=== PATIENT | male | born 1965 | race Caucasian/White ===

== ENCOUNTER 2019-09-10 11:34 | Emergency (ER) | payer SELFPAY ==
[2019-09-10] VITALS (7 sets, daily range): BP systolic 162–212; BP diastolic 88–109; PULSE 82–105; RESP 17–20; TEMP 37.1; O2SAT 94–99
--- NOTE | 2019-09-10 11:51 | ECG_ITS ---
Measurements Intervals [place] Rate: 82 P: 16 TN: 132 QRS: 17 QRSD: 94 T: 63 QT: 373 QTc: 436 SINUS RHYTHM NONSPECIFIC T-WAVE ABNORMALITY No previous ECG available for comparison Electronically Signed On 09-10-2019 18:12:06 CDT by Rachel Dong M.D. [email or web address]
[2019-09-10 12:06] LABS: Basophils % 0.4 %; Eosinophils # 0.1 10^3/uL (0.0-0.8); Hematocrit 50.2 % (42.0-52.0); Hemoglobin 17.2 g/dL (11.7-16.6); Lymphocytes # 1.9 10^3/uL (0.8-4.8); Lymphocytes % 38.8 %; Mean Corpuscular HGB Conc 34.3 g/dL (30.0-36.0); Mean Corpuscular Hemoglobin 30.4 pg (28.0-34.0); Mean Corpuscular Volume 88.8 fL (80-94); Mean Platelet Volume 8.4 fL (7.4-10.4); Monocytes # 0.3 10^3/uL (0.2-0.9); Monocytes % 5.6 %; Neutrophils # 2.6 10^3/uL (1.8-7.7); Neutrophils % 53.8 %; Nucleated Red Blood Cells % 0 %; Platelet Count 181 10^3/cmm (130-400); Red Blood Count 5.65 10^6/uL (4.1-5.3); Red Cell Distribution Width 12.9 % (12.1-15.1); White Blood Count 4.8 10^3/uL (4.0-10.0)
--- NOTE | 2019-09-10 12:15 | W.ED.CHESTPA ---
HPI - Chest Pain General: Chief Complaint: Chest Pain Stated Complaint: CHEST PAIN WITH BACK PAIN Time Seen by Provider: 09/10/19 11:51 History of Present Illness: HPI narrative: Pt states he woke up at 8am and then at 9 whil he was sitting drinking coffee he started having chest pain. Mid sternal, he states for the past several days he has had severe pain between his shoulder blades and he has been drinking about 12 pack beer daily to deal with the pain. states nothing makes it worse or better. Went to pcp and they sent him here because his bp was 200/something complaint: chest pain and chest heaviness Onset (ago): hour(s) (3) Timing of current episode: constant Prior episodes: No Onset: during rest Pain location: substernal Pain radiation: back Severity: severe Pain scale (0-10): 8 Quality: tightness, heaviness and fullness Relieving factors: nothing Exacerbating factors: nothing Associated symptoms: Reports dyspnea and nausea; Deny fever(s), syncope or vomiting Treatment prior to arrival: none Review of Systems General: Reports: 10 or more systems reviewed and unremarkable except in HPI and below Const: Denies: fever, chills or fatigue ENMT: Denies: throat pain Card: Reports: chest pain; Denies: syncope or shortness of breath on exertion Resp: Reports: shortness of breath and productive cough; Denies: wheezing GI: Reports: nausea; Denies: vomiting Musc: Denies: back pain or extremity swelling Skin/Breast: Denies: rash Neuro: Denies: headache, numbness in extremities or weakness in extremities Psych: Reports: anxiety PFSH ED PFSH: Medical History (Updated 09/10/19 @ 14:50 by Marisel Elena DO) Diabetes Social History Smoking and tobacco status: current every day smoker Physical Exam Const: COMMON NORMALS: no apparent distress and oriented x3 GENERAL APPEARANCE: cooperative; not in distress HENMT: COMMON NORMALS: normocephalic HEAD & SCALP: normal to inspection and normocephalic MOUTH: oral and palatal mucosa normal and lip normal THROAT: posterior oropharynx normal and tonsils normal Neck/C-Spine: COMMON NORMALS: full ROM, no lymphadenopathy, supple and no meningeal signs GENERAL: Yes normal visual inspection and Yes trachea midline Chest: COMMONS NORMALS: inspection of chest normal Resp: COMMON NORMALS: normal respiratory effort and clear to auscultation bilaterally EFFORT & INSPECTION: Yes able to speak in complete sentences and No respiratory distress AUSCULTATION: clear to auscultation bilaterally, no rales, no rhonchi and no wheezes Cardio: COMMON NORMALS: regular rate, regular rhythm, S1 normal heart sound, S2 normal heart sound and no murmurs RATE: regular rate RHYTHM: regular rhythm HEART SOUNDS: S1 normal and S2 normal PERIPHERAL PULSES: radial pulses present and dorsalis pedis pulses present GI: COMMON NORMALS: normal to inspection, nondistended, normoactive bowel sounds, soft to palpation and non-tender INSPECTION: Yes normal to inspection AUSCULTATION: Yes normoactive bowel sounds PALPATION: Yes soft, No tender, No guarding and No rigid RECTAL EXAM: Yes deferred : COMMON NORMALS: Yes no CVA tenderness BLADDER/KIDNEY EXAM: Yes no CVA tenderness Back/Pelvis: COMMON NORMALS: no CVA tenderness Extremity: COMMON NORMALS: normal to inspection, full ROM, normal capillary refill, no calf tenderness and no pedal edema Neuro: COMMON NORMALS: oriented x3, CN's II-XII intact bilaterally, moves all extremities and no focal motor deficits MENINGEAL SIGNS: Yes no meningeal signs Skin: COMMON NORMALS: no rashes or lesions noted GENERAL SKIN EXAM: no rashes or lesions noted Course Vital Signs: Vital signs: Vital Signs Temperature 98.7 F 09/10/19 11:37 Pulse Rate 87 09/10/19 16:05 Respiratory Rate 17 09/10/19 16:05 Blood Pressure 174/99 09/10/19 16:05 Pulse Oximetry 98 09/10/19 16:05 MDM - Chest Pain MDM Narrative: Medical decision making narrative: Pts first troponin is negative, he is a diabetic and his glucose is too high at 245. His heart score is 3, if his 2nd trop is unremarkable I will send him home to get set up with outpt stress test. He will need to monitor his sugars carefully, I will send him home to monitor his bp daily and write it down and show it to his pcp for further eval and treatment. Pt understands and will f/u I will start him on levaquin as he describes symptoms that could be consistent with bronchitis Lab Data: Attestation: I reviewed the patient's lab results. Labs: Lab Results 09/10/19 09/10/19 09/10/19 Range/Units 11:48 11:48 11:48 WBC 4.8 (4.0-10.0) 10^3/ uL RBC 5.65 H (4.1-5.3) 10^6/u L Hgb 17.2 H (11.7-16.6) g/dL Hct 50.2 (42.0-52.0) % MCV 88.8 (80-94) fL MCH 30.4 (28.0-34.0) pg MCHC 34.3 (30.0-36.0) g/dL RDW 12.9 (12.1-15.1) % Plt Count 181 (130-400) 10^3/c mm MPV 8.4 (7.4-10.4) fL Neut % (Auto) 53.8 % Lymph % (Auto) 38.8 % [place] % (Auto) 5.6 % Eos % (Auto) 1.0 % Baso % (Auto) 0.4 % Neut # (Auto) 2.6 (1.8-7.7) 10^3/u L Lymph # (Auto) 1.9 (0.8-4.8) 10^3/u L [place] # (Auto) 0.3 (0.2-0.9) 10^3/u L Eos # (Auto) 0.1 (0.0-0.8) 10^3/u L Baso # (Auto) 0.0 (0.0-0.1) 10^3/u L Nucleated RBC % (a uto) 0 % Nucleated RBCs # 0.0 /100WBC D-Dimer (0-0.59) ug/mIFE U Sodium 139 (136-145) mmol/L Potassium 3.7 (3.5-5.1) mmol/L Chloride 97 L (98-107) mmol/L Carbon Dioxide 28 (22-29) mmol/L Anion Gap 17.7 (5-19) BUN 9 (6-20) mg/dL Creatinine 0.8 (0.7-1.2) mg/dL GFR Calculation 100.4 (90-130) mL/min Glucose 245 H (65-115) mg/dL Calculated Osmolal ity 292 (285-295) mOsm/k g Calcium 9.9 (8.5-10.5) mg/dL Total Bilirubin 0.7 (0.15-1.2) mg/dL AST 20 (0-40) U/L ALT 24 (0-41) U/L Alkaline Phosphata se 99 (40-130) IU/L Troponin T Baselin e 14 (0-15) ng/mL Troponin T 120 Min [place] (0-15) ng/mL Delta Troponin T (0-10) ABS# Total Protein 8.2 (6.6-8.7) g/dL Albumin 5.1 (3.5-5.2) g/dL Globulin 3.1 (1.3-4.6) g/dL Ethyl Alcohol (0-10) mg/dL Influenza Type A A g (Negative) Influenza Type B A g (Negative) 09/10/19 09/10/19 09/10/19 Range/Units 11:48 11:48 12:35 WBC (4.0-10.0) 10^3/ uL RBC (4.1-5.3) 10^6/u L Hgb (11.7-16.6) g/dL Hct (42.0-52.0) % MCV (80-94) fL MCH (28.0-34.0) pg MCHC (30.0-36.0) g/dL RDW (12.1-15.1) % Plt Count (130-400) 10^3/c mm MPV (7.4-10.4) fL Neut % (Auto) % Lymph % (Auto) % [place] % (Auto) % Eos % (Auto) % Baso % (Auto) % Neut # (Auto) (1.8-7.7) 10^3/u L Lymph # (Auto) (0.8-4.8) 10^3/u L [place] # (Auto) (0.2-0.9) 10^3/u L Eos # (Auto) (0.0-0.8) 10^3/u L Baso # (Auto) (0.0-0.1) 10^3/u L Nucleated RBC % (a uto) % Nucleated RBCs # /100WBC D-Dimer 0.24 (0-0.59) ug/mIFE U Sodium (136-145) mmol/L Potassium (3.5-5.1) mmol/L Chloride (98-107) mmol/L Carbon Dioxide (22-29) mmol/L Anion Gap (5-19) BUN (6-20) mg/dL Creatinine (0.7-1.2) mg/dL GFR Calculation (90-130) mL/min Glucose (65-115) mg/dL Calculated Osmolal ity (285-295) mOsm/k g Calcium (8.5-10.5) mg/dL Total Bilirubin (0.15-1.2) mg/dL AST (0-40) U/L ALT (0-41) U/L Alkaline Phosphata se (40-130) IU/L Troponin T Baselin e (0-15) ng/mL Troponin T 120 Min [place] (0-15) ng/mL Delta Troponin T (0-10) ABS# Total Protein (6.6-8.7) g/dL Albumin (3.5-5.2) g/dL Globulin (1.3-4.6) g/dL Ethyl Alcohol < 10 (0-10) mg/dL Influenza Type A A g Negative (Negative) Influenza Type B A g Negative (Negative) 09/10/19 Range/Units 13:51 WBC (4.0-10.0) 10^3/ uL RBC (4.1-5.3) 10^6/u L Hgb (11.7-16.6) g/dL Hct (42.0-52.0) % MCV (80-94) fL MCH (28.0-34.0) pg MCHC (30.0-36.0) g/dL RDW (12.1-15.1) % Plt Count (130-400) 10^3/c mm MPV (7.4-10.4) fL Neut % (Auto) % Lymph % (Auto) % [place] % (Auto) % Eos % (Auto) % Baso % (Auto) % Neut # (Auto) (1.8-7.7) 10^3/u L Lymph # (Auto) (0.8-4.8) 10^3/u L [place] # (Auto) (0.2-0.9) 10^3/u L Eos # (Auto) (0.0-0.8) 10^3/u L Baso # (Auto) (0.0-0.1) 10^3/u L Nucleated RBC % (a uto) % Nucleated RBCs # /100WBC D-Dimer (0-0.59) ug/mIFE U Sodium (136-145) mmol/L Potassium (3.5-5.1) mmol/L Chloride (98-107) mmol/L Carbon Dioxide (22-29) mmol/L Anion Gap (5-19) BUN (6-20) mg/dL Creatinine (0.7-1.2) mg/dL GFR Calculation (90-130) mL/min Glucose (65-115) mg/dL Calculated Osmolal ity (285-295) mOsm/k g Calcium (8.5-10.5) mg/dL Total Bilirubin (0.15-1.2) mg/dL AST (0-40) U/L ALT (0-41) U/L Alkaline Phosphata se (40-130) IU/L Troponin T Baselin e (0-15) ng/mL Troponin T 120 Min [place] 14.89 (0-15) ng/mL Delta Troponin T 0.89 (0-10) ABS# Total Protein (6.6-8.7) g/dL Albumin (3.5-5.2) g/dL Globulin (1.3-4.6) g/dL Ethyl Alcohol (0-10) mg/dL Influenza Type A A g (Negative) Influenza Type B A g (Negative) Imaging Data^: CXR: Attestation: I personally reviewed and interpreted this imaging study as follows: My impression: nad Radiologist's impression: XRay Report Signed Patient: Roland Butts #: [id number] : 1965Acct#:[id number] Age/Sex: 54 / MADM Date: 09/10/19 Loc: ERRoom/Bed: Attending Dr: Ordering Provider/Ordering MD: Marisel Elena DO Date of Service: 09/10/19 Procedure(s): XR chest 1V portable [id number] Accession Number(s): [id number] Report Number: [id number] WS: [id number] CHEST XRAY TECHNIQUE: Portable chest. CLINICAL INFORMATION: pneumonia COMPARISON: August 17, 2011 FINDINGS: Heart: Normal cardiac silhouette. Lungs: Lungs are clear. No consolidation or pleural effusion. Bones: Normal visualized bony structures. 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 insulin use: without usp use Diabetes mellitus complication status: with hyperglycemia Qualified Code(s): E11.65 - Type 2 diabetes mellitus with hyperglycemia Chest pain Qualifiers: Chest pain type: precordial pain Qualified Code(s): R07.2 - Precordial pain Condition: Stable Prescriptions: New Levaquin 750 mg tablet 750 mg PO DAILY 7 Days Qty: 7 RF: 0 prednisone 20 mg tablet 60 mg PO DAILY 3 Days Qty: 9 RF: 0 No Action metformin 500 mg tablet 500 mg PO BID RF: 0 amlodipine 10 mg tablet 10 mg PO DAILY RF: 0 hydrochlorothiazide 25 mg tablet 25 mg PO DAILY RF: 0 rosuvastatin 20 mg tablet 20 mg PO DAILY RF: 0 Discharge Orders: Discharge Order (Routine); Ordered 09/10/19 Ordered By: Marisel Elena Referrals: Kelvin Lima MD [Primary Care Provider] - Discharge Diet: Diabetic Discharge Activity: Resume usual activity Patient Instructions: Chest Pain (ED), Acute Bronchitis (ED) Activity Restrictions/Additional Instructions: f/u with PCP in 1-2 days, return if worse, any problem, any change. Take your meds as prescribed. Drink plenty of fluids. check your sugars carefully and maintain a diabetic diet. Pt will get stress test set up as well thru case management Discharge Date/Time: 09/10/19 16:08 Coding Level of Care Code ED Idea Worker for Chg Fwd Exam Comprehensive
[2019-09-10 12:18] LABS: Troponin(5th) Baseline 14 ng/mL (0-15)
[2019-09-10 12:19] LABS: Alanine Aminotransferase 24 U/L (0-41); Albumin Level 5.1 g/dL (3.5-5.2); Alkaline Phosphatase 99 IU/L (40-130); Anion Gap 17.7 (5-19); Aspartate Amino Transferase 20 U/L (0-40); Blood Urea Nitrogen 9 mg/dL (6-20); Calcium 9.9 mg/dL (8.5-10.5); Carbon Dioxide 28 mmol/L (22-29); Chloride 97 mmol/L (98-107); Globulin 3.1 g/dL (1.3-4.6); Glomerular Filtration Rate 100.4 mL/min (90-130); Glucose 245 mg/dL (65-115); Osmolality Calculated 292 mOsm/kg (285-295); Potassium 3.7 mmol/L (3.5-5.1); Sodium 139 mmol/L (136-145); Total Bilirubin 0.7 mg/dL (0.15-1.2); Total Protein 8.2 g/dL (6.6-8.7)
--- NOTE | 2019-09-10 12:23 | XR_ITS ---
WS: [id number] CHEST XRAY TECHNIQUE: Portable chest. CLINICAL INFORMATION: pneumonia COMPARISON: August 17, 2011 FINDINGS: Heart: Normal cardiac silhouette. Lungs: Lungs are clear. No consolidation or pleural effusion. Bones: Normal visualized bony structures. XR/XR chest 1V portable [id number] IMPRESSION: Normal chest
[2019-09-10] MEDS: aspirin 325 mg Tablet PO (12:31)
[2019-09-10] MEDS: nitroglycerin 0.4 mg sublingual Tablet SUBLINGUAL (12:31)
[2019-09-10 13:05] LABS: Influenza A by IFA Negative (Negative); Influenza B by IFA Negative (Negative)
[2019-09-10 13:09] LABS: Alcohol Level < 10 mg/dL (0-10); D Dimer 0.24 ug/mIFEU (0-0.59)
--- NOTE | 2019-09-10 13:54 | PC.NURSE ---
2nd troponin drawn and taken to lab
[2019-09-10 14:35] LABS: Troponin 5 2HR 14.89 ng/mL (0-15); Troponin 5 2HR Delta 0.89 ABS# (0-10)
--- NOTE | 2019-09-10 15:21 | DCPLANNER ---
technical product manager had message to speak with patient about getting a primary care physician. Patient stated that he does not have insurance at this time, case management social worker gave patient both of the nonprofit financial controller applications for the hospital to fill out and turn in. technical product manager spoke with patient about getting established with a primary care physician. technical product manager spoke with patient about getting established with Dr. Harper that is with [facility], the nonprofit financial controller would work this physician. Patient stated that case management social worker could set patient up with Dr. Harper. technical product manager also had an order for a stress test for patient, and he stated that he would like the stress test to be ordered. technical product manager will fax order to centralized scheduling, and will have results sent to Dr. Harper. technical product manager will schedule a follow up appointment for patient with Dr. Harper for after the stress test.
[2019-09-10] MEDS: HYDROcodone-acetaminophen 7.5-325 mg Tablet 1 TAB PO (16:01)
--- NOTE | 2019-09-10 17:51 | ECG_ITS ---
Measurements Intervals [place] Rate: 101 P: 58 [place]: 132 QRS: 7 QRSD: 94 T: 75 QT: 373 QTc: [address] & T-WAVE ABNORMALITY ABNORMAL RHYTHM ECG No previous ECG available for comparison Electronically Signed On 09-10-2019 18:18:21 CDT by Rachel Dong M.D. [id number]
--- NOTE | 2019-09-12 09:35 | DCPLANNER ---
government contracts manager called centralized scheduling, a stress test is scheduled for Friday, September 20, 2019 at 8:00. government contracts manager then called the office of Dr. Harper, spoke with Bhakti, a follow up appointment is scheduled for September at 2:[address] Harper. government contracts manager called patient and informed patient of the scheduled appointments. Patient stated that he would attend the appointments.
--- NOTE | 2019-10-01 13:51 | DCPLANNER ---
Patient attended stress test scheduled for 09.20.19 and follow up appointment with Dr. Harper scheduled for 09.26.19.
== END 2019-09-10 16:08 | disposition home or self-care (01) ==
PROVIDERS: Family Medicine; Emergency Provider Emergency Medicine; Family Provider Family Medicine; PCP Family Medicine
DX: J40 Bronchitis, not specified as acute or chronic (principal); E11.65 Type 2 diabetes mellitus with hyperglycemia; Z79.84 Long term (current) use of oral hypoglycemic drugs; R07.2 Precordial pain; F17.210 Nicotine dependence, cigarettes, uncomplicated
CPT/HCPCS: 12345; 36415; 71045; 80053; 80307; 84484; 85025; 85378; 87804; 93005; 99283; 99284

== ENCOUNTER 2019-09-20 08:21 | Outpatient (CLI) | payer SELFPAY ==
[2019-09-20 08:51] VITALS: BMI 30.7
--- NOTE | 2019-09-20 08:56 | ECG_ITS ---
NAME OF STUDY: LEXISCAN SESTAMIBI STRESS TEST INDICATION: Chest Pain, NOTE: Please note that this is the electrocardiogram portion of the Lexiscan/Sestamibi stress test. The perfusion scan will be documented separately. DATA: Baseline heart rate was 88 beats per minute. Baseline blood pressure was 192/96 millimeters of mercury. Target heart rate was 165. Maximum heart rate achieved was 111. which was 67 % of the predicted target heart rate. Maximum blood pressure was 190-110 millimeters of mercury. The reason for ending the test was completion of the protocol. The patient experienced shortness of breath which was then resolved at the end of the test. ELECTROCARDIOGRAM: BASELINE: Sinus rhythm. Normal axis. Otherwise, no ST-T changes suggestive of ischemia noted. No arrhythmia noted. EXERCISE: After Lexiscan injection, no ST-T changes suggestive of ischemic noted. No arrhythmia noted. 1. EKG not suggestive of ischemia 2. Lexiscan injection unremarkable. 3. Perfusion scan will be documented separately. Electronically Signed On 09-20-2019 20:45:18 CDT by Anna Garza M.D. [id number]
--- NOTE | 2019-09-20 08:57 | NMCV_ITS ---
NM jesse perf SPECT r/s* [id number] Roland Butts Age: 54 Gender: M : 1965 Exam Date: 09/20/2019 09:05 Ordering Phys: Marisel Elena DO Technologist: DEMETRI Lewis Exam Location: [facility] Indications: CHEST PAIN WITH BACK PAIN STRESS TEST Please see separate stress test report in [facility] for full findings IMAGE PROTOCOL Rest/Stress 1 Lexiscan Day Radiopharmaceutical Dose (mCi) Administration Site Administered by Rest: Tc-99m 10.6 IV Ofelia Dimas, DEMETRI Sestamibi Stress:Tc-99m 32.9 IV Ofelia Dimas, [employer] Sestamibi Rest: 20-Sep-2019 60 Discovery 630 Stress: 20-Sep-2019 30 Discovery 630 0.4mg Lexiscan. Images obtained in supine and prone position. SPECT RESULTS Technical Quality: Excellent Raw Data Analysis: Normal Image Corrections: No attenuation or motion correction applied Summed Stress Score: 0 Summed Rest Score: 0 Summed Difference Score: 0 PERFUSION FINDINGS Medium-size area of decreased tracer uptake noted in basal to mid inferior and inferolateral wall on the rest images which improved over stress images suggestive of artifact. FUNCTIONAL RESULTS (calculated via Gated SPECT) Stress Image LV EF (%): 51 Stress EDV (mL):129 TID: 0.96 Stress ESV (mL):63 Rest Image LV EF (%): 55 FUNCTIONAL FINDINGS: There is normal left ventricular systolic function. IMPRESSIONS Myocardial perfusion imaging is normal and low probability for obstructive coronary artery disease. EKG segment will be documented separately. Anna Garza MD (Electronically Signed) Final Date: 20 Sep 2019 14:29 S
--- NOTE | 2019-09-20 09:56 | SUR.PREOP ---
Patient reports no pain or discomfort prior to the start of the procedure.
[2019-09-20] MEDS: regadenoson 0.4 Mg/5 ml Syringe IVP (09:57)
[2019-09-20 10:00] VITALS: BP 178/91; PULSE 100
== END 2019-09-20 08:22 | disposition home or self-care (01) ==
PROVIDERS: Family Provider Family Medicine; Visit Provider Emergency Medicine
DX: R07.9 Chest pain, unspecified (principal)
CPT/HCPCS: 78452; 93017; A9500; J2785

== ENCOUNTER → 2019-10-28 13:35 | Outpatient (BNVA) | payer SELFPAY | PROVIDERS: Family Provider Family Medicine; PCP Family Medicine; Visit Provider Family Medicine | DX: I10 Essential (primary) hypertension (principal); E11.9 Type 2 diabetes mellitus without complications; F17.219 Nicotine dependence, cigarettes, with unspecified nicotine-induced disorders | CPT/HCPCS: 80048 ==

== ENCOUNTER → 2019-12-30 09:34 | Outpatient (BNVA) | payer SELFPAY | PROVIDERS: Family Provider Family Medicine; PCP Family Medicine; Visit Provider Family Medicine | DX: I10 Essential (primary) hypertension (principal); E11.9 Type 2 diabetes mellitus without complications; E78.5 Hyperlipidemia, unspecified; F17.219 Nicotine dependence, cigarettes, with unspecified nicotine-induced disorders | CPT/HCPCS: 80053; 80061; 82043; 83036 ==

== ENCOUNTER → 2020-01-30 08:54 | Outpatient (BNVA) | payer SELFPAY | PROVIDERS: Family Provider Family Medicine; PCP Family Medicine; Visit Provider Family Medicine | DX: E11.9 Type 2 diabetes mellitus without complications (principal); R68.82 Decreased libido | CPT/HCPCS: 80053; 84403 ==

== ENCOUNTER → 2020-03-02 10:45 | Outpatient (BNVA) | payer SELFPAY | PROVIDERS: Family Provider Family Medicine; PCP Family Medicine; Visit Provider Family Medicine | DX: I10 Essential (primary) hypertension (principal); E11.9 Type 2 diabetes mellitus without complications; E78.2 Mixed hyperlipidemia; F17.219 Nicotine dependence, cigarettes, with unspecified nicotine-induced disorders | CPT/HCPCS: 80048 ==

== ENCOUNTER 2020-04-21 20:00 | Outpatient (CLI) | payer SELFPAY | END 2020-04-21 20:01 | disposition home or self-care (01) | LOC: SLEEP 04-22 11:17 | PROVIDERS: Family Provider Family Medicine; PCP Family Medicine; Visit Provider Internal Medicine Cardiovascular Disease | DX: G47.33 Obstructive sleep apnea (adult) (pediatric) (principal) | CPT/HCPCS: 95810 ==

== ENCOUNTER → 2020-05-05 10:03 | Outpatient (BNVA) | payer SELFPAY | PROVIDERS: PCP Family Medicine; Visit Provider Family Medicine | DX: E11.9 Type 2 diabetes mellitus without complications (principal); Z23 Encounter for immunization; K21.9 Gastro-esophageal reflux disease without esophagitis | CPT/HCPCS: 80053; 83036 ==

== ENCOUNTER 2020-05-06 20:00 | Outpatient (CLI) | payer SELFPAY | END 2020-05-06 20:01 | disposition home or self-care (01) | LOC: SLEEP 05-07 09:50 | PROVIDERS: PCP Family Medicine; Visit Provider Family Medicine | DX: G47.33 Obstructive sleep apnea (adult) (pediatric) (principal) | CPT/HCPCS: 95811 ==

== ENCOUNTER 2020-05-07 14:57 | Outpatient (CLI) | payer SELFPAY ==
--- NOTE | 2020-05-07 15:00 | USCV_ITS ---
Roland Butts Age: 55 Gender: M : 1965 Exam Date: 05/07/2020 14:54 Ordering Phys: Charlene Marie MD ([email or web address]) Technologist: Steven Whatley [place] [facility] [place] Indication: ESSENTIAL HYPERTENSION BP: 140 / 85 HR: 73 Rhythm: Sinus Technical Quality: Adequate MEASUREMENTS (Male / Female) Normal Values 2D ECHO LV Diastolic Diameter PLAX 4.3 cm 4.2 - 5.9 / 3.9 - 5.3 cm LV Systolic Diameter PLAX 3.2 cm IVS Diastolic Thickness 1.7 cm 0.6 - 1.0 / 0.6 - 0.9 cm IVS Systolic Thickness 2.1 cm LVPW Diastolic Thickness 1.2 cm 0.6 - 1.0 / 0.6 - 0.9 cm LVPW Systolic Thickness 1.9 cm LVOT Diameter 2.0 cm LV Ejection Fraction 2D Teich 43.2 % LV Ejection Fraction MOD 2C 55.2 % LV Ejection Fraction 2C AL 53.7 % LA Diameter 3.3 cm LA Width 4.0 cm LA Height 4.8 cm RA Width 3.9 cm RA Height 5.0 cm Aorta at Sinotubular Diameter 2.3 cm M-MODE LV Diastolic Diameter MM 4.5 cm 4.2 - 5.9 / 3.9 - 5.3 cm LV Systolic Diameter MM 2.8 cm LV Ejection Fraction MM Teich 69.5 % IVS Diastolic Thickness MM 1.3 cm 0.6 - 1.0 / 0.6 - 0.9 cm IVS Systolic Thickness MM 1.9 cm LVPW Diastolic Thickness MM 1.4 cm 0.6 - 1.0 / 0.6 - 0.9 cm LVPW Systolic Thickness MM 2.0 cm RV Diastolic Diameter MM 1.1 cm Aortic Annulus Diameter 3.3 cm LA Ao Ratio MM 1.1 MV E Point Septal Separation 1.0 cm DOPPLER AV Peak Velocity 144.0 cm/s LVOT Peak Velocity 107.0 cm/s AV Area Cont Eq vti 2.4 cm squared AV Area Cont Eq pk 2.4 cm squared MV Area PHT 2.8 cm squared Mitral E to A Ratio 1.0 MV E' Velocity 34.5 cm/s Mitral E to MV E' Ratio 7.2 Mitral E to LV E' Lateral Ratio 7.7 Mitral E to LV E' Septal Ratio 6.9 TR Peak Velocity 217.0 cm/s TR Peak Gradient 18.8 mmHg TV Peak E Velocity 66.0 cm/s Right Atrial Pressure 3.0 mmHg Pulmonary Artery Systolic Pressu 21.8 mmHg FINDINGS Left Ventricle Normal left ventricular size and systolic function with no regional wall motion abnormalities. Moderate concentric left ventricular hypertrophy. Left ventricular ejection fraction is estimated at 65 %. Normal diastolic function. Right Ventricle Normal right ventricular size and systolic function, RVSP 21.8 mmHg. Right Atrium Normal right atrial size. Right atrial pressure estimated at 3 mmHg. Left Atrium Normal left atrial size. Mitral Valve Mildly thickened mitral valve. No mitral valve stenosis. No significant mitral valve regurgitation. Aortic Valve Structurally normal trileaflet aortic valve. No aortic valve stenosis. No aortic valve regurgitation. Tricuspid Valve Structurally normal tricuspid valve. No tricuspid valve stenosis. Trace tricuspid valve regurgitation. Pulmonic Valve Pulmonic valve not well visualized. No pulmonary valve stenosis. Pericardium No pericardial effusion. Aorta Normal size aortic root and proximal ascending aorta. Normal- sized inferior vena cava. CONCLUSIONS 1. Normal left ventricular size and systolic function and moderately increased wall thickness, with no regional wall motion abnormalities. Moderate concentric left ventricular hypertrophy. Left ventricular ejection fraction is estimated at 65 %. Normal diastolic function. 2. Normal right ventricular size and systolic function. 3. Normal pulmonary artery pressure. 4. No significant valvular abnormality. 5. No prior similar studies to compare. Charlene Marie MD (Electronically Signed) Final Date: 09 May 2020 16:10 S
== END 2020-05-07 14:58 | disposition home or self-care (01) ==
LOC: US 14:59
PROVIDERS: PCP Family Medicine; Visit Provider Internal Medicine Cardiovascular Disease
DX: I10 Essential (primary) hypertension (principal)
CPT/HCPCS: 93306

== ENCOUNTER 2020-07-31 14:08 | Outpatient (CLI) | payer SELFPAY ==
--- NOTE | 2020-07-31 14:15 | XR_ITS ---
WS: [id number] LUMBAR SPINE: 3 VIEWS TECHNIQUE: AP, lateral and L5-S1 spot. HISTORY: chronic low back pain COMPARISON: 06/15/2015 Posterior alignment is normal. Advanced degenerative disc disease at L4-5 and L5-S1. No fractures. Mo derate facet joint arthritis at L4-5 and L5-S1. Pedicles are all identified. SI joints are symmetric bilaterally. No soft tissue abnormalities. Mild atherosclerosis in the iliac arteries. Mild ectasia and atherosclerosis aorta measuring 2.7 cm i n diameter. XR/XR lumbar spine 2-3V* [id number] IMPRESSION: 1. Advanced degenerative disc disease at L4-5 and L5-S1 with facet arthritis, minimal progression since 2015. 2. Ectatic abdominal aorta without change. 3. No fractures.
== END 2020-07-31 14:09 | disposition home or self-care (01) ==
LOC: RADWPI 14:11
PROVIDERS: PCP Family Medicine; Visit Provider Family Medicine
DX: G89.29 Other chronic pain (principal); M51.36 Other intervertebral disc degeneration, lumbar region; M51.37 Other intervertebral disc degeneration, lumbosacral region
CPT/HCPCS: 72100; 80053; 80061; 82043; 83036; 85025

== ENCOUNTER → 2020-11-13 09:13 | Outpatient (BNVA) | payer SELFPAY | PROVIDERS: PCP Family Medicine; Visit Provider Family Medicine | DX: E11.9 Type 2 diabetes mellitus without complications (principal); R35.1 Nocturia | CPT/HCPCS: 80053; 83036; 84153 ==

== ENCOUNTER 2020-11-20 08:32 | Outpatient (CLI) | payer SELFPAY ==
--- NOTE | 2020-11-20 08:38 | MR_ITS ---
WS: [id number] MRI LUMBAR SPINE NONCONTRAST HISTORY: LEFT-SIDED LOW BACK PAIN COMPARISON: None available. TECHNIQUE: Sagittal and axial multisequence imaging is submitted. Mild degenerative changes throughout the cervical and thoracic spine. No cord compression identified. Posterior lumbar alignment is normal. Advanced degenerative disc disease at L4-5 and L5-S1. No marrow edema or acute fracture. Conus terminates normally at L1-2 disc level. L1-L2: Normal. L2-L3: Mild bilateral facet joint arthritis. No stenosis. L3-L4: Mild annular disc bulging. Moderate facet and ligamentum flavum hypertrophy. Increase fluid in the facet joints with mild widening. Bilateral mild to moderate subarticular and foraminal stenosis. Slightly greater foraminal stenosis on the LEFT. L4-L5: Diffuse annular disc bulging with moderate ligamentum flavum hypertrophy and facet arthritis. There is a focal central disc protrusion with annular fissure contacting the ventral thecal sac. Mild central with [id number] subarticular recess and foraminal stenosis. L5-S1: Moderate annular disc bulging with osteophytic ridging. Moderate ligamentum flavum hypertrophy and facet arthritis. There is complete effacement of fat in the LEFT subarticular recess and foramen . Severe LEFT foraminal stenosis due to disc and possible disc protrusion and osteophytes. Mild RIGHT foraminal stenosis. MR/MR lumbar spine wo con* [id number] IMPRESSION: 1. Severe LEFT subarticular recess and foraminal stenosis at L5-S1 with contac t on the LEFT S1 and L5 nerve root. 2. Mild central with mild to moderate bilateral subarticular recess and forami nal stenosis at L4-5. 3. Bilateral mild to moderate subarticular recess and foraminal stenosis at L3 -4. Slightly greater on the LEFT. 4. Severe degenerative disc disease at L4-5 and L5-S1
== END 2020-11-20 08:33 | disposition home or self-care (01) ==
LOC: RADWPI 08:34
PROVIDERS: PCP Family Medicine; Visit Provider Family Medicine
DX: M54.42 Lumbago with sciatica, left side (principal); M48.07 Spinal stenosis, lumbosacral region; M48.061 Spinal stenosis, lumbar region without neurogenic claudication; M51.36 Other intervertebral disc degeneration, lumbar region; M51.37 Other intervertebral disc degeneration, lumbosacral region
CPT/HCPCS: 72148

== ENCOUNTER → 2021-01-28 09:24 | Outpatient (BNVA) | payer SELFPAY | PROVIDERS: PCP Family Medicine; Visit Provider Anesthesiology Pain Medicine | DX: G89.29 Other chronic pain (principal); M51.16 Intervertebral disc disorders with radiculopathy, lumbar region; M51.36 Other intervertebral disc degeneration, lumbar region; M47.816 Spondylosis without myelopathy or radiculopathy, lumbar region; M79.605 Pain in left leg; R20.0 Anesthesia of skin; F17.210 Nicotine dependence, cigarettes, uncomplicated | CPT/HCPCS: 99205 ==

== ENCOUNTER → 2021-02-08 14:25 | Outpatient (BNVA) | payer SELFPAY | PROVIDERS: PCP Family Medicine; Visit Provider Anesthesiology Pain Medicine | DX: Z01.812 Encounter for preprocedural laboratory examination (principal); E11.9 Type 2 diabetes mellitus without complications; G89.29 Other chronic pain; M47.816 Spondylosis without myelopathy or radiculopathy, lumbar region; M54.42 Lumbago with sciatica, left side; F17.210 Nicotine dependence, cigarettes, uncomplicated | CPT/HCPCS: 36416; 64493; 64494; 64495; 82962; J3490 ==

== ENCOUNTER → 2021-02-23 10:33 | Outpatient (BNVA) | payer SELFPAY | PROVIDERS: PCP Family Medicine; Visit Provider Anesthesiology Pain Medicine | DX: G89.29 Other chronic pain (principal); M51.36 Other intervertebral disc degeneration, lumbar region; M47.816 Spondylosis without myelopathy or radiculopathy, lumbar region; M51.16 Intervertebral disc disorders with radiculopathy, lumbar region; M79.605 Pain in left leg | CPT/HCPCS: 99213 ==

== ENCOUNTER → 2021-03-08 14:01 | Outpatient (BNVA) | payer SELFPAY | PROVIDERS: PCP Family Medicine; Visit Provider Anesthesiology Pain Medicine | DX: Z01.812 Encounter for preprocedural laboratory examination (principal); E11.9 Type 2 diabetes mellitus without complications; G89.29 Other chronic pain; M47.816 Spondylosis without myelopathy or radiculopathy, lumbar region; M54.42 Lumbago with sciatica, left side; F17.210 Nicotine dependence, cigarettes, uncomplicated | CPT/HCPCS: 36416; 64635; 64636; 82962 ==

== ENCOUNTER → 2021-03-16 15:32 | Outpatient (BNVA) | payer SELFPAY | PROVIDERS: PCP Family Medicine; Visit Provider Family Medicine | DX: E11.9 Type 2 diabetes mellitus without complications (principal); I10 Essential (primary) hypertension; E78.2 Mixed hyperlipidemia; G47.33 Obstructive sleep apnea (adult) (pediatric); Z68.30 Body mass index [BMI] 30.0-30.9, adult; F17.219 Nicotine dependence, cigarettes, with unspecified nicotine-induced disorders | CPT/HCPCS: 80053; 83036 ==

== ENCOUNTER → 2021-03-24 13:58 | Outpatient (BNVA) | payer SELFPAY | PROVIDERS: PCP Family Medicine; Visit Provider Anesthesiology Pain Medicine | DX: G89.29 Other chronic pain (principal); M51.16 Intervertebral disc disorders with radiculopathy, lumbar region; M51.36 Other intervertebral disc degeneration, lumbar region; M47.816 Spondylosis without myelopathy or radiculopathy, lumbar region; M79.605 Pain in left leg | CPT/HCPCS: 99214 ==

== ENCOUNTER 2022-09-17 04:16 | Inpatient (IN) | payer MEDICAID, SELFPAY ==
[2022-09-17] VITALS (21 sets, daily range): BP systolic 126–219; BP diastolic 77–139; PULSE 98–133; RESP 16–33; TEMP 36.3–36.9; O2SAT 81–98; BMI 25.0; BMI 29.7
--- NOTE | 2022-09-17 04:21 | ECG_ITS ---
[facility] Test Date: 2022-09-17 Pat Name: Roland Butts Department: Room: Gender: Male Director Retirement: : 1965 Requested By: Richard Mooney Order Number: [id number] Abdelrahman MD: Rachel Dong M.D. Measurements Intervals [place] Rate: 133 P: 57 [place]: 138 QRS: 35 QRSD: 93 T: 75 QT: 309 QTc: 460 Interpretive Statements SINUS TACHYCARDIA with occasional PVCs NONSPECIFIC ST & T-WAVE ABNORMALITY ABNORMAL RHYTHM ECG Compared to ECG 09/10/2019 14:02:46 Sinus rhythm no longer present T-wave abnormality still present Electronically Signed On 09-17-2022 16:38:27 CDT by Rachel Dong M.D. [id number]
--- NOTE | 2022-09-17 04:21 | XRR_ITS ---
PROCEDURE INFORMATION: Exam: XR Chest Exam date and time: 09/17/2022 4:26 AM Age: 57 years old Clinical indication: Shortness of breath; Patient HX: C/O SOB TECHNIQUE: Imaging protocol: Radiologic exam of the chest. Views: 1 view. COMPARISON: CR XR chest 1V portable [id number] 09/10/2019 12:26 PM FINDINGS: Lungs: Diffusely increased interstitial lung markings more prominent than comparison imaging. Negative pulmonary consolidation. Pleural spaces: Unremarkable. No pleural effusion. No pneumothorax. Heart/Mediastinum: Unremarkable. No cardiomegaly. Bones/joints: Unremarkable. XR/XR chest 1V portable [id number] IMPRESSION: Widespread interstitial edema new from comparison.
--- NOTE | 2022-09-17 04:23 | ED_ITS ---
Documented by User: Richard Mooney MD 09/17/22 04:33 HPI - SOB/Dyspnea General: Chief Complaint: Shortness of Breath/Dyspnea Stated Complaint: sob Time Seen by Provider: 09/17/22 04:18 Source: patient Mode of arrival: ambulatory Limitations: no limitations History of Present Illness: HPI Narrative: 57-year-old male states he has been having shortness of breath for the last day. He is a longtime smoker no known history of COPD or CHF states he had a cough and is feels like he cannot catch his breath he is tachycardic here and hypoxic along with hypertensive he does have a history of high blood pressure he is requiring 6 L oxygen. He denies any chest pain denies any fever. Associated symptoms: Deny abdominal pain, chest pain, fever(s), nausea or vomiting Review of Systems Const: Denies: fever(s) or chills Eyes: Denies: eye discomfort ENMT: Denies: throat pain or dental pain Card: Denies: chest pain Resp: Reports: dyspnea and non-productive cough GI: Denies: abdominal pain, nausea, vomiting or diarrhea : Denies: dysuria Musc: Denies: neck pain or back pain Skin/Breast: Denies: rash Neuro: Denies: headache(s) Psych: Denies: depression PFSH ED PFSH: Medical History (Updated 09/17/22 @ 06:15 by David Avilez DO) Essential hypertension Hyperlipidemia Type 2 diabetes mellitus, without long-term current use of insulin Surgical History History of ankle surgery History of hip surgery Family History Other CAD (coronary artery disease) Cancer Diabetes Social History Alcohol intake: current Alcohol intake frequency: 3 or more drinks per day Alcohol type: beer Desire information about alcohol rehabilitation?: No Substance/Drug Use: never Physical Exam Const: COMMON NORMALS: patient oriented x3 GENERAL APPEARANCE: ill appearing HENMT: COMMON NORMALS: normocephalic and atraumatic HEAD & SCALP: normo cephalic and atraumatic Eye: COMMON NORMALS: conjunctivae normal CONJUNCTIVA: Yes conjunctivae normal Neck/C-Spine: COMMON NORMALS: full ROM and supple Chest: COMMONS NORMALS: normal inspection of the chest and normal palpation of entire chest wall Resp: EFFORT & INSPECTION: Yes tachypneic and Yes respiratory distress AUSCULTATION: rales Cardio: COMMON NORMALS: regular rhythm and No murmurs present (Cardio) RATE: tachycardic RHYTHM: regular rhythm GI: COMMON NORMALS: Normal to inspection, nondistended, normoactive bowel sounds present, Soft to palpation, non-tender and no masses PALPATION: Yes Soft to palpation Extremity: COMMON NORMALS: normal to inspection and full ROM Neuro: COMMON NORMALS: patient oriented x3, moves all extremities and no focal motor deficits Psych: COMMON NORMALS: mental status grossly normal, Normal thought process present and cooperative THOUGHT PROCESS: Normal thought process present Skin: COMMON NORMALS: no rashes or lesions noted and no wounds GENERAL SKIN EXAM: no rashes or lesions noted Course Vital Signs: Vital signs: Vital Signs Temperature 97.5 F L 09/17/22 04:22 Pulse Rate 107 H 09/17/22 06:00 Respiratory Rate 19 H 09/17/22 06:00 Blood Pressure 155/106 09/17/22 06:00 Pulse Oximetry 96 09/17/22 06:00 Oxygen Delivery Me thod Nasal Cannula 09/17/22 06:00 Oxygen Flow Rate 6 09/17/22 04:46 MDM - SOB/Dyspnea Lab Data 09/17/22 04:38 09/17/22 04:38 Labs/Radiology: Radiology Impressions Chest X-Ray 09/17/22 04:21 IMPRESSION: Widespread interstitial edema new from comparison. Chest CTA 09/17/22 05:09 IMPRESSION: 1. Negative for pulmonary embolism. 2. Widespread interstitial edema. Small pleural effusions. Laboratory Results WBC 6.5 10^3/uL (4.0-10.0) 09/17/22 04:38 RBC 5.55 10^6/uL (4.1-5.3) H 09/17/22 04:38 Hgb 16.9 g/dL (11.7-16.6) H 09/17/22 04:38 Hct 49.0 % (42.0-52.0) 09/17/22 04:38 MCV 88.3 fl (80-94) 09/17/22 04:38 MCH 30.5 pg (28.0-34.0) 09/17/22 04:38 MCHC 34.5 g/dL (30.0-36.0) 09/17/22 04:38 RDW 12.5 % (12.1-15.1) 09/17/22 04:38 Plt Count 195 10^3/cmm (130-400) 09/17/22 04:38 MPV 8.8 fL (7.4-10.4) 09/17/22 04:38 Neut % (Auto) 62.3 % 09/17/22 04:38 Lymph % (Auto) 29.1 % 09/17/22 04:38 Briscoe % (Auto) 5.5 % 09/17/22 04:38 Eos % (Auto) 2.0 % 09/17/22 04:38 Baso % (Auto) 0.6 % 09/17/22 04:38 Neut # (Auto) 4.07 10^3/uL (1.8-7.7) 09/17/22 04:38 Lymph # (Auto) 1.9 10^3/uL (0.8-4.8) 09/17/22 04:38 [place]iscoe # (Auto) 0.4 10^3/uL (0.2-0.9) 09/17/22 04:38 Eos # (Auto) 0.1 10^3/uL (0.0-0.8) 09/17/22 04:38 Baso # (Auto) 0.0 10^3/uL (0.0-0.1) 09/17/22 04:38 Nucleated RBC % (auto) 0 % 09/17/22 04:38 Nucleated RBCs # 0.0 /100WBC 09/17/22 04:38 PT 12.90 SECONDS (12.1-14.9) 09/17/22 04:38 INR 0.95 (0.8-1.2) 09/17/22 04:38 D-Dimer 0.83 ug/mIFEU (0-0.59) H 09/17/22 04:38 Specimen Type Arterial 09/17/22 04:47 Sample Site Brachial, left 09/17/22 04:47 ABG pH 7.33 (7.35-7.45) L 09/17/22 04:47 ABG pCO2 47.2 mmHg (35-45) H 09/17/22 04:47 ABG pO2 69.2 mmHg (80.0-100.0) L 09/17/22 04:47 ABG HCO3 25.1 mmol/L (22-26) 09/17/22 04:47 ABG Base Excess -1.4 mmol/L (-2.0-2.0) 09/17/22 04:47 Rojelio Test N/a 09/17/22 04:47 Hematocrit 49.5 % (42-52) 09/17/22 04:47 Hgb O2 Saturation 88.8 % (95-100) L 09/17/22 04:47 Carboxyhemoglobin 5.2 %THgb (0.4-20.1) 09/17/22 04:47 Methemoglobin 0.5 % (0.4-1.5) 09/17/22 04:47 Total Hemoglobin 16.2 g/dL (14-18) 09/17/22 04:47 O2 Delivery Device Nc 09/17/22 04:47 O2 Liters/Min 6.0 % 09/17/22 04:47 FiO2 45.0 % 09/17/22 04:47 Certified Ophthalmic Surgical Assistant ID Alewe 09/17/22 04:47 Sodium 135 mmol/L (136-145) L 09/17/22 04:38 Potassium 4.3 mmol/L (3.5-5.1) 09/17/22 04:38 Chloride 97 mmol/L (98-107) L 09/17/22 04:38 Carbon Dioxide 27 mmol/L (22-29) 09/17/22 04:38 Anion Gap 15.3 (5-19) 09/17/22 04:38 BUN 26 mg/dL (6-20) H 09/17/22 04:38 Creatinine 0.8 mg/dL (0.7-1.2) 09/17/22 04:38 GFR Calculation 99.3 mL/min (90-130) 09/17/22 04:38 Glucose 415 mg/dL (65-115) H 09/17/22 04:38 POC Glucose 413 mg/dL (70-110) H 09/17/22 04:47 Calculated Osmolality 302 mOsm/kg (285-295) H 09/17/22 04:38 Calcium 9.0 mg/dL (8.5-10.5) 09/17/22 04:38 Total Bilirubin 0.4 mg/dL (0.15-1.2) 09/17/22 04:38 AST 20 U/L (0-40) 09/17/22 04:38 ALT 28 U/L (0-41) 09/17/22 04:38 Alkaline Phosphatase 142 U/L (40-130) H 09/17/22 04:38 Troponin T Baseline 51 ng/L (0-15) H 09/17/22 04:38 NT-Pro-B Natriuret Pep 1620 pg/mL (0-125) H 09/17/22 04:38 Total Protein 7.3 g/dL (6.6-8.7) 09/17/22 04:38 Albumin 4.1 g/dL (3.5-5.2) 09/17/22 04:38 Globulin 3.2 g/dL (1.3-4.6) 09/17/22 04:38 Influenza Type A Ag negative (Negative) 09/17/22 04:37 Influenza Type B Ag negative (Negative) 09/17/22 04:37 SARS-CoV-2 Ag (Rapid) negative (Negative) 09/17/22 04:37 EKG Data EKG 1: I personally reviewed and interpreted this EKG as follows: EKG Interpretation Date: 09/17/22 EKG interpretation time: 04:26 Interpretation: sinus tach hr [address] or t wave abnormalities qrs 93 qtc 387 Discharge Plan Discharge Patient Disposition: Admitted As Inpatient Clinical Impression: Congestive heart failure, Essential hypertension, Type 2 diabetes mellitus, without long-term current use of insulin Condition: Stable Prescriptions: No Action (DME) AUTO-TITRATING CPAP 6-10cm See Rx Instructions .Route .MEDSUPPLY Qty: 1 0RF Rx Instructions: As directed hydralazine 10 mg tablet See Rx Instructions .ROUTE .COMPLEX Qty: 30 0RF Dose Instruction: TAKE 1 TABLET BY MOUTH THREE TIMES DAILY Rx Instructions: TAKE 1 TABLET BY MOUTH THREE TIMES DAILY amlodipine 10 mg tablet 10 mg PO DAILY Qty: 45 0RF Invokana 300 mg tablet 300 mg PO DAILY Qty: 45 0RF carvedilol 25 mg tablet 25 mg PO BID Qty: 90 0RF cyclobenzaprine 10 mg tablet 10 mg PO .po q hs Qty: 45 0RF gabapentin 300 mg capsule 300 mg PO TID Qty: 135 0RF glipizide 5 mg tablet 5 mg PO BID 30 Days Qty: 90 0RF hydrochlorothiazide 50 mg tablet 50 mg PO DAILY Qty: 45 0RF lisinopril 40 mg tablet 40 mg PO BID Qty: 45 0RF metformin 1,000 mg tablet 1,000 mg PO BID Qty: 90 0RF pantoprazole 40 mg tablet,delayed release (DR/EC) 40 mg PO DAILY Qty: 45 0RF rosuvastatin 40 mg tablet 40 mg PO DAILY Qty: 45 0RF sildenafil (pulm.hypertension) 20 mg tablet 20 mg PO .COMPLEX Qty: 30 0RF Rx Instructions: 20 mg PO 1-5 tablets one hour prior to sexual intercourse - on an empty stomach; administer doses at least 4-6 hours apart Referrals: Yenny Harper DO [Physician] - Patient Instructions: Opioid Safety, Pain Management Sign Out Sign Out Data: Patient Sign Out occurred on 09/17/22 at 05:43. Patient's care was discussed, and care was transferred from to David Avilez DO. Coding Level of Care Code ED Wrapper Stemmer Operator for Chg Fwd Documented by User: David Avilez DO 09/17/22 06:15 HPI - SOB/Dyspnea General: Chief Complaint: Shortness of Breath/Dyspnea Stated Complaint: sob Time Seen by Provider: 09/17/22 04:18 PFS ED PFSH: Medical History (Updated 09/17/22 @ 06:15 by David Avilez DO) Essential hypertension Hyperlipidemia Type 2 diabetes mellitus, without long-term current use of insulin Surgical History History of ankle surgery History of hip surgery Family History Other CAD (coronary artery disease) Cancer Diabetes Social History Alcohol intake: current Alcohol intake frequency: 3 or more drinks per day Alcohol type: beer Desire information about alcohol rehabilitation?: No Substance/Drug Use: never Course Vital Signs: Vital signs: Vital Signs Temperature 97.5 F L 09/17/22 04:22 Pulse Rate 107 H 09/17/22 06:00 Respiratory Rate 19 H 09/17/22 06:00 Blood Pressure 155/106 09/17/22 06:00 Pulse Oximetry 96 09/17/22 06:00 Oxygen Delivery Me thod Nasal Cannula 09/17/22 06:00 Oxygen Flow Rate 6 09/17/22 04:46 MDM - SOB/Dyspnea Medical Decision Making Care assumed from Dr. Mooney at change of shift. Labs and imaging reviewed CTA of the chest shows pulmonary edema no PE. Admit for congestive heart failure. Patient has already been given Lasix. There is no evidence of pneumonia initial troponin slightly elevated BNP elevated serial troponins are still pending. There are no infiltrates or signs of pneumonia on the chest x-ray or CT. Medical Records I reviewed the patient's medical records. Lab Data I reviewed the patient's lab results. 09/17/22 04:38 09/17/22 04:38 Labs/Radiology: Radiology Impressions Chest X-Ray 09/17/22 04:21 IMPRESSION: Widespread interstitial edema new from comparison. Chest CTA 09/17/22 05:09 IMPRESSION: 1. Negative for pulmonary embolism. 2. Widespread interstitial edema. Small pleural effusions. Laboratory Results WBC 6.5 10^3/uL (4.0-10.0) 09/17/22 04:38 RBC 5.55 10^6/uL (4.1-5.3) H 09/17/22 04:38 Hgb 16.9 g/dL (11.7-16.6) H 09/17/22 04:38 Hct 49.0 % (42.0-52.0) 09/17/22 04:38 MCV 88.3 fl (80-94) 09/17/22 04:38 MCH 30.5 pg (28.0-34.0) 09/17/22 04:38 MCHC 34.5 g/dL (30.0-36.0) 09/17/22 04:38 RDW 12.5 % (12.1-15.1) 09/17/22 04:38 Plt Count 195 10^3/cmm (130-400) 09/17/22 04:38 MPV 8.8 fL (7.4-10.4) 09/17/22 04:38 Neut % (Auto) 62.3 % 09/17/22 04:38 Lymph % (Auto) 29.1 % 09/17/22 04:38 Briscoe % (Auto) 5.5 % 09/17/22 04:38 Eos % (Auto) 2.0 % 09/17/22 04:38 Baso % (Auto) 0.6 % 09/17/22 04:38 Neut # (Auto) 4.07 10^3/uL (1.8-7.7) 09/17/22 04:38 Lymph # (Auto) 1.9 10^3/uL (0.8-4.8) 09/17/22 04:38 Briscoe # (Auto) 0.4 10^3/uL (0.2-0.9) 09/17/22 04:38 Eos # (Auto) 0.1 10^3/uL (0.0-0.8) 09/17/22 04:38 Baso # (Auto) 0.0 10^3/uL (0.0-0.1) 09/17/22 04:38 Nucleated RBC % (auto) 0 % 09/17/22 04:38 Nucleated RBCs # 0.0 /100WBC 09/17/22 04:38 PT 12.90 SECONDS (12.1-14.9) 09/17/22 04:38 INR 0.95 (0.8-1.2) 09/17/22 04:38 D-Dimer 0.83 ug/mIFEU (0-0.59) H 09/17/22 04:38 Specimen Type Arterial 09/17/22 04:47 Sample Site Brachial, left 09/17/22 04:47 ABG pH 7.33 (7.35-7.45) L 09/17/22 04:47 ABG pCO2 47.2 mmHg (35-45) H 09/17/22 04:47 ABG pO2 69.2 mmHg (80.0-100.0) L 09/17/22 04:47 ABG HCO3 25.1 mmol/L (22-26) 09/17/22 04:47 ABG Base Excess -1.4 mmol/L (-2.0-2.0) 09/17/22 04:47 Rojelio Test N/a 09/17/22 04:47 Hematocrit 49.5 % (42-52) 09/17/22 04:47 Hgb O2 Saturation 88.8 % (95-100) L 09/17/22 04:47 Carboxyhemoglobin 5.2 %THgb (0.4-20.1) 09/17/22 04:47 Methemoglobin 0.5 % (0.4-1.5) 09/17/22 04:47 Total Hemoglobin 16.2 g/dL (14-18) 09/17/22 04:47 O2 Delivery Device Nc 09/17/22 04:47 O2 Liters/Min 6.0 % 09/17/22 04:47 FiO2 45.0 % 09/17/22 04:47 Certified Ophthalmic Surgical Assistant ID Alewe 09/17/22 04:47 Sodium 135 mmol/L (136-145) L 09/17/22 04:38 Potassium 4.3 mmol/L (3.5-5.1) 09/17/22 04:38 Chloride 97 mmol/L (98-107) L 09/17/22 04:38 Carbon Dioxide 27 mmol/L (22-29) 09/17/22 04:38 Anion Gap 15.3 (5-19) 09/17/22 04:38 BUN 26 mg/dL (6-20) H 09/17/22 04:38 Creatinine 0.8 mg/dL (0.7-1.2) 09/17/22 04:38 GFR Calculation 99.3 mL/min (90-130) 09/17/22 04:38 Glucose 415 mg/dL (65-115) H 09/17/22 04:38 POC Glucose 413 mg/dL (70-110) H 09/17/22 04:47 Calculated Osmolality 302 mOsm/kg (285-295) H 09/17/22 04:38 Calcium 9.0 mg/dL (8.5-10.5) 09/17/22 04:38 Total Bilirubin 0.4 mg/dL (0.15-1.2) 09/17/22 04:38 AST 20 U/L (0-40) 09/17/22 04:38 ALT 28 U/L (0-41) 09/17/22 04:38 Alkaline Phosphatase 142 U/L (40-130) H 09/17/22 04:38 Troponin T Baseline 51 ng/L (0-15) H 09/17/22 04:38 NT-Pro-B Natriuret Pep 1620 pg/mL (0-125) H 09/17/22 04:38 Total Protein 7.3 g/dL (6.6-8.7) 09/17/22 04:38 Albumin 4.1 g/dL (3.5-5.2) 09/17/22 04:38 Globulin 3.2 g/dL (1.3-4.6) 09/17/22 04:38 Influenza Type A Ag negative (Negative) 09/17/22 04:37 Influenza Type B Ag negative (Negative) 09/17/22 04:37 SARS-CoV-2 Ag (Rapid) negative (Negative) 09/17/22 04:37 Discharge Plan Discharge Patient Disposition: Admitted As Inpatient Clinical Impression: Congestive heart failure, Essential hypertension, Type 2 diabetes mellitus, without long-term current use of insulin Condition: Stable Prescriptions: No Action (DME) AUTO-TITRATING CPAP 6-10cm See Rx Instructions .Route .MEDSUPPLY Qty: 1 0RF Rx Instructions: As directed hydralazine 10 mg tablet See Rx Instructions .ROUTE .COMPLEX Qty: 30 0RF Dose Instruction: TAKE 1 TABLET BY MOUTH THREE TIMES DAILY Rx Instructions: TAKE 1 TABLET BY MOUTH THREE TIMES DAILY amlodipine 10 mg tablet 10 mg PO DAILY Qty: 45 0RF Invokana 300 mg tablet 300 mg PO DAILY Qty: 45 0RF carvedilol 25 mg tablet 25 mg PO BID Qty: 90 0RF cyclobenzaprine 10 mg tablet 10 mg PO .po q hs Qty: 45 0RF gabapentin 300 mg capsule 300 mg PO TID Qty: 135 0RF glipizide 5 mg tablet 5 mg PO BID 30 Days Qty: 90 0RF hydrochlorothiazide 50 mg tablet 50 mg PO DAILY Qty: 45 0RF lisinopril 40 mg tablet 40 mg PO BID Qty: 45 0RF metformin 1,000 mg tablet 1,000 mg PO BID Qty: 90 0RF pantoprazole 40 mg tablet,delayed release (DR/EC) 40 mg PO DAILY Qty: 45 0RF rosuvastatin 40 mg tablet 40 mg PO DAILY Qty: 45 0RF sildenafil (pulm.hypertension) 20 mg tablet 20 mg PO .COMPLEX Qty: 30 0RF Rx Instructions: 20 mg PO 1-5 tablets one hour prior to sexual intercourse - on an empty stomach; administer doses at least 4-6 hours apart Referrals: Yenny Harper DO [Physician] - Patient Instructions: Opioid Safety, Pain Management Sign Out Sign Out Data: Patient Sign Out occurred on 09/17/22 at 05:43. Patient's care was discussed, and care was transferred from to David Avilez DO. Coding Level of Care Code ED Wrapper Stemmer Operator for Jony Burnett
[2022-09-17] MEDS: albuterol 2.5 mg/3 mL Neb INHALATION (04:39)
[2022-09-17] MEDS: ipratropium 0.5 mg/2.5 mL Neb INHALATION (04:39)
[2022-09-17] MEDS: labetalol 5 mg/mL SDV 20mL 10 MG IVP (04:49)
[2022-09-17 04:51] LABS: Glucose Point of Care 413 mg/dL (70-110)
[2022-09-17 04:55] LABS: Basophils % 0.6 %; Eosinophils # 0.1 10^3/uL (0.0-0.8); Hemoglobin 16.9 g/dL (11.7-16.6); Lymphocytes # 1.9 10^3/uL (0.8-4.8); Lymphocytes % 29.1 %; Mean Corpuscular HGB Conc 34.5 g/dL (30.0-36.0); Mean Corpuscular Hemoglobin 30.5 pg (28.0-34.0); Mean Corpuscular Volume 88.3 fl (80-94); Mean Platelet Volume 8.8 fL (7.4-10.4); Monocytes # 0.4 10^3/uL (0.2-0.9); Monocytes % 5.5 %; Neutrophils # 4.07 10^3/uL (1.8-7.7); Neutrophils % 62.3 %; Nucleated Red Blood Cells % 0 %; Platelet Count 195 10^3/cmm (130-400); Red Blood Count 5.55 10^6/uL (4.1-5.3); Red Cell Distribution Width 12.5 % (12.1-15.1); White Blood Count 6.5 10^3/uL (4.0-10.0)
[2022-09-17 05:02] LABS: ABG PCO2 47.2 mmHg (35-45); ABG PH Result 7.33 (7.35-7.45); Arterial Blood Gas Hematocrit 49.5 % (42-52); Base Excess ABG -1.4 mmol/L (-2.0-2.0); Blood Gas Sample Site Brachial, left; Blood Gas Sample Type Arterial; Carboxyhemoglobin 5.2 %THgb (0.4-20.1); HCO3 ABG 25.1 mmol/L (22-26); HGB O2 Sat 88.8 % (95-100); Methemoglobin 0.5 % (0.4-1.5); Oxygen Device NC; PO2 ABG 69.2 mmHg (80.0-100.0); Total Hemoglobin 16.2 g/dL (14-18)
[2022-09-17 05:02] LABS: INR 0.95 (0.8-1.2)
[2022-09-17 05:05] LABS: D Dimer 0.83 ug/mIFEU (0-0.59)
[2022-09-17 05:09] LABS: Troponin(5th) Baseline 51 ng/L (0-15)
--- NOTE | 2022-09-17 05:09 | CTR_ITS ---
PROCEDURE INFORMATION: Exam: CTA Chest With Contrast Exam date and time: 09/17/2022 5:41 AM Age: 57 years old Clinical indication: Abnormal findings; Abnormal diagnostic tests; Elevated d-dimer; Shortness of breath; Patient HX: SOB with elevated d dimer TECHNIQUE: Imaging protocol: Computed tomographic angiography of the chest with contrast. 3D rendering (Not supervised by radiologist): MIP and/or 3D reconstructed images were created by the technologist. Radiation optimization: All CT scans at this facility use at least one of these dose optimization techniques: automated exposure control; mA and/or kV adjustment per patient size (includes targeted exams where dose is matched to clinical indication); or iterative reconstruction. Contrast material: OMNI 350; Contrast volume: 54 ml; Contrast route: INTRAVENOUS (IV); REPORTING DATA: Count of CT and Cardiac NM exams in prior 12 months: This patient has received 0 known CTs and 0 known cardiac nuclear medicine studies in the 12 months prior to the current study. COMPARISON: CR (CHEST, ) 09/17/2022 4:26 AM RADIATION DOSE METRICS: Total DLP (mGy-cm): 372.96 FINDINGS: Pulmonary arteries: Normal. No pulmonary emboli. Aorta: Unremarkable. No aortic aneurysm. No aortic dissection. Thyroid: Symmetric thyroid lobes. Lungs: Diffuse smooth septal thickening. Scattered ground-glass parenchymal airspace opacities and also fairly widespread ground-glass nodularity which has lower lung predominance. Diffuse peribronchial thickening. Pleural spaces: Symmetric small volume bilateral pleural effusions. Negative for pneumothorax. Heart: Unremarkable. No cardiomegaly. No pericardial effusion. Mediastinal space: Unremarkable thoracic esophagus. Lymph nodes: Unremarkable. No enlarged lymph nodes. Bones/joints: Unremarkable. No acute fracture. Soft tissues: Unremarkable. CT/CT angio chest PE protcl [id number] IMPRESSION: 1. Negative for pulmonary embolism. 2. Widespread interstitial edema. Small pleural effusions.
[2022-09-17 05:14] LABS: SARS Covid-2 Antigen negative (Negative)
[2022-09-17 05:15] LABS: Influenza A by IFA negative (Negative); Influenza B by IFA negative (Negative)
[2022-09-17 05:17] LABS: Alanine Aminotransferase 28 U/L (0-41); Albumin Level 4.1 g/dL (3.5-5.2); Alkaline Phosphatase 142 U/L (40-130); Anion Gap 15.3 (5-19); Aspartate Amino Transferase 20 U/L (0-40); Blood Urea Nitrogen 26 mg/dL (6-20); Carbon Dioxide 27 mmol/L (22-29); Chloride 97 mmol/L (98-107); Globulin 3.2 g/dL (1.3-4.6); Glomerular Filtration Rate 99.3 mL/min (90-130); Glucose 415 mg/dL (65-115); NT Pro B Type Natriuretic Pept 1620 pg/mL (0-125); Osmolality Calculated 302 mOsm/kg (285-295); Potassium 4.3 mmol/L (3.5-5.1); Sodium 135 mmol/L (136-145); Total Bilirubin 0.4 mg/dL (0.15-1.2); Total Protein 7.3 g/dL (6.6-8.7)
[2022-09-17] MEDS: insulin regular-human 100 units/1 mL 10 UNIT IVP (05:29)
[2022-09-17] MEDS: FUROsemide 10 mg/mL SDV 4mL 40 MG IVP (05:29)
[2022-09-17] MEDS: iohexol 350 mg/mL 500 mL Btl (per mL) IV (05:52)
--- NOTE | 2022-09-17 06:21 | ECG_ITS ---
[facility] Test Date: 2022-09-17 Pat Name: Roland Butts Department: Room: Gender: Male Nuclear Station Operator: : 1965 Requested By: Richard Mooney Order Number: [id number] Abdelrahman MD: Rachel Dong M.D. Measurements Intervals [place] Rate: 106 P: 48 [place]: 116 QRS: 12 QRSD: 101 T: 108 QT: 374 QTc: 498 Interpretive Statements SINUS TACHYCARDIA WITH SHORT [place] INTERVAL POSSIBLE LEFT ATRIAL ENLARGEMENT [-0.1mV P-WAVE IN V1/V2] POSSIBLE LEFT VENTRICULAR HYPERTROPHY [VOLTAGE CRITERIA PLUS LAE OR QRS WIDENING] ST DEVIATION AND MODERATE T-WAVE ABNORMALITY, CONSIDER LATERAL ISCHEMIA [-0.1+ mV T-WAVE IN I/aVL/V5/V6] Compared to ECG 09/17/2022 04:26:46 Short [place] interval now present Possible ischemia now present T-wave abnormality still present Electronically Signed On 09-17-2022 16:59:07 CDT by Rachel Dong M.D. [email or web address]
--- NOTE | 2022-09-17 06:22 | P.HP_ITS ---
Providers/Chief Complaint Admitting Physician: Jeevan Gardner Chief Complaint: sob History of Present Illness Roland Butts is a 57 year old male with a past medical history significant for hypertension, diabetes mellitus, and hyperlipidemia who presents to the emergency department complaining of shortness of breath with acute worsening in the past 3-4 days. He describes symptoms as constant, worse with exertion, and improved with rest. He also endorses associated symptoms of orthopnea and PND. He also endorses cough, described as mostly non-productive. He is an active tobacco user. In the ED, patient was found to be hypoxic requiring 6 liters of nasal canula and markedly hypertensive. Review of Systems Narrative: A complete review of systems was obtained and is negative except as stated in HPI. Medications/Allergies Home Medications Medication Instructions Recorded Confirmed Last Taken Type AUTO-TITRATING CPAP 6-10cm #1 ea 05/21/20 09/17/22 Unknown Rx hydralazine 10 mg tablet See Rx Instructions .Route 10/06/21 09/17/22 Unknown Rx .COMPLEX #30 tabs amlodipine 10 mg tablet 10 mg PO DAILY #45 tabs 10/21/21 09/17/22 Unknown Rx canagliflozin 300 mg tablet 300 mg PO DAILY #45 tabs 10/21/21 09/17/22 Unknown Rx (Invokana) carvedilol 25 mg tablet 25 mg PO BID #90 tabs 10/21/21 09/17/22 Unknown Rx glipizide 5 mg tablet 5 mg PO BID 30 days #90 tabs 10/21/21 09/17/22 Unknown Rx hydrochlorothiazide 50 mg tablet 50 mg PO DAILY #45 tabs 10/21/21 09/17/22 Unknown Rx lisinopril 40 mg tablet 40 mg PO BID #45 tabs 10/21/21 09/17/22 Unknown Rx metformin 1,000 mg tablet 1,000 mg PO BID #90 tabs 10/21/21 09/17/22 Unknown Rx pantoprazole 40 mg tablet,delayed 40 mg PO DAILY #45 tabs 10/21/21 09/17/22 Unknown Rx release sildenafil (pulm.hypertension) 20 20 mg PO .COMPLEX #30 tabs 10/21/21 09/17/22 Unknown Rx mg tablet cyclobenzaprine 10 mg tablet 10 mg PO BEDTIME 09/17/22 09/17/22 Unknown History famotidine 20 mg tablet 20 mg PO BID 09/17/22 09/17/22 Unknown History Allergies Allergy/AdvReac Type Severity Reaction Status Date / Time No Known Allergies Allergy Verified 09/17/22 04:24 PFSH Acute PFSH: Medical History (Updated 09/17/22 @ 15:33 by Jeevan Gardner MD) Decreased libido Degenerative lumbar disc Erectile dysfunction Essential hypertension Facet arthropathy, lumbar Hyperlipidemia Left-sided low back pain with left-sided sciatica Nocturia JEAN-CLAUDE (obstructive sleep apnea) Suspected sleep apnea Type 2 diabetes mellitus, without long-term current use of insulin Surgical History History of ankle surgery History of hip surgery Family History Other CAD (coronary artery disease) Cancer Diabetes Social History Alcohol intake: current Alcohol intake frequency: 3 or more drinks per day A lcohol type: beer Desire information about alcohol rehabilitation?: No Substance/Drug Use: never Vitals/I&O/Wt Last Vital Signs Temp 97.5 F L 09/17/22 04:22 Pulse 107 H 09/17/22 06:00 Resp 19 H 09/17/22 06:00 BP 155/106 09/17/22 06:00 Pulse Ox 96 09/17/22 06:00 O2 Del Method Nasal Cannula 09/17/22 06:00 O2 Flow Rate 6 09/17/22 04:46 Weight last 48 hrs Weight 68.039 kg Physical Exam Narrative: Vital signs reviewed under vitals tab. Gen: Awake and alert. Mild respiratory distress. Head: Normocephalic. Atraumatic. EOM intact. Neck: JVD difficult to assess due to body habitus. Cardiovascular: Regular rhythm. Tachycardic. No gallops. No murmurs. 2+ pitting edema to knees bilaterally. Lungs: Dependent crackles are present. Speaks in short sentences. Some use of accessory muscles when talking. No wheezing appreciated. On 6 liters. Skin: No jaundice. No rashes. Abdomen: Normal bowel sounds, abdomen soft and nontender. Genito Urinary: Genital exam not performed since complaints not related. Rectal: Rectal exam not performed since no symptoms indicated blood loss. Extremities: No cyanosis or clubbing. Musculoskeletal: 5/5 strength, normal range of motion, no swollen or erythematous joints. Neurological: Moves all 4 extremities. No myoclonus. Data 09/17/22 04:38 09/17/22 04:38 A&P Assessment and plan (1) Congestive heart failure: Associated with acute hypoxic respiratory failure Suspected new acute heart failure of unknown type COPD remains in differential although no wheezing on exam but pt did get Solumedrol prior to my eval TTE ordered Start IV Lasix Strict I&Os Daily weights (2) Hypertensive urgency: Start IV Lasix Continue Norvasc Continue Coreg Continue lisinopril at reduced home dose (home dose 40 mg BID) Continue hydralizine Hold hydrochlorothiazide (3) Type 2 diabetes mellitus, without long-term current use of insulin: Associated with hyperglycemia Hold oral medications SSI Avoid hypoglycemia (4) Hyperlipidemia: Continue statin Qualifiers: Hyperlipidemia type: mixed hyperlipidemia Qualified Code(s): E78.2 - Mixed hyperlipidemia (5) Nicotine dependence, cigarettes, with unspecified nicotine-induced disorders: Would benefit from cessation (6) Lumbar disc disease with radiculopathy: Continue home meds Plan DVT ppx: Heparin Code status: Full Code Attestations Medical Necessity Statement*: Patient presents with acute heart failure with expected hospitalization for work up, IV diuresis, echo, and supportive care to cross 2 midnights. Coding Level of Care Code Acute Code for Chg Fwd Diagnoses Congestive heart failure I50.9 Hypertensive urgency I16.0 Type 2 diabetes mellitus, without long-term current use of insulin E11.9 Hyperlipidemia E78.2 Hyperlipidemia type: mixed hyperlipidemia Nicotine dependence, cigarettes, with unspecified nicotine-induced disorders F17.219 Lumbar disc disease with radiculopathy M51.16
[2022-09-17 07:12] LABS: Troponin 5 2HR 65.17 ng/L (0-15)
[2022-09-17 07:17] LABS: Troponin 5 2HR Delta 14.17 ABS# (0-10)
[2022-09-17] MEDS: heparin 5,000 unit/mL INJ 1 mL 5000 UNIT SUBCUT ×2 (08:19→20:33)
[2022-09-17 08:29] LABS: Procalcitonin 0.04 ng/mL (0-0.5)
[2022-09-17 08:29] LABS: Glucose Point of Care 443 mg/dL (70-110)
[2022-09-17 08:29] LABS: Glucose Point of Care 541 mg/dL (70-110)
--- NOTE | 2022-09-17 08:50 | ECG_ITS ---
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 Measurements Intervals Jackson Rate: 105 P: 47 MD: 143 QRS: -3 QRSD: 102 T: 116 QT: 375 QTc: 497 Interpretive Statements SINUS TACHYCARDIA LEFT ATRIAL ENLARGEMENT [-0.15mV P-WAVE IN V1/V2] POSSIBLE LEFT VENTRICULAR HYPERTROPHY [VOLTAGE CRITERIA PLUS LAE OR QRS WIDENING] ST DEVIATION AND MODERATE T-WAVE ABNORMALITY, CONSIDER LATERAL ISCHEMIA [-0.1+ mV T-WAVE IN I/aVL/V5/V6] Compared to ECG 09/17/2022 06:17:24 Short MD interval no longer present T-wave abnormality still present Possible ischemia still present Electronically Signed On 09-17-2022 17:01:38 CDT by Rachel Dong M.D. [id number]
[2022-09-17 11:18] LABS: Troponin 5 6HR 55.61 ng/L (0-15)
[2022-09-17 11:27] LABS: Troponin 5 6HR Delta 4.61 ng/L (0-12)
--- NOTE | 2022-09-17 11:32 | PC.PHAR ---
PT LIFE PARTNER VERIFIED HOME MEDICATIONS - SHE STATES HE IS NON COMPLIANT WITH HOME MEDICATIONS AND IS OUT OF MOST OF THEM. LIFE PARTNER STATES HE NO LONGER TAKES ROSUVASTATIN.
[2022-09-17 12:34] LABS: Glucose Point of Care 439 mg/dL (70-110)
[2022-09-17] MEDS: insulin lispro 100 unit/1 mL SUBCUT ×3 (12:44→20:32)
[2022-09-17] MEDS: ipratropium-albuterol 3 mL Neb INHALATION (14:25)
[2022-09-17 16:52] LABS: Glucose Point of Care 432 mg/dL (70-110)
--- NOTE | 2022-09-17 19:01 | USCV_ITS ---
Roland Butts Age: 57 Gender: M : 1965 Exam Date: 09/17/2022 19:38 Ordering Phys: Jeevan Gardner MD Technologist: ARNIE [place] [facility] [place]: SUSPECTED CHRONIC HEART FAILURE, PULM EDEMA BP: 138 / 93 HR: 101 Rhythm: Sinus Technical Quality: Adequate MEASUREMENTS (Male / Female) Normal Values 2D ECHO LVOT Diameter 2.0 cm LV Ejection Fraction MOD 2C 27.0 % LV Ejection Fraction 2C AL 24.3 % LA Diameter 4.0 cm LA Width 3.4 cm LA Height 5.8 cm RA Width 3.7 cm RA Height 4.9 cm Aorta at Sinotubular Diameter 2.9 cm IVC Diameter 1.6 cm M-MODE Aortic Annulus Diameter 2.7 cm LA Ao Ratio MM 1.4 MV E Point Septal Separation 1.3 cm DOPPLER AV Peak Velocity 157.0 cm/s LVOT Peak Velocity 76.0 cm/s AV Area Cont Eq vti 1.6 cm squared AV Area Cont Eq pk 1.5 cm squared MV Peak Velocity 82.0 cm/s MV Area PHT 5.0 cm squared Mitral E to A Ratio 1.5 MV E' Velocity 54.0 cm/s Mitral E to MV E' Ratio 19.7 Mitral E to LV E' Lateral Ratio 14.8 Mitral E to LV E' Septal Ratio 29.6 TR Peak Velocity 177.0 cm/s TR Peak Gradient 12.5 mmHg TR Mean Velocity 125.0 cm/s TR Mean Gradient 7.3 mmHg TR Velocity Time Integral 42.7 cm TV Peak E Velocity 48.0 cm/s Right Atrial Pressure 3.0 mmHg Pulmonary Artery Systolic Pressu 15.5 mmHg PV Peak Velocity 94.0 cm/s RV Acceleration Time 0.1 s RV Ejection Time 0.3 s RV AcT/ET 0.5 FINDINGS Left Ventricle Mildly increased left ventricular cavity size. Diffuse hypokinesia Of the left ventricle with an ejection fraction of 40% (by MOD A4C) Right Ventricle Normal right ventricular size and systolic function. Right Atrium Normal right atrial size. Left Atrium Mildly increased left atrial size. Mitral Valve Thickened mitral valve. Mild mitral annular calcification. Trace mitral valve regurgitation. Aortic Valve Minimally thickened aortic valve Tricuspid Valve Trace tricuspid valve regurgitation. Pulmonic Valve No gross abnormalities noted Pericardium Normal pericardium without effusion. Aorta Normal ascending aorta dimension. IVC Normal inferior vena cava. CONCLUSIONS Mildly increased left ventricular cavity size. Diffuse hypokinesia Of the left ventricle with an ejection fraction of 40% (by MOD A4C). Mildly increased left atrial size. Trace of mitral and tricuspid valve regurgitation. There is no pericardial effusion. There are no intracardiac masses. Compared to the study from 05/07/2020, the LV ejection fraction has decreased from 65 to 40% Dr Rachel Dong MD FAC (Electronically Signed) Final Date: 17 September 2022 21:33 S
[2022-09-17 20:27] LABS: Glucose Point of Care 485 mg/dL (70-110)
[2022-09-17] MEDS: cyclobenzaprine 10 mg Tablet PO (20:33)
[2022-09-17] MEDS: hyDRALAzine 10 mg Tablet PO (20:33)
[2022-09-18] VITALS (8 sets, daily range): BP systolic 98–142; BP diastolic 60–97; PULSE 78–104; RESP 16–18; TEMP 36.4; O2SAT 92–97
[2022-09-18 05:23] LABS: Basophils % 0.2 %; Eosinophils % 0.4 %; Hematocrit 44.6 % (42.0-52.0); Hemoglobin 15.5 g/dL (11.7-16.6); Lymphocytes # 1.7 10^3/uL (0.8-4.8); Lymphocytes % 15.8 %; Mean Corpuscular HGB Conc 34.8 g/dL (30.0-36.0); Mean Corpuscular Hemoglobin 30.3 pg (28.0-34.0); Mean Corpuscular Volume 87.3 fl (80-94); Monocytes # 0.6 10^3/uL (0.2-0.9); Monocytes % 6.1 %; Neutrophils # 8.14 10^3/uL (1.8-7.7); Neutrophils % 77.2 %; Nucleated Red Blood Cells % 0 %; Platelet Count 196 10^3/cmm (130-400); Red Blood Count 5.11 10^6/uL (4.1-5.3); Red Cell Distribution Width 12.5 % (12.1-15.1); White Blood Count 10.5 10^3/uL (4.0-10.0)
[2022-09-18 05:42] LABS: Anion Gap 14.3 (5-19); Blood Urea Nitrogen 25 mg/dL (6-20); Carbon Dioxide 25 mmol/L (22-29); Chloride 100 mmol/L (98-107); Glomerular Filtration Rate 115.8 mL/min (90-130); Glucose 179 mg/dL (65-115); Magnesium 2.1 mg/dL (1.7-2.3); Osmolality Calculated 291 mOsm/kg (285-295); Phosphorus 4.2 mg/dL (2.5-4.5); Potassium 3.3 mmol/L (3.5-5.1); Sodium 136 mmol/L (136-145)
[2022-09-18 07:48] LABS: Glucose Point of Care 253 mg/dL (70-110)
[2022-09-18] MEDS: ipratropium-albuterol 3 mL Neb INHALATION (08:29)
[2022-09-18] MEDS: hyDRALAzine 10 mg Tablet PO ×2 (08:47→21:25)
[2022-09-18] MEDS: lisinopril 20 mg Tablet 40 MG PO (08:47)
[2022-09-18] MEDS: amlodipine 10 mg Tablet PO (08:47)
[2022-09-18] MEDS: carvedilol 25 mg Tablet PO (08:47)
[2022-09-18] MEDS: pantoprazole DR 40 mg Tablet PO (08:47)
[2022-09-18] MEDS: famotidine 20 mg Tablet PO ×2 (08:47→17:55)
[2022-09-18] MEDS: heparin 5,000 unit/mL INJ 1 mL 5000 UNIT SUBCUT (08:48)
[2022-09-18] MEDS: insulin lispro 100 unit/1 mL SUBCUT ×4 (08:48→21:51)
[2022-09-18] MEDS: FUROsemide 10 mg/mL SDV 4mL 40 MG IVP ×2 (08:48→17:55)
--- NOTE | 2022-09-18 11:13 | PM.PN ---
Subjective Subjective: Patient endorses continued shortness of breath but states it is much improved as compared to yesterday and days prior. He is now on room air. Denies chest pain, fevers, chills, nausea or emesis. Medications: Reviewed: Yes Vitals/I&O/Wt Last Vital Signs Temp 97.6 F 09/18/22 11:12 Pulse 78 09/18/22 11:12 Resp 16 09/18/22 11:12 BP 98/74 09/18/22 11:12 Pulse Ox 96 09/18/22 11:12 O2 Del Method Room Air 09/18/22 11:12 O2 Flow Rate 3 09/17/22 14:25 09/17/22 09/18/22 09/18/22 22:59 06:59 14:59 Intake Total 720 / 1080 240 / 240 Balance 720 / 1080 240 / 240 Weight last 48 hrs Weight 81.193 kg Weight 68.039 kg Physical Exam Narrative: Gen: Awake and alert. Pleasant. Head: Normocephalic. Atraumatic. EOM intact. Neck: JVD difficult to assess due to body habitus. Cardiovascular: Regular rhythm. No gallops. No murmurs. Trace lower extremity edema. Lungs: Very faint crackles. Much better air movement. No wheezing appreciated. On room air. Skin: No jaundice. No rashes. Abdomen: Normal bowel sounds, abdomen soft and nontender. Genito Urinary: Genital exam not performed since complaints not related. Rectal: Rectal exam not performed since no symptoms indicated blood loss. Extremities: No cyanosis or clubbing. Musculoskeletal: 5/5 strength, normal range of motion, no swollen or erythematous joints. Neurological: Moves all 4 extremities. No myoclonus. Data 09/18/22 04:46 09/18/22 04:46 A&P Assessment and plan (1) Congestive heart failure: Associated with acute hypoxic respiratory failure, now resolved Newly diagnosed acute systolic heart failure with reduced EF TTE reviewed Strict I&Os Daily weights Continue diuresis with Lasix Cardiology consulted, d/w Dr. Dong (2) Hypertensive urgency: Continue Lasix Continue Norvasc Continue Coreg Continue lisinopril at reduced home dose (home dose 40 mg BID) Continue hydralizine Hold hydrochlorothiazide while on Lasix (3) Type 2 diabetes mellitus, without long-term current use of insulin: Associated with hyperglycemia Hold oral medications SSI Avoid hypoglycemia (4) Hyperlipidemia: Continue statin Qualifiers: Hyperlipidemia type: mixed hyperlipidemia Qualified Code(s): E78.2 - Mixed hyperlipidemia (5) Nicotine dependence, cigarettes, with unspecified nicotine-induced disorders: Would benefit from cessation (6) Lumbar disc disease with radiculopathy: Continue home meds Plan DVT ppx: Heparin Code status: Full Code Attestations Medical Necessity Statement*: Patient requires ongoing hospitalization for telemetry, IV Lasix, electrolyte monitoring, and cardiology evaluation. Coding Level of Care Code Acute Code for g Fwd Diagnoses Congestive heart failure I50.9 Hypertensive urgency I16.0 Type 2 diabetes mellitus, without long-term current use of insulin E11.9 Hyperlipidemia E78.2 Hyperlipidemia type: mixed hyperlipidemia Nicotine dependence, cigarettes, with unspecified nicotine-induced disorders F17.219 Lumbar disc disease with radiculopathy M51.16
[2022-09-18 11:43] LABS: Glucose Point of Care 378 mg/dL (70-110)
--- NOTE | 2022-09-18 15:53 | PM.CONSULT ---
Providers/Reason For Consult Consulting Physician/Specialty*: LENIN Dong MD/cardiology Reason for Consult*: Patient with multiple risk factors for coronary disease, presenting with increasing shortness of breath. Echocardiogram revealing worsening of the LV systolic function. Cardiology consult is requested for further cardiac evaluation recommendations. Requesting Physician: Dr Gardner Attending Physician: Jeevan Gardner MD History of Present Illness History of Present Illness Roland Butts is a 57 year old male, is admitted to hospital through the emergency room where he presented with complaints of progressive shortness of breath. He was found to have features of congestive heart failure. He had an echocardiogram done which revealed an LV ejection fraction of 40%. Cardiology consult is requested for further cardiac evaluation and recommendations. This patient apparently has been at his baseline state of health up until 2 weeks ago when he started getting dyspnea on exertion. His dyspnea has been progressively getting worse. On the bob of the hospital admission, he went to bed with some shortness of breath. In the morning as he woke up, he was finding it difficult to take a deep breath. He did not have any chest pain or chest tightness. No palpitation, dizziness or syncopal episode. Because of worsening shortness of breath, he came to the hospital emergency room. This patient has a history of hypertension, type 2 diabetes, dyslipidemia, obstructive sleep apnea and erectile dysfunction. He had a Myocardial perfusion imaging in 2019 and was found to be unremarkable. He was complaining of upper back pain at that time. But lately he has been doing okay with no specific complaints. He has no previous history for any coronary disease, myocardial infarction or congestive heart failure. He has a heavy smoking abuse, has been smoking 2 pack a day for the last 40 years or so. Also has been drinking for the last 20 years, 10-12 beers a day. For the last couple of weeks, he was cutting back on his drinking because of shortness of breath. His father had a congestive heart failure and heart transplant. He of melanoma. This patient has not been taking his medications. He takes whenever he feels like. He also was prescribed a CPAP machine in the past but since he could not afford it, he never used it. Review of Systems Narrative: CONSTITUTIONAL: No fever or chills. EYES: No blurring of vision or other visual disturbances lately. ENT: No hoarseness of voice, auditory disturbances or sore throat. CARDIOVASCULAR: As mentioned above. RESPIRATORY: Progressive shortness of breath as mentioned above. History of COPD but never been treated. GASTROINTESTINAL: No hematemesis or melena. GENITOURINARY: No dysuria or hematuria. INTEGUMENTARY: No skin rashes or history of skin cancer. NEURO: No transient ischemic attacks or amaurosis. PSYCHIATRIC: No history of psychosis or major depression. HEMATOLOGIC: No bleeding disorders or significant anemia. ENDOCRINE: No history of polyuria or polydipsia. MUSCULOSKELETAL: No recent joint pain or swelling. ALLERGY/IMMUNOLOGY: As mentioned above. Medications/Allergies Home Medications Medication Instructions Recorded Confirmed Last Taken Type AUTO-TITRATING CPAP 6-10cm #1 ea 05/21/20 09/17/22 Unknown Rx hydralazine 10 mg tablet See Rx Instructions .Route 10/06/21 09/17/22 Unknown Rx .COMPLEX #30 tabs amlodipine 10 mg tablet 10 mg PO DAILY #45 tabs 10/21/21 09/17/22 Unknown Rx canagliflozin 300 mg tablet 300 mg PO DAILY #45 tabs 10/21/21 09/17/22 Unknown Rx (Invokana) carvedilol 25 mg tablet 25 mg PO BID #90 tabs 10/21/21 09/17/22 Unknown Rx glipizide 5 mg tablet 5 mg PO BID 30 days #90 tabs 10/21/21 09/17/22 Unknown Rx hydrochlorothiazide 50 mg tablet 50 mg PO DAILY #45 tabs 10/21/21 09/17/22 Unknown Rx lisinopril 40 mg tablet 40 mg PO BID #45 tabs 10/21/21 09/17/22 Unknown Rx metformin 1,000 mg tablet 1,000 mg PO BID #90 tabs 10/21/21 09/17/22 Unknown Rx pantoprazole 40 mg tablet,delayed 40 mg PO DAILY #45 tabs 10/21/21 09/17/22 Unknown Rx release sildenafil (pulm.hypertension) 20 20 mg PO .COMPLEX #30 tabs 10/21/21 09/17/22 Unknown Rx mg tablet cyclobenzaprine 10 mg tablet 10 mg PO BEDTIME 09/17/22 09/17/22 Unknown History famotidine 20 mg tablet 20 mg PO BID 09/17/22 09/17/22 Unknown History Allergies Allergy/AdvReac Type Severity Reaction Status Date / Time No Known Allergies Allergy Verified 09/17/22 04:24 Current Medications Generic Name Dose Route Start Last Admin Trade Name Bradq PRN Reason Stop Dose Admin Albuterol/Ipratropium 3 ml 09/17/22 08:53 09/18/22 08:29 Ipratropium-Albuterol 3 Ml Neb INHALATION 3 ml Q6H PRN Administration SHORTNESS OF BREATH Amlodipine Besylate 10 mg 09/18/22 09:00 09/18/22 08:47 Amlodipine 10 Mg Tablet PO 10 mg DAILY CHERELLE Administration Carvedilol 25 mg 09/18/22 09:00 09/18/22 08:47 Carvedilol 25 Mg Tablet PO 25 mg BID CHERELLE Administration Cyclobenzaprine HCl 10 mg 09/17/22 21:00 09/17/22 20:33 Cyclobenzaprine 10 Mg Tablet PO 10 mg BEDTIME CHERELLE Administration Famotidine 20 mg 09/18/22 09:00 09/18/22 08:47 Famotidine 20 Mg Tablet PO 20 mg BID CHERELLE Administration Furosemide 40 mg 09/18/22 09:00 09/18/22 08:48 Furosemide 10 Mg/Ml Sdv 4ml IVP 40 mg BID CHERELLE Administration Heparin Sodium (Porcine) 5,000 unit 09/17/22 08:15 09/18/22 08:48 Heparin 5,000 Unit/Ml Inj 1 Ml SUBCUT 5,000 unit Q12H CHERELLE Administration Hydralazine HCl 10 mg 09/17/22 21:00 09/18/22 15:31 Hydralazine 10 Mg Tablet PO Not Given TID [facility] Insulin Human Lispro 0 unit 09/17/22 12:00 09/18/22 11:58 Insulin Lispro 100 Unit/1 Ml SUBCUT 16 unit WM&BEDTIME CHERELLE Administration Protocol Lisinopril 40 mg 09/18/22 09:00 09/18/22 08:47 Lisinopril 20 Mg Tablet PO 40 mg DAILY CHERELLE Administration Pantoprazole Sodium 40 mg 09/18/22 09:00 09/18/22 08:[address] 40 Mg Tablet PO 40 mg DAILY CHERELLE Administration PFSH Acute PFSH: Medical History Decreased libido Degenerative lumbar disc Erectile dysfunction Essential hypertension Facet arthropathy, lumbar Hyperlipidemia Left-sided low back pain with left-sided sciatica Nocturia JEAN-CLAUDE (obstructive sleep apnea) Suspected sleep apnea Type 2 diabetes mellitus, without long-term current use of insulin Surgical History History of ankle surgery History of hip surgery Family History Other CAD (coronary artery disease) Cancer Diabetes Social History Alcohol intake: current Alcohol intake frequency: 3 or more drinks per day Alcohol type: beer Desire information about alcohol rehabilitation?: No Substance/Drug Use: never Vitals/I&O/Wt Last Vital Signs Temp 97.6 F 09/18/22 11:12 Pulse 85 09/18/22 15:28 Resp 18 09/18/22 15:28 BP 98/60 09/18/22 15:28 Pulse Ox 97 09/18/22 15:28 O2 Del Method Room Air 09/18/22 15:28 O2 Flow Rate 3 09/17/22 14:25 09/18/22 09/18/22 09/18/22 06:59 14:59 22:59 Intake Total 360 / 360 Balance 360 / 360 Weight last 48 hrs Weight 179 lb Weight 150 lb Physical Exam Narrative: GENERAL: The patient is alert and oriented times three. Not in any acute distress. HEENT: No significant pallor, icterus or lymphadenopathy.Oral cavity: There are no mucous membrane lesions. NECK: Trachea appears to be central. No masses noted. No JVD or thyromegaly appreciated. RESPIRATORY: Chest is symmetrical. No intercostals muscle retraction or any accessory muscle activation. There is no chest wall tenderness. Breath sounds are heard bilaterally. Few fine Rales and occasional expiratory wheezing. No evidence of any consolidation. BREASTS: Deferred. HEART: The heart sounds are normal. No S3 or S4. Short systolic murmur in the left sternal border. No diastolic murmurs.. No pericardial rub ABDOMEN: No vessel pulsations or distention. No tenderness. No organomegaly appreciated. Bowel sounds are normally heard. : Deferred. RECTAL: Deferred. LYMPHATIC: No lymphadenopathy noted in the neck. EXTREMITIES: No edema or cyanosis. No clubbing. MUSCULOSKELETAL: No acute joint deformities or swelling SKIN: There are no significant rashes or ecchymosis NEUROPSYCHIATRIC: The patient is alert and oriented x3. Appears to be in a good mood. No tremors or rigidity noted. Data 09/19/22 04:26 09/19/22 04:26 Other Labs: Laboratory Last Values WBC 10.5 10^3/uL (4.0-10.0) H 09/18/22 04:46 RBC 5.11 10^6/uL (4.1-5.3) 09/18/22 04:46 Hgb 15.5 g/dL (11.7-16.6) 09/18/22 04:46 Hct 44.6 % (42.0-52.0) 09/18/22 04:46 MCV 87.3 fl (80-94) 09/18/22 04:46 MCH 30.3 pg (28.0-34.0) 09/18/22 04:46 MCHC 34.8 g/dL (30.0-36.0) 09/18/22 04:46 RDW 12.5 % (12.1-15.1) 09/18/22 04:46 Plt Count 196 10^3/cmm (130-400) 09/18/22 04:46 MPV 9.0 fL (7.4-10.4) 09/18/22 04:46 Neut % (Auto) 77.2 % 09/18/22 04:46 Lymph % (Auto) 15.8 % 09/18/22 04:46 Hamlin % (Auto) 6.1 % 09/18/22 04:46 Eos % (Auto) 0.4 % 09/18/22 04:46 Baso % (Auto) 0.2 % 09/18/22 04:46 Neut # (Auto) 8.14 10^3/uL (1.8-7.7) H 09/18/22 04:46 Lymph # (Auto) 1.7 10^3/uL (0.8-4.8) 09/18/22 04:46 Hamlin # (Auto) 0.6 10^3/uL (0.2-0.9) 09/18/22 04:46 Eos # (Auto) 0.0 10^3/uL (0.0-0.8) 09/18/22 04:46 Baso # (Auto) 0.0 10^3/uL (0.0-0.1) 09/18/22 04:46 Nucleated RBC % (auto) 0 % 09/18/22 04:46 Nucleated RBCs # 0.0 /100WBC 09/18/22 04:46 PT 12.90 SECONDS (12.1-14.9) 09/17/22 04:38 INR 0.95 (0.8-1.2) 09/17/22 04:38 D-Dimer 0.83 ug/mIFEU (0-0.59) H 09/17/22 04:38 Specimen Type Arterial 09/17/22 04:47 Sample Site Brachial, left 09/17/22 04:47 ABG pH 7.33 (7.35-7.45) L 09/17/22 04:47 ABG pCO2 47.2 mmHg (35-45) H 09/17/22 04:47 ABG pO2 69.2 mmHg (80.0-100.0) L 09/17/22 04:47 ABG HCO3 25.1 mmol/L (22-26) 09/17/22 04:47 ABG Base Excess -1.4 mmol/L (-2.0-2.0) 09/17/22 04:47 Rojelio Test N/a 09/17/22 04:47 Hematocrit 49.5 % (42-52) 09/17/22 04:47 Hgb O2 Saturation 88.8 % (95-100) L 09/17/22 04:47 Carboxyhemoglobin 5.2 %THgb (0.4-20.1) 09/17/22 04:47 Methemoglobin 0.5 % (0.4-1.5) 09/17/22 04:47 Total Hemoglobin 16.2 g/dL (14-18) 09/17/22 04:47 O2 Delivery Device Nc 09/17/22 04:47 O2 Liters/Min 6.0 % 09/17/22 04:47 FiO2 45.0 % 09/17/22 04:47 Fagoting Machine Operator ID Alewe 09/17/22 04:47 Sodium 136 mmol/L (136-145) 09/18/22 04:46 Potassium 3.3 mmol/L (3.5-5.1) L 09/18/22 04:46 Chloride 100 mmol/L (98-107) 04/30/23 04:46 Carbon Dioxide 25 mmol/L (22-29) 09/18/22 04:46 Anion Gap 14.3 (5-19) 09/18/22 04:46 BUN 25 mg/dL (6-20) H 09/18/22 04:46 Creatinine 0.7 mg/dL (0.7-1.2) 09/18/22 04:46 GFR Calculation 115.8 mL/min (90-130) 09/18/22 04:46 Glucose 179 mg/dL (65-115) H 09/18/22 04:46 POC Glucose 225 mg/dL (70-110) H 09/18/22 16:34 Calculated Osmolality 291 mOsm/kg (285-295) 09/18/22 04:46 Calcium 9.0 mg/dL (8.5-10.5) 09/18/22 04:46 Phosphorus 4.2 mg/dL (2.5-4.5) 09/18/22 04:46 Magnesium 2.1 mg/dL (1.7-2.3) 09/18/22 04:46 Total Bilirubin 0.4 mg/dL (0.15-1.2) 09/17/22 04:38 AST 20 U/L (0-40) 09/17/22 04:38 ALT 28 U/L (0-41) 09/17/22 04:38 Alkaline Phosphatase 142 U/L (40-130) H 09/17/22 04:38 Troponin T Baseline 51 ng/L (0-15) H 09/17/22 04:38 Troponin T 120 Minute 65.17 ng/L (0-15) H 09/17/22 06:14 Delta Troponin T 14.17 ABS# (0-10) H* 09/17/22 06:14 Troponin T Hi Sens 6Hr 55.61 ng/L (0-15) H 09/17/22 10:38 Troponin T Hi Sens 6Hr Delta 4.61 ng/L (0-12) 09/17/22 10:38 NT-Pro-B Natriuret Pep 1620 pg/mL (0-125) H 09/17/22 04:38 Total Protein 7.3 g/dL (6.6-8.7) 09/17/22 04:38 Albumin 4.1 g/dL (3.5-5.2) 09/17/22 04:38 Globulin 3.2 g/dL (1.3-4.6) 09/17/22 04:38 Procalcitonin 0.04 ng/mL (0-0.5) 09/17/22 04:38 Influenza Type A Ag negative (Negative) 09/17/22 04:37 Influenza Type B Ag negative (Negative) 09/17/22 04:37 SARS-CoV-2 Ag (Rapid) negative (Negative) 09/17/22 04:37 Echo: My impression: The echocardiogram done on 09/17/2022 Mildly increased left ventricular cavity size.? Diffuse ?hypokinesia Of the left ventricle with an ejection fraction of ?40% (by MOD A4C). ?Mildly increased left atrial size.?Trace of mitral and tricuspid valve regurgitation.?There is no pericardial effusion. ?There are no intracardiac masses.?Compared to the study from 05/07/2020, the LV ejection fraction ?has decreased from 65 to 40% CT Chest: My impression: 1. ? Negative for pulmonary embolism. 2. ? Widespread interstitial edema. Small pleural effusions. ? CXR: Radiologist's impression: Lungs: Diffusely increased interstitial lung markings more prominent than comparison imaging. Negative pulmonary consolidation. Pleural spaces: Unremarkable. No pleural effusion. No pneumothorax. Heart/Mediastinum: Unremarkable. No cardiomegaly. Bones/joints: Unremarkable. IMPRESSION: Widespread interstitial edema new from comparison. EKG 1: My Interpretation: The EKG showed sinus tachycardia with a rate of 105 bpm. Diffuse nonspecific T wave changes. Possible left atrial enlargement. Voltage irregular for LVH. Other data: 10/10/19 Lexiscan sestamibi STRESS TEST IMPRESSIONS ?Myocardial perfusion imaging is normal and low probability for obstructive ?coronary artery disease.? EKG segment will be documented separately. DATA: Baseline heart rate was 88 beats per minute. Baseline blood pressure was 192/96 millimeters of mercury. Target heart rate was 165. Maximum heart rate achieved was 111. which was 67 % of the predicted target heart rate. Maximum blood pressure was 190-110 millimeters of mercury.? The reason for ending the test was completion of the protocol. The patient experienced shortness of breath which was then resolved at the end of the test. BASELINE: Sinus rhythm.? Normal axis. Otherwise, no ST-T changes suggestive of ischemia noted. No arrhythmia noted. EXERCISE: After Lexiscan injection, no ST-T changes suggestive of ischemic noted. No arrhythmia noted. 1. EKG not suggestive of ischemia 2. Lexiscan injection unremarkable. 3. Perfusion scan will be documented separately. A&P Assessment and plan (1) Congestive heart failure: The etiology of the heart failure is not clear at this time. The elevated troponin T may suggest a ischemic event. Hypertensive heart disease causing this also is a consideration. He has a significant drop in the LV ejection fraction from the previous study. He may be Treated with diuretics , afterload reducing agents and other symptomatic measures. Based on the clinical response, further recommendations will be made. (2) Accelerated hypertension: Currently the patient is normotensive. His blood pressure medications need to be closely monitored. (3) Type 2 diabetes mellitus, without long-term current use of insulin: Aggressive management of the blood sugar might be appropriate. (4) Hyperlipidemia: May continue on the current medications. Qualifiers: Hyperlipidemia type: mixed hyperlipidemia Qualified Code(s): E78.2 - Mixed hyperlipidemia (5) Elevated troponin: Considering the possibility of a non-ST elevation myocardial infarction, patient may be treated with subcu Lovenox, Plavix, beta-danny, aspirin, statin and other symptomatic measures. Other problems are Plan Losartan 25 mg p.o. daily. Subcu Lovenox Low-dose of beta-blockers. Plavix Based on the results of the above tests and the patient's clinical progress, further recommendations will be made. Thank you for the opportunity to evaluate this patient and make these recommendations Consult Attestations Medical Necessity Statement: Patient requires continued hospital stay for close monitoring and further management Coding Level of Care Code 50160 Diagnoses Congestive heart failure I50.9 Accelerated hypertension I10 Type 2 diabetes mellitus, without long-term current use of insulin E11.9 Hyperlipidemia E78.2 Hyperlipidemia type: mixed hyperlipidemia Elevated troponin R77.8 Time Spent (min) 65
[2022-09-18 16:48] LABS: Glucose Point of Care 225 mg/dL (70-110)
[2022-09-18] MEDS: clopidogrel 300 mg Tablet PO (19:47)
[2022-09-18] MEDS: enoxaparin 100 mg/mL Syringe 80 MG SUBCUT (19:48)
[2022-09-18 20:08] LABS: Estmated Average Glucose 266; Hemoglobin A1C 10.9 % (4.0-6.0)
[2022-09-18] MEDS: cyclobenzaprine 10 mg Tablet PO (21:25)
[2022-09-18 21:26] LABS: Glucose Point of Care 236 mg/dL (70-110)
[2022-09-18] MEDS: insulin glargine 100 units/1 mL 10 UNIT SUBCUT (22:07)
[2022-09-19] VITALS (76 sets, daily range): BP systolic 91–132; BP diastolic 54–93; PULSE 73–94; RESP 0–28; TEMP 36.4–36.9; O2SAT 88–97; BMI 29.7
[2022-09-19 04:55] LABS: Basophils % 0.6 %; Eosinophils # 0.1 10^3/uL (0.0-0.8); Eosinophils % 1.4 %; Hematocrit 47.1 % (42.0-52.0); Hemoglobin 15.8 g/dL (11.7-16.6); Lymphocytes # 2.9 10^3/uL (0.8-4.8); Lymphocytes % 40.4 %; Mean Corpuscular HGB Conc 33.5 g/dL (30.0-36.0); Mean Corpuscular Hemoglobin 29.4 pg (28.0-34.0); Mean Corpuscular Volume 87.7 fl (80-94); Mean Platelet Volume 8.9 fL (7.4-10.4); Monocytes # 0.4 10^3/uL (0.2-0.9); Neutrophils # 3.62 10^3/uL (1.8-7.7); Neutrophils % 50.9 %; Nucleated Red Blood Cells % 0 %; Platelet Count 179 10^3/cmm (130-400); Red Blood Count 5.37 10^6/uL (4.1-5.3); Red Cell Distribution Width 12.7 % (12.1-15.1); White Blood Count 7.1 10^3/uL (4.0-10.0)
[2022-09-19 06:09] LABS: Albumin Level 3.6 g/dL (3.5-5.2); Anion Gap 16.4 (5-19); Blood Urea Nitrogen 25 mg/dL (6-20); Calcium 9.2 mg/dL (8.5-10.5); Carbon Dioxide 26 mmol/L (22-29); Chloride 99 mmol/L (98-107); Glomerular Filtration Rate 99.3 mL/min (90-130); Glucose 98 mg/dL (65-115); Phosphorus 4.1 mg/dL (2.5-4.5); Potassium 3.4 mmol/L (3.5-5.1); Sodium 138 mmol/L (136-145)
[2022-09-19 06:59] LABS: Glucose Point of Care 130 mg/dL (70-110)
[2022-09-19] MEDS: hyDRALAzine 10 mg Tablet PO ×3 (08:29→22:46)
[2022-09-19] MEDS: lisinopril 20 mg Tablet 40 MG PO (08:29)
[2022-09-19] MEDS: famotidine 20 mg Tablet PO ×2 (08:29→20:23)
[2022-09-19] MEDS: carvedilol 25 mg Tablet PO ×2 (08:29→20:23)
[2022-09-19] MEDS: spironolactone 25 mg Tablet PO (08:29)
[2022-09-19] MEDS: pantoprazole DR 40 mg Tablet PO (08:29)
[2022-09-19] MEDS: FUROsemide 10 mg/mL SDV 4mL 40 MG IVP (08:29)
[2022-09-19] MEDS: amlodipine 10 mg Tablet PO (08:29)
[2022-09-19] MEDS: enoxaparin 100 mg/mL Syringe 80 MG SUBCUT (08:29)
--- NOTE | 2022-09-19 08:56 | PM.PN ---
Subjective Subjective: The patient is feeling better. No chest pain or palpitations. No dizziness or syncopal episodes. The shortness of breath is significantly improved. Medications: Medication Review Details: Current Medications Acetaminophen (Acetaminophen 325 Mg Tablet) 650 mg PO Q6H PRN PRN Reason: Mild/Mod Pain Or Temp >/= 101 Hydrocodone Bitart/Acetaminophen (Hydrocodone-Acetaminophen 5-325 Mg Tablet) 1 tab PO Q4H PRN PRN Reason: MODERATE TO SEVERE PAIN Albuterol/Ipratropium (Ipratropium-Albuterol 3 Ml Neb) 3 ml INHALATION Q6H PRN PRN Reason: SHORTNESS OF BREATH Last Admin: 09/18/22 08:29 Dose: 3 ml Amlodipine Besylate (Amlodipine 10 Mg Tablet) 10 mg PO DAILY [facility] Last Admin: 09/19/22 08:29 Dose: 10 mg Carvedilol (Carvedilol 25 Mg Tablet) 25 mg PO BID [facility] Last Admin: 09/19/22 08:29 Dose: 25 mg Clopidogrel Bisulfate (Clopidogrel 75 Mg Tablet) 75 mg PO DAILY [facility] Cyclobenzaprine HCl (Cyclobenzaprine 10 Mg Tablet) 10 mg PO BEDTIME [facility] Last Admin: 09/18/22 21:25 Dose: 10 mg Dextrose (Dextrose 50% Syringe 50 Ml) 50 ml IVP PRN PRN; Protocol PRN Reason: hypoglycemia protocol Dextrose (Dextrose 50% Syringe 50 Ml) 25 ml IVP ONCE PRN; Protocol PRN Reason: hypoglycemia protocol Enoxaparin Sodium (Enoxaparin 100 Mg/Ml Syringe) 80 mg 1 mg/kg (80 mg) SUBCUT Q12H [facility] Last Admin: 09/19/22 08:29 Dose: 80 mg Famotidine (Famotidine 20 Mg Tablet) 20 mg PO BID [facility] Last Admin: 09/19/22 08:29 Dose: 20 mg Furosemide (Furosemide 10 Mg/Ml Sdv 4ml) 40 mg IVP BID [facility] Last Admin: 09/19/22 08:29 Dose: 40 mg Glucagon (Glucagon 1 Mg/Ml Inj 1 Ml) 1 mg IM ONCE PRN; Protocol PRN Reason: Adult Acute Hypoglycemia Prot. Hydralazine HCl (Hydralazine 10 Mg Tablet) 10 mg PO TID [facility] Last Admin: 09/19/22 08:29 Dose: 10 mg Dextrose (D5w) 500 mls @ 100 mls/hr IV ONCE PRN; Protocol PRN Reason: Adult Acute Hypoglycemia Prot Insulin Glargine (Insulin Glargine 100 Units/1 Ml) 10 unit SUBCUT BEDTIME [facility] Last Admin: 09/18/22 22:07 Dose: 10 unit Insulin Human Lispro (Insulin Lispro 100 Unit/1 Ml) 0 unit SUBCUT WM&BEDTIME [facility]; Protocol Last Admin: 09/19/22 08:30 Dose: Not Given Lisinopril (Lisinopril 20 Mg Tablet) 40 mg PO DAILY [facility] Last Admin: 09/19/22 08:29 Dose: 40 mg Ondansetron HCl (Ondansetron 4 Mg Tablet) 4 mg PO Q8H PRN PRN Reason: NAUSEA Pantoprazole Sodium (Pantoprazole Dr 40 Mg Tablet) 40 mg PO DAILY [facility] Last Admin: 09/19/22 08:29 Dose: 40 mg Spironolactone (Spironolactone 25 Mg Tablet) 25 mg PO DAILY [facility] Last Admin: 09/19/22 08:29 Dose: 25 mg Vitals/I&O/Wt Last Vital Signs Temp 97.6 F 09/19/22 07:40 Pulse 85 09/19/22 07:40 Resp 16 09/19/22 07:40 BP 132/82 09/19/22 07:40 Pulse Ox 96 09/19/22 07:40 O2 Del Method Room Air 09/19/22 07:40 O2 Flow Rate 3 09/17/22 14:25 09/18/22 09/19/22 09/19/22 22:59 06:59 14:59 Intake Total 1720 / 2080 Balance 1720 / 2080 Weight last 48 hrs Weight 179 lb Physical Exam Narrative: GENERAL: The patient is alert and oriented times three. Not in any acute distress. HEENT: No significant pallor, icterus or lymphadenopathy.Oral cavity: There are no mucous membrane lesions. NECK: Trachea appears to be central. No masses noted. No JVD or thyromegaly appreciated. RESPIRATORY: Chest is symmetrical. No intercostals muscle retraction or any accessory muscle activation. There is no chest wall tenderness. Breath sounds are heard bilaterally. Few coarse crackles and occasional expiratory wheezing. No evidence of any consolidation. BREASTS: Deferred. HEART: The heart sounds are normal. No S3 or S4. Short systolic murmur in the left sternal border. No diastolic murmurs.. No pericardial rub ABDOMEN: No vessel pulsations or distention. No tenderness. No organomegaly appreciated. Bowel sounds are normally heard. : Deferred. RECTAL: Deferred. LYMPHATIC: No lymphadenopathy noted in the neck. EXTREMITIES: No edema or cyanosis. No clubbing. MUSCULOSKELETAL: No acute joint deformities or swelling SKIN: There are no significant rashes or ecchymosis NEUROPSYCHIATRIC: The patient is alert and oriented x3. Appears to be in a good mood. No tremors or rigidity noted. Data 09/19/22 04:26 09/19/22 04:26 Other Labs: Laboratory Last Values WBC 7.1 10^3/uL (4.0-10.0) 09/19/22 04:26 RBC 5.37 10^6/uL (4.1-5.3) H 09/19/22 04:26 Hgb 15.8 g/dL (11.7-16.6) 09/19/22 04:26 Hct 47.1 % (42.0-52.0) 09/19/22 04:26 MCV 87.7 fl (80-94) 09/19/22 04:26 MCH 29.4 pg (28.0-34.0) 09/19/22 04:26 MCHC 33.5 g/dL (30.0-36.0) 09/19/22 04:26 RDW 12.7 % (12.1-15.1) 09/19/22 04:26 Plt Count 179 10^3/cmm (130-400) 09/19/22 04:26 MPV 8.9 fL (7.4-10.4) 09/19/22 04:26 Neut % (Auto) 50.9 % 09/19/22 04:26 Lymph % (Auto) 40.4 % 09/19/22 04:26 [place] % (Auto) 6.0 % 09/19/22 04:26 Eos % (Auto) 1.4 % 09/19/22 04:26 Baso % (Auto) 0.6 % 09/19/22 04:26 Neut # (Auto) 3.62 10^3/uL (1.8-7.7) 09/19/22 04:26 Lymph # (Auto) 2.9 10^3/uL (0.8-4.8) 09/19/22 04:26 [place] # (Auto) 0.4 10^3/uL (0.2-0.9) 09/19/22 04: Eos # (Auto) 0.1 10^3/uL (0.0-0.8) 09/19/22 04:26 Baso # (Auto) 0.0 10^3/uL (0.0-0.1) 09/19/22 04:26 Nucleated RBC % (auto) 0 % 09/19/22 04:26 Nucleated RBCs # 0.0 /100WBC 09/19/22 04:26 PT 12.90 SECONDS (12.1-14.9) 09/17/22 04:38 INR 0.95 (0.8-1.2) 09/17/22 04:38 D-Dimer 0.83 ug/mIFEU (0-0.59) H 09/17/22 04:38 Specimen Type Arterial 09/17/22 04:47 Sample Site Brachial, left 09/17/22 04:47 ABG pH 7.33 (7.35-7.45) L 09/17/22 04:47 ABG pCO2 47.2 mmHg (35-45) H 09/17/22 04:47 ABG pO2 69.2 mmHg (80.0-100.0) L 09/17/22 04:47 ABG HCO3 25.1 mmol/L (22-26) 09/17/22 04:47 ABG Base Excess -1.4 mmol/L (-2.0-2.0) 09/17/22 04:47 [place] Test N/a 09/17/22 04:47 Hematocrit 49.5 % (42-52) 09/17/22 04:47 Hgb O2 Saturation 88.8 % (95-100) L 09/17/22 04:47 Carboxyhemoglobin 5.2 %THgb (0.4-20.1) 09/17/22 04:47 Methemoglobin 0.5 % (0.4-1.5) 09/17/22 04:47 Total Hemoglobin 16.2 g/dL (14-18) 09/17/22 04:47 O2 Delivery Device Nc 09/17/22 04:47 O2 Liters/Min 6.0 % 09/17/22 04:47 FiO2 45.0 % 09/17/22 04:47 Labor Relations Representative ID Robert 09/17/22 04:47 Sodium 138 mmol/L (136-145) 09/19/22 04:26 Potassium 3.4 mmol/L (3.5-5.1) L 09/19/22 04:26 Chloride 99 mmol/L (98-107) 09/19/22 04:26 Carbon Dioxide 26 mmol/L (22-29) 09/19/22 04:26 Anion Gap 16.4 (5-19) 09/19/22 04:26 BUN 25 mg/dL (6-20) H 09/19/22 04:26 Creatinine 0.8 mg/dL (0.7-1.2) 09/19/22 04:26 GFR Calculation 99.3 mL/min (90-130) 09/19/22 04:26 Glucose 98 mg/dL (65-115) 09/19/22 04:26 POC Glucose 130 mg/dL (70-110) H 09/19/22 06:53 Estimat Average Glucose 266 09/18/22 04:46 Hemoglobin A1c 10.9 % (4.0-6.0) H 09/18/22 04:46 Calculated Osmolality 291 mOsm/kg (285-295) 09/18/22 04:46 Calcium 9.2 mg/dL (8.5-10.5) 09/19/22 04:26 Phosphorus 4.1 mg/dL (2.5-4.5) 09/19/22 04:26 Magnesium 2.0 mg/dL (1.7-2.3) 09/19/22 04:26 Total Bilirubin 0.4 mg/dL (0.15-1.2) 09/17/22 04:38 AST 20 U/L (0-40) 09/17/22 04:38 ALT 28 U/L (0-41) 09/17/22 04:38 Alkaline Phosphatase 142 U/L (40-130) H 09/17/22 04:38 Troponin T Baseline 51 ng/L (0-15) H 09/17/22 04:38 Troponin T 120 Minute 65.17 ng/L (0-15) H 09/17/22 06:14 Delta Troponin T 14.17 ABS# (0-10) H* 09/17/22 06:14 Troponin T Hi Sens 6Hr 55.61 ng/L (0-15) H 09/17/22 10:38 Troponin T Hi Sens 6Hr Delta 4.61 ng/L (0-12) 09/17/22 10:38 NT-Pro-B Natriuret Pep 1620 pg/mL (0-125) H 09/17/22 04:38 Total Protein 7.3 g/dL (6.6-8.7) 09/17/22 04:38 Albumin 3.6 g/dL (3.5-5.2) 09/19/22 04:26 Globulin 3.2 g/dL (1.3-4.6) 09/17/22 04:38 Procalcitonin 0.04 ng/mL (0-0.5) 09/17/22 04:38 Influenza Type A Ag negative (Negative) 09/17/22 04:37 Influenza Type B Ag negative (Negative) 09/17/22 04:37 SARS-CoV-2 Ag (Rapid) negative (Negative) 09/17/22 04:37 A&P Assessment and plan (1) Congestive heart failure: The etiology of the heart failure is not clear at this time. The elevated troponin T may suggest a ischemic event. Hypertensive heart disease causing this also is a consideration. He has a significant drop in the LV ejection fraction from the previous study. For further evaluation of the patient is a cardiac status, a cardiac catheterization would be appropriate. Risk and benefits were discussed with the patient. The risk of bleeding, hematoma, vascular injury, myocardial infarction, myocardial perforation, malignant cardiac arrhythmias ,CVA, renal failure and other concomitant complications were explained in detail. Patient understood this well and consented to proceed. We may go ahead and do scheduled for the procedure this afternoon. (2) Accelerated hypertension: Currently the patient is normotensive. May continue on the current medications. (3) Type 2 diabetes mellitus, without long-term current use of insulin: Aggressive management of the blood sugar might be appropriate. (4) Hyperlipidemia: May continue on the current medications. Qualifiers: Hyperlipidemia type: mixed hyperlipidemia Qualified Code(s): E78.2 - Mixed hyperlipidemia (5) Elevated troponin: Considering the possibility of a non-ST elevation myocardial infarction, patient may be treated with subcu Lovenox, Plavix, beta-danny, aspirin, statin and other symptomatic measures. Plan May continue on the current medication for the time being. Based on the angiogram findings, further recommendations will be made. Attestations Medical Necessity Statement*: Patient requires continued hospital stay for close monitoring and further management Coding Level of Care Code 69474 Diagnoses Congestive heart failure I50.9 Accelerated hypertension I10 Type 2 diabetes mellitus, without long-term current use of insulin E11.9 Hyperlipidemia E78.2 Hyperlipidemia type: mixed hyperlipidemia Elevated troponin R77.8
--- NOTE | 2022-09-19 09:02 | W.PM.OPSUD ---
Surgery/Procedure H&P Update DATE OF PROCEDURE: September 19, 2022 DATE H&P PERFORMED: 09/18/22 H&P UPDATE INFORMATION: I have reviewed H&P completed within last 30 days, I have examined patient prior to procedure and No changes to prior documentation CHANGES TO PREVIOUS DOCUMENTATION: The checks examination reveals occasional coarse crackles and expiratory wheezing PREOP DIAGNOSIS: Cardiomyopathy and congestive heart failure/NSTEMI/POSS ASHD PRIMARY INDICATION FOR PROCEDURE: Non-ST elevation myocardial infarction complicated with congestive heart failure PLANNED PROCEDURE: Left heart catheterization with a left and right coronary angiogram and possible PCI PATIENT REASSESSED PRIOR TO SEDATION, WITH NO CHANGE NOTED: Yes PHYSICAL EXAM: alert, oriented x 3, clear to auscultation bilaterally (Scattered coarse crackles and expiratory wheezing) and regular rate & rhythm AIRWAY EVAL/ANESTHESIA PLAN: normal airway, see other exam findings, ASA III, Monitored Anesthesia, Local Anesthesia, Risks, benefits & alternatives of sedation and/or procedure discussed and Patient agrees to continue as planned Related Problem List Diagnoses (1) Congestive heart failure:
[2022-09-19] MEDS: aspirin 325 mg Tablet PO (09:43)
[2022-09-19] MEDS: sodium chloride 0.9% 1,000 ML 50 ML IV (09:43)
[2022-09-19 11:40] LABS: Glucose Point of Care 295 mg/dL (70-110)
[2022-09-19] MEDS: diphenhydrAMINE 50 mg Capsule PO (15:35)
[2022-09-19 16:49] LABS: Glucose Point of Care 250 mg/dL (70-110)
--- NOTE | 2022-09-19 17:30 | XACV_ITS ---
Exam Room: [facility] Ht: 165 cm Wt: 81 kg BSA: 1.95 m2 Gender: Male : 1965 Exam Priority: Routine Procedure(s): Procedure Description: Diagnostic procedure Procedure Description: Left Heart Catheterization Procedure Description: Left ventriculography Procedure Description: Coronary Angiography Iker LARA; Diagnostic Cath Status: Elective Diagnostic Findings * The left main is a medium caliber with no significant stenotic lesions. * The left circumflex artery is a medium caliber vessel which gives off 3 obtuse marginal branches. All these arteries were found to have mild diffuse disease. No significant high-grade lesions. * The left anterior descending artery is a medium caliber vessel which appears to wrap around the LV apex. The artery was found to have 20 to 30% diffuse irregular narrowing in the proximal ,mid and distal segments. It gives off multiple small diagonal branches which also were found to have diffuse irregular narrowing. * The right coronary artery is a medium caliber dominant vessel which was found to have 20 to 30% tubular irregular narrowing in the proximal and the distal segments. The PDA branch of the artery was found to have around 50% diffuse stenosis proximally. No other significant stenotic lesions were noted. PCI Status: Elective Conclusions 1. 57-year-old white male with multiple risk factors for coronary disease, presenting with progressive shortness of breath and atypical chest pain. Was found to have features of congestive heart failure and elevated troponin T. The LV ejection fraction was around 40% by echocardiogram( visual). In view of his risk factors and the presenting symptoms, in order to further evaluate his coronary status, a cardiac catheterization was recommended. Patient underwent left heart catheterization with left and right coronary angiogram and LV angiogram today. The findings are as follows.. 2. 1. Mild diffuse coronary artery disease. 2 Dilated left ventricle with an ejection fraction around 30%. 3. LVEDP of 30 mmHg. Diagnostic RX Recommendation: medical therapy and/or counseling LV EDP: 30 mmHg Ventriculography Ejection Fraction: 30.0 % Left Ventriculography Findings: * The LV gram was performed the operation. The LV cavity was found to be mildly dilated. There was diffuse hypokinesia of the left tunical LV ejection fraction around 30%. No significant mitral valve prolapse noted. Mild mitral regurgitation was noted. No filling defects were noted in the ventricle. The LVEDP was 30 mmHg.. Pressures Phase:Rest AO : 94 / 78 ( 87 ) @ 1:57:33 PM 99 / 82 ( 92 ) @ 1:57:33 PM 119 / 82 ( 98 ) @ 1:57:33 PM 121 / 83 ( 100 ) @ 1:57:33 PM LV : 113 / 6 / 22 @ 1:57:33 PM 122 / 14 / 30 @ 1:57:33 PM 123 / 15 / 40 @ 1:57:33 PM Valves Phase:DefaultPhase AV : 3.0 @ 6:57:33 PM 3.0 @ 6:57:33 PM AV Mean Gradient: 14.0 @ 6:57:33 PM Clinical Evaluation EBL: 5mL-10mL Procedural Details Procedure Consent Obtained. Admit Source: In Patient. Pre-Procedure Time Out. Identified patient by full name and date of as verbalized by the patient/guarantor. Does the consent match the physician's order: Yes. Accurate & Complete Informed Consent: Yes. Inpatient/Outpatient History & Physical on Chart: Yes. If H&P is completed, is and addenduem needed: No; If yes, is the addendum complete: N/A. Visualize and Verify Site with Patient/Guarantor: N/A. Relevant Radiology Images available: N/A. The risks, benefits, and alternatives of sedation and/or procedure were discussed by physician. The patient agrees to continue. Procedure started. [facility] Clinical Fraility Score: 3: Managing Well. 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 Chest Pain Symptom Assessment: Typical Angina Symptoms. Cardiovascular Instability: N/A. Correct patient, site and procedure confirmed by cath team. Current diagnosis: NSTEMI. PERRLA. Strong, equal hand stretch box tender bilaterally. Lungs clear x 5 lobes. IV Site on Arrival: 20 gauge in the right anticubital. IV Fluids: 0.9% NaCl at KVO. 400 mL infused prior to produce laborer. Pre Procedural Pulses: bilateral radial was 3+. Pre Procedural Pulses: bilateral posterior tibial was 1+. Pre Procedural Pulses: bilateral dorsalis pedis was 1+. Oxygen started at 2liters/min via nasal canula. right groin was prepped with chloroprep then draped in the usual sterile fashion. right radial was prepped with chloroprep then draped in the usual sterile fashion. Physician notified. Baseline sample Acquired. HR: 86 BPM. Physician arrived. Physician scrubbed in. Immediate Pre-Procedure Time Out. Correct Patient: Yes; Correct Procedure: Yes; Correct Site: Yes; Correct Patient Position: Yes; Correct Supplies: Yes; Dried Flammable Prep: Yes; Blood Products Available: N/A;. Lidocaine 1% infiltrated to the right radial. Arterial access obtained. A 5 uzbek Tomas catheter in over wire. Multiple views taken of left coronary artery. Catheter redirected to the RCA. Catheter out. A 5 uzbek JR4 catheter in over wire. Multiple views taken of right coronary artery. Catheter out. A 5 uzbek Angled Pig catheter in over wire. LV gram performed in GOMEZ @ 10 mL/second for a total of 30 mL. EDP Sample taken: LV 113/6,22; HR: 86 BPM; SpO2: 95%. LV EDP: 30. EDP Sample taken: LV 122/14,30; HR: 85 BPM; SpO2: 92%. Pullback taken: LV 123/15,40; AO 119/82(98); Mean: 14mmHg, Peak to Peak: 3mmHg, SEP: 9sec/min; HR: 85 BPM; SpO2: 95%. PERRLA. Strong, equal hand stretch box tender bilaterally. No VTE prophylaxis required. Medication's Wasted: Lidocaine 1% = 2 mL. Medication's Wasted: Nitro = 49.8 mg. Medication's Wasted: Heparin = 1000 units. Medication's Wasted: Other = versed 1 mg. Medication's Wasted: Other = fentanyl 25 mcg. Total IV fluids: 49 mL. A TR Band was successful obtaining hemostatsis at the Right Radial artery insertion site. Post-op diagnosis: mild to moderate CAD, Cardiomyopathy. Complications: none. Estimated blood loss: 5mL-10mL. Responsiveness - Normal response to verbal stimuli; alert and oriented, PERRLA. Airway - Unaffected, no intervention required; spontaneous ventilation. Circulation: W/N/L, pulses unchanged. Nausea/Vomiting: No. Procedure completed. Patient transferred by wheelchair to ICU. Vital chart was stopped. Access Site Site: Right Radial artery Sheath Size: 6 Fr Hemostasis Method: TR Band Hemostasis Success: Successful Procedure Medications Start: 6:27 PM Stop: 6:27 PM Medication: Versed Amount: 1 mg Route: I.V. Start: 6:27 PM Stop: 6:27 PM Medication: Fentanyl Amount: 50 mcg Route: I.V. Start: 6:29 PM Stop: 6:29 PM Medication: Versed Amount: 1 mg Route: I.V. Start: 6:31 PM Stop: 6:31 PM Medication: Fentanyl Amount: 25 mcg Route: I.V. Start: 6:34 PM Stop: 6:34 PM Medication: Verapamil Amount: 5 mg Route: I.A. Start: 6:34 PM Stop: 6:34 PM Medication: Nitrogylcerin Amount: 200 mcg Route: I.A. Start: 6:35 PM Stop: 6:35 PM Medication: Versed Amount: 1 mg Route: I.V. Start: 6:38 PM Stop: 6:38 PM Medication: Heparin Amount: 5000 units Route: I.V. I, the attending physician, have reviewed and verified all procedure medications. Yes, all medications given per verbal order History/Risk Factors Hypertension: Yes Dyslipidemia: Yes Peripheral Arterial Disease (PAD): No Myocardial Infarction (OK): No Obesity: No Renal Disease: No Tobacco Use: Current/Recent(w/in 1 year) Prior Interventions PCI: No CABG: No Valve Surgery: No Report Signatures Finalized by Dr Rachel Dong MD [facility] on 09/20/2022 02:03 PM
--- NOTE | 2022-09-19 18:01 | PM.PN ---
Subjective Subjective: no new complaints today, awaiting cardiac cath this evening Medications: Reviewed: Yes Medication Review Details: Current Medications Acetaminophen (Acetaminophen 325 Mg Tablet) 650 mg PO Q6H PRN PRN Reason: Mild/Mod Pain Or Temp >/= 101 Hydrocodone Bitart/Acetaminophen (Hydrocodone-Acetaminophen 5-325 Mg Tablet) 1 tab PO Q4H PRN PRN Reason: MODERATE TO SEVERE PAIN Albuterol/Ipratropium (Ipratropium-Albuterol 3 Ml Neb) 3 ml INHALATION Q6H PRN PRN Reason: SHORTNESS OF BREATH Last Admin: 09/18/22 08:29 Dose: 3 ml Amlodipine Besylate (Amlodipine 10 Mg Tablet) 10 mg PO DAILY [facility] Last Admin: 09/19/22 08:29 Dose: 10 mg Carvedilol (Carvedilol 25 Mg Tablet) 25 mg PO BID [facility] Last Admin: 09/19/22 08:29 Dose: 25 mg Clopidogrel Bisulfate (Clopidogrel 75 Mg Tablet) 75 mg PO DAILY [facility] Cyclobenzaprine HCl (Cyclobenzaprine 10 Mg Tablet) 10 mg PO BEDTIME [facility] Last Admin: 09/18/22 21:25 Dose: 10 mg Dextrose (Dextrose 50% Syringe 50 Ml) 50 ml IVP PRN PRN; Protocol PRN Reason: hypoglycemia protocol Dextrose (Dextrose 50% Syringe 50 Ml) 25 ml IVP ONCE PRN; Protocol PRN Reason: hypoglycemia protocol Enoxaparin Sodium (Enoxaparin 100 Mg/Ml Syringe) 80 mg 1 mg/kg (80 mg) SUBCUT Q12H [facility] Last Admin: 09/19/22 08:29 Dose: 80 mg Famotidine (Famotidine 20 Mg Tablet) 20 mg PO BID [facility] Last Admin: 09/19/22 08:29 Dose: 20 mg Furosemide (Furosemide 10 Mg/Ml Sdv 4ml) 40 mg IVP BID [facility] Last Admin: 09/19/22 08:29 Dose: 40 mg Glucagon (Glucagon 1 Mg/Ml Inj 1 Ml) 1 mg IM ONCE PRN; Protocol PRN Reason: Adult Acute Hypoglycemia Prot. Hydralazine HCl (Hydralazine 10 Mg Tablet) 10 mg PO TID [facility] Last Admin: 09/19/22 08:29 Dose: 10 mg Dextrose (D5w) 500 mls @ 100 mls/hr IV ONCE PRN; Protocol PRN Reason: Adult Acute Hypoglycemia Prot Insulin Glargine (Insulin Glargine 100 Units/1 Ml) 10 unit SUBCUT BEDTIME [facility] Last Admin: 09/18/22 22:07 Dose: 10 unit Insulin Human Lispro (Insulin Lispro 100 Unit/1 Ml) 0 unit SUBCUT WM&BEDTIME [facility]; Protocol Last Admin: 09/19/22 08:30 Dose: Not Given Lisinopril (Lisinopril 20 Mg Tablet) 40 mg PO DAILY [facility] Last Admin: 09/19/22 08:29 Dose: 40 mg Ondansetron HCl (Ondansetron 4 Mg Tablet) 4 mg PO Q8H PRN PRN Reason: NAUSEA Pantoprazole Sodium (Pantoprazole Dr 40 Mg Tablet) 40 mg PO DAILY [facility] Last Admin: 09/19/22 08:29 Dose: 40 mg Spironolactone (Spironolactone 25 Mg Tablet) 25 mg PO DAILY [facility] Last Admin: 09/19/22 08:29 Dose: 25 mg Vitals/I&O/Wt Last Vital Signs Temp 98.4 F 09/19/22 15:25 Pulse 88 09/19/22 15:25 Resp 18 09/19/22 15:25 BP 115/81 09/19/22 15:25 Pulse Ox 97 09/19/22 15:25 O2 Del Method Room Air 09/19/22 15:25 O2 Flow Rate 3 09/17/22 14:25 09/19/22 09/19/22 09/19/22 06:59 14:59 22:59 Intake Total 360 / 360 Balance 360 / 360 Weight last 48 hrs Weight 81.193 kg Physical Exam Narrative: General: No acute distress, AO x3 HEENT: PERRLA, pupils bilaterally equal and reactive, pallors not present Chest: Normal vesicular breath sounds, no added sounds, equal good air entry bilaterally CVS: S1-S2 regular, no murmurs, no tachycardia, no gallops, no rubs Abdomen: Soft, nontender, no organomegaly, bowel sounds present Neuro: No focal deficits, no facial deformity, AO x3, power 5/5 in all limbs Data 09/19/22 04:26 09/19/22 04:26 A&P Assessment and plan (1) Congestive heart failure: Associated with acute hypoxic respiratory failure, now resolved Newly diagnosed acute systolic heart failure with reduced EF TTE reviewed Strict I&Os Daily weights Continue diuresis with Lasix plan for cardiac cath today, will follow up with pending study (2) Hypertensive urgency: Continue Lasix Continue Norvasc Continue Coreg Continue lisinopril at reduced home dose (home dose 40 mg BID) Continue hydralizine Hold hydrochlorothiazide while on Lasix (3) Type 2 diabetes mellitus, without long-term current use of insulin: Associated with hyperglycemia Hold oral medications SSI Avoid hypoglycemia (4) Hyperlipidemia: Continue statin Qualifiers: Hyperlipidemia type: mixed hyperlipidemia Qualified Code(s): E78.2 - Mixed hyperlipidemia (5) Nicotine dependence, cigarettes, with unspecified nicotine-induced disorders: Would benefit from cessation (6) Lumbar disc disease with radiculopathy: Continue home meds Plan DVT ppx: Heparin Code status: Full Code Attestations Medical Necessity Statement*: pending cardiac cath today Coding Level of Care Code Acute Code for Chg Fwd Diagnoses Congestive heart failure I50.9 Hypertensive urgency I16.0 Type 2 diabetes mellitus, without long-term current use of insulin E11.9 Hyperlipidemia E78.2 Hyperlipidemia type: mixed hyperlipidemia Nicotine dependence, cigarettes, with unspecified nicotine-induced disorders F17.219 Lumbar disc disease with radiculopathy M51.16
[2022-09-19] MEDS: cyclobenzaprine 10 mg Tablet PO (20:23)
[2022-09-19 20:28] LABS: Glucose Point of Care 202 mg/dL (70-110)
[2022-09-19] MEDS: insulin lispro 100 unit/1 mL SUBCUT (20:33)
[2022-09-19] MEDS: FUROsemide 40 mg Tablet PO (20:34)
[2022-09-19] MEDS: insulin glargine 100 units/1 mL 10 UNIT SUBCUT (20:38)
--- NOTE | 2022-09-19 23:56 | PC.NURSE ---
Patient arrived on unit via wheelchair from lab analyst. received in report from lab analyst that patient had already received heparin. Lovenox injection due at this time also. Dr. Dong notified with new orders received to not admin this dose and to start Lovenox 40 mg , to give furosemide 40 mg PO, and to receive a cardiac diet.
[2022-09-20] VITALS (88 sets, daily range): BP systolic 88–128; BP diastolic 60–92; PULSE 69–94; RESP 7–27; TEMP 36.9–37; O2SAT 90–97
[2022-09-20 07:41] LABS: Glucose Point of Care 132 mg/dL (70-110)
[2022-09-20] MEDS: pantoprazole DR 40 mg Tablet PO (08:12)
[2022-09-20] MEDS: FUROsemide 40 mg Tablet PO (08:12)
[2022-09-20] MEDS: spironolactone 25 mg Tablet PO (08:12)
[2022-09-20] MEDS: famotidine 20 mg Tablet PO (08:13)
[2022-09-20] MEDS: carvedilol 25 mg Tablet PO (08:13)
[2022-09-20] MEDS: amlodipine 10 mg Tablet PO (08:13)
[2022-09-20] MEDS: hyDRALAzine 10 mg Tablet PO (08:13)
[2022-09-20] MEDS: lisinopril 20 mg Tablet 40 MG PO (08:13)
[2022-09-20 09:02] LABS: Basophils % 0.6 %; Eosinophils # 0.1 10^3/uL (0.0-0.8); Eosinophils % 1.9 %; Hematocrit 49.8 % (42.0-52.0); Hemoglobin 16.9 g/dL (11.7-16.6); Lymphocytes # 1.8 10^3/uL (0.8-4.8); Lymphocytes % 37.9 %; Mean Corpuscular HGB Conc 33.9 g/dL (30.0-36.0); Mean Corpuscular Hemoglobin 30.3 pg (28.0-34.0); Mean Corpuscular Volume 89.4 fl (80-94); Mean Platelet Volume 8.5 fL (7.4-10.4); Monocytes # 0.3 10^3/uL (0.2-0.9); Monocytes % 6.7 %; Neutrophils % 52.5 %; Nucleated Red Blood Cells % 0 %; Platelet Count 181 10^3/cmm (130-400); Red Blood Count 5.57 10^6/uL (4.1-5.3); Red Cell Distribution Width 12.9 % (12.1-15.1); White Blood Count 4.8 10^3/uL (4.0-10.0)
[2022-09-20 09:23] LABS: Alanine Aminotransferase 31 U/L (0-41); Alkaline Phosphatase 76 U/L (40-130); Anion Gap 11.6 (5-19); Aspartate Amino Transferase 27 U/L (0-40); Blood Urea Nitrogen 20 mg/dL (6-20); Calcium 9.4 mg/dL (8.5-10.5); Carbon Dioxide 32 mmol/L (22-29); Chloride 100 mmol/L (98-107); Glomerular Filtration Rate 86.7 mL/min (90-130); Glucose 178 mg/dL (65-115); Osmolality Calculated 297 mOsm/kg (285-295); Potassium 3.6 mmol/L (3.5-5.1); Sodium 140 mmol/L (136-145); Total Bilirubin 0.7 mg/dL (0.15-1.2)
--- NOTE | 2022-09-20 09:55 | PM.DCS ---
Discharge Providers Date of Admission: 09/17/22 06:11 Date of Discharge: September 20, 2022 Attending Provider at Admission: Jeevan Gardner MD Attending Provider at Discharge: Christie Carnes MD Diagnoses at Discharge Discharge Diagnosis (1) Congestive heart failure: Status: Acute (2) Hypertensive urgency: Status: Acute (3) Type 2 diabetes mellitus, without long-term current use of insulin: Status: Chronic (4) Hyperlipidemia: Status: Chronic Qualifiers: Hyperlipidemia type: mixed hyperlipidemia Qualified Code(s): E78.2 - Mixed hyperlipidemia (5) Nicotine dependence, cigarettes, with unspecified nicotine-induced disorders: Status: Acute (6) Lumbar disc disease with radiculopathy: Status: Acute Reason for Visit Reason for Visit: sob Hospital Course Hospital Course 57-year-old male with a past medical history of hypertension, diabetes mellitus, presented to the hospital on September 17, 2022 with chief complaints of progressive shortness of breath over the past 2 weeks. He was found to have features of congestive heart failure. Echocardiogram was performed which revealed an LVEF of 40%. He had elevated troponins, together with a drop in his ejection fraction overall there was concern for underlying ischemia. Patient underwent left heart cath on September 19, 2022 which revealed nonobstructive CAD. He was treated in the hospital with IV diuretics, he improved significantly. He has no dyspnea at the time of discharge today. Overall, cause of his nonischemic cardiomyopathy remains unclear at this time. His medications have been optimized to include lisinopril, Aldactone, Coreg and Lasix. He is being discharged today in improved state with recommendations to follow-up with cardiology with nurse practitioner in [address] Marie in 1 month. Physical Exam Narrative: General: No acute distress, AO x3 HEENT: PERRLA, pupils bilaterally equal and reactive, pallors not present Chest: Normal vesicular breath sounds, no added sounds, equal good air entry bilaterally CVS: S1-S2 regular, no murmurs, no tachycardia, no gallops, no rubs Abdomen: Soft, nontender, no organomegaly, bowel sounds present Neuro: No focal deficits, no facial deformity, AO x3, power 5/5 in all limbs Discharge Data Studies Completed and Pending Completed Studies During Hospitalization Category Date Time Status CTA chest [CT angio chest PE protcl [id number]] Stat Cat Scan 09/17/22 05:09 Completed XR chest 1V portable [id number] Stat Exams 09/17/22 04:21 Completed CV. echo complete* [id number] Routine Ultrasound 09/17/22 19:01 Completed Pending at discharge Category Date Time Status PERIODICALS LIBRARY ASSISTANT request for service Routine Exams 09/19/22 17:30 Taken Radiology Impressions Chest X-Ray 09/17/22 04:21 IMPRESSION: Widespread interstitial edema new from comparison. Chest CTA 09/17/22 05:09 IMPRESSION: 1. Negative for pulmonary embolism. 2. Widespread interstitial edema. Small pleural effusions. Laboratory Results WBC 4.8 10^3/uL (4.0-10.0) 09/20/22 08:50 RBC 5.57 10^6/uL (4.1-5.3) H 09/20/22 08:50 Hgb 16.9 g/dL (11.7-16.6) H 09/20/22 08:50 Hct 49.8 % (42.0-52.0) 09/20/22 08:50 MCV 89.4 fl (80-94) 09/20/22 08:50 MCH 30.3 pg (28.0-34.0) 09/20/22 08:50 MCHC 33.9 g/dL (30.0-36.0) 09/20/22 08:50 RDW 12.9 % (12.1-15.1) 09/20/22 08:50 Plt Count 181 10^3/cmm (130-400) 09/20/22 08:50 MPV 8.5 fL (7.4-10.4) 09/20/22 08:50 Neut % (Auto) 52.5 % 09/20/22 08:50 Lymph % (Auto) 37.9 % 09/20/22 08:50 [place] % (Auto) 6.7 % 09/20/22 08:50 Eos % (Auto) 1.9 % 09/20/22 08:50 Baso % (Auto) 0.6 % 09/20/22 08:50 Neut # (Auto) 2.50 10^3/uL (1.8-7.7) 09/20/22 08:50 Lymph # (Auto) 1.8 10^3/uL (0.8-4.8) 09/20/22 08:50 [place] # (Auto) 0.3 10^3/uL (0.2-0.9) 09/20/22 08:50 Eos # (Auto) 0.1 10^3/uL (0.0-0.8) 09/20/22 08:50 Baso # (Auto) 0.0 10^3/uL (0.0-0.1) 09/20/22 08:50 Nucleated RBC % (auto) 0 % 09/20/22 08:50 Nucleated RBCs # 0.0 /100WBC 09/20/22 08:50 PT 12.90 SECONDS (12.1-14.9) 09/17/22 04:38 INR 0.95 (0.8-1.2) 09/17/22 04:38 D-Dimer 0.83 ug/mIFEU (0-0.59) H 09/17/22 04:38 Specimen Type Arterial 09/17/22 04:47 Sample Site Brachial, left 09/17/22 04:47 ABG pH 7.33 (7.35-7.45) L 09/17/22 04:47 ABG pCO2 47.2 mmHg (35-45) H 09/17/22 04:47 ABG pO2 69.2 mmHg (80.0-100.0) L 09/17/22 04:47 ABG HCO3 25.1 mmol/L (22-26) 09/17/22 04:47 ABG Base Excess -1.4 mmol/L (-2.0-2.0) 09/17/22 04:47 Rojelio Test N/a 09/17/22 04:47 Hematocrit 49.5 % (42-52) 09/17/22 04:47 Hgb O2 Saturation 88.8 % (95-100) L 09/17/22 04:47 Carboxyhemoglobin 5.2 %THgb (0.4-20.1) 09/17/22 04:47 Methemoglobin 0.5 % (0.4-1.5) 09/17/22 04:47 Total Hemoglobin 16.2 g/dL (14-18) 09/17/22 04:47 O2 Delivery Device Nc 09/17/22 04:47 O2 Liters/Min 6.0 % 09/17/22 04:47 FiO2 45.0 % 09/17/22 04:47 Recording Studio Set Up Worker ID [place] 09/17/22 04:47 Sodium 140 mmol/L (136-145) 09/20/22 08:50 Potassium 3.6 mmol/L (3.5-5.1) 09/20/22 08:50 Chloride 100 mmol/L (98-107) 09/20/22 08:50 Carbon Dioxide 32 mmol/L (22-29) H 09/20/22 08:50 Anion Gap 11.6 (5-19) 09/20/22 08:50 BUN 20 mg/dL (6-20) 09/20/22 08:50 Creatinine 0.9 mg/dL (0.7-1.2) 09/20/22 08:50 GFR Calculation 86.7 mL/min (90-130) L 09/20/22 08:50 Glucose 178 mg/dL (65-115) H 09/20/22 08:50 POC Glucose 132 mg/dL (70-110) H 09/20/22 07:28 Estimat Average Glucose 266 09/18/22 04:46 Hemoglobin A1c 10.9 % (4.0-6.0) H 09/18/22 04:46 Calculated Osmolality 297 mOsm/kg (285-295) H 09/20/22 08:50 Calcium 9.4 mg/dL (8.5-10.5) 09/20/22 08:50 Phosphorus 4.1 mg/dL (2.5-4.5) 09/19/22 04:26 Magnesium 2.0 mg/dL (1.7-2.3) 09/19/22 04:26 Total Bilirubin 0.7 mg/dL (0.15-1.2) 09/20/22 08:50 AST 27 U/L (0-40) 09/20/22 08:50 ALT 31 U/L (0-41) 09/20/22 08:50 Alkaline Phosphatase 76 U/L (40-130) 09/20/22 08:50 Troponin T Baseline 51 ng/L (0-15) H 09/17/22 04:38 Troponin T 120 Minute 65.17 ng/L (0-15) H 09/17/22 06:14 Delta Troponin T 14.17 ABS# (0-10) H* 09/17/22 06:14 Troponin T Hi Sens 6Hr 55.61 ng/L (0-15) H 09/17/22 10:38 Troponin T Hi Sens 6Hr Delta 4.61 ng/L (0-12) 09/17/22 10:38 NT-Pro-B Natriuret Pep 1620 pg/mL (0-125) H 09/17/22 04:38 Total Protein 7.0 g/dL (6.6-8.7) 09/20/22 08:50 Albumin 4.0 g/dL (3.5-5.2) 09/20/22 08:50 Globulin 3.0 g/dL (1.3-4.6) 09/20/22 08:50 Procalcitonin 0.04 ng/mL (0-0.5) 09/17/22 04:38 Influenza Type A Ag negative (Negative) 09/17/22 04:37 Influenza Type B Ag negative (Negative) 09/17/22 04:37 SARS-CoV-2 Ag (Rapid) negative (Negative) 09/17/22 04:37 Vitals Last Vital Signs Temp 98.4 F 09/20/22 02:10 Pulse 88 09/20/22 09:17 Resp 16 09/20/22 09:17 BP 115/77 09/20/22 06:35 Pulse Ox 96 09/20/22 09:17 O2 Del Method Room Air 09/20/22 09:17 O2 Flow Rate 3 09/17/22 14:25 Discharge Plan Discharge Patient Disposition: Home Condition: Stable Prescriptions: New spironolactone 25 mg Tablet 25 mg PO DAILY 30 Days Qty: 30 0RF furosemide 40 mg Tablet 40 mg PO BID@08,16 30 Days Qty: 60 0RF Continued (DME) AUTO-TITRATING CPAP 6-10cm See Rx Instructions .Route .MEDSUPPLY Qty: 1 0RF Rx Instructions: As directed amlodipine 10 mg tablet 10 mg PO DAILY Qty: 45 0RF Invokana 300 mg tablet 300 mg PO DAILY Qty: 45 0RF carvedilol 25 mg tablet 25 mg PO BID Qty: 90 0RF glipizide 5 mg tablet 5 mg PO BID 30 Days Qty: 90 0RF metformin 1,000 mg tablet 1,000 mg PO BID Qty: 90 0RF pantoprazole 40 mg tablet,delayed release (DR/EC) 40 mg PO DAILY Qty: 45 0RF sildenafil (pulm.hypertension) 20 mg tablet 20 mg PO .COMPLEX Qty: 30 0RF Rx Instructions: 20 mg PO 1-5 tablets one hour prior to sexual intercourse - on an empty stomach; administer doses at least 4-6 hours apart cyclobenzaprine 10 mg tablet 10 mg PO BEDTIME famotidine 20 mg Tablet 20 mg PO BID Changed hydralazine 10 mg tablet 10 mg PO TID 30 Days Qty: 90 0RF Dose Instruction: TAKE 1 TABLET BY MOUTH THREE TIMES DAILY Rx Instructions: TAKE 1 TABLET BY MOUTH THREE TIMES DAILY lisinopril 40 mg tablet 40 mg PO DAILY Qty: 45 0RF Discontinued hydrochlorothiazide 50 mg tablet 50 mg PO DAILY Qty: 45 0RF Discharge Orders: Discharge Order (Routine); Ordered 09/20/22 Ordered By: Christie Carnes Referrals: Omkar Dela Cruz MD [Referring] - 09/28/22 1:00 pm (This is a new patient appointment to [facility] primary care and hospital follow up.) Danna Tavarez FNP [Nurse Practitioner] - 09/27/22 10:15 am Discharge Diet: Usual diet Discharge Activity: Resume usual activity Patient Instructions: Heart Failure (DC), Low-Sodium Diet (DC), Hypertensive Crisis (DC), Opioid Safety, Post Angiogram Home Care Instructions, Pain Management Discharge Attestations Time Spent in Discharge Care*: greater than 30 min Quality Metrics Clinical Quality Measures [ No reported AMI, CVA or VTE this stay] Coding Level of Care Code Acute Code for [facility] Fwd Diagnoses Congestive heart failure I50.9 Hypertensive urgency I16.0 Type 2 diabetes mellitus, without long-term current use of insulin E11.9 Hyperlipidemia E78.2 Hyperlipidemia type: mixed hyperlipidemia Nicotine dependence, cigarettes, with unspecified nicotine-induced disorders F17.219 Lumbar disc disease with radiculopathy M51.16
[2022-09-20 11:19] LABS: Glucose Point of Care 289 mg/dL (70-110)
[2022-09-20] MEDS: insulin lispro 100 unit/1 mL SUBCUT (11:44)
--- NOTE | 2022-09-20 12:44 | P.PN_ITS ---
Subjective Subjective: The patient is feeling okay. No chest pain or shortness of breath. No hematoma bleeding at the arterial puncture site. Vital signs are remaining stable. The cardiac catheterization last evening. He was found to have mild diffuse coronary artery disease. LV ejection fraction was around 30%. Diffuse hypokinesia left-ventricule with mildly dilated LV cavity. The LVEDP was 30 mmHg. Based on the angiogram findings, it was decided to treat her medically. Medications: Medication Review Details: Current Medications Acetaminophen (Acetaminophen 325 Mg Tablet) 650 mg PO Q6H PRN PRN Reason: Mild/Mod Pain Or Temp >/= 101 Hydrocodone Bitart/Acetaminophen (Hydrocodone-Acetaminophen 5-325 Mg Tablet) 1 tab PO Q4H PRN PRN Reason: MODERATE TO SEVERE PAIN Al Hydrox/Mg Hydrox/Simethicone (Shfp-Kev-Iclvacpae-Diaz 30 Ml Udc) 30 ml PO Q15M PRN PRN Reason: INDIGESTION Albuterol/Ipratropium (Ipratropium-Albuterol 3 Ml Neb) 3 ml INHALATION Q6H PRN PRN Reason: SHORTNESS OF BREATH Last Admin: 09/18/22 08:29 Dose: 3 ml Amlodipine Besylate (Amlodipine 10 Mg Tablet) 10 mg PO DAILY [facility] Last Admin: 09/20/22 08:13 Dose: 10 mg Atropine Sulfate (Atropine 1 Mg/Ml Sdv 1 Ml) 0.5 mg IVP PRN PRN PRN Reason: Symptomatic bradycardia Carvedilol (Carvedilol 25 Mg Tablet) 25 mg PO BID [facility] Last Admin: 09/20/22 08:13 Dose: 25 mg Clopidogrel Bisulfate (Clopidogrel 75 Mg Tablet) 75 mg PO DAILY [facility] Cyclobenzaprine HCl (Cyclobenzaprine 10 Mg Tablet) 10 mg PO BEDTIME [facility] Last Admin: 09/19/22 20:23 Dose: 10 mg Dextrose (Dextrose 50% Syringe 50 Ml) 50 ml IVP PRN PRN; Protocol PRN Reason: hypoglycemia protocol Dextrose (Dextrose 50% Syringe 50 Ml) 25 ml IVP ONCE PRN; Protocol PRN Reason: hypoglycemia protocol Enoxaparin Sodium (Enoxaparin 40 Mg/0.4 Ml Syringe) 40 mg SUBCUT Q24H [facility] Last Admin: 09/19/22 20:26 Dose: Not Given Famotidine (Famotidine 20 Mg Tablet) 20 mg PO BID [facility] Last Admin: 09/20/22 08:13 Dose: 20 mg Fentanyl (Fentanyl 50 Mcg/Ml Inj 2ml) 50 mcg IVP PRN PRN PRN Reason: Prior to sheath removal Furosemide (Furosemide 40 Mg Tablet) 40 mg PO BID@08,16 [facility] Last Admin: 09/20/22 08:12 Dose: 40 mg Glucagon (Glucagon 1 Mg/Ml Inj 1 Ml) 1 mg IM ONCE PRN; Protocol PRN Reason: Adult Acute Hypoglycemia Prot. Hydralazine HCl (Hydralazine 10 Mg Tablet) 10 mg PO TID [facility] Last Admin: 09/20/22 08:13 Dose: 10 mg Dextrose (D5w) 500 mls @ 100 mls/hr IV ONCE PRN; Protocol PRN Reason: Adult Acute Hypoglycemia Prot Insulin Glargine (Insulin Glargine 100 Units/1 Ml) 10 unit SUBCUT BEDTIME [facility] Last Admin: 09/19/22 20:38 Dose: 10 unit Insulin Human Lispro (Insulin Lispro 100 Unit/1 Ml) 0 unit SUBCUT WM&BEDTIME [facility]; Protocol Last Admin: 09/20/22 11:44 Dose: 12 unit Lisinopril (Lisinopril 20 Mg Tablet) 40 mg PO DAILY [facility] Last Admin: 09/20/22 08:13 Dose: 40 mg Magnesium Hydroxide (Magnesium Hydroxide 30 Ml Udc) 30 ml PO DAILY PRN PRN Reason: CONSTIPATION Naloxone HCl (Naloxone 0.4 Mg/Ml Sdv) 0.1 mg IVP Q2M PRN PRN Reason: RESPIRATORY RATE < 8/MIN Nitroglycerin (Nitroglycerin 0.4 Mg Sublingual Tablet) 0.4 mg SUBLINGUAL Q5M PRN PRN Reason: CHEST PAIN Ondansetron HCl (Ondansetron 4 Mg Tablet) 4 mg PO Q8H PRN PRN Reason: NAUSEA Pantoprazole Sodium (Pantoprazole Dr 40 Mg Tablet) 40 mg PO DAILY [facility] Last Admin: 09/20/22 08:12 Dose: 40 mg Spironolactone (Spironolactone 25 Mg Tablet) 25 mg PO DAILY [facility] Last Admin: 09/20/22 08:12 Dose: 25 mg Temazepam (Temazepam 15 Mg Capsule) 15 mg PO BEDTIME PRN PRN Reason: INSOMNIA Vitals/I&O/Wt Last Vital Signs Temp 98.6 F 09/20/22 08:00 Pulse 79 09/20/22 12:00 Resp 16 09/20/22 12:00 BP 90/73 09/20/22 12:00 Pulse Ox 92 09/20/22 11:00 O2 Del Method Room Air 09/20/22 12:00 O2 Flow Rate 3 09/17/22 14:25 09/19/22 09/20/22 09/20/22 22:59 06:59 14:59 Intake Total 660 / 1020 550 / 550 Balance 660 / 1020 550 / 550 Weight last 48 hrs Weight 176 lb 4.8 oz Weight 179 lb Physical Exam Narrative: GENERAL: The patient is alert and oriented times three. Not in any acute distress. HEENT: No significant pallor, icterus or lymphadenopathy.Oral cavity: There are no mucous membrane lesions. NECK: Trachea appears to be central. No masses noted. No JVD or thyromegaly appreciated. RESPIRATORY: Chest is symmetrical. No intercostals muscle retraction or any accessory muscle activation. There is no chest wall tenderness. Breath sounds are heard bilaterally. Few coarse crackles and occasional expiratory wheezing. No evidence of any consolidation. BREASTS: Deferred. HEART: The heart sounds are normal. No S3 or S4. Short systolic murmur in the left sternal border. No diastolic murmurs.. No pericardial rub ABDOMEN: No vessel pulsations or distention. No tenderness. No organomegaly appreciated. Bowel sounds are normally heard. : Deferred. RECTAL: Deferred. LYMPHATIC: No lymphadenopathy noted in the neck. EXTREMITIES: No hematoma bleeding at the radial arterial puncture site. MUSCULOSKELETAL: No acute joint deformities or swelling SKIN: There are no significant rashes or ecchymosis NEUROPSYCHIATRIC: The patient is alert and oriented x3. Appears to be in a good mood. No tremors or rigidity noted. Data 09/20/22 08:50 09/20/22 08:50 Other Labs: Laboratory Last Values WBC 4.8 10^3/uL (4.0-10.0) 09/20/22 08:50 RBC 5.57 10^6/uL (4.1-5.3) H 09/20/22 08:50 Hgb 16.9 g/dL (11.7-16.6) H 09/20/22 08:50 Hct 49.8 % (42.0-52.0) 09/20/22 08:50 MCV 89.4 fl (80-94) 09/20/22 08:50 MCH 30.3 pg (28.0-34.0) 09/20/22 08:50 MCHC 33.9 g/dL (30.0-36.0) 09/20/22 08:50 RDW 12.9 % (12.1-15.1) 09/20/22 08:50 Plt Count 181 10^3/cmm (130-400) 09/20/22 08:50 MPV 8.5 fL (7.4-10.4) 09/20/22 08:50 Neut % (Auto) 52.5 % 09/20/22 08:50 Lymph % (Auto) 37.9 % 09/20/22 08:50 [place] % (Auto) 6.7 % 09/20/22 08:50 Eos % (Auto) 1.9 % 09/20/22 08:50 Baso % (Auto) 0.6 % 09/20/22 08:50 Neut # (Auto) 2.50 10^3/uL (1.8-7.7) 09/20/22 08:50 Lymph # (Auto) 1.8 10^3/uL (0.8-4.8) 09/20/22 08:50 [place] # (Auto) 0.3 10^3/uL (0.2-0.9) 09/20/22 08:50 Eos # (Auto) 0.1 10^3/uL (0.0-0.8) 09/20/22 08:50 Baso # (Auto) 0.0 10^3/uL (0.0-0.1) 09/20/22 08:50 Nucleated RBC % (auto) 0 % 09/20/22 08:50 Nucleated RBCs # 0.0 /100WBC 09/20/22 08:50 PT 12.90 SECONDS (12.1-14.9) 09/17/22 04:38 INR 0.95 (0.8-1.2) 09/17/22 04:38 D-Dimer 0.83 ug/mIFEU (0-0.59) H 09/17/22 04:38 Specimen Type Arterial 09/17/22 04:47 Sample Site Brachial, left 09/17/22 04:47 ABG pH 7.33 (7.35-7.45) L 09/17/22 04:47 ABG pCO2 47.2 mmHg (35-45) H 09/17/22 04:47 ABG pO2 69.2 mmHg (80.0-100.0) L 09/17/22 04:47 ABG HCO3 25.1 mmol/L (22-26) 09/17/22 04:47 ABG Base Excess -1.4 mmol/L (-2.0-2.0) 09/17/22 04:47 Rojelio Test N/a 09/17/22 04:47 Hematocrit 49.5 % (42-52) 09/17/22 04:47 Hgb O2 Saturation 88.8 % (95-100) L 09/17/22 04:47 Carboxyhemoglobin 5.2 %THgb (0.4-20.1) 09/17/22 04:47 Methemoglobin 0.5 % (0.4-1.5) 09/17/22 04:47 Total Hemoglobin 16.2 g/dL (14-18) 09/17/22 04:47 O2 Delivery Device Nc 09/17/22 04:47 O2 Liters/Min 6.0 % 09/17/22 04:47 FiO2 45.0 % 09/17/22 04:47 Truck Spotter ID [place] 09/17/22 04:47 Sodium 140 mmol/L (136-145) 09/20/22 08:50 Potassium 3.6 mmol/L (3.5-5.1) 09/20/22 08:50 Chloride 100 mmol/L (98-107) 09/20/22 08:50 Carbon Dioxide 32 mmol/L (22-29) H 09/20/22 08:50 Anion Gap 11.6 (5-19) 09/20/22 08:50 BUN 20 mg/dL (6-20) 09/20/22 08:50 Creatinine 0.9 mg/dL (0.7-1.2) 09/20/22 08:50 GFR Calculation 86.7 mL/min (90-130) L 09/20/22 08:50 Glucose 178 mg/dL (65-115) H 09/20/22 08:50 POC Glucose 289 mg/dL (70-110) H 09/20/22 11:17 Estimat Average Glucose 266 09/18/22 04:46 Hemoglobin A1c 10.9 % (4.0-6.0) H 09/18/22 04:46 Calculated Osmolality 297 mOsm/kg (285-295) H 09/20/22 08:50 Calcium 9.4 mg/dL (8.5-10.5) 09/20/22 08:50 Phosphorus 4.1 mg/dL (2.5-4.5) 09/19/22 04:26 Magnesium 2.0 mg/dL (1.7-2.3) 09/19/22 04:26 Total Bilirubin 0.7 mg/dL (0.15-1.2) 09/20/22 08:50 AST 27 U/L (0-40) 09/20/22 08:50 ALT 31 U/L (0-41) 09/20/22 08:50 Alkaline Phosphatase 76 U/L (40-130) 09/20/22 08:50 Troponin T Baseline 51 ng/L (0-15) H 09/17/22 04:38 Troponin T 120 Minute 65.17 ng/L (0-15) H 09/17/22 06:14 Delta Troponin T 14.17 ABS# (0-10) H* 09/17/22 06:14 Troponin T Hi Sens 6Hr 55.61 ng/L (0-15) H 09/17/22 10:38 Troponin T Hi Sens 6Hr Delta 4.61 ng/L (0-12) 09/17/22 10:38 NT-Pro-B Natriuret Pep 1620 pg/mL (0-125) H 09/17/22 04:38 Total Protein 7.0 g/dL (6.6-8.7) 09/20/22 08:50 Albumin 4.0 g/dL (3.5-5.2) 09/20/22 08:50 Globulin 3.0 g/dL (1.3-4.6) 09/20/22 08:50 Procalcitonin 0.04 ng/mL (0-0.5) 09/17/22 04:38 Influenza Type A Ag negative (Negative) 09/17/22 04:37 Influenza Type B Ag negative (Negative) 09/17/22 04:37 SARS-CoV-2 Ag (Rapid) negative (Negative) 09/17/22 04:37 A&P Assessment and plan (1) Nonischemic congestive cardiomyopathy: View of the patient is severely dysfunction, he may benefit from a LifeVest. This was discussed with patient detail which is understood well. I will go ahead and order for this. (2) Congestive heart failure: Patient has nonischemic cardiomyopathy. He may be kept on the current medications. He was started on spironolactone. Kept on the Lasix 40 mg p.o. daily. Also may start him on Entresto as an outpatient. (3) Accelerated hypertension: Currently the patient is normotensive. May continue on the current medications. (4) Type 2 diabetes mellitus, without long-term current use of insulin: Aggressive management of the blood sugar might be appropriate. (5) Hyperlipidemia: May continue on the current medications. Qualifiers: Hyperlipidemia type: mixed hyperlipidemia Qualified Code(s): E78.2 - Mixed hyperlipidemia (6) Elevated troponin: Most likely from the demand ischemia. Plan I will go ahead and order the LifeVest. May start him on Entresto as an outpatient Continue the lisinopril and spironolactone We will see him in the clinic in a week or 2 by the nurse practitioner. I will see him in the office in 1 month. Attestations Medical Necessity Statement*: Possible discharge home today Coding Level of Care Code 65581 Diagnoses Nonischemic congestive cardiomyopathy I42.0 Congestive heart failure I50.9 Accelerated hypertension I10 Type 2 diabetes mellitus, without long-term current use of insulin E11.9 Hyperlipidemia E78.2 Hyperlipidemia type: mixed hyperlipidemia Elevated troponin R77.8
--- NOTE | 2022-09-20 14:00 | PC.NURSE ---
PT's ride has finally arrived with clothes. Discharge instructions provided. Medications, follow-up appointments and CHF stoplight reviewed and discussed with pt. Pt verbalized understanding of reviewed information. Pt declined to review carenotes on new medications or CHF at this time. Pt was provided with financial assistance forms for Life vest, prior to discharge, he stated he did not know all that information and watned to fill them out at home. Dr Carnes notified of his life vest decision via secure messaging. Dr Philip notified via telephone. Jackie life vest reps also notified.
== END 2022-09-20 14:00 | disposition home or self-care (01) | DRG 286 ==
LOC: ER 06:15 → MEDSURG 12:18 → ICU 09-19 20:13
PROVIDERS: Emergency Medicine; Internal Medicine Cardiovascular Disease; Admitting Provider Internal Medicine; Emergency Provider Family Medicine; Visit Provider Student in an Organized Health Care Education/Training Program
PROC: 4A023N7 Measurement of Cardiac Sampling and Pressure, Left Heart, Percutaneous Approach (ICD-10-PCS; principal; 2022-09-19 18:00)
DX: I11.0 Hypertensive heart disease with heart failure (principal); I50.21 Acute systolic (congestive) heart failure; J96.01 Acute respiratory failure with hypoxia; I24.8 Other forms of acute ischemic heart disease; I16.0 Hypertensive urgency; E11.65 Type 2 diabetes mellitus with hyperglycemia; E78.2 Mixed hyperlipidemia; F17.210 Nicotine dependence, cigarettes, uncomplicated; M54.16 Radiculopathy, lumbar region; I25.10 Atherosclerotic heart disease of native coronary artery without angina pectoris; I42.8 Other cardiomyopathies; Z79.84 Long term (current) use of oral hypoglycemic drugs; G47.33 Obstructive sleep apnea (adult) (pediatric); M54.42 Lumbago with sciatica, left side; Z91.148 Patient's other noncompliance with medication regimen for other reason; F10.20 Alcohol dependence, uncomplicated; J44.9 Chronic obstructive pulmonary disease, unspecified
CPT/HCPCS: 36415; 36416; 36600; 71045; 71275; 80048; 80053; 80069; 82805; 82962; 83036; 83735; 83880; 84100; 84145; 84484; 85025; 85378; 85610; 87426; 87804; 93005; 93306; 93458; 94640; 94664; 96372; 96374; 96375; 96376; 99152; 99153; 99285; C1769; C1887; C1894; J1644; J1650; J1815; J1940; J2250; J2930; J3010; J3490; J7030; J7613; J7644; Q0163; Q9967

== ENCOUNTER → 2022-09-27 11:21 | Outpatient (BNVA) | payer MEDICAID, SELFPAY | PROVIDERS: Visit Provider Nurse Practitioner Family | DX: I42.0 Dilated cardiomyopathy (principal) | CPT/HCPCS: 80048; 83880 ==

== ENCOUNTER 2023-09-05 23:49 | Inpatient (IN) | payer MEDICAID, SELFPAY ==
[2023-09-05 23:52] VITALS: BP 217/132; PULSE 105; RESP 18; TEMP 36.4; O2SAT 93; BMI 29.9
--- NOTE | 2023-09-05 23:55 | XRR_ITS ---
PROCEDURE INFORMATION: Exam: XR Chest Exam date and time: 09/06/2023 12:13 AM Age: 58 years old Clinical indication: Shortness of breath; Additional info: Weakness TECHNIQUE: Imaging protocol: Radiologic exam of the chest. Views: 1 view. COMPARISON: CT angio chest PE prot [id number] 09/17/2022 5:41 AM FINDINGS: Lungs: No significant or acute findings. No consolidation. Pleural spaces: No significant costophrenic angle blunting. No pneumothorax. Heart/Mediastinum: Heart size is normal. Bones/joints: No acute osseous abnormality. XR/XR chest 1V portable [id number] IMPRESSION: No acute abnormality demonstrated.
--- NOTE | 2023-09-05 23:58 | ECG_ITS ---
[facility] Test Date: 2023-09-05 Pat Name: Roland Butts Department: Room: Gender: Male Director Educational Radio: : 1965 Requested By: Jose Starks Order Number: [id number] Abdelrahman MD: Ez Chapa M.D. Measurements Intervals [place] Rate: 98 P: 51 WV: 151 QRS: 4 QRSD: 105 T: 110 QT: 383 QTc: 491 Interpretive Statements SINUS RHYTHM LEFT VENTRICULAR HYPERTROPHY AND ST-T CHANGE [VOLTAGE CRITERIA PLUS ST/T ABNORMALITY] Compared to ECG 09/17/2022 08:50:46 ST (T wave) deviation now present Sinus tachycardia no longer present Atrial abnormality no longer present T-wave abnormality no longer present Possible ischemia no longer present Electronically Signed On 09-06-2023 15:26:09 CDT by Ez Chapa M.D. [id number]
[2023-09-06] VITALS (88 sets, daily range): BP systolic 126–221; BP diastolic 70–144; PULSE 79–139; RESP 10–31; TEMP 35.9–36.9; O2SAT 85–98; BMI 28.7
[2023-09-06 00:13] LABS: Basophils # 0.1 10^3/uL (0.0-0.1); Basophils % 0.6 %; Eosinophils # 0.1 10^3/uL (0.0-0.8); Eosinophils % 1.2 %; Hematocrit 48.5 % (37-53); Lymphocytes # 2.8 10^3/uL (0.8-4.8); Mean Corpuscular HGB Conc 35.7 g/dL (30-55); Mean Corpuscular Hemoglobin 29.5 pg (27-33); Mean Corpuscular Volume 82.8 fl (82-101); Mean Platelet Volume 8.5 fL (7.4-10.4); Monocytes # 0.4 10^3/uL (0.2-0.9); Monocytes % 3.7 %; Neutrophils # 6.16 10^3/uL (1.8-7.7); Neutrophils % 64.6 %; Nucleated Red Blood Cells % 0 %; Platelet Count 199 10^3/cmm (157-399); Red Blood Count 5.86 10^6/uL (3.85-5.65); Red Cell Distribution Width 12.6 % (12.1-15.1); White Blood Count 9.53 10^3/uL (3.29-11.43)
[2023-09-06 00:21] LABS: Glucose Point of Care 275 mg/dL (70-110)
[2023-09-06 00:23] LABS: Ketone (Acetest) Serum Negative (Negative)
[2023-09-06 00:25] LABS: INR 0.91 (0.8-1.2)
[2023-09-06 00:31] LABS: Lactic Sepsis W/Reflex 1.6 mmol/L (0.5-2.2)
[2023-09-06 00:34] LABS: Troponin(5th) Baseline 17 ng/L (0-15)
[2023-09-06 00:37] LABS: SARS Covid-2 Antigen negative (Negative)
[2023-09-06 00:41] LABS: NT Pro B Type Natriuretic Pept 637 pg/mL (0-125); Procalcitonin 0.06 ng/mL (0-0.5)
[2023-09-06 00:52] LABS: Alanine Aminotransferase 15 U/L (0-41); Albumin Level 4.5 g/dL (3.5-5.2); Alkaline Phosphatase 122 U/L (40-130); Aspartate Amino Transferase 13 U/L (0-40); Blood Urea Nitrogen 12 mg/dL (6-20); Calcium 9.7 mg/dL (8.5-10.5); Carbon Dioxide 25 mmol/L (22-29); Chloride 97 mmol/L (98-107); Creatinine Clr Calc Pharmacy 97.8171; Globulin 3.4 g/dL (1.3-4.6); Glomerular Filtration Rate 98.9 mL/min (90-130); Glucose 266 mg/dL (65-115); Osmolality Calculated 295 mOsm/kg (285-295); Sodium 138 mmol/L (136-145); Total Bilirubin 0.6 mg/dL (0.15-1.2); Total Protein 7.9 g/dL (6.6-8.7)
[2023-09-06 00:55] LABS: Anion Gap 18.8 (5-19)
[2023-09-06 00:56] LABS: Potassium 2.8 mmol/L (3.5-5.1)
[2023-09-06] MEDS: potassium chloride ER 20 mEq Tablet 40 MEQ PO (01:15)
[2023-09-06 01:17] LABS: Add Urine Microscopic? YES; Bilirubin Urine Neg (Negative); Blood Urine 2+ (Negative); Glucose Urine UA 4+ (Normal); Ketones Urine Negative (Negative); Leukocyte Esterase Urine Negative (Negative); Nitrate Urine Negative (Negative); Protein Urine 1+ (Negative); Urine Appearance Clear (CLEAR); Urine Color Yellow (Yellow); Urobilinogen Urine Neg (Negative); pH Urine 5 (5-7)
[2023-09-06 01:18] LABS: Add Urine Culture? No; Amorphous Sediment Urine 1+ /hpf; Bacteria Urine 1+ /hpf; Mucus Urine 2+ /hpf; RBC Urine 0-4 /hpf (0-2)
[2023-09-06 01:30] LABS: Amphetamines Screen Urine Negative (Negative); Barbiturates Screen Urine Negative (Negative); Benzodiazepines Screen Urine Negative (Negative); Cocaine Screen Urine Negative (Negative); Opiate Screen Urine Negative (Negative); PCP Screen Urine Negative (Negative); THC Screen Urine Negative (Negative)
--- NOTE | 2023-09-06 02:07 | ECG_ITS ---
[facility] Test Date: 2023-09-06 Pat Name: Roland Butts Department: Room: Gender: Male Bottom Polisher: : 1965 Requested By: Jose Starks Order Number: [id number] Abdelrahman MD: Ez Chapa M.D. Measurements Intervals [place] Rate: 87 P: 54 [place]: 146 QRS: -7 QRSD: 106 T: 82 QT: 392 QTc: 472 Interpretive Statements SINUS RHYTHM POSSIBLE LEFT ATRIAL ENLARGEMENT [-0.1mV P-WAVE IN V1/V2] POSSIBLE LEFT VENTRICULAR HYPERTROPHY [VOLTAGE CRITERIA PLUS LAE OR QRS WIDENING] NONSPECIFIC T-WAVE ABNORMALITY Compared to ECG 09/17/2022 08:50:46 Sinus tachycardia no longer present Possible ischemia no longer present T-wave abnormality still present Electronically Signed On 09-06-2023 15:29:56 CDT by Ez Chapa M.D. [id number]
[2023-09-06] MEDS: hyDRALAzine 20 mg/mL INJ 1 mL IVP ×2 (02:14→02:58)
--- NOTE | 2023-09-06 02:24 | CTR_ITS ---
PROCEDURE INFORMATION: Exam: CT Head Without Contrast Exam date and time: 09/06/2023 2:44 AM Age: 58 years old Clinical indication: Pain; Headache TECHNIQUE: Imaging protocol: Computed tomography of the head without contrast. Radiation optimization: All CT scans at this facility use at least one of these dose optimization techniques: automated exposure control; mA and/or kV adjustment per patient size (includes targeted exams where dose is matched to clinical indication); or iterative reconstruction. COMPARISON: No relevant prior studies available. RADIATION DOSE METRICS: Total DLP (mGy-cm): 1193.1 FINDINGS: Brain: No acute intracranial hemorrhage or mass effect. There is decreased attenuation in the periventricular white matter, likely from microvascular disease. There are multiple small old lacunar infarcts in the basal ganglia regions and thalami bilaterally. Additional small old infarct in the left cerebellum. No definite acute infarct by CT. MRI would be more sensitive/specific for detection, as clinically directed. Cerebral ventricles: Ventricle size is normal for age. Paranasal sinuses: Included paranasal sinuses are essentially clear. Mastoid air cells: No significant acute finding. Bones/joints: No definite acute skull fracture. Soft tissues: No significant acute finding. Vasculature: Vascular calcifications in the internal carotid and vertebral basilar systems. CT/CT head wo con* [id number] IMPRESSION: 1. No acute intracranial hemorrhage or mass effect. 2. Changes of microvascular disease, and small lacunar infarcts, details above. 3. No definite acute infarct by CT, see above. 4. Other findings discussed above.
[2023-09-06 02:41] LABS: Troponin 5 2HR 15.81 ng/L (0-15)
[2023-09-06 02:51] LABS: Troponin 5 2HR Delta -1.19 ABS# (0-10)
[2023-09-06] MEDS: labetalol 5 mg/mL SDV 20mL 10 MG IVP (03:30)
--- NOTE | 2023-09-06 03:36 | W.ED.NAVMDI ---
HPI - Nausea/Vomiting/Diarrhea General: Chief complaint: Nausea/Vomiting/Diarrhea Stated complaint: weakness Time Seen by Provider: 09/05/23 23:54 History of Present Illness: 58-year-old male presents to the emergency department via EMS personnel for complaints of recurrent nausea and vomiting for the previous 3 days. He denies associated pain. He is denies abdominal pain. He is extremely diaphoretic and states he is a diabetic but does not check his blood glucose levels regularly. He states he also stopped drinking many years ago. He denies recent falls or chest pain or shortness of breath. He denies neck pain, he denies fevers chills or night sweats. He denies cough. He states that for the previous 3 days he has had intermittent episodes of nausea and vomiting. On arrival the patient's blood pressure is significantly elevated he states he does have high blood pressure but states that it is not normally been that high. The patient has recently accompanied a family member here in the emergency department and fortunately I did take care of the family member and was able to have a conversation with the patient approximately 1 week ago and he did not appear to have slowed cognition or delayed mentation. Associated nausea: Yes Associated symtoms: Reports nausea; Denies chest pain, dizziness, headache(s), palpitations or syncope Review of Systems General: Reports: 10 or more systems reviewed and unremarkable except in HPI and below Eyes: Denies: blurry vision Card: Denies: chest pain, palpitations, edema, lightheadedness, syncope or pre-syncope Resp: Denies: dyspnea or non-productive cough GI: Reports: nausea and vomiting; Denies: abdominal pain Neuro: Denies: headache(s), numbness in extremities, weakness in extremities, frequent falls, dizziness, vertigo or Slurred speech present [facility] ED PFSH: Medical History Decreased libido Degenerative lumbar disc Erectile dysfunction Essential hypertension Facet arthropathy, lumbar Hyperlipidemia Left-sided low back pain with left-sided sciatica Nocturia JEAN-CLAUDE (obstructive sleep apnea) Suspected sleep apnea Type 2 diabetes mellitus, without long-term current use of insulin Surgical History History of ankle surgery History of hip surgery Family History Other CAD (coronary artery disease) Cancer Diabetes Social History Smoking and tobacco/nicotine status: current every day tobacco/nicotine user cigarettes Packs smoked per day: 2 Years cigarettes smoked: 40 Alcohol intake: current Alcohol intake frequency: 3 or more drinks per day Alcohol type: beer Substance/Drug Use: never Physical Exam Narrative: EXAM NARRATIVE: Constitutional: the patient appears well nourished and with normal development. Vital signs reviewed as documented. GCS 15, alert and oriented x 4, diaphoretic, he does not appear to be in acute distress but his blood pressure is significantly elevated above a systolic of 200 and he does appear to have slowed mentation. HENMT: Normocephalic, atraumatic. External ears normal appearance without drainage. Nose without drainage, normal appearance. Mucus membranes moist. Neck is supple, No jugular venous distension, trachea is midline, no appreciable carotid bruits. No lymphadenopathy. No meningeal signs. Flexion, extension and lateral rotation is without pain. Eyes: Pupils are equal, round, reactive to light and accommodation. No scleral icterus. Extra-ocular movement are intact. Thorax is symmetrical and with equal rise and fall with respirations. Resp: Lungs are clear to auscultation. No wheezes, rales, crackles or ronchi at present. Cardio: Regular rate and rhythm. Positive S1, S2. No appreciable murmurs, rubs or gallops. GI: Abdominal exam reveals normal bowel sounds to all quadrants. No organomegaly. No obvious palpable masses noted. No hepatomegally appreciated. Soft, non-tender to palpation. Extremity: Extremities are non-edematous and both femoral and pedal pulses are 2+ and equal bilaterally. Moves all extremities well, sensation in all extremities. Neuro: Alert and oriented x4, person, place, time and situation. Cranial nerves II through XII are grossly intact, there is no focal neurological deficits that I can appreciate at present. Sensation intact to all extremities. 2-point discrimination intact. Light touch intact to all extremities. Motor strength in the upper and lower extremities are equal and bilateral 5/5. Psych: Cooperative, calm, normal thought process, appropriate judgment. Skin: No lesions, rashes. No gross abnormalities noted. Back: Symmetrical, no obvious deformity, No CVA tenderness Course Reevaluation(s): Reevaluation #1: The patient's significant other arrived at the emergency department at 0310 and states that he has been having intermittent problems with his balance for the previous 3 days. She states that he is intermittently went from a seated position and when walking has had several intermittent episodes of feeling off balance. The patient now states he does have a throbbing 5 out of 10 headache. Time: 03:39 Vital Signs: Vital signs: Vital Signs Temperature 97.6 F 09/05/23 23:52 Pulse Rate 93 09/06/23 04:37 Respiratory Rate 18 09/06/23 04:37 Blood Pressure 200/111 09/06/23 04:37 Pulse Oximetry 94 09/06/23 04:37 Oxygen Delivery Me thod Nasal Cannula 09/05/23 23:52 Oxygen Flow Rate 3 09/05/23 23:52 MDM - Nausea/Vomiting/Diarrhea Medical Decision Making Physical exam completed and documented I will obtain serial cardiac enzymes and twelve-lead EKGs as well as a CBC and CMP serum ketones and [id number] glucose. I will obtain a urinalysis and urine drug screen which appear to be negative. Patient's potassium level was significantly low and he has been provided p.o. potassium replacement. Patient's blood glucose level was elevated at 275 although his serum ketones are negative. His first cardiac enzyme was negative and his repeat cardiac enzyme had an acceptable delta change. The patient was provided hydralazine for his blood pressure and also labetalol. A CT scan of the head was obtained and although the radiographic interpretation was no acute findings I am concerned for vasogenic edema consistent with posterior reversible encephalopathic syndrome. The patient has been started on a Cardene drip and I have contacted the hospitalist to admit the patient to the intensive care unit for additional evaluation treatment and care. NIH Stroke Scale/Score (NIHSS) on 09/05/2023 RESULT SUMMARY: 0 points NIH Stroke Scale INPUTS: 1A: Level of consciousness ?> 0 = Alert; keenly responsive 1B: Ask month and age ?> 0 = Both questions right 1C: 'Blink eyes' & 'squeeze hands' ?> 0 = Performs both tasks 2: Horizontal extraocular movements ?> 0 = Normal 3: Visual hanna ?> 0 = No visual loss 4: Facial palsy ?> 0 = Normal symmetry 5A: Left arm motor drift ?> 0 = No drift for 10 seconds 5B: Right arm motor drift ?> 0 = No drift for 10 seconds 6A: Left leg motor drift ?> 0 = No drift for 5 seconds 6B: Right leg motor drift ?> 0 = No drift for 5 seconds 7: Limb Ataxia ?> 0 = No ataxia 8: Sensation ?> 0 = Normal; no sensory loss 9: Language/aphasia ?> 0 = Normal; no aphasia 10: Dysarthria ?> 0 = Normal 11: Extinction/inattention ?> 0 = No abnormality Medical Records I reviewed the patient's medical records. Lab Data I reviewed the patient's lab results. 09/06/23 00:05 09/06/23 00:05 Radiology Impressions Chest X-Ray 09/05/23 23:55 IMPRESSION: No acute abnormality demonstrated. Head CT 09/06/23 02:24 IMPRESSION: 1. No acute intracranial hemorrhage or mass effect. 2. Changes of microvascular disease, and small lacunar infarcts, details above. 3. No definite acute infarct by CT, see above. 4. Other findings discussed above. Laboratory Results WBC 9.53 10^3/uL (3.29-11.43) 09/06/23 00:05 RBC 5.86 10^6/uL (3.85-5.65) H 09/06/23 00:05 Hgb 17.30 g/dL (11.27-16.99) H 09/06/23 00:05 Hct 48.5 % (37-53) 09/06/23 00:05 MCV 82.8 fl (82-101) 09/06/23 00:05 MCH 29.5 pg (27-33) 09/06/23 00:05 MCHC 35.7 g/dL (30-55) 09/06/23 00:05 RDW 12.6 % (12.1-15.1) 09/06/23 00:05 Plt Count 199 10^3/cmm (157-399) 09/06/23 00:05 MPV 8.5 fL (7.4-10.4) 09/06/23 00:05 Neut % (Auto) 64.6 % 09/06/23 00:05 Lymph % (Auto) 29.0 % 09/06/23 00:05 [place] % (Auto) 3.7 % 09/06/23 00:05 Eos % (Auto) 1.2 % 09/06/23 00:05 Baso % (Auto) 0.6 % 09/06/23 00:05 Neut # (Auto) 6.16 10^3/uL (1.8-7.7) 09/06/23 00:05 Lymph # (Auto) 2.8 10^3/uL (0.8-4.8) 09/06/23 00:05 [place] # (Auto) 0.4 10^3/uL (0.2-0.9) 09/06/23 00:05 Eos # (Auto) 0.1 10^3/uL (0.0-0.8) 09/06/23 00:05 Baso # (Auto) 0.1 10^3/uL (0.0-0.1) 09/06/23 00:05 Nucleated RBC % (auto) 0 % 09/06/23 00:05 Nucleated RBCs # 0.0 /100WBC 09/06/23 00:05 PT 12.50 SECONDS (12.1-14.9) 09/06/23 00:05 INR 0.91 (0.8-1.2) 09/06/23 00:05 Sodium 138 mmol/L (136-145) 09/06/23 00:05 Potassium 2.8 mmol/L (3.5-5.1) L* 09/06/23 00:05 Chloride 97 mmol/L (98-107) L 09/06/23 00:05 Carbon Dioxide 25 mmol/L (22-29) 09/06/23 00:05 Anion Gap 18.8 (5-19) 09/06/23 00:05 BUN 12 mg/dL (6-20) 09/06/23 00:05 Creatinine 0.8 mg/dL (0.7-1.2) 09/06/23 00:05 GFR Calculation 98.9 mL/min (90-130) 09/06/23 00:05 Glucose 266 mg/dL (65-115) H 09/06/23 00:05 POC Glucose 275 mg/dL (70-110) H 09/06/23 00:17 Calculated Osmolality 295 mOsm/kg (285-295) 09/06/23 00:05 Lactic Acid 1.6 mmol/L (0.5-2.2) 09/06/23 00:05 Calcium 9.7 mg/dL (8.5-10.5) 09/06/23 00:05 Total Bilirubin 0.6 mg/dL (0.15-1.2) 09/06/23 00:05 AST 13 U/L (0-40) 09/06/23 00:05 ALT 15 U/L (0-41) 09/06/23 00:05 Alkaline Phosphatase 122 U/L (40-130) 09/06/23 00:05 Troponin T Baseline 17 ng/L (0-15) H 09/06/23 00:05 Troponin T 120 Minute 15.81 ng/L (0-15) H 09/06/23 02:05 Delta Troponin T -1.19 ABS# (0-10) L 09/06/23 02:05 NT-Pro-B Natriuret Pep 637 pg/mL (0-125) H 09/06/23 00:05 Total Protein 7.9 g/dL (6.6-8.7) 09/06/23 00:05 Albumin 4.5 g/dL (3.5-5.2) 09/06/23 00:05 Globulin 3.4 g/dL (1.3-4.6) 09/06/23 00:05 Procalcitonin 0.06 ng/mL (0-0.5) 09/06/23 00:05 Urine Color Yellow (Yellow) 09/06/23 01:10 Urine Appearance Clear (CLEAR) 09/06/23 01:10 Urine pH 5 (5-7) 09/06/23 01:10 Ur Specific [place] 1.010 (1.005-1.030) 09/06/23 01:10 Urine Protein 1+ (Negative) H 09/06/23 01:10 Urine Glucose (UA) 4+ (Normal) H 09/06/23 01:10 Urine Ketones Negative (Negative) 09/06/23 01:10 Urine Blood 2+ (Negative) H 09/06/23 01:10 Urine Nitrate Negative (Negative) 09/06/23 01:10 Urine Bilirubin Neg (Negative) 09/06/23 01:10 Urine Urobilinogen Neg mg/dL (Negative) 09/06/23 01:10 Ur Leukocyte Esterase Negative (Negative) 09/06/23 01:10 Urine RBC 0-4 /hpf (0-2) H 09/06/23 01:10 Urine WBC None /hpf (0-5) 09/06/23 01:10 Ur Squamous Epith Cells None /hpf (0-5) 09/06/23 01:10 Amorphous Sediment 1+ /hpf 09/06/23 01:10 Urine Bacteria 1+ /hpf (NONE) H 09/06/23 01:10 Urine Mucus 2+ /hpf 09/06/23 01:10 Urine Opiates Screen Negative ng/mL (Negative) 09/06/23 01:10 Ur Barbiturates Screen Negative ng/mL (Negative) 09/06/23 01:10 Ur Phencyclidine Scrn Negative ng/mL (Negative) 09/06/23 01:10 Ur Amphetamines Screen Negative ng/mL (Negative) 09/06/23 01:10 U Benzodiazepines Scrn Negative ng/mL (Negative) 09/06/23 01:10 Urine Cocaine Screen Negative ng/mL (Negative) 09/06/23 01:10 U Marijuana (THC) Screen Negative ng/mL (Negative) 09/06/23 01:10 Serum Ketones Negative (Negative) 09/06/23 00:05 SARS-CoV-2 Ag (Rapid) negative (Negative) 09/06/23 00:18 All radiology interpretation(s) finalized by discharge EKG Data EKG 1: Interpretation: Twelve-lead EKG obtained at 2358 and reviewed at 2359 demonstrates sinus rhythm with a ventricular rate of 98 bpm, AL interval 151, QRS duration 105, QT 383, QTc [address] elevation or depression to demonstrate acute ischemia or infarction at present. EKG 2: Interpretation: Twelve-lead EKG obtained at 0207 and reviewed at 0 210 demonstrates sinus rhythm, ventricular rate 87, AL interval 146, QRS duration 106, QT 392, QTc [address] elevation or depression at present to demonstrate acute ischemia or infarction. Discharge Plan Discharge Patient Disposition: Admitted As Inpatient Clinical Impression: Posterior reversible encephalopathy syndrome, Hypertension, uncontrolled, Acute hypokalemia, Hypertensive emergency Condition: Stable Discharge Diet: Diabetic and Low Salt Discharge Activity: Resume usual activity Coding Level of Care Code ED Manager Media Relations for Jony Burnett
[2023-09-06] MEDS: nicardipine 20 MG/200 ML PREMIX 50 MG IV ×2 (05:04→08:45)
[2023-09-06 05:36] LABS: Estmated Average Glucose 226; Hemoglobin A1C 9.5 % (4.0-6.0)
--- NOTE | 2023-09-06 05:55 | ECG_ITS ---
[facility] Test Date: 2023-09-06 Pat Name: Roland Butts Department: Room: ICU02 Gender: Male Photo Stylist: : 1965 Requested By: Jose Starks Order Number: [id number] Abdelrahman MD: Ez Chapa M.D. Measurements Intervals [place] Rate: 114 P: 53 [place]: 128 QRS: 19 QRSD: 93 T: 55 QT: 369 QTc: 509 Interpretive Statements SINUS TACHYCARDIA WITH OCCASIONAL VENTRICULAR PREMATURE COMPLEXES LEFT VENTRICULAR HYPERTROPHY AND ST-T CHANGE [VOLTAGE CRITERIA PLUS ST/T ABNORMALITY] Compared to ECG 09/06/2023 02:07:35 Ventricular premature complex(es) now present ST (T wave) deviation now present Sinus rhythm no longer present T-wave abnormality no longer present Electronically Signed On 09-06-2023 15:30:36 CDT by Ez Chapa M.D. [id number]
[2023-09-06 06:23] LABS: Troponin 5 6HR 17.12 ng/L (0-15); Troponin 5 6HR Delta 0.12 ng/L (0-12)
--- NOTE | 2023-09-06 06:47 | MR_ITS ---
WS: [id number] MRI BRAIN WITH AND WITHOUT CONTRAST HISTORY: malignant HTN ? PRES COMPARISON: Noncontrast CT head 09/06/2023 TECHNIQUE: Multiplanar imaging performed through the brain with MultiHance 16 ml's IV. Numerous diffusion abnormalities are noted throughout the brain and the cerebellum. These are tiny sm all lacunar type acute infarcts involving multiple vascular territories. One of the small lacunar inf arcts involving the RIGHT external capsule and franco radiata does enhance and this may be subacute. There is additional chronic small vessel ischemic type disease throughout the white matter. Confluen t white matter disease with numerous bilateral basal ganglier chronic infarcts. Prior ischemic diseas e in the inez. Prior lacunar infarct in the LEFT middle cerebellar peduncle. Moderate cerebral and ce rebellar atrophy. Ventricles and extra-axial spaces are normal. Clivus and pituitary gland are normal. Focal area of enhancement involving the posterior limb of the RIGHT external capsule. This was also p ositive on the diffusion imaging. Suspect this is a subacute infarct now with enhancement. The remain ing diffusion abnormalities do not enhance. There are no additional masses. Dural venous sinuses are normal. Paranasal sinuses: Well aerated with no significant disease. Mastoid air cells: Normal. Calvarium and scalp: Normal. IMPRESSION: 1. Numerous small lacunar type acute infarcts involving multiple vascular distributions in the poste rior posterior and anterior circulation. Recommend echocardiography. Suspect embolic source. 2. There is marked cerebral atrophy and cerebellar atrophy with severe chronic small vessel ischemic disease and multiple chronic lacunar infarcts. Disease is much more advanced than expected for a pat ient of this age.
--- NOTE | 2023-09-06 06:52 | PM.HP ---
Providers/Chief Complaint Admitting Physician: Carlos Mary DO Chief Complaint: weakness History of Present Illness Roland Butts is a 58 year old male with history of hypertension and diabetes presents with nausea and vomiting over the past 3 days. In the emergency room he was extremely diaphoretic. The patient's blood pressure was significantly elevated. The emergency room physician actually recalled this patient from a week ago when he was taking care of the patient's . Says that there was no slurred cognition or delayed mentation. This is in lemus contrast to the presentation today. The patient did not respond to hydralazine x 2 and Lopressor. He was placed on a Cardene drip. On my exam patient is lethargic will shake his head yes or no to answers but does not verbalize. He confirmed that he does not drink but he does still smoke. He knotted to 1 pack/day. Review of Systems General: Reports: ROS unobtainable due to medical condition Medications/Allergies Home Medications Medication Instructions Recorded Confirmed Last Taken Type amlodipine 10 mg tablet 10 mg PO DAILY #45 tabs 10/21/21 12/20/22 Unknown Rx carvedilol 25 mg tablet 25 mg PO BID #90 tabs 10/21/21 12/20/22 Unknown Rx glipizide 5 mg tablet 5 mg PO BID 30 days #90 tabs 10/21/21 12/20/22 Unknown Rx sildenafil (pulm.hypertension) 20 20 mg PO .COMPLEX #30 tabs 10/21/21 12/20/22 Unknown Rx mg tablet cyclobenzaprine 10 mg tablet 10 mg PO BEDTIME 09/17/22 12/20/22 Unknown History famotidine 20 mg tablet 20 mg PO BID 09/17/22 12/20/22 Unknown History lisinopril 40 mg tablet 40 mg PO DAILY #90 tabs 09/27/22 12/20/22 Unknown Rx spironolactone 25 mg tablet 25 mg PO DAILY #90 tabs 09/27/22 12/20/22 Unknown Rx pantoprazole 40 mg tablet,delayed 40 mg PO DAILY #45 tabs 11/18/22 12/20/22 Unknown Rx release furosemide 40 mg tablet 40 mg PO DAILY #90 tabs 12/20/22 12/20/22 Unknown Rx canagliflozin 300 mg tablet See Rx Instructions .Route 12/26/22 Unknown Rx (Invokana) .COMPLEX #45 tabs metformin 1,000 mg tablet See Rx Instructions .Route 12/26/22 Unknown Rx .COMPLEX #30 tabs aspirin 81 mg capsule 81 mg PO DAILY #180 caps 03/28/23 Unknown Rx Allergies Allergy/AdvReac Type Severity Reaction Status Date / Time No Known Allergies Allergy Verified 09/17/22 04:24 PFSH Acute PFSH: Medical History JEAN-CLAUDE (obstructive sleep apnea) Facet arthropathy, lumbar Degenerative lumbar disc Nocturia Left-sided low back pain with left-sided sciatica Suspected sleep apnea Erectile dysfunction Decreased libido Type 2 diabetes mellitus, without long-term current use of insulin Essential hypertension Hyperlipidemia Surgical History History of hip surgery History of ankle surgery Family History Other CAD (coronary artery disease) Cancer Diabetes Social History (Updated 09/06/23 @ 06:55 by Carlos Mary DO) Smoking and tobacco/nicotine status: current every day tobacco/nicotine user cigarettes Packs smoked per day: 2 Years cigarettes smoked: 40 Alcohol intake: former Substance/Drug Use: never Household members: spouse Vitals/I&O/Wt Last Vital Signs Temp 97.6 F 09/06/23 05:33 Pulse 108 H 09/06/23 06:15 Resp 21 H 09/06/23 06:15 BP 139/85 09/06/23 06:15 Pulse Ox 92 09/06/23 06:15 O2 Del Method Room Air 09/06/23 06:00 O2 Flow Rate 3 09/05/23 23:52 Weight last 48 hrs Weight 73.573 kg Weight 73.573 kg Weight 81.647 kg Physical Exam Narrative: Patient seen laying in bed in the ICU. He appears to appears older than his stated age of 58. Neurologic: Patient is alert he has minimal verbal, no aphasia. He appears to have slow cognition. Moving all extremities appropriately and equally sensations intact HEENT head is normocephalic atraumatic pupils equal round and reactive to light and accommodation extraocular muscles are intact nasal and pharyngeal mucosa moist and pink without lesions or exudate neck is supple no JVD carotid bruits or lymphadenopath chest rises symmetrically with inspiration no pain to palpation Heart regular normal S1-S2 without loud murmur click gallop or rub lungs diminished throughout with expiratory rhonchi in the upper lung hanna poor expiratory phase Abdomen soft nontender nondistended positive bowel sounds no hepatosplenomegaly Extremities no clubbing cyanosis or edema Skin no rashes or lesions,toenails with fungus Psych patient is calm and shows focus with eye contact Data 09/06/23 00:05 09/06/23 00:05 CT Head: My impression: Cerebral atrophy specifically in the cerebellum. Old lacunar infarcts in basal ganglia and thalamic region bilaterally as well as in the left cerebellum I believe the abnormality seen in the cerebellum may have been suspicious for PRES Radiologist's impression: FINDINGS: Brain: No acute intracranial hemorrhage or mass effect. There is decreased attenuation in the periventricular white matter, likely from microvascular disease. There are multiple small old lacunar infarcts in the basal ganglia regions and thalami bilaterally. Additional small old infarct in the left cerebellum. No definite acute infarct by CT. MRI would be more sensitive/specific for detection, as clinically directed. Cerebral ventricles: Ventricle size is normal for age. Paranasal sinuses: Included paranasal sinuses are essentially clear. Mastoid air cells: No significant acute finding. Bones/joints: No definite acute skull fracture. Soft tissues: No significant acute finding. Vasculature: Vascular calcifications in the internal carotid and vertebral basilar systems. CXR: My impression: No cardio pulmonary acute findings Radiologist's impression: No acute findings EKG 1: My Interpretation: Normal sinus rhythm rate of 87 ME interval 0.14 QRS interval 0.10 Voltage criteria for LVH Otherwise normal EKG computer-generated impression: SINUS RHYTHM POSSIBLE LEFT ATRIAL ENLARGEMENT [-0.1mV P-WAVE IN V1/V2] POSSIBLE LEFT VENTRICULAR HYPERTROPHY [VOLTAGE CRITERIA PLUS LAE OR QRS WIDENING] NONSPECIFIC T-WAVE ABNORMALITY A&P Assessment and plan (1) Hypertensive emergency: (2) Posterior reversible encephalopathy syndrome: (3) Acute hypokalemia: (4) Old lacunar stroke without late effect: (5) 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 Will schedule MRI brain for further evaluation. I am unable to reconcile his home medications Placed on corrective insulin sliding scale for now DVT prophylaxis ordered PUD prophylaxis not indicated Attestations Medical Necessity Statement*: Patient require 2 midnight stay for the severity of hypertensive emergency and altered mental status. Coding Level of Care Code Acute Code for [facility] Diagnoses Hypertensive emergency I16.1 Posterior reversible encephalopathy syndrome I67.83 Acute hypokalemia E87.6 Old lacunar stroke without late effect Z86.73 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 Z86.73 Cerebrovascular disease I67.9
[2023-09-06 07:50] LABS: Glucose Point of Care 287 mg/dL (70-110)
[2023-09-06] MEDS: insulin lispro 100 unit/1 mL SUBCUT ×4 (08:12→20:30)
[2023-09-06] MEDS: enoxaparin 40 mg/0.4 mL Syringe SUBCUT (08:12)
--- NOTE | 2023-09-06 08:25 | PC.PHAR ---
Addendum entered by Radha Abdul 09/06/23 10:50: pts girlfriend larry came back to icu-states she didnt bring his medications or a list in but states she knows his medications-states the pt takes the medications entered-larry states the pt hasnt taken trulicity in 4 to 5 months [facility] last filled 05/02/23 28d/s-larry states the pt takes amlodipine 10mg daily last filled 11/18/21 30d/s,aspirin 81mg daily last filled 03/02/23 30d/s,carvedilol 25mg bid [facility] not filled rx written 10/21/21 larry states pt has been out for 2 weeks,flexeril 10mg hs filled 09/21/22 15d/s,invokana 300mg daily filled 03/03/23 15d/s,lipitor 40mg daily filled 03/02/23 30d/s,hydralazine 10mg tid filled 03/02/23 30d/s,lisinopril 40mg daily filled 03/02/23 30d/s,metformin 1000mg bid filled 01/02/23 15d/s,protonix 40mg daily filled 03/02/23 15d/s-larry states the pt is not taking fenofibrate 145mg daily last filled 03/02/23 30d/s,spironolactone 25mg daily filled 03/02/23 30d/s,glipizide 5mg bid written 10/21/21 or lasix 40mg bid filled 03/02/23 30d/s-notes are made in the pharmacy comments Original Note: pt states his girlfriend larry helps him with his medications-called larry [phone] went to [facility]
[2023-09-06] MEDS: amlodipine 10 mg Tablet PO (09:49)
[2023-09-06] MEDS: carvedilol 12.5 mg Tablet PO (09:49)
[2023-09-06] MEDS: ondansetron 2 mg/ML SDV 2 mL 4 MG IVP (09:57)
[2023-09-06 10:43] LABS: Iron 68 ug/dL (59-158); Percent Saturation 23.3 % (20-50); Total Iron Binding Capacity 291 mcg/dl; Unsaturated Iron Binding 223 ug/dL (112-347); Vitamin B12 577 pg/mL (232-1245)
[2023-09-06] MEDS: gadobenate dimeglumine 20 mL vial IV (11:11)
[2023-09-06 11:25] LABS: D Dimer 0.75 ug/mLFEU (0-0.59)
[2023-09-06 12:01] LABS: Glucose Point of Care 254 mg/dL (70-110)
[2023-09-06] MEDS: losartan 50 mg Tablet 100 MG PO (12:48)
[2023-09-06] MEDS: potassium chloride ER 20 mEq Tablet 80 MEQ PO (12:49)
[2023-09-06] MEDS: aspirin 81 mg EC Tablet PO (12:50)
--- NOTE | 2023-09-06 16:04 | P.PN_ITS ---
Subjective 2 Subjective: Admitted earlier today morning. Seen with family at bedside. Patient is late operatively in bed, wakes up and mumbles his name on asking. Otherwise laying comfortably in bed. Continues to remain on nicardipine drip. Blood pressure is better. Vitals/I&O/Wt Last Vital Signs Temp 97.3 F L 09/06/23 14:45 Pulse 103 H 09/06/23 15:51 Resp 19 H 09/06/23 15:30 BP 147/91 09/06/23 15:30 Pulse Ox 93 09/06/23 15:30 O2 Del Method Nasal Cannula 09/06/23 15:30 O2 Flow Rate 2 09/06/23 15:00 09/06/23 09/06/23 09/06/23 06:59 14:59 22:59 Intake Total 361.250 / 361.250 Output Total 575 / 575 700 / 1275 Balance -213.750 / -213.750 -700 / -913.750 Weight last 48 hrs Weight 73.573 kg Weight 73.573 kg Weight 81.647 kg Physical Exam 2 Narrative: No acute distress Neurologic: Patient is alert he has minimal verbal, no aphasia. He appears to have slow cognition. Moving all extremities appropriately HEENT head is normocephalic atraumatic pupils equal round and reactive to light and accommodation extraocular muscles are intact nasal and pharyngeal mucosa moist and pink without lesions or exudate neck is supple no JVD carotid bruits or lymphadenopath chest rises symmetrically with inspiration no pain to palpation Heart regular normal S1-S2 without loud murmur click gallop or rub lungs diminished throughout with expiratory rhonchi in the upper lung hanna poor expiratory phase Abdomen soft nontender nondistended positive bowel sounds no hepatosplenomegaly Extremities no clubbing cyanosis or edema Skin no rashes or lesions,toenails with fungus Psych patient is calm and shows focus with eye contact Data 09/06/23 00:05 09/06/23 00:05 A&P Assessment and plan (1) Metabolic encephalopathy: Most likely in setting of old stroke and new multiple small lacunar type acute infarcts involving multiple vascular distributions including posterior anterior circulation seen on the MRI today. High suspicion of embolic source. Patient in normal sinus rhythm though. Cannot rule out in setting of hypertensive encephalopathy. (2) Cerebrovascular disease: Seen on MRI today. History of old stroke as well. Currently in normal sinus rhythm. CVA: Appreciated neurology recommendations. Aspirin 325 mg stat followed by 81 mg daily, Plavix 75 mg daily, statin [address] head, and MRI head results. Check CTA head and neck, echocardiogram bubble study. Telemetry monitoring to rule out arrhythmia/A. fib. PT/OT/speech evaluation. Diet as per swallow evaluation. Every 4 neurochecks. Permissible hypertension. Goal blood pressure less than 180/100 mmHg. (3) Hypertensive emergency: Supposed to be on multiple antihypertensives at home. Noncompliant for now as could not afford medication. Currently would need permissible hypertension though blood pressures going more than target blood pressures. Currently on nicardipine drip. Will wean as per goal blood pressure. Start on amlodipine 10 mg oral daily, will switch from Coreg to metoprolol succinate given tachycardia. Start on losartan 100 mg daily. Hydralazine 10 mg IV every 4 hours as needed as per target blood pressures. Goal blood pressure after 24 hours will be 140/90 mmHg. (4) Acute hypokalemia: Replace with 80 mg of oral. Repleted 40 mg in the ER. Monitor daily. (5) Type 2 diabetes mellitus, without long-term current use of insulin: Check A1c. Sliding scale AC and at bedtime. (6) Non-compliance: In setting of financial coverage. Will consult case management. Discussed about 340 be with the family. (7) 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: (8) Old lacunar stroke without late effect: Plan CODE STATUS: Full code. Patient's daughter will be DPOA. Diet to be advance as per speech therapy. Protonix for PUD prophylaxis Lovenox for DVT prophylaxis. Attestations 2 Medical Necessity Statement*: Requested hospitalization for management of hypertensive urgency leading to encephalopathy along with multiple lacunar infarcts Critical Care Time: The high probability of a clinically significant, sudden or life threatening deterioration of the patient's [] system(s) required my full and direct attention, intervention and personal management. The critical care time is as shown. This time is in addition to time spent performing any reported procedures but includes the following: [x] Data and vital sign review and interpretation [x] Patient assessment, examination and intervention [x] Documentation [x] Medication orders and management Cardiac, neurological Coding Level of Care Code Critical Care >/= 30 minutes Critical care time (in minutes): 60 The high probability of a clinically significant, sudden or life threatening deterioration, as referenced in this documentation, required my full and direct attention, intervention and personal management. The critical care time shown is in addition to time spent performing any reported separately billable procedures and includes the following: [x] Data and vital sign review and interpretation [x ] Patient assessment, examination and intervention [x] Medication orders and management [x] Patient/Family updates as able [x] Care Coordination and Documentation. Other Coding Information Prolonged care (total time indicated above or notated here) New diagnosis of stroke, hypertensive urgency, changing of blood pressure goal due to hypertensive urgency and new stroke, managing Cardene drip. Diagnoses Metabolic encephalopathy G93.41 Cerebrovascular disease I67.9 Hypertensive emergency I16.1 Acute hypokalemia E87.6 Type 2 diabetes mellitus without complication, without long-term current use of insulin E11.9 Non-compliance Z91.199 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
[2023-09-06 17:27] LABS: Glucose Point of Care 283 mg/dL (70-110)
[2023-09-06 20:20] LABS: Glucose Point of Care 386 mg/dL (70-110)
[2023-09-06] MEDS: tamsulosin 0.4 mg Capsule 0.400000000000000022 MG PO (20:29)
[2023-09-06] MEDS: hyDRALAzine 10 mg Tablet PO (20:29)
[2023-09-06] MEDS: hyDRALAzine 20 mg/mL INJ 1 mL 10 MG IVP (22:11)
[2023-09-07] VITALS (60 sets, daily range): BP systolic 123–209; BP diastolic 74–139; PULSE 74–121; RESP 3–27; TEMP 36.2–36.7; O2SAT 75–99
[2023-09-07 05:29] LABS: Basophils % 0.2 %; Eosinophils % 0.2 %; Hematocrit 49.9 % (37-53); Lymphocytes # 1.7 10^3/uL (0.8-4.8); Lymphocytes % 13.4 %; Mean Corpuscular HGB Conc 34.3 g/dL (30-55); Mean Corpuscular Hemoglobin 29.4 pg (27-33); Mean Corpuscular Volume 85.9 fl (82-101); Mean Platelet Volume 8.7 fL (7.4-10.4); Monocytes # 0.7 10^3/uL (0.2-0.9); Monocytes % 5.6 %; Neutrophils # 10.42 10^3/uL (1.8-7.7); Neutrophils % 80.3 %; Nucleated Red Blood Cells % 0 %; Platelet Count 231 10^3/cmm (157-399); Red Blood Count 5.81 10^6/uL (3.85-5.65); Red Cell Distribution Width 13.5 % (12.1-15.1); White Blood Count 12.98 10^3/uL (3.29-11.43)
[2023-09-07 05:49] LABS: Cholesterol 280 mg/dL (0-200); HDL Cholesterol 56 mg/dL (60-100); LDL Cholesterol Calculated 195 mg/dL (50-129); Triglycerides 144 mg/dL (0-150); VLDL Cholestrol Calculation 29 mg/dL (0-30)
[2023-09-07 05:54] LABS: Alanine Aminotransferase 12 U/L (0-41); Albumin Level 4.4 g/dL (3.5-5.2); Alkaline Phosphatase 101 U/L (40-130); Anion Gap 15.6 (5-19); Aspartate Amino Transferase 13 U/L (0-40); Blood Urea Nitrogen 22 mg/dL (6-20); Calcium 9.8 mg/dL (8.5-10.5); Carbon Dioxide 28 mmol/L (22-29); Chloride 103 mmol/L (98-107); Creatinine Clr Calc Pharmacy 89.3942; Globulin 3.3 g/dL (1.3-4.6); Glomerular Filtration Rate 98.9 mL/min (90-130); Glucose 128 mg/dL (65-115); Magnesium 2.4 mg/dL (1.7-2.3); Osmolality Calculated 301 mOsm/kg (285-295); Potassium 3.6 mmol/L (3.5-5.1); Sodium 143 mmol/L (136-145); Total Bilirubin 0.6 mg/dL (0.15-1.2); Total Protein 7.7 g/dL (6.6-8.7)
[2023-09-07] MEDS: hyDRALAzine 20 mg/mL INJ 1 mL 10 MG IVP (06:10)
[2023-09-07 06:11] LABS: Folate Level 9.3 ng/mL (4.5-32.2)
[2023-09-07] MEDS: enoxaparin 40 mg/0.4 mL Syringe SUBCUT (06:56)
[2023-09-07 06:59] LABS: Glucose Point of Care 149 mg/dL (70-110)
[2023-09-07] MEDS: insulin lispro 100 unit/1 mL SUBCUT ×4 (08:47→21:10)
[2023-09-07] MEDS: hyDRALAzine 10 mg Tablet PO ×3 (08:48→21:10)
[2023-09-07] MEDS: pantoprazole DR 40 mg Tablet PO (08:48)
[2023-09-07] MEDS: aspirin 81 mg EC Tablet PO (08:48)
[2023-09-07] MEDS: metoprolol succinate ER (24 HR) 50 mg Tablet PO ×2 (08:48→11:27)
[2023-09-07] MEDS: atorvastatin 40 mg Tablet PO (08:48)
[2023-09-07] MEDS: amlodipine 10 mg Tablet PO (08:48)
[2023-09-07] MEDS: losartan 50 mg Tablet 100 MG PO (08:48)
[2023-09-07 11:25] LABS: Glucose Point of Care 270 mg/dL (70-110)
--- NOTE | 2023-09-07 12:06 | USCV_ITS ---
Roland Butts Age: 58 Gender: M : 1965 Exam Date: 09/07/2023 02:41 Ordering Phys: Robert Munguia MD Technologist: SRINIVASAN Exam Location: [facility] [place] Indication: concern for embolic stroke a bubble study is ordereed. patient is unresponsive in ICU-2. BP: 166 / 101 HR: 96 Rhythm: Sinus Technical Quality: Adequate MEASUREMENTS (Male / Female) Normal Values 2D ECHO LV Diastolic Diameter PLAX 4.4 cm 4.2 - 5.9 / 3.9 - 5.3 cm LV Systolic Diameter PLAX 3.2 cm IVS Diastolic Thickness 1.7 cm 0.6 - 1.0 / 0.6 - 0.9 cm IVS Systolic Thickness 1.9 cm LVPW Diastolic Thickness 1.9 cm 0.6 - 1.0 / 0.6 - 0.9 cm LVPW Systolic Thickness 2.2 cm LVOT Diameter 1.6 cm LV Ejection Fraction 2D Teich 55.4 % LV Ejection Fraction MOD 2C 51.4 % LV Ejection Fraction 2C AL 54.8 % LA Diameter 3.8 cm LA Sys Volume AL 43.5 cm cubed LA Sys Volume Index AL 23.8 cm cubed/m squared Aorta at Sinotubular Diameter 2.9 cm IVC Diameter 1.3 cm M-MODE LA Ao Ratio MM 1.2 AV Cusp Separation MM 2.1 cm DOPPLER AV Peak Velocity 124.0 cm/s LVOT Peak Velocity 71.0 cm/s AV Area Cont Eq vti 1.1 cm squared AV Area Cont Eq pk 1.2 cm squared MV Peak Velocity 85.0 cm/s MV Area PHT 2.7 cm squared Mitral E to A Ratio 0.7 TV Peak E Velocity 50.0 cm/s PV Peak Velocity 111.0 cm/s FINDINGS Left Ventricle Normal LV size ejection fraction 55%. Moderate left-ventricular hypertrophy. Relative hypokinesia of the septum was noted. Right Ventricle The right ventricle is normal in size and function. Right Atrium The right atrium is normal in size. Left Atrium The left atrium is normal in size. Mitral Valve Thickened mitral valve. Mild mitral annular calcification. Aortic Valve Thickened aortic valve. Trace aortic valve regurgitation. Tricuspid Valve No gross abnormalities noted Pulmonic Valve No gross abnormalities noted Pericardium Normal pericardium without effusion. Aorta Normal ascending aorta dimension. IVC The inferior vena cava appears normal. CONCLUSIONS Normal LV size ejection fraction 55%. Moderate left-ventricular hypertrophy. Relative hypokinesia of the septum was noted. Thickened mitral valve. Mild mitral annular calcification. Thickened aortic valve. Trace aortic valve regurgitation. There is no pericardial effusion. There are no intracardiac masses. There is saline contrast injection did not reveal any evidence of right to left shunt No similar previous studies are available for comparison The updated report of the study done on 09/07/2023 Dr Rachel Dong MD [facility] (Electronically Signed) Final Date: 08 September 2023 16:17 Amended: 11 September 2023 13:47 C
--- NOTE | 2023-09-07 15:13 | P.PN_ITS ---
Subjective 2 Subjective: No acute events overnight. Patient has remained hemodynamically stable and afebrile. Today morning examination patient is little more awake than yesterday, able to have slight conversation and follow directions but continues to mumble his words. Blood pressures at goal but elevated, tachycardic. Has remained afebrile on room air. Vitals/I&O/Wt Last Vital Signs Temp 97.2 F L 09/07/23 03:20 Pulse 103 H 09/07/23 10:00 Resp 17 09/07/23 10:00 BP 162/97 09/07/23 10:00 Pulse Ox 98 09/07/23 10:00 O2 Del Method Room Air 09/07/23 10:00 O2 Flow Rate 2 09/07/23 04:00 09/07/23 09/07/23 09/07/23 06:59 14:59 22:59 Output Total 275 / 2050 Balance -275 / -1688.750 Weight last 48 hrs Weight 72.802 kg Weight 73.573 kg Weight 73.573 kg Weight 81.647 kg Physical Exam 2 Narrative: No acute distress Neurologic: Patient is alert he has minimal verbal, no aphasia. He appears to have slow cognition. Moving all extremities appropriately HEENT head is normocephalic atraumatic pupils equal round and reactive to light and accommodation extraocular muscles are intact nasal and pharyngeal mucosa moist and pink without lesions or exudate neck is supple no JVD carotid bruits or lymphadenopathy chest rises symmetrically with inspiration no pain to palpation Heart regular normal S1-S2 without loud murmur click gallop or rub lungs diminished throughout with expiratory rhonchi in the upper lung hanna poor expiratory phase Abdomen soft nontender nondistended positive bowel sounds no hepatosplenomegaly Extremities no clubbing cyanosis or edema Skin no rashes or lesions,toenails with fungus Psych patient is calm and shows focus with eye contact Urinary Catheter Management: Carcamo: Cath Placed During This Visit: yes Reason for Continuing Indwelling Catheter: Accurate Measurement of Urinary Output in Critically Ill Patients Urinary Catheter Date of Insertion: 09/06/23 Urinary Catheter Time of Insertion: 16:41 Data 09/07/23 04:40 09/07/23 04:40 A&P Assessment and plan (1) Metabolic encephalopathy: Most likely in setting of old stroke and new multiple small lacunar type acute infarcts involving multiple vascular distributions including posterior anterior circulation seen on the MRI today. High suspicion of embolic source. Patient in normal sinus rhythm though. Cannot rule out in setting of hypertensive encephalopathy. Urine drug screen on admission negative. (2) Cerebrovascular disease: Seen on MRI. History of old stroke as well. Currently in normal sinus rhythm. CVA: Appreciated neurology recommendations. Continue with aspirin 81 mg daily, Plavix 75 mg daily, statin [address] head, and MRI head results. Results CTA head and neck, echocardiogram bubble study awaited. Telemetry monitoring to rule out arrhythmia/A. fib. PT/OT/speech evaluation. Diet as per swallow evaluation. Every 4 neurochecks. Goal blood pressure today 140/90 mmHg. (3) Hypertensive emergency: Supposed to be on multiple antihypertensives at home. Noncompliant for now as could not afford medication. Currently would need permissible hypertension though blood pressures going more than target blood pressures. Nicardipine drip weaned off yesterday. Continue with amlodipine 10 mg oral daily, increase metoprolol succinate to 100 mg oral daily, hydralazine 10 mg 3 times daily along with losartan 100 mg daily. Will uptitrate as for goal blood pressures. Continue with IV hydralazine 10 mg every 4 hours as needed for systolic blood pressure more than 160 mmHg. If needed can uptitrate hydralazine or add clonidine. Will try to avoid clonidine as it can also cause tachycardia. (4) Acute hypokalemia: Stable today. Repeated yesterday. (5) Type 2 diabetes mellitus, without long-term current use of insulin: A1c 9.4. Sliding scale AC and at bedtime. 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 Patient's daughter will be DPOA. Diet to be advance as per speech therapy. Protonix for PUD prophylaxis Lovenox for DVT prophylaxis. Transfer to [facility]. Attestations 2 Medical Necessity Statement*: Requires further hospitalization for management of encephalopathy in setting of acute multiple lacunar strokes mild embolic etiology is ruled out, hypertensive urgency with concerns for hypertensive encephalopathy Diagnoses Metabolic encephalopathy G93.41 Cerebrovascular disease I67.9 Hypertensive emergency I16.1 Acute hypokalemia E87.6 Type 2 diabetes mellitus without complication, without long-term current use of insulin E11.9 Non-compliance Z91.199 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
[2023-09-07 17:21] LABS: Glucose Point of Care 188 mg/dL (70-110)
[2023-09-07 21:00] LABS: Glucose Point of Care 261 mg/dL (70-110)
[2023-09-07] MEDS: tamsulosin 0.4 mg Capsule 0.400000000000000022 MG PO (21:10)
--- NOTE | 2023-09-07 23:04 | PC.NURSE ---
Patient up to ambulate to bathroom using walker and full contact assist. Patient wobbly but tolerated well with assistance.
[2023-09-07] MEDS: morphine 4 mg/mL SDV 1 mL 1 MG IVP (23:24)
[2023-09-08] VITALS (19 sets, daily range): BP systolic 121–173; BP diastolic 69–100; PULSE 75–102; RESP 10–17; TEMP 36.6–37; O2SAT 87–99
[2023-09-08] MEDS: hyDRALAzine 20 mg/mL INJ 1 mL 10 MG IVP (02:13)
--- NOTE | 2023-09-08 02:20 | PC.NURSE ---
Patient sitting up on edge of bed. Patient favors his right side and appears unbalanced.
[2023-09-08 03:36] LABS: Basophils % 0.3 %; Eosinophils # 0.1 10^3/uL (0.0-0.8); Eosinophils % 0.8 %; Hematocrit 47.3 % (37-53); Lymphocytes # 2.2 10^3/uL (0.8-4.8); Lymphocytes % 21.1 %; Mean Corpuscular Hemoglobin 29.2 pg (27-33); Mean Corpuscular Volume 85.7 fl (82-101); Mean Platelet Volume 8.5 fL (7.4-10.4); Monocytes # 0.7 10^3/uL (0.2-0.9); Monocytes % 6.2 %; Neutrophils # 7.44 10^3/uL (1.8-7.7); Neutrophils % 71.2 %; Nucleated Red Blood Cells % 0 %; Platelet Count 198 10^3/cmm (157-399); Red Blood Count 5.52 10^6/uL (3.85-5.65); White Blood Count 10.44 10^3/uL (3.29-11.43)
[2023-09-08 03:55] LABS: Magnesium 2.2 mg/dL (1.7-2.3)
[2023-09-08 03:56] LABS: Alanine Aminotransferase 11 U/L (0-41); Alkaline Phosphatase 95 U/L (40-130); Anion Gap 14.6 (5-19); Aspartate Amino Transferase 13 U/L (0-40); Blood Urea Nitrogen 21 mg/dL (6-20); Calcium 9.5 mg/dL (8.5-10.5); Carbon Dioxide 28 mmol/L (22-29); Chloride 101 mmol/L (98-107); Creatinine Clr Calc Pharmacy 101.6691; Glomerular Filtration Rate 115.4 mL/min (90-130); Glucose 133 mg/dL (65-115); Osmolality Calculated 295 mOsm/kg (285-295); Potassium 3.6 mmol/L (3.5-5.1); Sodium 140 mmol/L (136-145)
[2023-09-08] MEDS: enoxaparin 40 mg/0.4 mL Syringe SUBCUT (05:37)
[2023-09-08 06:21] LABS: Glucose Point of Care 135 mg/dL (70-110)
[2023-09-08] MEDS: pantoprazole DR 40 mg Tablet PO (08:15)
[2023-09-08] MEDS: losartan 50 mg Tablet 100 MG PO (08:15)
[2023-09-08] MEDS: aspirin 81 mg EC Tablet PO (08:16)
[2023-09-08] MEDS: atorvastatin 40 mg Tablet 80 MG PO (08:16)
[2023-09-08] MEDS: hyDRALAzine 10 mg Tablet PO ×3 (08:16→21:06)
[2023-09-08] MEDS: amlodipine 10 mg Tablet PO (08:16)
[2023-09-08] MEDS: metoprolol succinate ER (24 HR) 100 mg Tablet PO (08:16)
[2023-09-08 11:01] LABS: Glucose Point of Care 203 mg/dL (70-110)
[2023-09-08] MEDS: insulin lispro 100 unit/1 mL SUBCUT ×3 (12:27→21:06)
--- NOTE | 2023-09-08 12:43 | PC.NURSE ---
transfer report to med surg called report to m/s Kae. informed dgtr Pasquale and SO Jenna to update them about the plans today and the transfer to med surg room 267.
--- NOTE | 2023-09-08 12:59 | PC.NURSE ---
all belongings sent with pt.
--- NOTE | 2023-09-08 13:47 | PM.PN ---
Subjective Subjective: Today morning examination patient is a lot more awake and alert and able to have complete conversation. Denies any nausea, ting, headache. No acute events overnight. Vitals/I&O/Wt Last Vital Signs Temp 97.8 F 09/08/23 12:00 Pulse 84 09/08/23 12:00 Resp 17 09/08/23 07:59 BP 123/69 09/08/23 12:00 Pulse Ox 94 09/08/23 10:00 O2 Del Method Room Air 09/08/23 10:00 O2 Flow Rate 1 09/07/23 15:30 09/07/23 09/08/23 09/08/23 22:59 06:59 14:59 Output Total 1100 / 1100 700 / 1800 Balance -1100 / -1100 -700 / -1800 Weight last 48 hrs Weight 76.022 kg Weight 72.802 kg Physical Exam Narrative: No acute distress Neurologic: Patient is alert he has minimal verbal, no aphasia. He appears to have slow cognition. Moving all extremities appropriately HEENT head is normocephalic atraumatic pupils equal round and reactive to light and accommodation extraocular muscles are intact nasal and pharyngeal mucosa moist and pink without lesions or exudate neck is supple no JVD carotid bruits or lymphadenopathy chest rises symmetrically with inspiration no pain to palpation Heart regular normal S1-S2 without loud murmur click gallop or rub lungs diminished throughout with expiratory rhonchi in the upper lung hanna poor expiratory phase Abdomen soft nontender nondistended positive bowel sounds no hepatosplenomegaly Extremities no clubbing cyanosis or edema Skin no rashes or lesions,toenails with fungus Psych patient is calm and shows focus with eye contact Urinary Catheter Management: Carcamo: Cath Placed During This Visit: yes Reason for Continuing Indwelling Catheter: Accurate Measurement of Urinary Output in Critically Ill Patients Urinary Catheter Date of Insertion: 09/06/23 Urinary Catheter Time of Insertion: 16:41 Data 09/08/23 03:07 09/08/23 03:07 A&P Assessment and plan (1) Metabolic encephalopathy: Most likely in setting of old stroke and new multiple small lacunar type acute infarcts involving multiple vascular distributions including posterior anterior circulation seen on the MRI today. High suspicion of embolic source. Patient in normal sinus rhythm though. Cannot rule out in setting of hypertensive encephalopathy. Urine drug screen on admission negative. (2) Cerebrovascular disease: Seen on MRI. History of old stroke as well. Currently in normal sinus rhythm. CVA: Appreciated neurology recommendations. Continue with aspirin 81 mg daily, Plavix 75 mg daily, statin [address] head, and MRI head results. Results CTA head and neck, echocardiogram bubble study awaited. Telemetry monitoring to rule out arrhythmia/A. fib. PT/OT/speech evaluation. Diet as per swallow evaluation. Every 4 neurochecks. Goal blood pressure today 140/90 mmHg. (3) Hypertensive emergency: Supposed to be on multiple antihypertensives at home. Noncompliant for now as could not afford medication. Currently would need permissible hypertension though blood pressures going more than target blood pressures. Continue with amlodipine 10 mg oral daily, increase metoprolol succinate to 100 mg oral daily, hydralazine 10 mg 3 times daily along with losartan 100 mg daily. Will uptitrate as for goal blood pressures. Continue with IV hydralazine 10 mg every 4 hours as needed for systolic blood pressure more than 160 mmHg. If needed can uptitrate hydralazine or add clonidine. Will try to avoid clonidine as it can also cause tachycardia. (4) Acute hypokalemia: Stable today. Repeated yesterday. (5) Type 2 diabetes mellitus, without long-term current use of insulin: A1c 9.4. Sliding scale AC and at bedtime. 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 Patient's daughter will be DPOA. Diet to be advance as per speech therapy. Protonix for PUD prophylaxis Lovenox for DVT prophylaxis. Plan for the day: Blood pressure is a lot better controlled. Continue with current antihypertensive including amlodipine and losartan, hydralazine and metoprolol. Monitor blood pressures. Blood sugars better controlled. Continue with sliding scale. Add Lantus 15 units every morning. Patient has been requiring up to 30 units of insulin daily. Advance diet as per speech therapy. Currently on dysphagia level 7. Continue with aspirin, statin. JERMAINE Carcamo. Transfer to [facility] floor. Continue milliner helper. Patient would need event monitor on discharge to rule out A-fib given involvement of multiple vascular territories for stroke. He has not shown any A-fib on telemonitoring hospitalization. He does have a history of being noncompliant with his medication including antiplatelet and statins. High concerns of stroke due to hypertensive emergency. Discharge planning: Appreciate PT evaluation. As per PT he would benefit from acute rehab. Patient has been accepted at [facility] rehab. Discussed again in detail with the patient. He is still hesitant about discharge to rehab. He wants to think further before agreeing. We did discuss that patient does require further rehab for faster recovery and more stable and organized recovery given his history of labile blood pressure and multiple strokes. Patient verbalized understanding and will let us know. Plan continues to be acute rehab versus home with home health if possible. Attestations Medical Necessity Statement*: Requires further hospitalization for management of significant multiple lacunar strokes given history of hypertensive emergency due to noncompliance once safe discharge planning is sought. Diagnoses Metabolic encephalopathy G93.41 Cerebrovascular disease I67.9 Hypertensive emergency I16.1 Acute hypokalemia E87.6 Type 2 diabetes mellitus without complication, without long-term current use of insulin E11.9 Non-compliance Z91.199 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
[2023-09-08 17:00] LABS: Glucose Point of Care 374 mg/dL (70-110)
[2023-09-08 20:52] LABS: Glucose Point of Care 315 mg/dL (70-110)
[2023-09-08] MEDS: tamsulosin 0.4 mg Capsule 0.400000000000000022 MG PO (21:06)
[2023-09-09] VITALS (8 sets, daily range): BP systolic 126–200; BP diastolic 76–94; PULSE 87–110; RESP 14–18; TEMP 36.5–36.8; O2SAT 93–94
[2023-09-09] MEDS: oxyCODONE-APAP 5-325 mg Tablet 1 TAB PO (03:03)
[2023-09-09 03:09] LABS: Basophils % 0.5 %; Eosinophils # 0.1 10^3/uL (0.0-0.8); Eosinophils % 1.6 %; Lymphocytes # 2.9 10^3/uL (0.8-4.8); Lymphocytes % 36.1 %; Mean Corpuscular HGB Conc 33.7 g/dL (30-55); Mean Corpuscular Hemoglobin 28.8 pg (27-33); Mean Corpuscular Volume 85.5 fl (82-101); Mean Platelet Volume 8.7 fL (7.4-10.4); Monocytes # 0.6 10^3/uL (0.2-0.9); Monocytes % 7.3 %; Neutrophils # 4.37 10^3/uL (1.8-7.7); Neutrophils % 54.4 %; Nucleated Red Blood Cells % 0 %; Platelet Count 205 10^3/cmm (157-399); Red Blood Count 5.38 10^6/uL (3.85-5.65); Red Cell Distribution Width 12.8 % (12.1-15.1); White Blood Count 8.05 10^3/uL (3.29-11.43)
[2023-09-09 03:26] LABS: Magnesium 2.3 mg/dL (1.7-2.3)
[2023-09-09 03:31] LABS: Alanine Aminotransferase 11 U/L (0-41); Albumin Level 4.3 g/dL (3.5-5.2); Alkaline Phosphatase 119 U/L (40-130); Anion Gap 13.6 (5-19); Aspartate Amino Transferase 14 U/L (0-40); Blood Urea Nitrogen 21 mg/dL (6-20); Calcium 9.7 mg/dL (8.5-10.5); Carbon Dioxide 29 mmol/L (22-29); Chloride 101 mmol/L (98-107); Creatinine Clr Calc Pharmacy 103.7391; Globulin 2.7 g/dL (1.3-4.6); Glomerular Filtration Rate 115.4 mL/min (90-130); Glucose 139 mg/dL (65-115); Osmolality Calculated 295 mOsm/kg (285-295); Potassium 3.6 mmol/L (3.5-5.1); Sodium 140 mmol/L (136-145); Total Bilirubin 0.9 mg/dL (0.15-1.2)
[2023-09-09] MEDS: hyDRALAzine 20 mg/mL INJ 1 mL 10 MG IVP (04:20)
[2023-09-09] MEDS: enoxaparin 40 mg/0.4 mL Syringe SUBCUT (06:19)
[2023-09-09] MEDS: insulin glargine 100 units/1 mL 15 UNIT SUBCUT (06:20)
[2023-09-09 06:26] LABS: Glucose Point of Care 220 mg/dL (70-110)
[2023-09-09] MEDS: insulin lispro 100 unit/1 mL SUBCUT ×3 (09:30→21:36)
[2023-09-09] MEDS: atorvastatin 40 mg Tablet 80 MG PO (09:31)
[2023-09-09] MEDS: pantoprazole DR 40 mg Tablet PO (09:31)
[2023-09-09] MEDS: amlodipine 10 mg Tablet PO (09:31)
[2023-09-09] MEDS: losartan 50 mg Tablet 100 MG PO (09:31)
[2023-09-09] MEDS: hyDRALAzine 10 mg Tablet 25 MG PO ×2 (09:31→16:01)
[2023-09-09] MEDS: metoprolol succinate ER (24 HR) 100 mg Tablet PO (09:32)
[2023-09-09] MEDS: aspirin 81 mg EC Tablet PO (09:32)
[2023-09-09 11:30] LABS: Glucose Point of Care 146 mg/dL (70-110)
--- NOTE | 2023-09-09 13:31 | PM.PN ---
Subjective Subjective: No acute vents overnight. Patient has remained hemodynamically stable and afebrile. Seen with multiple for members at bedside. Patient is awake and alert and able to have conversation with episodes of expressive aphasia on and off. Denies any nausea vomiting, headache. Blood pressure is better controlled. Vitals/I&O/Wt Last Vital Signs Temp 97.8 F 09/09/23 11:39 Pulse 104 H 09/09/23 11:39 Resp 14 09/09/23 11:39 BP 126/81 09/09/23 11:39 Pulse Ox 93 09/09/23 11:39 O2 Del Method Room Air 09/09/23 11:39 O2 Flow Rate 1 09/07/23 15:30 09/08/23 09/09/23 09/09/23 22:59 06:59 14:59 Output Total 425 / 1025 Balance -425 / -785 Weight last 48 hrs Weight 74.253 kg Weight 76.022 kg Physical Exam Narrative: No acute distress Neurologic: Patient is alert he has minimal verbal, no aphasia. He appears to have slow cognition. Moving all extremities appropriately HEENT head is normocephalic atraumatic pupils equal round and reactive to light and accommodation extraocular muscles are intact nasal and pharyngeal mucosa moist and pink without lesions or exudate neck is supple no JVD carotid bruits or lymphadenopathy chest rises symmetrically with inspiration no pain to palpation Heart regular normal S1-S2 without loud murmur click gallop or rub lungs diminished throughout with expiratory rhonchi in the upper lung hanna poor expiratory phase Abdomen soft nontender nondistended positive bowel sounds no hepatosplenomegaly Extremities no clubbing cyanosis or edema Skin no rashes or lesions,toenails with fungus Psych patient is calm and shows focus with eye contact Urinary Catheter Management: Carcamo: Cath Placed During This Visit: yes, but has since been removed by the nurse Reason for Continuing Indwelling Catheter: Acute Urinary Retention or Obstruction Urinary Catheter Date of Insertion: 09/06/23 Urinary Catheter Time of Insertion: 16:41 Date Urinary Catheter Removed: 09/08/23 Time Urinary Catheter Discontinued: 14:04 Data 09/09/23 02:05 09/09/23 02:05 A&P Assessment and plan (1) Metabolic encephalopathy: Most likely in setting of old stroke and new multiple small lacunar type acute infarcts involving multiple vascular distributions including posterior anterior circulation seen on the MRI today. High suspicion of embolic source. Patient in normal sinus rhythm though. Cannot rule out in setting of hypertensive encephalopathy. Urine drug screen on admission negative. (2) Cerebrovascular disease: Seen on MRI. History of old stroke as well. Currently in normal sinus rhythm. CVA: Appreciated neurology recommendations. Continue with aspirin 81 mg daily, Plavix 75 mg daily, statin [address] head, and MRI head results. Results CTA head and neck, echocardiogram bubble study awaited. Telemetry monitoring to rule out arrhythmia/A. fib. PT/OT/speech evaluation. Diet as per swallow evaluation. Every 4 neurochecks. Goal blood pressure today 140/90 mmHg. (3) Hypertensive emergency: Supposed to be on multiple antihypertensives at home. Noncompliant for now as could not afford medication. Currently would need permissible hypertension though blood pressures going more than target blood pressures. Continue with amlodipine 10 mg oral daily, increase metoprolol succinate to 100 mg oral daily, hydralazine 10 mg 3 times daily along with losartan 100 mg daily. Will uptitrate as for goal blood pressures. Continue with IV hydralazine 10 mg every 4 hours as needed for systolic blood pressure more than 160 mmHg. If needed can uptitrate hydralazine or add clonidine. Will try to avoid clonidine as it can also cause tachycardia. (4) Acute hypokalemia: Stable today. Repeated yesterday. (5) Type 2 diabetes mellitus, without long-term current use of insulin: A1c 9.4. Sliding scale AC and at bedtime. 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 Patient's daughter will be DPOA. Diet to be advance as per speech therapy. Protonix for PUD prophylaxis Lovenox for DVT prophylaxis. Plan for the day: Blood pressure is better controlled. Continue with current regimen. Goal blood pressure less than 140/90 mmHg. Blood sugars better controlled today. Continue with Lantus 15 units every morning. No episodes of hypoglycemia. Will uptitrate Lantus depending on blood sugar and insulin requirements. Advance diet as per speech therapy. Continue with physical therapy. 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 Patient would need event monitor on discharge to rule out A-fib given involvement of multiple vascular territories for stroke. He has not shown any A-fib on telemonitoring hospitalization. He does have a history of being noncompliant with his medication including antiplatelet and statins. High concerns of stroke due to hypertensive emergency. Check EKG. Discharge planning: Again discussed in detail with the patient about discharge planning with son at bedside. Patient now is agreeable for SNF placement for a short while for further rehab. Plan to discharge to SNF for further rehab Attestations Medical Necessity Statement*: Requires further hospitalization for management of multiple liken of stroke in setting of hypertensive urgency while safe discharge planning is sought Diagnoses Metabolic encephalopathy G93.41 Cerebrovascular disease I67.9 Hypertensive emergency I16.1 Acute hypokalemia E87.6 Type 2 diabetes mellitus without complication, without long-term current use of insulin E11.9 Non-compliance Z91.199 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
[2023-09-09 16:43] LABS: Glucose Point of Care 404 mg/dL (70-110)
[2023-09-09] MEDS: insulin lispro 100 unit/1 mL 12 UNIT SUBCUT (17:45)
--- NOTE | 2023-09-09 18:01 | PC.NURSE ---
Spoke to regarding patient urinating in the floor. Patient's significant other called and stated that the Hydrazine we are giving him is causing him to urinate so much. Dr. Montes states that the medication is needed to help with his blood pressure and we increased Flomax to BID.
[2023-09-09 18:58] LABS: Glucose Point of Care 203 mg/dL (70-110)
[2023-09-09 20:15] LABS: Glucose Point of Care 273 mg/dL (70-110)
--- NOTE | 2023-09-09 21:57 | PC.NURSE ---
Patient refused all evening medications, was able to administer insulin.
[2023-09-10] VITALS (10 sets, daily range): BP systolic 110–183; BP diastolic 67–96; PULSE 73–98; RESP 16–19; TEMP 36.4–37; O2SAT 95–96
[2023-09-10 04:54] LABS: Alanine Aminotransferase 13 U/L (0-41); Albumin Level 3.8 g/dL (3.5-5.2); Alkaline Phosphatase 85 U/L (40-130); Blood Urea Nitrogen 9 mg/dL (6-20); Carbon Dioxide 22 mmol/L (22-29); Chloride 96 mmol/L (98-107); Creatinine Clr Calc Pharmacy 179.5534; Glomerular Filtration Rate 220.2 mL/min (90-130); Glucose 78 mg/dL (65-115); Osmolality Calculated 268 mOsm/kg (285-295); Sodium 130 mmol/L (136-145); Total Bilirubin 0.9 mg/dL (0.15-1.2); Total Protein 6.8 g/dL (6.6-8.7)
[2023-09-10 05:04] LABS: Anion Gap 15.2 (5-19); Aspartate Amino Transferase 20 U/L (0-40); Potassium 3.2 mmol/L (3.5-5.1)
[2023-09-10 06:19] LABS: Glucose Point of Care 110 mg/dL (70-110)
[2023-09-10] MEDS: enoxaparin 40 mg/0.4 mL Syringe SUBCUT (06:54)
[2023-09-10] MEDS: insulin glargine 100 units/1 mL 15 UNIT SUBCUT (06:54)
[2023-09-10 07:32] LABS: Basophils % 0.3 %; Eosinophils # 0.1 10^3/uL (0.0-0.8); Eosinophils % 1.1 %; Hematocrit 42.5 % (37-53); Lymphocytes # 2.8 10^3/uL (0.8-4.8); Lymphocytes % 37.7 %; Mean Corpuscular HGB Conc 34.8 g/dL (30-55); Mean Corpuscular Hemoglobin 29.2 pg (27-33); Mean Platelet Volume 8.5 fL (7.4-10.4); Monocytes # 0.6 10^3/uL (0.2-0.9); Monocytes % 7.9 %; Neutrophils # 3.89 10^3/uL (1.8-7.7); Neutrophils % 52.9 %; Nucleated Red Blood Cells % 0 %; Platelet Count 207 10^3/cmm (157-399); Red Blood Count 5.06 10^6/uL (3.85-5.65); Red Cell Distribution Width 12.5 % (12.1-15.1); White Blood Count 7.35 10^3/uL (3.29-11.43)
[2023-09-10] MEDS: tamsulosin 0.4 mg Capsule 0.400000000000000022 MG PO ×2 (11:11→17:48)
[2023-09-10] MEDS: pantoprazole DR 40 mg Tablet PO (11:11)
[2023-09-10] MEDS: amlodipine 10 mg Tablet PO (11:11)
[2023-09-10] MEDS: chlorthalidone 25 mg Tablet PO (11:12)
--- NOTE | 2023-09-10 11:23 | PC.NURSE ---
Patient literally spit Aspirin, Atorvastatin, metoprolol at me than them them on the bed the third time. Totally refuses to take losartan. notified Dr. Munguia
--- NOTE | 2023-09-10 11:26 | PC.NURSE ---
Patient swung at this nurse when trying to picking machine operator medications from bed after third time trying to get patient to take them. Patient is very noncompliant and will not listen to any of the staff on the floor.
--- NOTE | 2023-09-10 11:39 | CTR_ITS ---
PROCEDURE INFORMATION: Exam: CT Head Without Contrast Exam date and time: 09/10/2023 12:22 PM Age: 58 years old Clinical indication: Injury or trauma; Fall; Blunt trauma (contusions or hematomas); Without loss of consciousness TECHNIQUE: Imaging protocol: Computed tomography of the head without contrast. Radiation optimization: All CT scans at this facility use at least one of these dose optimization techniques: automated exposure control; mA and/or kV adjustment per patient size (includes targeted exams where dose is matched to clinical indication); or iterative reconstruction. COMPARISON: MR head wo/w con [id number] 09/06/2023 10:52 AM RADIATION DOSE METRICS: Total DLP (mGy-cm): 1081.98 FINDINGS: Brain: Moderate nonspecific white matter low attenuation which may be related to microvascular ischemic changes. Redemonstration of bilateral basal ganglia lacunar infarcts versus prominent perivascular spaces. Old lacunar infarct involving the left brachium pontis. No acute confluent lobar ischemic infarct. No acute intracranial hemorrhage. Cerebral ventricles: The ventricles and sulci are normal in size and shape for the patient's stated age. Paranasal sinuses: Visualized sinuses are unremarkable. No fluid levels. Mastoid air cells: Visualized mastoid air cells are well aerated. Bones/joints: No acute calvarial fracture. Soft tissues: Visualized soft tissues are unremarkable. CT/CT head wo con* [id number] IMPRESSION: No acute intracranial abnormality. If symptoms persist, consider further evaluation with MRI, if MRI is clinically safe to obtain.
--- NOTE | 2023-09-10 11:45 | XRR_ITS ---
PROCEDURE INFORMATION: Exam: XR Left Humerus Exam date and time: 09/10/2023 12:22 PM Age: 58 years old Clinical indication: Injury or trauma; Fall; Blunt trauma (contusions or hematomas); Arm, upper; Left; Additional info: Fall, portable TECHNIQUE: Imaging protocol: Radiologic exam of the left humerus. Views: 2 or more views. COMPARISON: CR (UP EXM, ) 09/10/2023 12:22 PM FINDINGS: Bones/joints: No acute fracture or dislocation. No suspicious lytic or blastic osseous lesions. Soft tissues: Unremarkable. XR/[place] [id number] IMPRESSION: No acute findings. If symptoms persist, consider repeat plain films in 7-10 days.
--- NOTE | 2023-09-10 11:45 | XRR_ITS ---
PROCEDURE INFORMATION: Exam: XR Left Elbow Exam date and time: 09/10/2023 12:22 PM Age: 58 years old Clinical indication: Injury or trauma; Fall; Blunt trauma (contusions or hematomas); Elbow; Left; Additional info: Fall, portable TECHNIQUE: Imaging protocol: Radiologic exam of the left elbow. Views: 1 or 2 views. COMPARISON: CR (UP EXM, ) 09/10/2023 12:22 PM FINDINGS: Bones/joints: No acute bony abnormality. No suspcious lytic or blastic osseous lesions. Soft tissues: No displacement of the anterior or posterior fat pads. XR/XR elbow LT 2V [id number] IMPRESSION: No acute bony abnormality. If symptoms persist, consider repeat plain films in 7-10 days.
--- NOTE | 2023-09-10 12:02 | PC.NURSE ---
Dr. Munguia came up to see patient and patient took all medications such as losartan, lipitor, aspirin, and metoprolol.
--- NOTE | 2023-09-10 12:12 | PC.NURSE ---
This nurse ran to patients room due to bed alarm going off. Patient was already standing up. Patient stated he needed to urinate. This nurse gave patient the urinal and explained the call light once again. Patient is very non compliant. Patient does not want to push call light.
[2023-09-10 12:15] LABS: Glucose Point of Care 195 mg/dL (70-110)
[2023-09-10] MEDS: insulin lispro 100 unit/1 mL SUBCUT ×2 (12:39→17:48)
--- NOTE | 2023-09-10 12:54 | P.PN_ITS ---
Subjective 2 Subjective: No acute events overnight. Patient did have episode of slight confusion today morning. Patient as per the nurses has been urinating on the floor. As per him that shorty was done for a long long time. We did discuss in detail that he should be using the urinal which will be provided to him. He is agreeable. Patient did have episode of slipping in his urine earlier in the day today and falling. On examination right now he denies any new complaints. Did refuse some of his medications early in the morning today but is agreeable to take them now. He is apologetic to the nurses. Vitals/I&O/Wt Last Vital Signs Temp 98.6 F 09/10/23 11:09 Pulse 73 09/10/23 11:09 Resp 19 H 09/10/23 11:09 BP 178/73 09/10/23 11:22 Pulse Ox 96 09/10/23 11:09 O2 Del Method Room Air 09/10/23 11:09 O2 Flow Rate 1 09/07/23 15:30 Weight last 48 hrs Weight 73.624 kg Weight 74.253 kg Physical Exam 2 Narrative: No acute distress Neurologic: Patient is alert he has minimal verbal, no aphasia. He appears to have slow cognition. Moving all extremities appropriately HEENT head is normocephalic atraumatic pupils equal round and reactive to light and accommodation extraocular muscles are intact nasal and pharyngeal mucosa moist and pink without lesions or exudate neck is supple no JVD carotid bruits or lymphadenopathy chest rises symmetrically with inspiration no pain to palpation Heart regular normal S1-S2 without loud murmur click gallop or rub lungs diminished throughout with expiratory rhonchi in the upper lung hanna poor expiratory phase Abdomen soft nontender nondistended positive bowel sounds no hepatosplenomegaly Extremities no clubbing cyanosis or edema Skin no rashes or lesions,toenails with fungus Psych patient is calm and shows focus with eye contact Urinary Catheter Management: Carcamo: Cath Placed During This Visit: yes, but has since been removed by the nurse Reason for Continuing Indwelling Catheter: Acute Urinary Retention or Obstruction Urinary Catheter Date of Insertion: 09/06/23 Urinary Catheter Time of Insertion: 16:41 Date Urinary Catheter Removed: 09/08/23 Time Urinary Catheter Discontinued: 14:04 Data 09/10/23 06:55 09/10/23 Unknown A&P Assessment and plan (1) Metabolic encephalopathy: Most likely in setting of old stroke and new multiple small lacunar type acute infarcts involving multiple vascular distributions including posterior anterior circulation seen on the MRI today. High suspicion of embolic source. Patient in normal sinus rhythm though. Cannot rule out in setting of hypertensive encephalopathy. Urine drug screen on admission negative. (2) Cerebrovascular disease: Seen on MRI. History of old stroke as well. Currently in normal sinus rhythm. CVA: Appreciated neurology recommendations. Continue with aspirin 81 mg daily, Plavix 75 mg daily, statin [address] head, and MRI head results. Results CTA head and neck, echocardiogram bubble study awaited. Telemetry monitoring to rule out arrhythmia/A. fib. PT/OT/speech evaluation. Diet as per swallow evaluation. Every 4 neurochecks. Goal blood pressure today 140/90 mmHg. (3) Hypertensive emergency: Supposed to be on multiple antihypertensives at home. Noncompliant for now as could not afford medication. Currently would need permissible hypertension though blood pressures going more than target blood pressures. Continue with amlodipine 10 mg oral daily, increase metoprolol succinate to 100 mg oral daily, hydralazine 10 mg 3 times daily along with losartan 100 mg daily. Will uptitrate as for goal blood pressures. Continue with IV hydralazine 10 mg every 4 hours as needed for systolic blood pressure more than 160 mmHg. If needed can uptitrate hydralazine or add clonidine. Will try to avoid clonidine as it can also cause tachycardia. (4) Cognitive decline: (5) Acute hypokalemia: Stable today. Repeated yesterday. (6) Type 2 diabetes mellitus, without long-term current use of insulin: A1c 9.4. Sliding scale AC and at bedtime. 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 Patient's daughter will be DPOA. Diet to be advance as per speech therapy. Protonix for PUD prophylaxis Lovenox for DVT prophylaxis. Plan for the day: Blood pressure is better controlled. Goal blood pressure less than 140/90 mmHg. Blood pressures more elevated since yesterday evening as patient did not receive his dose of hydralazine. Family believes patient episode of urination on the floor is secondary to hydralazine. Did discuss with them they detail that hydralazine is not associated with the behavior but for now we will switch over to chlorthalidone 25 mg oral daily. Hold off any further hydralazine. Continue with amlodipine 10 mg oral daily, losartan 100 mg oral daily, metoprolol succinate 100 mg oral daily. Cannot switch to Coreg as patient tends to have tachycardia once of metoprolol. If needed will add clonidine. IV hydralazine 10 mg every 4 hours as needed for systolic blood pressure of more than [address] head, x-ray of the shoulder and the elbow post fall. Continue with PT/OT. Advance diet as per speech therapy. Discharge planning: Again discussed in detail with the patient about discharge planning with son at bedside. Patient now is agreeable for SNF placement for a short while for further rehab. Plan to discharge to SNF for further rehab Attestations 2 Medical Necessity Statement*: Requires further hospitalization for safe discharge planning in a patient who was admitted for acute stroke most likely in setting of hypertensive emergency, cognitive decline while antihypertensives were adjusted Diagnoses Metabolic encephalopathy G93.41 Cerebrovascular disease I67.9 Hypertensive emergency I16.1 Cognitive decline R41.89 Acute hypokalemia E87.6 Type 2 diabetes mellitus without complication, without long-term current use of insulin E11.9 Non-compliance Z91.199 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
[2023-09-10 16:51] LABS: Glucose Point of Care 370 mg/dL (70-110)
[2023-09-10 20:40] LABS: Glucose Point of Care 132 mg/dL (70-110)
[2023-09-11] VITALS (9 sets, daily range): BP systolic 121–144; BP diastolic 67–82; PULSE 69–77; RESP 17–18; TEMP 36.3–36.8; O2SAT 94–96
[2023-09-11] MEDS: insulin glargine 100 units/1 mL 15 UNIT SUBCUT (06:04)
[2023-09-11] MEDS: enoxaparin 40 mg/0.4 mL Syringe SUBCUT (06:04)
[2023-09-11 06:15] LABS: Glucose Point of Care 160 mg/dL (70-110)
[2023-09-11] MEDS: tamsulosin 0.4 mg Capsule 0.400000000000000022 MG PO (08:00)
[2023-09-11] MEDS: amlodipine 10 mg Tablet PO (08:00)
[2023-09-11] MEDS: pantoprazole DR 40 mg Tablet PO (08:00)
[2023-09-11] MEDS: losartan 50 mg Tablet 100 MG PO (08:01)
[2023-09-11] MEDS: atorvastatin 40 mg Tablet 80 MG PO (08:01)
[2023-09-11] MEDS: metoprolol succinate ER (24 HR) 100 mg Tablet PO (08:02)
[2023-09-11] MEDS: aspirin 81 mg EC Tablet PO (08:04)
[2023-09-11] MEDS: insulin lispro 100 unit/1 mL SUBCUT ×2 (08:04→12:41)
[2023-09-11] MEDS: chlorthalidone 25 mg Tablet PO (08:04)
[2023-09-11 11:32] LABS: Glucose Point of Care 277 mg/dL (70-110)
[2023-09-11] MEDS: potassium chloride ER 20 mEq Tablet 40 MEQ PO (12:45)
--- NOTE | 2023-09-11 13:42 | PM.DCS ---
Discharge Providers Date of Admission: 09/06/23 05:00 Date of Discharge: September 11, 2023 Attending Provider at Admission: Carlos Mary DO Attending Provider at Discharge: Nikunj Gomez Diagnoses at Discharge Discharge Diagnosis (1) Metabolic encephalopathy: Status: Acute (2) Cerebrovascular disease: Status: Acute (3) Hypertensive emergency: Status: Acute (4) Cognitive decline: Status: Acute Permanent problem details: Most likely in setting of multiple strokes (5) Acute hypokalemia: Status: Acute (6) Type 2 diabetes mellitus, without long-term current use of insulin: Status: Chronic (7) Non-compliance: Status: Acute (8) 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 Continue with management for hypertension, possible underlying cause of his multiple lacunar strokes, antihypertensives adjusted. Continued on monitoring in the hospital, without atrial fibrillation. Mentation gradually improved. Noted some possibly degree of cognitive decline perhaps due to multiple strokes. Some behavioral difficulty with urination on the floor, however, on counseling agreeable to use urology. Denies any difficulty with urination, urgency, pain, or other urinary symptoms. Family seems to associated symptoms with hydralazine which was discontinued, he was started on chlorthalidone instead. Continues on carvedilol, morphine, lisinopril, tamsulosin. Some mild hypokalemia replaced in the hospital. Continue lisinopril. Potassium rich foods. Please recheck potassium. He was assessed by physical therapy and he is requiring a walker, and with unsteady gait at risk of falls. Recommendation for rehabilitation discussed with him to monitor, he had considered this option and declined yesterday and declines again today. He is able to tell me the concerns regarding unsteady gait, risk of falls and injury. Still declines to attempt arrangements for rehabilitation. States that he lives with his significant other. Discussed concerns with case management for appropriate reporting. He is instructed to continue to monitor blood pressures 3 times daily and write down values to continue to optimize blood pressure control. He is instructed to continue carbohydrate controlled diet as well as metformin Invokana for diabetes. Follow-up with primary provider, neurology regarding multiple strokes. He has discussed with him also arranging cardiac monitoring to assess for any arrhythmia. Reviewed echocardiogram was without signs of shunting on bubble study as per discussion with cardiology. Physical Exam Const: COMMON NORMALS: patient oriented x3 and alert GENERAL APPEARANCE: cooperative ORIENTATION/CONSCIOUSNESS: Yes awake HENMT: COMMON NORMALS: oropharynx normal Neck/C-Spine: COMMON NORMALS: no JVD Resp: COMMON NORMALS: normal respiratory effort and clear to auscultation bilaterally AUSCULTATION: clear to auscultation bilaterally Cardio: COMMON NORMALS: no JVD, regular rhythm, S1 normal heart sound present, S2 normal heart sound present and No murmurs present (Cardio) RHYTHM: regular rhythm HEART SOUNDS: S1 normal heart sound present and S2 normal heart sound present GI: COMMON NORMALS: Normal to inspection, nondistended, normoactive bowel sounds present, Soft to palpation and non-tender PALPATION: Yes Soft to palpation Extremity: COMMON NORMALS: no joint enlargement and no pedal edema Neuro: COMMON NORMALS: patient oriented x3 and moves all extremities SENSORIUM/ORIENTATION: Yes alert OTHER: He is awake and alert, oriented, interacting and following directions without problems although minimally slowed responses. No aphasia, no facial droop. No difficulty with tracking. Visual hanna full to confrontation. No visual extinction. No difficulties with FNF. Sensation symmetrical without signs of sensory extinction. No drift. Skin: COMMON NORMALS: no rashes or lesions noted GENERAL SKIN EXAM: no rashes or lesions noted Urinary Catheter Management: Carcamo: Cath Placed During This Visit: yes, but has since been removed by the nurse Reason for Continuing Indwelling Catheter: Acute Urinary Retention or Obstruction Urinary Catheter Date of Insertion: 09/06/23 Urinary Catheter Time of Insertion: 16:41 Date Urinary Catheter Removed: 09/08/23 Time Urinary Catheter Discontinued: 14:04 Discharge Data Studies Completed and Pending Completed Studies During Hospitalization Category Date Time Status CT head wo con* [id number] Stat Cat Scan 09/06/23 02:[address] head wo con* [id number] Urgent Cat Scan 09/10/23 11:39 Completed XR chest 1V portable [id number] Stat Exams 09/05/23 23:55 Completed XR elbow LT 2V [id number] Routine Exams 09/10/23 11:45 [place] [id number] Routine Exams 09/10/23 11:45 Completed MR head wo/w con [id number] Routine MRI 09/06/23 06:47 Completed CV. echo w/w bubble cont [id number] Routine Ultrasound 09/07/23 12:06 Completed Radiology Impressions Chest X-Ray 09/05/23 23:55 IMPRESSION: No acute abnormality demonstrated. Head CT 09/10/23 11:39 IMPRESSION: No acute intracranial abnormality. If symptoms persist, consider further evaluation with MRI, if MRI is clinically safe to obtain. Elbow X-Ray 09/10/23 11:45 IMPRESSION: No acute bony abnormality. If symptoms persist, consider repeat plain films in 7-10 days. Humerus X-Ray 09/10/23 11:45 IMPRESSION: No acute findings. If symptoms persist, consider repeat plain films in 7-10 days. Laboratory Results WBC 7.35 10^3/uL (3.29-11.43) 09/10/23 06:55 RBC 5.06 10^6/uL (3.85-5.65) 09/10/23 06:55 Hgb 14.80 g/dL (11.27-16.99) 09/10/23 06:55 Hct 42.5 % (37-53) 09/10/23 06:55 MCV 84.0 fl (82-101) 09/10/23 06:55 MCH 29.2 pg (27-33) 09/10/23 06:55 MCHC 34.8 g/dL (30-55) 09/10/23 06:55 RDW 12.5 % (12.1-15.1) 09/10/23 06:55 Plt Count 207 10^3/cmm (157-399) 09/10/23 06:55 MPV 8.5 fL (7.4-10.4) 09/10/23 06:55 Neut % (Auto) 52.9 % 09/10/23 06:55 Lymph % (Auto) 37.7 % 09/10/23 06:55 [place] % (Auto) 7.9 % 09/10/23 06:55 Eos % (Auto) 1.1 % 09/10/23 06:55 Baso % (Auto) 0.3 % 09/10/23 06:55 Neut # (Auto) 3.89 10^3/uL (1.8-7.7) 09/10/23 06:55 Lymph # (Auto) 2.8 10^3/uL (0.8-4.8) 09/10/23 06:55 [place] # (Auto) 0.6 10^3/uL (0.2-0.9) 09/10/23 06:55 Eos # (Auto) 0.1 10^3/uL (0.0-0.8) 09/10/23 06:55 Baso # (Auto) 0.0 10^3/uL (0.0-0.1) 09/10/23 06:55 Nucleated RBC % (auto) 0 % 09/10/23 06:55 Nucleated RBCs # 0.0 /100WBC 09/10/23 06:55 PT 12.50 SECONDS (12.1-14.9) 09/06/23 00:05 INR 0.91 (0.8-1.2) 09/06/23 00:05 D-Dimer 0.75 ug/mLFEU (0-0.59) H 09/06/23 10:29 Sodium 130 mmol/L (136-145) L 09/10/23 Unknown Potassium 3.2 mmol/L (3.5-5.1) L 09/10/23 Unknown Chloride 96 mmol/L (98-107) L 09/10/23 Unknown Carbon Dioxide 22 mmol/L (22-29) 09/10/23 Unknown Anion Gap 15.2 (5-19) 09/10/23 Unknown BUN 9 mg/dL (6-20) 09/10/23 Unknown Creatinine 0.4 mg/dL (0.7-1.2) L 09/10/23 Unknown GFR Calculation 220.2 mL/min (90-130) H 09/10/23 Unknown Glucose 78 mg/dL (65-115) 09/10/23 Unknown POC Glucose 277 mg/dL (70-110) H 09/11/23 11:28 Estimat Average Glucose 226 09/06/23 00:05 Hemoglobin A1c 9.5 % (4.0-6.0) H 09/06/23 00:05 Calculated Osmolality 268 mOsm/kg (285-295) L 09/10/23 Unknown Lactic Acid 1.6 mmol/L (0.5-2.2) 09/06/23 00:05 Calcium 9.0 mg/dL (8.5-10.5) 09/10/23 Unknown Magnesium 2.3 mg/dL (1.7-2.3) 09/09/23 02:05 Iron 68 ug/dL (59-158) 09/06/23 00:05 TIBC 291 mcg/dl 09/06/23 00:05 % Saturation 23.3 % (20-50) 09/06/23 00:05 Unsat Iron Binding 223 ug/dL (112-347) 09/06/23 00:05 Total Bilirubin 0.9 mg/dL (0.15-1.2) 09/10/23 Unknown AST 20 U/L (0-40) 09/10/23 Unknown ALT 13 U/L (0-41) 09/10/23 Unknown Alkaline Phosphatase 85 U/L (40-130) 09/10/23 Unknown Troponin T Baseline 17 ng/L (0-15) H 09/06/23 00:05 Troponin T 120 Minute 15.81 ng/L (0-15) H 09/06/23 02:05 Delta Troponin T -1.19 ABS# (0-10) L 09/06/23 02:05 Troponin T Hi Sens 6Hr 17.12 ng/L (0-15) H 09/06/23 05:57 Troponin T Hi Sens 6Hr Delta 0.12 ng/L (0-12) 09/06/23 05:57 NT-Pro-B Natriuret Pep 637 pg/mL (0-125) H 09/06/23 00:05 Total Protein 6.8 g/dL (6.6-8.7) 09/10/23 Unknown Albumin 3.8 g/dL (3.5-5.2) 09/10/23 Unknown Globulin 3.0 g/dL (1.3-4.6) 09/10/23 Unknown Triglycerides 144 mg/dL (0-150) 09/07/23 04:40 Cholesterol 280 mg/dL (0-200) H 09/07/23 04:40 LDL Cholesterol, Calc 195 mg/dL (50-129) H 09/07/23 04:40 Total VLDL Cholesterol 29 mg/dL (0-30) 09/07/23 04:40 HDL Cholesterol 56 mg/dL (60-100) L 09/07/23 04:40 Cholesterol/HDL Ratio 5.00 mg/dL (1.0-5.00) 09/07/23 04:40 Vitamin B12 577 pg/mL (232-1245) 09/06/23 00:05 Folate 9.3 ng/mL (4.5-32.2) 09/07/23 04:40 Procalcitonin 0.06 ng/mL (0-0.5) 09/06/23 00:05 TSH 2.20 uIU/mL (0.27-4.20) 09/06/23 00:05 Urine Color Yellow (Yellow) 09/06/23 01:10 Urine Appearance Clear (CLEAR) 09/06/23 01:10 Urine pH 5 (5-7) 09/06/23 01:10 Ur Specific [place] 1.010 (1.005-1.030) 09/06/23 01:10 Urine Protein 1+ (Negative) H 09/06/23 01:10 Urine Glucose (UA) 4+ (Normal) H 09/06/23 01:10 Urine Ketones Negative (Negative) 09/06/23 01:10 Urine Blood 2+ (Negative) H 09/06/23 01:10 Urine Nitrate Negative (Negative) 09/06/23 01:10 Urine Bilirubin Neg (Negative) 09/06/23 01:10 Urine Urobilinogen Neg mg/dL (Negative) 09/06/23 01:10 Ur Leukocyte Esterase Negative (Negative) 09/06/23 01:10 Urine RBC 0-4 /hpf (0-2) H 09/06/23 01:10 Urine WBC None /hpf (0-5) 09/06/23 01:10 Ur Squamous Epith Cells None /hpf (0-5) 09/06/23 01:10 Amorphous Sediment 1+ /hpf 09/06/23 01:10 Urine Bacteria 1+ /hpf (NONE) H 09/06/23 01:10 Urine Mucus 2+ /hpf 09/06/23 01:10 Urine Opiates Screen Negative ng/mL (Negative) 09/06/23 01:10 Ur Barbiturates Screen Negative ng/mL (Negative) 09/06/23 01:10 Ur Phencyclidine Scrn Negative ng/mL (Negative) 09/06/23 01:10 Ur Amphetamines Screen Negative ng/mL (Negative) 09/06/23 01:10 U Benzodiazepines Scrn Negative ng/mL (Negative) 09/06/23 01:10 Urine Cocaine Screen Negative ng/mL (Negative) 09/06/23 01:10 U Marijuana (THC) Screen Negative ng/mL (Negative) 09/06/23 01:10 Serum Ketones Negative (Negative) 09/06/23 00:05 SARS-CoV-2 Ag (Rapid) negative (Negative) 09/06/23 00:18 Vitals Last Vital Signs Temp 97.7 F 09/11/23 12:17 Pulse 69 09/11/23 12:17 Resp 17 09/11/23 12:17 BP 121/79 09/11/23 12:17 Pulse Ox 95 09/11/23 12:17 O2 Del Method Room Air 09/11/23 12:17 O2 Flow Rate 1 09/07/23 15:30 Discharge Plan Discharge Patient Disposition: Home Condition: Fair Prescriptions: New chlorthalidone 25 mg Tablet 25 mg PO DAILY Qty: 90 0RF Continued amlodipine 10 mg tablet 10 mg PO DAILY Qty: 45 0RF carvedilol 25 mg tablet 25 mg PO BID Qty: 90 0RF sildenafil (pulm.hypertension) 20 mg tablet 20 mg PO .COMPLEX Qty: 30 0RF Rx Instructions: 1-5 tablets one hour prior to sexual intercourse - on an empty stomach; administer doses at least 4-6 hours apart lisinopril 40 mg tablet 40 mg PO DAILY Qty: 90 1RF pantoprazole 40 mg tablet,delayed release (DR/EC) 40 mg PO DAILY Qty: 45 0RF aspirin 81 mg capsule 81 mg PO DAILY Qty: 180 3RF acetaminophen 500 mg Tablet 1,000 mg PO Q6H PRN (Reason: Pain) tamsulosin 0.4 mg capsule 0.4 mg PO BEDTIME metformin 1,000 mg tablet 1,000 mg PO BID Invokana 300 mg tablet 300 mg PO DAILY famotidine 20 mg Tablet 20 mg PO BID Changed atorvastatin 40 mg tablet 80 mg PO DAILY Qty: 90 0RF Discontinued hydralazine 10 mg tablet 10 mg PO TID cyclobenzaprine 10 mg tablet 10 mg PO BEDTIME Discharge Orders: Discharge Order (Routine); Ordered 09/11/23 Ordered By: Nikunj Gomez Other Ambulatory Orders: DME: Walker (Order) Location: None Selected Ordered By: Nikunj Gomez CV carotid duplex BI* [id number] (Routine) Timeframe: 2 Days Facility: [facility] - Location: Radiology Lui VALDEZ Ordered By: Nikunj Gomez MCT/Event Monitor 21 Days (Routine) Timeframe: 1 Day Facility: [facility] - Location: Radiology Ordered By: Nikunj Gomez Referrals: [facility] [Other] (Call this number to get [facility] Home Services setup. They will ask you questions & based off your answers, you are given points. You have to have a certain number of points to qualify. ) [facility] [Provider Group] - 1 week (We have notified your physician's clinic of the need for a follow-up appointment to be scheduled. If you have not heard from them within the next 2 business days, please call them directly. ) Vernon Yeboah MD [Physician] - 09/14/23 11:15 am Discharge Diet: Diabetic and Low Salt Discharge Activity: Resume usual activity Patient Instructions: Diabetes and Diet, Chlorthalidone (By mouth), Potassium Content of Foods List (GEN), Ischemic Stroke (GEN), Hypertension (GEN) Activity Restrictions/Additional Instructions: As discussed due to risk of falls rehabilitation was recommended for you. Keep to strict fall precautions, use your walker at all times. Follow-up with your primary provider for reassessment, case you change your mind regarding going to rehabilitation discussed with them. Follow-up regarding treatment of elevated blood pressure, as discussed monitor blood pressures 3 times daily, write down values to bring to appointment. Continue blood pressure medications as per instructions. Continue cholesterol medication. Maintain cardiac diet. Follow-up with your primary provider also for continued management and optimization of control of diabetes. Maintain strict consistent carbohydrate diet. Complete lunchroom monitor. Follow-up with primary provider for reassessment. Follow-up with neurology for assessment of multiple prior small strokes. Add potassium rich foods to his diet. His potassium was mildly low during hospitalization. Have your primary provider recheck your potassium level. Seek medical attention in case of any worsening or new concerning symptoms. Discharge Attestations Time Spent in Discharge Care*: greater than 30 min Quality Metrics Clinical Quality Measures [ Cerebrovascular Accident { Contraindication to Antithrombotic: None; antithrombotic prescribed; Contraindication to Anticoagulation: Overlap treatment not indicated; Contraindication to Statin: None; Statin prescribed;}] Coding Level of Care Code 71238 Total time (in minutes) for Discharge: 55 Diagnoses Metabolic encephalopathy G93.41 Cerebrovascular disease I67.9 Hypertensive emergency I16.1 Cognitive decline R41.89 Acute hypokalemia E87.6 Type 2 diabetes mellitus without complication, without long-term current use of insulin E11.9 Non-compliance Z91.199 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
[2023-09-11 16:42] LABS: Glucose Point of Care 218 mg/dL (70-110)
--- NOTE | 2023-09-11 17:26 | PC.NURSE ---
Discharged discussed with patient. New medications, changed medications and discontinued medications. Told patient of follow up appointments. Patient verbalized understanding. Daughter Rina was also notified as patient was leaving to state all paperwork with discharge instructions, follow up appointments and detailed list of medications in bag along with medications which were delivered to patients room with a walker as well. All went with patient.
== END 2023-09-11 17:17 | disposition home or self-care (01) | DRG 70 ==
LOC: ER 09-06 04:38 → ICU 09-06 05:00 → CSU 09-07 12:35 → MEDSURG 09-08 13:39
PROVIDERS: Student in an Organized Health Care Education/Training Program; Admitting Provider Internal Medicine; Emergency Provider Internal Medicine; Visit Provider Internal Medicine
DX: G93.40 Encephalopathy, unspecified (principal); I63.81 Other cerebral infarction due to occlusion or stenosis of small artery; R47.01 Aphasia; I16.1 Hypertensive emergency; Z86.73 Personal history of transient ischemic attack (TIA), and cerebral infarction without residual deficits; R41.89 Other symptoms and signs involving cognitive functions and awareness; I67.9 Cerebrovascular disease, unspecified; E87.6 Hypokalemia; E11.9 Type 2 diabetes mellitus without complications; Z79.84 Long term (current) use of oral hypoglycemic drugs; Z91.141 Patient's other noncompliance with medication regimen due to financial hardship; F17.210 Nicotine dependence, cigarettes, uncomplicated; Z79.82 Long term (current) use of aspirin; E78.5 Hyperlipidemia, unspecified
CPT/HCPCS: 36415; 36416; 51701; 51702; 70450; 70553; 71045; 73060; 73070; 80053; 80061; 80306; 81001; 82009; 82607; 82746; 82962; 83036; 83540; 83550; 83605; 83735; 83880; 84145; 84443; 84484; 85025; 85378; 85610; 87426; 92507; 92523; 92526; 92610; 93005; 96365; 96372; 96375; 96376; 97116; 97161; 97165; 97530; 97535; 99285; A9577; C8929; J0360; J1650; J1815; J2270; J2405; J3490

== ENCOUNTER 2023-09-27 23:14 | Inpatient (IN) | payer MEDICAID, SELFPAY ==
[2023-09-27 23:16] VITALS: BP 88/54; PULSE 90; RESP 15; TEMP 36.6; O2SAT 90; BMI 33.6
[2023-09-27 23:25] LABS: Glucose Point of Care 361 mg/dL (70-110)
[2023-09-27 23:35] VITALS: BP 88/58
--- NOTE | 2023-09-27 23:35 | ECG_ITS ---
[facility] Test Date: 2023-09-28 Pat Name: Roland Butts Department: Room: Gender: Male Block [employer]ader: : 1965 Requested By: Kelly Espitia Order Number: [id number] Quick MD: Marco Antonio Oviedo M.D. Measurements Intervals [place]yer Rate: 96 P: 50 NE: 132 QRS: 14 QRSD: 118 T: 240 QT: 379 QTc: 480 Interpretive Statements SINUS RHYTHM WITH FREQUENT SUPRAVENTRICULAR PREMATURE COMPLEXES MODERATE INTRAVENTRICULAR CONDUCTION DELAY [110+ ms QRS DURATION] ST DEVIATION AND MODERATE T-WAVE ABNORMALITY, CONSIDER LATERAL ISCHEMIA [-0.1+ mV T-WAVE IN I/aVL/V5/V6] ST DEVIATION AND MODERATE T-WAVE ABNORMALITY, CONSIDER INFERIOR ISCHEMIA [-0.1+ mV T-WAVE IN II/aVF]Compared to ECG 09/06/2023 09:30:46 Compared to ECG 09/06/2023 09:30:46 Intraventricular conduction delay now present Possible ischemia now present Possible ischemia now present T-wave abnormality now present ST (T wave) deviation no longer present Electronically Signed On 09-28-2023 17:23:23 CDT by Marco Antonio Oviedo M.D. [id number]
--- NOTE | 2023-09-27 23:36 | XRR_ITS ---
PROCEDURE INFORMATION: Exam: XR Chest Exam date and time: 09/27/2023 11:48 PM Age: 58 years old Clinical indication: Other: AMS TECHNIQUE: Imaging protocol: Radiologic exam of the chest. Views: 1 view. COMPARISON: CR (CHEST, ) 09/06/2023 12:13 AM FINDINGS: Lungs: Unremarkable. No consolidation. Pleural spaces: Unremarkable. No pleural effusion. No pneumothorax. Heart/Mediastinum: Unremarkable. No cardiomegaly. Bones/joints: Unremarkable. XR/XR chest 1V portable [id number] IMPRESSION: No acute findings.
--- NOTE | 2023-09-27 23:36 | CTR_ITS ---
PROCEDURE INFORMATION: Exam: CT Head Without Contrast Exam date and time: 09/27/2023 11:59 PM Age: 58 years old Clinical indication: Altered mental status/memory loss; Additional info: AMS TECHNIQUE: Imaging protocol: Computed tomography of the head without contrast. Radiation optimization: All CT scans at this facility use at least one of these dose optimization techniques: automated exposure control; mA and/or kV adjustment per patient size (includes targeted exams where dose is matched to clinical indication); or iterative reconstruction. COMPARISON: CT head wo con* [id number] 09/10/2023 12:22 PM RADIATION DOSE METRICS: Total DLP (mGy-cm): 749 FINDINGS: Brain: There is moderate cerebral atrophy. There is moderate diffuse heterogeneity of the white matter attenuation, consistent with chronic white matter ischemic changes. Negative for intracranial hemorrhage. Negative for intracranial mass. Negative for midline shift of brain. Salazar matter and white matter interfaces are unremarkable. Multifocal small areas of gliosis in the bilateral basal ganglia. Cerebral ventricles: No ventriculomegaly. Paranasal sinuses: Visualized sinuses are unremarkable. No fluid levels. Mastoid air cells: Visualized mastoid air cells are well aerated. Bones: Unremarkable. No acute fracture. Soft tissues: Unremarkable. CT/CT head wo con* [id number] IMPRESSION: Negative for acute intracranial pathology.
--- NOTE | 2023-09-27 23:40 | ED_ITS ---
Documented by User: BRITTA Fletcher 09/29/23 17:09 HPI - Altered Mental Status 2 General: Chief Complaint: Weakness Stated Complaint: Hyperglycemia Time Seen by Provider: 09/27/23 23:22 Source: patient and EMS Mode of arrival: EMS Limitations: no limitations and altered mental status History of Present Illness: Patient is a 58-year-old male presents to ED today via EMS for initial complaint of hyperglycemia. Patient himself is not able to provide much history. EMS states they got a call from patient's significant other stating he had a blood glucose of over 300. EMS states they had blood sugars in the 340s in route. Upon arrival patient displaying some cognitive slowing. He is able to tell me his name and date of . He is not sure why his significant other called an ambulance. He states he does not know where he is at and does not know the current date. Nursing staff tells me during their initial triage assessment he did know the answers to these questions. He does follow the vast majority of my commands appropriately. He has no obvious gross neurologic deficits. He states he is not hurting anywhere. Later during his stay, his sister and niece arrive and feel like his mental status is at his baseline. They confirm his cognitive slowing has pretty much been his new baseline since his last hospitalization and previous stroke. Patient states he has no physical complaints. He arrives hypotensive with blood pressures 80s/50s and satting 90% on RA. Patient has a bag of medications with him including multiple hypertensive medications, Metformin, a statin, and a PPI. MD complaint: altered mental status Timing confirmed by: family member Context: history of similar presentation and diabetes Associated symptoms: Reports no associated symptoms Review of Systems 2 Const: Denies: fever(s) or chills Eyes: Denies: change in vision or blurry vision Card: Denies: chest pain, palpitations, irregular heart rhythm, lightheadedness, syncope or dyspnea on exertion Resp: Denies: dyspnea, productive cough or pain on inspiration GI: Denies: abdominal pain, nausea, vomiting, heartburn or diarrhea : Denies: difficulty urinating or dysuria Musc: Denies: neck pain, back pain, extremity pain, extremity swelling or joint pain Skin/Breast: Denies: rash Neuro: Denies: headache(s), numbness in extremities, weakness in extremities, sensory changes or dizziness [facility] ED 2 PFS: Medical History BPH w urinary obs/LUTS Unsteady gait Hypokalemia JEAN-CLAUDE (obstructive sleep apnea) Metabolic encephalopathy Facet arthropathy, lumbar Degenerative lumbar disc Nocturia Left-sided low back pain with left-sided sciatica Erectile dysfunction Decreased libido Type 2 diabetes mellitus, without long-term current use of insulin Essential hypertension Hyperlipidemia Surgical History History of hip surgery History of ankle surgery Family History Other CAD (coronary artery disease) Cancer Diabetes Social History Smoking and tobacco/nicotine status: current every day tobacco/nicotine user cigarettes Packs smoked per day: 2 Years cigarettes smoked: 40 Alcohol intake: former Substance/Drug Use: never Household members: spouse Physical Exam 2 Const: COMMON NORMALS: no acute distress, average body habitus, healthy appearing, alert and well nourished EXAM LIMITATIONS: altered mental status GENERAL APPEARANCE: cooperative ORIENTATION/CONSCIOUSNESS: Yes awake and Yes oriented to person OTHER: patient can tell me his full name and ; he is not sure where he is or why his girlfriend called an ambulance; he tells me the year is 2003; he does not know month or president; he does follow all my commands well nursing staff states when he first arrived via EMS that he answered these orientation questions appropriately HENMT: COMMON NORMALS: normocephalic and atraumatic HEAD & SCALP: normal to inspection, normocephalic and atraumatic FACE & SINUS: normal facial exam and face symmetric Eye: GENERAL EYE: appearance normal, both eyes and all related structures and normal light reflex DIRECT OPHTHALMOSCOPY: Yes normal light reflex Neck/C-Spine: COMMON NORMALS: full ROM, no lymphadenopathy, supple, no meningeal signs and no JVD Chest: COMMONS NORMALS: normal inspection of the chest Resp: COMMON NORMALS: normal respiratory effort AUSCULTATION: diminished lung sounds Cardio: COMMON NORMALS: no JVD, regular rate and regular rhythm RATE: r egular rate RHYTHM: regular rhythm GI: COMMON NORMALS: Normal to inspection, nondistended, normoactive bowel sounds present, Soft to palpation, non-tender, No hepatosplenomegaly present and no masses PALPATION: Yes Soft to palpation and Yes No hepatosplenomegaly present : COMMON NORMALS: Yes no CVA tenderness BLADDER/KIDNEY EXAM: Yes no CVA tenderness Back/Pelvis: COMMON NORMALS: no CVA tenderness and thoracic and lumbar spine normal to inspection Extremity: COMMON NORMALS: normal to inspection GENERAL: Yes normal exam except as noted Neuro: BARBARA COMA SCALE: document GCS findings [place] coma scale eye opening: Spontaneous [place] coma scale verbal response: Confused Barbara coma scale motor response: Obey commands [place] coma scale total score: 14 COMMON NORMALS: CN's II-XII intact bilaterally, moves all extremities, no focal motor deficits and no sensory deficits noted SENSORIUM/ORIENTATION: Yes alert and Yes oriented to person MENINGEAL SIGNS: Yes no meningeal signs SPEECH: s peech normal and Other neuro speech findings (slow to answer but appropriate) GAIT: Yes Unable to assess gait Skin: COMMON NORMALS: no rashes or lesions noted GENERAL SKIN EXAM: no rashes or lesions noted Course 2 Vital Signs: Vital signs: Vital Signs Temperature 97.4 F L 09/29/23 16:00 Pulse Rate 67 09/29/23 16:00 Respiratory Rate 16 09/29/23 16:00 Blood Pressure 115/70 09/29/23 16:00 Pulse Oximetry 97 09/29/23 16:00 Oxygen Delivery Me thod Room Air 09/29/23 16:00 MDM - Altered Mental Status Medical Decision Making Patient here for complaints of hyperglycemia and questionable altered mental status although family later arrives and tells me that his mental status is pretty much at his baseline. He arrives hypotensive. Labs showing hypokalemia 2.8. He is in acute renal failure with a creatinine of 2.7 and a BUN of 88. His lactic is 4.2. He is hyperglycemic. UA and CXR not showing any evidence of infection. I do not have any infectious source at this time however do to labs/vitals I did go ahead and start him on a septic bolus, obtain blood cultures, and start him on empiric antibiotics. His blood pressures currently are responding well to fluids. I have spoken to Dr. Alfaro who will assume care of this patient and admit to hospitalist for further management. Lab Data 09/29/23 05:48 09/29/23 05:48 Radiology Impressions Chest X-Ray 09/27/23 23:36 IMPRESSION: No acute findings. Head CT 09/27/23 23:36 IMPRESSION: Negative for acute intracranial pathology. Chest/Abdomen/Pelvis CT 09/28/23 02:53 IMPRESSION: Negative CT chest. No acute pathology identified. IMPRESSION: Negative for acute abdominopelvic pathology. Laboratory Results WBC 9.89 10^3/uL (3.29-11.43) 09/27/23 23:23 RBC 6.33 10^6/uL (3.85-5.65) H 09/27/23 23:23 Hgb 18.30 g/dL (11.27-16.99) H 09/27/23 23:23 Hct 50.4 % (37-53) 09/27/23 23:23 MCV 79.6 fl (82-101) L 09/27/23 23:23 MCH 28.9 pg (27-33) 09/27/23 23:23 MCHC 36.3 g/dL (30-55) 09/27/23 23:23 RDW 11.8 % (12.1-15.1) L 09/27/23 23:23 Plt Count 234 10^3/cmm (157-399) 09/27/23 23:23 MPV 9.6 fL (7.4-10.4) 09/27/23 23:23 Neut % (Auto) 75.9 % 09/27/23 23:23 Lymph % (Auto) 17.5 % 09/27/23 23:23 [place] % (Auto) 5.8 % 09/27/23 23:23 Eos % (Auto) 0.1 % 09/27/23 23:23 Baso % (Auto) 0.1 % 09/27/23 23:23 Neut # (Auto) 7.51 10^3/uL (1.8-7.7) 09/27/23 23:23 Lymph # (Auto) 1.7 10^3/uL (0.8-4.8) 09/27/23 23:23 [place] # (Auto) 0.6 10^3/uL (0.2-0.9) 09/27/23 23:23 Eos # (Auto) 0.0 10^3/uL (0.0-0.8) 09/27/23 23:23 Baso # (Auto) 0.0 10^3/uL (0.0-0.1) 09/27/23 23:23 Nucleated RBC % (auto) 0 % 09/27/23 23:23 Nucleated RBCs # 0.0 /100WBC 09/27/23 23:23 Specimen Type Arterial 09/28/23 00:22 Sample Site Radial, left 09/28/23 00:22 ABG pH 7.46 (7.35-7.45) H 09/28/23 00:22 ABG pCO2 45.5 mmHg (35-45) H 09/28/23 00:22 ABG pO2 77.1 mmHg (80.0-100.0) L 09/28/23 00:22 ABG PO2/FiO2 Ratio 0 09/28/23 00:22 ABG HCO3 32.5 mmol/L (22-26) H 09/28/23 00:22 ABG O2 Saturation 96.4 09/28/23 00:22 ABG Base Excess 7.6 mmol/L (-2.0-2.0) H 09/28/23 00:22 Rojelio Test Pos 09/28/23 00:22 A-a O2 Gradient 1.9 mmHg (5-10) L 09/28/23 00:22 Hematocrit 46.1 % (42-52) 09/28/23 00:22 Hgb O2 Saturation 93.3 % (95-100) L 09/28/23 00:22 Carboxyhemoglobin 3.1 %THgb (0.4-20.1) 09/28/23 00:22 Methemoglobin 0.1 % (0.4-1.5) L 09/28/23 00:22 Total Hemoglobin 15.0 g/dL (14-18) 09/28/23 00:22 Sodium 130.0 mmol/L (131-143) L 09/28/23 00:22 Potassium 2.6 mmol/L (3.5-5.0) L 09/28/23 00:22 Glucose 288.0 mg/dL (70-115) H 09/28/23 00:22 Ionized Calcium 1.1 mmol/L (1.1-1.4) 09/28/23 00:22 O2 Delivery Device None 09/28/23 00:22 FiO2 21.0 % 09/28/23 00:22 Purchasing Assistant ID Robert 09/28/23 00:22 Sodium 127 mmol/L (136-145) L 09/27/23 23:23 Potassium 2.8 mmol/L (3.5-5.1) L* 09/27/23 23:23 Chloride 72 mmol/L (98-107) L 09/27/23 23:23 Carbon Dioxide 36 mmol/L (22-29) H 09/27/23 23:23 Anion Gap 21.8 (5-19) H 09/27/23 23:23 BUN 88 mg/dL (6-20) H* D 09/27/23 23:23 Creatinine 2.7 mg/dL (0.7-1.2) H 09/27/23 23:23 GFR Calculation 24.3 mL/min (90-130) L 09/27/23 23:23 Glucose 388 mg/dL (65-115) H 09/27/23 23:23 POC Glucose 337 mg/dL (70-110) H 09/28/23 01:00 Calculated Osmolality 307 mOsm/kg (285-295) H 09/27/23 23:23 Lactic Acid 4.2 mmol/L (0.5-2.2) H* 09/27/23 23:23 Lactic Acid (Sepsis) 5.5 mmol/L (0.5-2.2) H* 09/28/23 02:29 Calcium 10.0 mg/dL (8.5-10.5) 09/27/23 23:23 Magnesium 3.1 mg/dL (1.7-2.3) H 09/27/23 23:23 Total Bilirubin 1.3 mg/dL (0.15-1.2) H 09/27/23 23:23 AST 25 U/L (0-40) 09/27/23 23:23 ALT 31 U/L (0-41) 09/27/23 23:23 Alkaline Phosphatase 110 U/L (40-130) 09/27/23 23:23 Creatine Kinase 52 U/L (39-308) 09/28/23 02:29 Troponin T Baseline 43 ng/L (0-15) H 09/28/23 02:29 C-Reactive Protein 3.0 mg/L (0.0-4.9) 09/28/23 02:29 Total Protein 8.2 g/dL (6.6-8.7) 09/27/23 23:23 Albumin 4.6 g/dL (3.5-5.2) 09/27/23 23: Globulin 3.6 g/dL (1.3-4.6) 09/27/23 23:23 Lipase 133 U/L (13-60) H 09/28/23 02:29 Procalcitonin 0.33 ng/mL (0-0.5) 09/27/23 23:23 Urine Color Yellow (Yellow) 09/27/23 23: Urine Appearance Clear (CLEAR) 09/27/23 23: Urine pH 5 (5-7) 09/27/23 23:31 Ur Specific [place] 1.010 (1.005-1.030) 09/27/23 23:31 Urine Protein Trace (Negative) 09/27/23 23:31 Urine Glucose (UA) 4+ (Normal) H 09/27/23 23:31 Urine Ketones Negative (Negative) 09/27/23 23: Urine Blood Neg (Negative) 09/27/23 23: Urine Nitrate Negative (Negative) 09/27/23 23: Urine Bilirubin Neg (Negative) 09/27/23 23:31 Urine Urobilinogen Neg mg/dL (Negative) 09/27/23 23:31 Ur Leukocyte Esterase Negative (Negative) 09/27/23 23:31 Urine RBC None /hpf (0-2) 09/27/23 23:31 Urine WBC None /hpf (0-5) 09/27/23 23:31 Ur Squamous Epith Cells 0-4 /hpf (0-5) H 09/27/23 23:31 Ur Transition Epith Cell 0-4 /hpf 09/27/23 23:31 Amorphous Sediment Not Reportable 09/27/23 23:31 Urine Bacteria Trace /hpf (NONE) 09/27/23 23:31 Hyaline Casts 0-4 /lpf H 09/27/23 23:31 Urine Mucus 2+ /hpf 09/27/23 23:31 Salicylates < 0.3 mg/dL (3-10) L 09/27/23 23:23 Urine Opiates Screen Negative ng/mL (Negative) 09/27/23 23:31 Acetaminophen < 5.0 ug/mL (10-30) L 09/27/23 23:23 Ur Barbiturates Screen Negative ng/mL (Negative) 09/27/23 23:31 Ur Phencyclidine Scrn Negative ng/mL (Negative) 09/27/23 23:31 Ur Amphetamines Screen Negative ng/mL (Negative) 09/27/23 23:31 U Benzodiazepines Scrn Negative ng/mL (Negative) 09/27/23 23:31 Urine Cocaine Screen Negative ng/mL (Negative) 09/27/23 23:31 U Marijuana (THC) Screen Negative ng/mL (Negative) 09/27/23 23:31 Ethyl Alcohol Cancelled 09/28/23 02:29 Serum Ketones Negative (Negative) 09/27/23 23:23 All radiology interpretation(s) finalized by discharge Discharge Plan Discharge Patient Disposition: Admitted As Inpatient Admit Provider: Wai Pan Clinical Impression: Hypokalemia, Hyponatremia, Hyperglycemia due to diabetes mellitus, Acute renal failure, Elevated lactic acid level Condition: Stable Coding Level of Care Code ED Adjunct Teacher for Chg Fwd Sepsis Event Note ED Sepsis Screening 2 Sepsis Screen No Definite Risk 09/28/23 04:02 If qSOFA score 2 or greater, continue SOFA Score: 2 ABG PO2/FiO2 Ratio 0 09/28/23 00:22 [place] Coma Scale Score 14 09/29/23 07:57 Blood Pressure Mean 85 mmHg 09/29/23 16:00 Total Bilirubin 1.0 mg/dL (0.15-1.2) 09/29/23 05:48 Platelet Count 155 10^3/cmm (157-399) L 09/29/23 05:48 Creatinine 1.1 mg/dL (0.7-1.2) 09/29/23 05:48 SOFA Score 6 09/28/23 18:36 PaO2/FiO2 Ratio (mmHg): 0 [place] coma scale: 14 Blood Pressure Mean: 85 Bilirubin (mg/dl): 1.0 Platelets (x10?/ml): 155 Creatinine (mg/dl): 1.1 SOFA Score: 5 Evaluation Current stage of sepsis: severe sepsis Sepsis stage criteria used: CMS Sep-1 and Sepsis-3 Crystalloid fluids: 30 mL/kg crystalloid fluids ordered and initiated within 3 hours Blood cultures ordered: Yes Possible source: unknown Focused Exam Vital signs: Temp Pulse Resp BP Pulse Ox O2 Del Method 09/28/23 02:27 91 18 103/64 99 09/28/23 01:41 95 16 100/53 93 09/28/23 00:53 106 H 16 115/70 94 09/27/23 23:35 88/58 09/27/23 23:16 97.8 F 90 15 88/54 90 Room Air Respiratory exam: Yes diminished lung sounds Cardiovascular Exam: Yes regular rate and Yes regular rhythm Capillary refill: < 3 Seconds Peripheral pulse strength: 3+ Normal Peripheral pulse location: Posterior Tibial Skin exam: Yes no rashes or lesions noted Date exam was performed: 09/29/23 Time exam was performed: 17:06 Documented by User: Nikos Alfaro DO 09/28/23 18:36 HPI - Altered Mental Status 2 General: Chief Complaint: Weakness Stated Complaint: Hyperglycemia Time Seen by Provider: 09/27/23 23:22 PFSH ED 2 PFSH: Medical History BPH w urinary obs/LUTS Unsteady gait Hypokalemia JEAN-CLAUDE (obstructive sleep apnea) Metabolic encephalopathy Facet arthropathy, lumbar Degenerative lumbar disc Nocturia Left-sided low back pain with left-sided sciatica Erectile dysfunction Decreased libido Type 2 diabetes mellitus, without long-term current use of insulin Essential hypertension Hyperlipidemia Surgical History History of hip surgery History of ankle surgery Family History Other CAD (coronary artery disease) Cancer Diabetes Social History Smoking and tobacco/nicotine status: current every day tobacco/nicotine user cigarettes Packs smoked per day: 2 Years cigarettes smoked: 40 Alcohol intake: former Substance/Drug Use: never Household members: spouse Physical Exam 2 Neuro: BARBARA COMA SCALE: document GCS findings [place] coma scale total score: 14 Course 2 Vital Signs: Vital signs: Vital Signs Temperature 97.4 F L 09/29/23 16:00 Pulse Rate 67 09/29/23 16:00 Respiratory Rate 16 09/29/23 16:00 Blood Pressure 115/70 09/29/23 16:00 Pulse Oximetry 97 09/29/23 16:00 Oxygen Delivery Me thod Room Air 09/29/23 16:00 MDM - Altered Mental Status Medical Decision Making Patient here for complaints of hyperglycemia and questionable altered mental status although family later arrives and tells me that his mental status is pretty much at his baseline. He arrives hypotensive. Labs showing hypokalemia 2.8. He is in acute renal failure with a creatinine of 2.7 and a BUN of 88. His lactic is 4.2. He is hyperglycemic. UA and CXR not showing any evidence of infection. I do not have any infectious source at this time however do to labs/vitals I did go ahead and start him on a septic bolus, obtain blood cultures, and start him on empiric antibiotics. His blood pressures currently are responding well to fluids. I have spoken to Dr. Alfaro who will assume care of this patient and admit to hospitalist for further management. When the head CT and chest x-ray results were obtained I reviewed the labs with Dr. Yeh who agreed to come down take a look patient and place him in the hospital for further evaluation and treatment. Lab Data 09/29/23 05:48 09/29/23 05:48 Radiology Impressions Chest X-Ray 09/27/23 23:36 IMPRESSION: No acute findings. Head CT 09/27/23 23:36 IMPRESSION: Negative for acute intracranial pathology. Chest/Abdomen/Pelvis CT 09/28/23 02:53 IMPRESSION: Negative CT chest. No acute pathology identified. IMPRESSION: Negative for acute abdominopelvic pathology. Laboratory Results WBC 9.89 10^3/uL (3.29-11.43) 09/27/23 23:23 RBC 6.33 10^6/uL (3.85-5.65) H 09/27/23 23:23 Hgb 18.30 g/dL (11.27-16.99) H 09/27/23 23:23 Hct 50.4 % (37-53) 09/27/23 23:23 MCV 79.6 fl (82-101) L 09/27/23 23:23 MCH 28.9 pg (27-33) 09/27/23 23:23 MCHC 36.3 g/dL (30-55) 09/27/23 23:23 RDW 11.8 % (12.1-15.1) L 09/27/23 23:23 Plt Count 234 10^3/cmm (157-399) 09/27/23 23:23 MPV 9.6 fL (7.4-10.4) 09/27/23 23:23 Neut % (Auto) 75.9 % 09/27/23 23:23 Lymph % (Auto) 17.5 % 09/27/23 23:23 [place] % (Auto) 5.8 % 09/27/23 23:23 Eos % (Auto) 0.1 % 09/27/23 23:23 Baso % (Auto) 0.1 % 09/27/23 23:23 Neut # (Auto) 7.51 10^3/uL (1.8-7.7) 09/27/23 23:23 Lymph # (Auto) 1.7 10^3/uL (0.8-4.8) 09/27/23 23:23 [place] # (Auto) 0.6 10^3/uL (0.2-0.9) 09/27/23 23:23 Eos # (Auto) 0.0 10^3/uL (0.0-0.8) 09/27/23 23:23 Baso # (Auto) 0.0 10^3/uL (0.0-0.1) 09/27/23 23:23 Nucleated RBC % (auto) 0 % 09/27/23 23:23 Nucleated RBCs # 0.0 /100WBC 09/27/23 23:23 Specimen Type Arterial 09/28/23 00:22 Sample Site Radial, left 09/28/23 00:22 ABG pH 7.46 (7.35-7.45) H 09/28/23 00:22 ABG pCO2 45.5 mmHg (35-45) H 09/28/23 00:22 ABG pO2 77.1 mmHg (80.0-100.0) L 09/28/23 00:22 ABG PO2/FiO2 Ratio 0 09/28/23 00:22 ABG HCO3 32.5 mmol/L (22-26) H 09/28/23 00:22 ABG O2 Saturation 96.4 09/28/23 00:22 ABG Base Excess 7.6 mmol/L (-2.0-2.0) H 09/28/23 00:22 Rojelio Test Pos 09/28/23 00:22 A-a O2 Gradient 1.9 mmHg (5-10) L 09/28/23 00:22 Hematocrit 46.1 % (42-52) 09/28/23 00:22 Hgb O2 Saturation 93.3 % (95-100) L 09/28/23 00:22 Carboxyhemoglobin 3.1 %THgb (0.4-20.1) 09/28/23 00:22 Methemoglobin 0.1 % (0.4-1.5) L 09/28/23 00:22 Total Hemoglobin 15.0 g/dL (14-18) 09/28/23 00:22 Sodium 130.0 mmol/L (131-143) L 09/28/23 00:22 Potassium 2.6 mmol/L (3.5-5.0) L 09/28/23 00:22 Glucose 288.0 mg/dL (70-115) H 09/28/23 00:22 Ionized Calcium 1.1 mmol/L (1.1-1.4) 09/28/23 00:22 O2 Delivery Device None 09/28/23 00:22 FiO2 21.0 % 09/28/23 00:22 Purchasing Assistant ID Alelarry 09/28/23 00:22 Sodium 127 mmol/L (136-145) L 09/27/23 23:23 Potassium 2.8 mmol/L (3.5-5.1) L* 09/27/23 23:23 Chloride 72 mmol/L (98-107) L 09/27/23 23:23 Carbon Dioxide 36 mmol/L (22-29) H 09/27/23 23:23 Anion Gap 21.8 (5-19) H 09/27/23 23:23 BUN 88 mg/dL (6-20) H* D 09/27/23 23:23 Creatinine 2.7 mg/dL (0.7-1.2) H 09/27/23 23:23 GFR Calculation 24.3 mL/min (90-130) L 09/27/23 23:23 Glucose 388 mg/dL (65-115) H 09/27/23 23:23 POC Glucose 337 mg/dL (70-110) H 09/28/23 01:00 Calculated Osmolality 307 mOsm/kg (285-295) H 09/27/23 23:23 Lactic Acid 4.2 mmol/L (0.5-2.2) H* 09/27/23 23:23 Lactic Acid (Sepsis) 5.5 mmol/L (0.5-2.2) H* 09/28/23 02:29 Calcium 10.0 mg/dL (8.5-10.5) 09/27/23 23:23 Magnesium 3.1 mg/dL (1.7-2.3) H 09/27/23 23:23 Total Bilirubin 1.3 mg/dL (0.15-1.2) H 09/27/23 23:23 AST 25 U/L (0-40) 09/27/23 23:23 ALT 31 U/L (0-41) 09/27/23 23:23 Alkaline Phosphatase 110 U/L (40-130) 09/27/23 23:23 Creatine Kinase 52 U/L (39-308) 09/28/23 02:29 Troponin T Baseline 43 ng/L (0-15) H 09/28/23 02:29 C-Reactive Protein 3.0 mg/L (0.0-4.9) 09/28/23 02:29 Total Protein 8.2 g/dL (6.6-8.7) 09/27/23 23:23 Albumin 4.6 g/dL (3.5-5.2) 09/27/23 23:23 Globulin 3.6 g/dL (1.3-4.6) 09/27/23 23:23 Lipase 133 U/L (13-60) H 09/28/23 02:29 Procalcitonin 0.33 ng/mL (0-0.5) 09/27/23 23:23 Urine Color Yellow (Yellow) 09/27/23 23:31 Urine Appearance Clear (CLEAR) 09/27/23 23:31 Urine pH 5 (5-7) 09/27/23 23:31 Ur Specific [place] 1.010 (1.005-1.030) 09/27/23 23:31 Urine Protein Trace (Negative) 09/27/23 23:31 Urine Glucose (UA) 4+ (Normal) H 09/27/23 23:31 Urine Ketones Negative (Negative) 09/27/23 23: Urine Blood Neg (Negative) 09/27/23 23: Urine Nitrate Negative (Negative) 09/27/23 23: Urine Bilirubin Neg (Negative) 09/27/23 23: Urine Urobilinogen Neg mg/dL (Negative) 09/27/23 23:31 Ur Leukocyte Esterase Negative (Negative) 09/27/23 23:31 Urine RBC None /hpf (0-2) 09/27/23 23:31 Urine WBC None /hpf (0-5) 09/27/23 23:31 Ur Squamous Epith Cells 0-4 /hpf (0-5) H 09/27/23 23:31 Ur Transition Epith Cell 0-4 /hpf 09/27/23 23:31 Amorphous Sediment Not Reportable 09/27/23 23:31 Urine Bacteria Trace /hpf (NONE) 09/27/23 23:31 Hyaline Casts 0-4 /lpf H 09/27/23 23:31 Urine Mucus 2+ /hpf 09/27/23 23:31 Salicylates < 0.3 mg/dL (3-10) L 09/27/23 23:23 Urine Opiates Screen Negative ng/mL (Negative) 09/27/23 23:31 Acetaminophen < 5.0 ug/mL (10-30) L 09/27/23 23:23 Ur Barbiturates Screen Negative ng/mL (Negative) 09/27/23 23: Ur Phencyclidine Scrn Negative ng/mL (Negative) 09/27/23 23:31 Ur Amphetamines Screen Negative ng/mL (Negative) 09/27/23 23:31 U Benzodiazepines Scrn Negative ng/mL (Negative) 09/27/23 23:31 Urine Cocaine Screen Negative ng/mL (Negative) 09/27/23 23:31 U Marijuana (THC) Screen Negative ng/mL (Negative) 09/27/23 23:31 Ethyl Alcohol Cancelled 09/28/23 02:29 Serum Ketones Negative (Negative) 09/27/23 23:23 Discharge Plan Discharge Patient Disposition: Admitted As Inpatient Admit Provider: Wai Pan Clinical Impression: Hypokalemia, Hyponatremia, Hyperglycemia due to diabetes mellitus, Acute renal failure, Elevated lactic acid level Condition: Stable Coding Level of Care Code ED Adjunct Teacher for Chg Fwd Sepsis Event Note ED Sepsis Screening 2 Sepsis Screen No Definite Risk 09/28/23 04:02 If qSOFA score 2 or greater, continue SOFA Score: 2 ABG PO2/FiO2 Ratio 0 09/28/23 00:22 [place] Coma Scale Score 14 09/29/23 07:57 Blood Pressure Mean 85 mmHg 09/29/23 16:00 Total Bilirubin 1.0 mg/dL (0.15-1.2) 09/29/23 05:48 Platelet Count 155 10^3/cmm (157-399) L 09/29/23 05:48 Creatinine 1.1 mg/dL (0.7-1.2) 09/29/23 05:48 SOFA Score 6 09/28/23 18:36 PaO2/FiO2 Ratio (mmHg): 0 [place] coma scale: 14 Blood Pressure Mean: 111 Bilirubin (mg/dl): 0.9 Platelets (x10?/ml): 181 Creatinine (mg/dl): 1.9 SOFA Score: 6 Evaluation Sepsis stage criteria used: [facility] Sep-1 and Sepsis-3 Focused Exam Vital signs: Temp Pulse Resp BP Pulse Ox O2 Del Method 09/28/23 02:27 91 18 103/64 99 09/28/23 01:41 95 16 100/53 93 09/28/23 00:53 106 H 16 115/70 94 09/27/23 23:35 88/58 09/27/23 23:16 97.8 F 90 15 88/54 90 Room Air Date exam was performed: 09/28/23 Time exam was performed: 18:35
[2023-09-27 23:41] LABS: Basophils % 0.1 %; Eosinophils % 0.1 %; Hematocrit 50.4 % (37-53); Lymphocytes # 1.7 10^3/uL (0.8-4.8); Lymphocytes % 17.5 %; Mean Corpuscular HGB Conc 36.3 g/dL (30-55); Mean Corpuscular Hemoglobin 28.9 pg (27-33); Mean Corpuscular Volume 79.6 fl (82-101); Mean Platelet Volume 9.6 fL (7.4-10.4); Monocytes # 0.6 10^3/uL (0.2-0.9); Monocytes % 5.8 %; Neutrophils # 7.51 10^3/uL (1.8-7.7); Neutrophils % 75.9 %; Nucleated Red Blood Cells % 0 %; Platelet Count 234 10^3/cmm (157-399); Red Blood Count 6.33 10^6/uL (3.85-5.65); Red Cell Distribution Width 11.8 % (12.1-15.1); White Blood Count 9.89 10^3/uL (3.29-11.43)
[2023-09-27] MEDS: sodium chloride 0.9% 1,000 ML 999 ML IV (23:49)
[2023-09-27 23:57] LABS: Alanine Aminotransferase 31 U/L (0-41); Albumin Level 4.6 g/dL (3.5-5.2); Alkaline Phosphatase 110 U/L (40-130); Anion Gap 21.8 (5-19); Aspartate Amino Transferase 25 U/L (0-40); Carbon Dioxide 36 mmol/L (22-29); Chloride 72 mmol/L (98-107); Globulin 3.6 g/dL (1.3-4.6); Glomerular Filtration Rate 24.3 mL/min (90-130); Glucose 388 mg/dL (65-115); Osmolality Calculated 307 mOsm/kg (285-295); Sodium 127 mmol/L (136-145); Total Bilirubin 1.3 mg/dL (0.15-1.2); Total Protein 8.2 g/dL (6.6-8.7)
[2023-09-28] VITALS (13 sets, daily range): BP systolic 100–175; BP diastolic 53–97; PULSE 63–106; RESP 16–18; TEMP 36.4–36.8; O2SAT 93–99
[2023-09-28 00:01] LABS: Add Urine Microscopic? YES; Bilirubin Urine Neg (Negative); Blood Urine Neg (Negative); Glucose Urine UA 4+ (Normal); Ketones Urine Negative (Negative); Leukocyte Esterase Urine Negative (Negative); Nitrate Urine Negative (Negative); Protein Urine Trace (Negative); Urine Appearance Clear (CLEAR); Urine Color Yellow (Yellow); Urobilinogen Urine Neg (Negative); pH Urine 5 (5-7)
[2023-09-28 00:02] LABS: Add Urine Culture? No; Bacteria Urine TRACE /hpf; Hyaline Casts Urine 0-4 /lpf; Mucus Urine 2+ /hpf; Squamous Epithelial Cell Urine 0-4 /hpf (0-5); Transitional Epi Cells Urine 0-4 /hpf
[2023-09-28 00:05] LABS: Amphetamines Screen Urine Negative (Negative); Barbiturates Screen Urine Negative (Negative); Benzodiazepines Screen Urine Negative (Negative); Cocaine Screen Urine Negative (Negative); Opiate Screen Urine Negative (Negative); PCP Screen Urine Negative (Negative); THC Screen Urine Negative (Negative)
[2023-09-28 00:09] LABS: Acetaminophen < 5.0 ug/mL (10-30); Creatinine Clr Calc Pharmacy 28.5888; Salicylate < 0.3 mg/dL (3-10)
[2023-09-28 00:10] LABS: Blood Urea Nitrogen 88 mg/dL (6-20); Lactic Sepsis W/Reflex 4.2 mmol/L (0.5-2.2); Potassium 2.8 mmol/L (3.5-5.1)
[2023-09-28 00:34] LABS: Ketone (Acetest) Serum Negative (Negative)
[2023-09-28 00:35] LABS: ABG PCO2 45.5 mmHg (35-45); ABG PH Result 7.46 (7.35-7.45); Alveolar-Arterial Oxygen Gradi 1.9 mmHg (5-10); Arterial Blood Gas Hematocrit 46.1 % (42-52); Base Excess ABG 7.6 mmol/L (-2.0-2.0); Blood Gas Allen Test Pos; Blood Gas Sample Site Radial, left; Blood Gas Sample Type Arterial; Carboxyhemoglobin 3.1 %THgb (0.4-20.1); HCO3 ABG 32.5 mmol/L (22-26); HGB O2 Sat 93.3 % (95-100); Ionized Calcium Level - ABG 1.1 mmol/L (1.1-1.4); Methemoglobin 0.1 % (0.4-1.5); Oxygen Saturation ABG 96.4; PO2 ABG 77.1 mmHg (80.0-100.0); PO2 FiO2 Ratio Arterial Blood 0; Potassium Level - ABG 2.6 mmol/L (3.5-5.0)
[2023-09-28] MEDS: ampicillin-sulbactam 3 GM in sodium chloride 0.9% (plus) 50 ML IV (00:41)
[2023-09-28] MEDS: potassium chloride ER 20 mEq Tablet 40 MEQ PO (00:41)
[2023-09-28 00:43] LABS: Alcohol Level < 10 mg/dL (0-10); Creatine Phosphokinase 45 U/L (39-308); Magnesium 3.1 mg/dL (1.7-2.3)
[2023-09-28 00:50] LABS: Procalcitonin 0.33 ng/mL (0-0.5)
[2023-09-28] MEDS: lidocaine 1% 5 ML in potassium chloride premix 100 ML 52.5 ML IV (00:51)
[2023-09-28] MEDS: insulin regular-human 100 units/1 mL 10 UNIT IVP (01:05)
[2023-09-28 01:06] LABS: Glucose Point of Care 337 mg/dL (70-110)
[2023-09-28 01:06] LABS: Glucose Point of Care 534 mg/dL (70-110)
[2023-09-28 01:26] LABS: Reflex Lactate Order REFLEX LACTIC ORDERD
--- NOTE | 2023-09-28 02:53 | CTR_ITS ---
PROCEDURE INFORMATION: Exam: CT Chest Without Contrast; Diagnostic Exam date and time: 09/28/2023 3:12 AM Age: 58 years old Clinical indication: Other: Sepsis; Additional info: Elevated lactic acid, sepsis, lalo TECHNIQUE: Imaging protocol: Diagnostic computed tomography of the chest without contrast. Radiation optimization: All CT scans at this facility use at least one of these dose optimization techniques: automated exposure control; mA and/or kV adjustment per patient size (includes targeted exams where dose is matched to clinical indication); or iterative reconstruction. COMPARISON: CT angio chest PE protcl [id number] 09/17/2022 5:41 AM RADIATION DOSE METRICS: Total DLP (mGy-cm): 644 FINDINGS: Lungs: Unremarkable. No consolidation. No masses. Pleural spaces: Unremarkable. No pneumothorax. No pleural effusion. Heart: Unremarkable. No cardiomegaly. No pericardial effusion. Coronary arteries: Large volume coronary calcifications. Lymph nodes: Unremarkable. No enlarged lymph nodes. Vasculature: Unremarkable. No aortic aneurysm. Bones/joints: Unremarkable. No acute fracture. Soft tissues: Unremarkable. PROCEDURE INFORMATION: Exam: CT Abdomen And Pelvis Without Contrast Exam date and time: 09/28/2023 3:12 AM Age: 58 years old Clinical indication: Other: Sepsis; Additional info: Elevated lactic acid, sepsis, lalo TECHNIQUE: Imaging protocol: Computed tomography of the abdomen and pelvis without contrast. Radiation optimization: All CT scans at this facility use at least one of these dose optimization techniques: automated exposure control; mA and/or kV adjustment per patient size (includes targeted exams where dose is matched to clinical indication); or iterative reconstruction. COMPARISON: CT angio chest PE protcl [id number] 09/17/2022 5:41 AM RADIATION DOSE METRICS: Total DLP (mGy-cm): 644 FINDINGS: Liver: Normal. No mass. Gallbladder and bile ducts: Normal. No calcified stones. No ductal dilation. Pancreas: Normal. No ductal dilation. Spleen: Normal. No splenomegaly. Adrenal glands: Normal. No mass. Kidneys and ureters: Normal. No hydronephrosis. Stomach and bowel: Unremarkable. No obstruction. No mucosal thickening. Appendix: No evidence of appendicitis. Intraperitoneal space: Unremarkable. No free air. No significant fluid collection. Vasculature: Scattered plaques throughout the abdominal aorta. There is mild fusiform ectasia distally measuring 2.6 cm greatest transverse diameter. Lymph nodes: Unremarkable. No enlarged lymph nodes. Urinary bladder: Unremarkable as visualized. Reproductive: Unremarkable as visualized. Bones/joints: Relatively severe disc disease changes at L4-L5 and L5-S1. Broad intervertebral disc bulges at each intervertebral level. Negative for acute lumbar spine fracture. Negative for acute pelvic fracture. Foreshortening of the left femoral neck. There is smooth flattening of left femoral head. Soft tissues: Unremarkable. CT/[place] [id number] IMPRESSION: Negative CT chest. No acute pathology identified. IMPRESSION: Negative for acute abdominopelvic pathology.
[2023-09-28 02:59] LABS: Troponin(5th) Baseline 43 ng/L (0-15)
[2023-09-28 03:02] LABS: Creatine Phosphokinase 52 U/L (39-308)
[2023-09-28 03:04] LABS: Lactic Acid level (Lactate) 5.5 mmol/L (0.5-2.2)
[2023-09-28 03:49] LABS: Lipase 133 U/L (13-60)
--- NOTE | 2023-09-28 03:54 | P.HP_ITS ---
Providers/Chief Complaint 2 Admitting Physician: Wai Pan MD Primary Care Provider: Vernon Yeboah MD Chief Complaint: Hyperglycemia History of Present Illness Roland Butts is a 58 year old male with a past medical history of CVA, type 2 diabetes mellitus, hypertension, recent hospitalization for lower encephalopathy associated with multi lacunar type infarcts, hypertensive urgency, who presents to [facility] due to fatigue, malaise, nausea, vomiting, poor appetite. Currently patient is alert oriented x 2, follows all all commands, currently tells me that he feels unwell, denies any fevers, no chills no dysuria, no flank pain, no cough does report nonspecific abdominal pain with nausea vomiting, no diarrhea, initially mildly had checked his blood sugar at home, as he has not been feeling well and it was reading as high, here it was ranging in the 300s, he has been having some cognitive slowing, since his last hospitalization, family members at bedside tells me that he is about at baseline, he was hypotensive upon arrival blood pressures 80s over 50s, improved 200s over 60s, with IV fluids, lactic acid was noted to be 5.5, no source of infection has been identified, urinalysis within normal limits chest x-ray within normal limits, no significant leukocytosis, CRP within normal limits, Pro-Shabbir within normal limits, kidd CT chest abdomen pelvis no acute findings, he was found to have a creatinine of 2.7, has been recently started on blood pressure medications, Review of Systems 2 Const: Reports: fatigue and malaise Card: Denies: chest pain Resp: Denies: dyspnea GI: Reports: abdominal pain : Denies: flank pain Medications/Allergies Home Medications Medication Instructions Recorded Confirmed Last Taken Type acetaminophen 500 mg tablet 1,000 mg PO Q6H PRN Pain 09/06/23 09/22/23 Unknown History Glucose monitor supplies #100 ea 09/22/23 09/22/23 Unknown Rx amlodipine 10 mg tablet 10 mg PO DAILY blood pressure #30 09/22/23 09/22/23 Unknown Rx tabs aspirin 81 mg capsule 81 mg PO DAILY #180 caps 09/22/23 09/22/23 Unknown Rx atorvastatin 80 mg tablet 80 mg PO DAILY cholesterol #90 tabs 09/22/23 09/22/23 Unknown Rx blood pressure kit #1 ea 09/22/23 09/22/23 Unknown Rx canagliflozin 300 mg tablet 300 mg PO DAILY blood pressure #30 09/22/23 09/22/23 Unknown Rx (Invokana) tabs carvedilol 25 mg tablet 25 mg PO BID blood pressure #60 09/22/23 09/22/23 Unknown Rx tabs chlorthalidone 25 mg tablet 25 mg PO DAILY blood pressure #30 09/22/23 09/22/23 Unknown Rx tabs famotidine 20 mg tablet 20 mg PO BID PRN acid reflux #60 09/22/23 09/22/23 Unknown Rx tabs glocose monitor #1 ea 09/22/23 09/22/23 Unknown Rx hand rails for bathroom/home #3 ea 09/22/23 09/22/23 Unknown Rx lisinopril 40 mg tablet 40 mg PO DAILY #90 tabs 09/22/23 09/22/23 Unknown Rx metformin 1,000 mg tablet 1,000 mg PO BID diabetes #60 tabs 09/22/23 09/22/23 Unknown Rx tamsulosin 0.4 mg capsule 0.4 mg PO BEDTIME #30 caps 09/22/23 09/22/23 Unknown Rx Allergies Allergy/AdvReac Type Severity Reaction Status Date / Time No Known Allergies Allergy Verified 09/22/23 14:01 PFSH Acute 2 PFSH: Medical History BPH w urinary obs/LUTS Unsteady gait Hypokalemia JEAN-CLAUDE (obstructive sleep apnea) Metabolic encephalopathy Facet arthropathy, lumbar Degenerative lumbar disc Nocturia Left-sided low back pain with left-sided sciatica Erectile dysfunction Decreased libido Type 2 diabetes mellitus, without long-term current use of insulin Essential hypertension Hyperlipidemia Surgical History History of hip surgery History of ankle surgery Family History Other CAD (coronary artery disease) Cancer Diabetes Social History Smoking and tobacco/nicotine status: current every day tobacco/nicotine user cigarettes Packs smoked per day: 2 Years cigarettes smoked: 40 Alcohol intake: former Substance/Drug Use: never Household members: spouse Vitals/I&O/Wt Last Vital Signs Temp 97.8 F 09/27/23 23:16 Pulse 91 09/28/23 02:27 Resp 18 09/28/23 02:27 BP 103/64 09/28/23 02:27 Pulse Ox 99 09/28/23 02:27 O2 Del Method Room Air 09/27/23 23:16 09/27/23 09/27/23 09/28/23 14:59 22:59 06:59 Intake Total 1155 / 1155 Balance 1155 / 1155 Weight last 48 hrs Weight 86.183 kg Physical Exam 2 Const: COMMON NORMALS: no acute distress ORIENTATION/CONSCIOUSNESS: Yes awake, Yes oriented to person and Yes oriented to place; not oriented to time HENMT: COMMON NORMALS: normocephalic HEAD & SCALP: normocephalic Eye: COMMON NORMALS: Equal, round and reactive pupils present Neck/C-Spine: COMMON NORMALS: no JVD Lymph: LYMPHATIC: no lymphadenopathy noted Resp: COMMON NORMALS: normal respiratory effort, No retractions, No use of accessory muscles and clear to auscultation bilaterally AUSCULTATION: clear to auscultation bilaterally Cardio: COMMON NORMALS: regular rate, regular rhythm, S1 normal heart sound present and S2 normal heart sound present RATE: regular rate RHYTHM: r egular rhythm HEART SOUNDS: S1 normal heart sound present and S2 normal heart sound present GI: COMMON NORMALS: Normal to inspection, nondistended, normoactive bowel sounds present, Soft to palpation and non-tender Extremity: COMMON NORMALS: no calf tenderness and no pedal edema Neuro: COMMON NORMALS: CN's II-XII intact bilaterally, moves all extremities and no focal motor deficits Psych: COMMON NORMALS: mental status grossly normal Data 09/27/23 23:23 09/27/23 23:23 Micro: Microbiology 09/28/23 00:35 Blood Culture - Preliminary Blood SPECIMEN COLLECTED 09/28/23 00:38 Blood Culture - Preliminary Blood SPECIMEN COLLECTED A&P Assessment and plan (1) Acute renal failure: Qualifiers: Acute renal failure type: unspecified Qualified Code(s): N17.9 - Acute kidney failure, unspecified (2) Hypokalemia: (3) Uremic encephalopathy: (4) Hyperglycemia: (5) Dehydration: (6) Low blood pressure: (7) Type 2 diabetes mellitus, without long-term current use of insulin: (8) Essential hypertension: (9) Old lacunar stroke without late effect: (10) Cerebrovascular disease: (11) JEAN-CLAUDE (obstructive sleep apnea): Plan Acute renal failure ? Likely secondary dehydration ?component of blood pressure medication such as chlorthalidone lisinopril ?Hold blood pressure medications ? IV fluids ? CT scan abdomen pelvis no obstructive uropathy ? Monitor urine output Elevated lactic acid level ? Bicarb within normal limits, anion gap 21.8, ketones within normal limits ? Potentially related to dehydration, metformin ? CT scan abdomen pelvis no acute findings, abdomen, no guarding, no rebound, no rigidity, ? IV fluids ? No infection identified CT scan abdomen pelvis no acute findings, UA within normal limits, chest x-ray within normal limits, Type 2 diabetes mellitus with hyperglycemia ? Ketones within normal limits, anion gap 21.8, bicarb 36 ? Low-dose sliding scale ? IV fluids Soft blood pressures ? Secondary to dehydration ? IV fluids History of CVA, continue aspirin, statin Uremia, possible uremic encephalopathy, neurocheck, Full code, Lovenox for DVT prophylaxis Attestations 2 Medical Necessity Statement*: Patient requires hospitalization, inpatient, greater than 2 midnights, for acute renal failure, elevated lactic acid, dehydration, soft blood pressures Diagnoses Acute renal failure N17.9 Acute renal failure type: unspecified Hypokalemia E87.6 Uremic encephalopathy G93.49; N19 Hyperglycemia R73.9 Dehydration E86.0 Low blood pressure I95.9 Type 2 diabetes mellitus without complication, without long-term current use of insulin E11.9 Essential hypertension I10 Old lacunar stroke without late effect Z86.73 Cerebrovascular disease I67.9 JEAN-CLAUDE (obstructive sleep apnea) G47.33
[2023-09-28 04:15] LABS: INR 0.97 (0.8-1.2)
[2023-09-28 04:21] LABS: Troponin 5 2HR 41.24 ng/L (0-15)
--- NOTE | 2023-09-28 04:23 | ECG_ITS ---
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 Measurements Intervals [place] Rate: 82 P: 53 MI: 120 QRS: 30 QRSD: 111 T: 165 QT: 381 QTc: 446 Interpretive Statements SINUS RHYTHM MODERATE INTRAVENTRICULAR CONDUCTION DELAY [110+ ms QRS DURATION] ST DEVIATION AND MODERATE T-WAVE ABNORMALITY, CONSIDER LATERAL ISCHEMIA [-0.1+ mV T-WAVE IN I/aVL/V5/V6] Compared to ECG 09/28/2023 01:54:22 Sinus tachycardia no longer present Left ventricular hypertrophy no longer present T-wave abnormality still present Possible ischemia still present Electronically Signed On 09-28-2023 17:13:07 CDT by Marco Antonio Oviedo M.D. [id number]
[2023-09-28 04:25] LABS: Troponin 5 2HR Delta -1.76 ABS# (0-10)
[2023-09-28 04:30] LABS: NT Pro B Type Natriuretic Pept 136 pg/mL (0-125)
[2023-09-28] MEDS: enoxaparin 30 mg/0.3 mL Syringe SUBCUT (04:52)
[2023-09-28] MEDS: sodium chloride 0.9% 1,000 ML 125 ML IV ×3 (05:11→20:46)
[2023-09-28] MEDS: pantoprazole 40 mg SDV IVP (05:11)
[2023-09-28 06:35] LABS: Glucose Point of Care 188 mg/dL (70-110)
[2023-09-28 08:45] LABS: Troponin 5 6HR 41.91 ng/L (0-15)
[2023-09-28 08:51] LABS: Troponin 5 6HR Delta -1.09 ng/L (0-12)
[2023-09-28] MEDS: insulin lispro 100 unit/1 mL SUBCUT (08:55)
--- NOTE | 2023-09-28 09:05 | ECG_ITS ---
[facility] Test Date: 2023-09-28 Pat Name: Roland Butts Department: Room: 276 Gender: Male Co Director: : 1965 Requested By: Wai Pan Order Number: [id number] Abdelrahman MD: Marco Antonio Oviedo M.D. Measurements Intervals [place] Rate: 83 P: 28 MI: 116 QRS: 32 QRSD: 109 T: 214 QT: 375 QTc: 441 Interpretive Statements SINUS RHYTHM WITH SHORT MI INTERVAL LEFT VENTRICULAR HYPERTROPHY AND ST-T CHANGE [VOLTAGE CRITERIA PLUS ST/T ABNORMALITY] Compared to ECG 09/28/2023 04:23:28 Short MI interval now present Left ventricular hypertrophy now present ST (T wave) deviation now present Intraventricular conduction delay no longer present T-wave abnormality no longer present Possible ischemia no longer present Electronically Signed On 09-28-2023 17:20:52 CDT by Marco Antonio Oviedo M.D. [id number]
--- NOTE | 2023-09-28 09:19 | PC.PHAR ---
Addendum entered by Giselle Sidhu 09/28/23 09:22: PT KNEW I WAS IN THE ROOM BUT DID NOT RESPOND TO ANY QUESTIONS. Original Note: VERIFIED MEDICATIONS FROM ADMIT WITH [facility] AND UPDATED DOSE CHANGES AND NEW MEDICATIONS. SEVERAL WERE OUT OF REFILLS BUT PHARMACY HAS SENT REFILL REQUESTS ON THEM.
[2023-09-28] MEDS: atorvastatin 40 mg Tablet 80 MG PO (09:53)
[2023-09-28] MEDS: aspirin 81 mg Chew Tablet PO (09:53)
[2023-09-28 10:44] LABS: Glucose Point of Care 110 mg/dL (70-110)
[2023-09-28 10:59] LABS: Basophils % 0.2 %; Eosinophils # 0.1 10^3/uL (0.0-0.8); Eosinophils % 0.6 %; Hematocrit 43.9 % (37-53); Lymphocytes # 2.1 10^3/uL (0.8-4.8); Lymphocytes % 24.6 %; Mean Corpuscular HGB Conc 36.7 g/dL (30-55); Mean Corpuscular Hemoglobin 29.2 pg (27-33); Mean Corpuscular Volume 79.7 fl (82-101); Monocytes # 0.5 10^3/uL (0.2-0.9); Monocytes % 6.2 %; Neutrophils # 5.75 10^3/uL (1.8-7.7); Nucleated Red Blood Cells % 0 %; Platelet Count 181 10^3/cmm (157-399); Red Blood Count 5.51 10^6/uL (3.85-5.65); Red Cell Distribution Width 11.8 % (12.1-15.1); White Blood Count 8.45 10^3/uL (3.29-11.43)
[2023-09-28 11:21] LABS: Alanine Aminotransferase 28 U/L (0-41); Albumin Level 4.1 g/dL (3.5-5.2); Alkaline Phosphatase 87 U/L (40-130); Anion Gap 15.8 (5-19); Aspartate Amino Transferase 25 U/L (0-40); Blood Urea Nitrogen 69 mg/dL (6-20); Calcium 9.4 mg/dL (8.5-10.5); Carbon Dioxide 33 mmol/L (22-29); Chloride 93 mmol/L (98-107); Creatinine Clr Calc Pharmacy 37.0916; Glomerular Filtration Rate 36.5 mL/min (90-130); Glucose 106 mg/dL (65-115); Magnesium 2.5 mg/dL (1.7-2.3); Osmolality Calculated 309 mOsm/kg (285-295); Sodium 139 mmol/L (136-145); Total Bilirubin 0.9 mg/dL (0.15-1.2); Total Protein 7.1 g/dL (6.6-8.7)
--- NOTE | 2023-09-28 11:35 | PM.MISC ---
Miscellaneous Note Note: Seen this morning. When asked how he was doing a moment and said okay other than that unable to carry a conversation. Agree with assessment plan from admitting physician. With the addition of the following: Check CBC, CMP now. Last labs we have are from admission. No family at bedside present currently.
[2023-09-28 11:41] LABS: Potassium 2.8 mmol/L (3.5-5.1)
[2023-09-28 12:21] LABS: Phosphorus 1.7 mg/dL (2.5-4.5)
[2023-09-28] MEDS: potassium chloride premix 100 ML 25 MEQ IV (12:40)
[2023-09-28 17:17] LABS: Glucose Point of Care 106 mg/dL (70-110)
[2023-09-28 20:23] LABS: Glucose Point of Care 83 mg/dL (70-110)
[2023-09-28] MEDS: tamsulosin 0.4 mg Capsule 0.400000000000000022 MG PO (20:26)
[2023-09-29] VITALS (8 sets, daily range): BP systolic 115–166; BP diastolic 70–99; PULSE 63–95; RESP 16–19; TEMP 36.3–37.2; O2SAT 90–98
[2023-09-29] MEDS: pantoprazole 40 mg SDV IVP (03:40)
[2023-09-29] MEDS: enoxaparin 30 mg/0.3 mL Syringe SUBCUT (03:40)
[2023-09-29] MEDS: sodium chloride 0.9% 1,000 ML 125 ML IV ×3 (04:40→22:57)
[2023-09-29 06:04] LABS: Basophils % 0.2 %; Eosinophils # 0.1 10^3/uL (0.0-0.8); Eosinophils % 1.5 %; Hematocrit 40.4 % (37-53); Mean Corpuscular HGB Conc 35.6 g/dL (30-55); Mean Corpuscular Hemoglobin 28.9 pg (27-33); Mean Platelet Volume 8.5 fL (7.4-10.4); Monocytes # 0.4 10^3/uL (0.2-0.9); Monocytes % 5.7 %; Neutrophils # 3.68 10^3/uL (1.8-7.7); Neutrophils % 59.3 %; Nucleated Red Blood Cells % 0 %; Platelet Count 155 10^3/cmm (157-399); Red Blood Count 4.99 10^6/uL (3.85-5.65); Red Cell Distribution Width 11.8 % (12.1-15.1); White Blood Count 6.19 10^3/uL (3.29-11.43)
[2023-09-29 06:26] LABS: Alanine Aminotransferase 31 U/L (0-41); Albumin Level 3.8 g/dL (3.5-5.2); Alkaline Phosphatase 78 U/L (40-130); Anion Gap 14.2 (5-19); Aspartate Amino Transferase 33 U/L (0-40); Blood Urea Nitrogen 38 mg/dL (6-20); Carbon Dioxide 29 mmol/L (22-29); Chloride 98 mmol/L (98-107); Creatinine Clr Calc Pharmacy 64.2158; Globulin 2.6 g/dL (1.3-4.6); Glomerular Filtration Rate 68.5 mL/min (90-130); Glucose 87 mg/dL (65-115); Osmolality Calculated 294 mOsm/kg (285-295); Phosphorus 1.8 mg/dL (2.5-4.5); Potassium 3.2 mmol/L (3.5-5.1); Sodium 138 mmol/L (136-145); Total Protein 6.4 g/dL (6.6-8.7)
[2023-09-29 06:39] LABS: Glucose Point of Care 80 mg/dL (70-110)
[2023-09-29] MEDS: potassium chloride ER 20 mEq Tablet 40 MEQ PO (09:25)
[2023-09-29] MEDS: phosphorus 250 mg Tablet PO (09:26)
[2023-09-29] MEDS: atorvastatin 40 mg Tablet 80 MG PO (09:26)
[2023-09-29] MEDS: aspirin 81 mg Chew Tablet PO (09:26)
[2023-09-29] MEDS: potassium phosphate (mMol PO4) 15 MMOL in sodium chloride 0.9% (100 ml) 100 ML 42 MMOL IV (09:45)
--- NOTE | 2023-09-29 10:21 | PC.SLP ---
Patient refused evaluation today. Two female family members present. Family members stated that the patient ate his breakfast well. Family reported no incidents of coughing, choking, or swallowing difficulties during breakfast. Family members stated that the patient has not talked much since they have been visiting. Family members were unsure if patient had change in speech/language since hospital admission.
[2023-09-29 11:19] LABS: Glucose Point of Care 126 mg/dL (70-110)
--- NOTE | 2023-09-29 13:38 | P.PN_ITS ---
Subjective 2 Subjective: seen pt today and lots of family at bedside daughter niece, and rest of family members all present Updated them that patient was dehydrated and had a prerenal acute kidney injury. Electrolytes have been abnormal and are being repleted at this time. They state that patient has had very bad loss of appetite and has not been eating much. They brought him to ensure which he took intermittently however has not been eating much at home. They do agree that the patient might be depressed. They state they have difficult family dynamics as patient's girlfriend is the one who is in charge of his medications and apparently she does not prompt him to eat. Patient appears slightly withdrawn and does not talk much however does state that he feels okay. He was seen walking with physical therapy using a walker while I was at the bedside. He apparently did pretty well with therapy. Potassium 3.2 this morning phosphorus 1.8. Vitals/I&O/Wt Last Vital Signs Temp 98.0 F 09/29/23 11:09 Pulse 75 09/29/23 11:09 Resp 17 09/29/23 11:09 BP 164/78 09/29/23 11:09 Pulse Ox 96 09/29/23 11:09 O2 Del Method Room Air 09/29/23 11:09 09/28/23 09/29/23 09/29/23 22:59 06:59 14:59 Intake Total 1340 / 2275.417 987.5 / 3262.917 Balance 1340 / 2275.417 987.5 / 3262.917 Weight last 48 hrs Weight 71.622 kg Weight 71.259 kg Weight 71.259 kg Weight 86.183 kg Physical Exam 2 Const: COMMON NORMALS: no acute distress ORIENTATION/CONSCIOUSNESS: Yes awake, Yes oriented to person and Yes oriented to place; not oriented to time HENMT: COMMON NORMALS: normocephalic HEAD & SCALP: normocephalic Eye: COMMON NORMALS: Equal, round and reactive pupils present PUPIL: Yes Equal, round and reactive pupils present Neck/C-Spine: COMMON NORMALS: no JVD Lymph: LYMPHATIC: no lymphadenopathy noted Resp: COMMON NORMALS: normal respiratory effort, No retractions, No use of accessory muscles and clear to auscultation bilaterally AUSCULTATION: clear to auscultation bilaterally Cardio: COMMON NORMALS: no JVD, regular rate, regular rhythm, S1 normal heart sound present and S2 normal heart sound present RATE: regular rate RHYTHM: regular rhythm HEART SOUNDS: S1 normal heart sound present and S2 normal heart sound present GI: COMMON NORMALS: Normal to inspection, nondistended, normoactive bowel sounds present, Soft to palpation and non-tender PALPATION: Yes Soft to palpation Extremity: COMMON NORMALS: no calf tenderness and no pedal edema Neuro: COMMON NORMALS: CN's II-XII intact bilaterally, moves all extremities and no focal motor deficits SENSORIUM/ORIENTATION: Yes oriented to person, Yes oriented to place and No oriented to time Psych: COMMON NORMALS: mental status grossly normal Data 09/29/23 05:48 09/29/23 05:48 Micro: Microbiology 09/28/23 00:35 Blood Culture - Preliminary Blood NEGATIVE TO DATE 09/28/23 00:38 Blood Culture - Preliminary Blood NEGATIVE TO DATE A&P Assessment and plan (1) Acute renal failure: Qualifiers: Acute renal failure type: unspecified Qualified Code(s): N17.9 - Acute kidney failure, unspecified (2) Hypokalemia: (3) Uremic encephalopathy: (4) Hyperglycemia: (5) Dehydration: (6) Low blood pressure: (7) Type 2 diabetes mellitus, without long-term current use of insulin: (8) Essential hypertension: (9) Old lacunar stroke without late effect: (10) Cerebrovascular disease: (11) JEAN-CLAUDE (obstructive sleep apnea): Plan Acute renal failure?resolved ? Likely secondary dehydration ?component of blood pressure medication such as chlorthalidone lisinopril ?Hold blood pressure medications ? IV fluids ? CT scan abdomen pelvis no obstructive uropathy ? Monitor urine output Elevated lactic acid level?resolved ? Bicarb within normal limits, anion gap 21.8, ketones within normal limits ? Potentially related to dehydration, metformin ? CT scan abdomen pelvis no acute findings, abdomen, no guarding, no rebound, no rigidity, ? IV fluids ? No infection identified CT scan abdomen pelvis no acute findings, UA within normal limits, chest x-ray within normal limits, Type 2 diabetes mellitus with hyperglycemia ? Ketones within normal limits, anion gap 21.8, bicarb 36 ? Low-dose sliding scale ? IV fluids Hypertension Blood pressures have been elevated during hospitalization. ? Initially he was hypotensive secondary to dehydration which has now resolved. I will continue amlodipine 10 daily at this time. I would hold off on the chlorthalidone however. If additional blood pressure medications needed may consider adding hydralazine. I would also hold off on the lisinopril at this time. ? Stop naproxen indefinitely as well. Patient definitely had a component of medication induced ULICES exacerbated by dehydration. Family endorses that he had some nausea vomiting prior to hospitalization. History of CVA, continue aspirin, statin Uremia, possible uremic encephalopathy, neurocheck, -resolved Full code, Lovenox for DVT prophylaxis Attestations 2 Medical Necessity Statement*: possible dc in next 24-48 hours Diagnoses Acute renal failure N17.9 Acute renal failure type: unspecified Hypokalemia E87.6 Uremic encephalopathy G93.49; N19 Hyperglycemia R73.9 Dehydration E86.0 Low blood pressure I95.9 Type 2 diabetes mellitus without complication, without long-term current use of insulin E11.9 Essential hypertension I10 Old lacunar stroke without late effect Z86.73 Cerebrovascular disease I67.9 JEAN-CLAUDE (obstructive sleep apnea) G47.33
[2023-09-29] MEDS: amlodipine 10 mg Tablet PO (15:10)
[2023-09-29] MEDS: hyDRALAzine 25 mg Tablet PO ×3 (15:10→20:41)
[2023-09-29 17:19] LABS: Glucose Point of Care 119 mg/dL (70-110)
[2023-09-29 20:41] LABS: Glucose Point of Care 138 mg/dL (70-110)
[2023-09-29] MEDS: tamsulosin 0.4 mg Capsule 0.400000000000000022 MG PO (20:41)
[2023-09-30] MEDS: enoxaparin 30 mg/0.3 mL Syringe SUBCUT (03:30)
[2023-09-30] MEDS: pantoprazole 40 mg SDV IVP (03:30)
[2023-09-30 04:00] VITALS: BP 171/96; PULSE 70; RESP 17; TEMP 36.9; O2SAT 96
[2023-09-30] MEDS: sodium chloride 0.9% 1,000 ML 125 ML IV (06:13)
[2023-09-30 06:52] LABS: Glucose Point of Care 146 mg/dL (70-110)
[2023-09-30 06:55] LABS: Basophils % 0.2 %; Eosinophils # 0.1 10^3/uL (0.0-0.8); Eosinophils % 1.9 %; Hematocrit 41.2 % (37-53); Lymphocytes # 1.5 10^3/uL (0.8-4.8); Lymphocytes % 28.9 %; Mean Corpuscular HGB Conc 35.9 g/dL (30-55); Mean Corpuscular Hemoglobin 29.4 pg (27-33); Mean Corpuscular Volume 81.9 fl (82-101); Mean Platelet Volume 8.7 fL (7.4-10.4); Monocytes # 0.3 10^3/uL (0.2-0.9); Monocytes % 5.9 %; Neutrophils # 3.26 10^3/uL (1.8-7.7); Neutrophils % 62.5 %; Nucleated Red Blood Cells % 0 %; Platelet Count 131 10^3/cmm (157-399); Positive C 1; Red Blood Count 5.03 10^6/uL (3.85-5.65); Red Cell Distribution Width 11.8 % (12.1-15.1); White Blood Count 5.22 10^3/uL (3.29-11.43)
[2023-09-30 07:12] LABS: Magnesium 1.4 mg/dL (1.7-2.3); Phosphorus 1.9 mg/dL (2.5-4.5)
[2023-09-30 07:17] LABS: Anion Gap 12.2 (5-19); Blood Urea Nitrogen 14 mg/dL (6-20); Calcium 8.4 mg/dL (8.5-10.5); Carbon Dioxide 26 mmol/L (22-29); Chloride 98 mmol/L (98-107); Creatinine Clr Calc Pharmacy 87.5059; Glomerular Filtration Rate 98.9 mL/min (90-130); Glucose 106 mg/dL (65-115); Osmolality Calculated 277 mOsm/kg (285-295); Potassium 3.2 mmol/L (3.5-5.1); Sodium 133 mmol/L (136-145)
[2023-09-30 07:21] VITALS: PULSE 74; RESP 16; TEMP 36.6; O2SAT 96
[2023-09-30] MEDS: aspirin 81 mg Chew Tablet PO (08:04)
[2023-09-30] MEDS: insulin lispro 100 unit/1 mL SUBCUT ×2 (08:04→12:20)
[2023-09-30] MEDS: atorvastatin 40 mg Tablet 80 MG PO (08:04)
[2023-09-30] MEDS: hyDRALAzine 25 mg Tablet PO (08:04)
[2023-09-30] MEDS: amlodipine 10 mg Tablet PO (08:04)
[2023-09-30] MEDS: magnesium sulfate premix 4 GM/100 ML PREMIX IV (11:11)
[2023-09-30] MEDS: potassium phosphate (mEq K) 40 MEQ in sodium chloride 0.9% (100 ml) 100 ML 27.2699999999999996 MEQ IV (11:12)
[2023-09-30] MEDS: hyDRALAzine 25 mg Tablet 50 MG PO ×2 (11:13→15:29)
[2023-09-30 11:24] VITALS: BP 150/90; PULSE 115; RESP 17; TEMP 36.3; O2SAT 93
[2023-09-30 11:41] LABS: Glucose Point of Care 152 mg/dL (70-110)
--- NOTE | 2023-09-30 12:28 | PC.SLP ---
Patient is being discharged; no need for ST eval/treat at this time.
--- NOTE | 2023-09-30 13:14 | PM.DCS ---
Discharge Providers Date of Admission: 09/28/23 03:51 Date of Discharge: September 30, 2023 Attending Provider at Admission: Wai Pan MD Attending Provider at Discharge: Shana Padron MD Primary Care Provider: Vernon Yeboah MD Diagnoses at Discharge Discharge Diagnosis (1) Acute renal failure: Status: Resolved Qualifiers: Acute renal failure type: unspecified Qualified Code(s): N17.9 - Acute kidney failure, unspecified (2) Hypokalemia: Status: Resolved (3) Uremic encephalopathy: Status: Resolved (4) Hyperglycemia: Status: Resolved (5) Dehydration: Status: Resolved (6) Low blood pressure: Status: Resolved (7) Type 2 diabetes mellitus, without long-term current use of insulin: Status: Chronic (8) Essential hypertension: Status: Chronic (9) Old lacunar stroke without late effect: Status: Acute (10) Cerebrovascular disease: Status: Acute Permanent problem details: Old lacunar CVA and cerebellar CVA (11) JEAN-CLAUDE (obstructive sleep apnea): Status: Acute Reason for Visit Reason for Visit: Hyperglycemia Hospital Course Hospital Course Patient was admitted to the hospital with fatigue malaise nausea vomiting getting poor appetite. He was hypotensive on admission however was fluid responsive. Lactic acid was noted to be 5.5. CT abdomen pelvis showed no acute findings. Creatinine was 2.7. Patient admitted for acute renal failure. Patient improved with IV fluids. Kidney function normalized with IV fluids and stopping nephrotoxic agents. At discharge patient's lisinopril and chlorthalidone were stopped. Patient was placed on amlodipine and hydralazine. Patient recommended to follow-up with primary care doctor as an outpatient after discharge. Physical Exam Const: COMMON NORMALS: no acute distress ORIENTATION/CONSCIOUSNESS: Yes awake, Yes oriented to person and Yes oriented to place; not oriented to time HENMT: COMMON NORMALS: normocephalic HEAD & SCALP: normocephalic Eye: COMMON NORMALS: Equal, round and reactive pupils present PUPIL: Yes Equal, round and reactive pupils present Neck/C-Spine: COMMON NORMALS: no JVD Lymph: LYMPHATIC: no lymphadenopathy noted Resp: COMMON NORMALS: normal respiratory effort, No retractions, No use of accessory muscles and clear to auscultation bilaterally AUSCULTATION: clear to auscultation bilaterally Cardio: COMMON NORMALS: no JVD, regular rate, regular rhythm, S1 normal heart sound present and S2 normal heart sound present RATE: regular rate RHYTHM: regular rhythm HEART SOUNDS: S1 normal heart sound present and S2 normal heart sound present GI: COMMON NORMALS: Normal to inspection, nondistended, normoactive bowel sounds present, Soft to palpation and non-tender PALPATION: Yes Soft to palpation Extremity: COMMON NORMALS: no calf tenderness and no pedal edema Neuro: COMMON NORMALS: CN's II-XII intact bilaterally, moves all extremities and no focal motor deficits SENSORIUM/ORIENTATION: Yes oriented to person, Yes oriented to place and No oriented to time Psych: COMMON NORMALS: mental status grossly normal Discharge Data Studies Completed and Pending Completed Studies During Hospitalization Category Date Time Status CT chest abdomen pelvis [[place] [id number] Cat Scan 09/28/23 02:53 Completed ] Stat CT head wo con* [id number] Urgent Cat Scan 09/27/23 23:36 Completed XR chest 1V portable [id number] Urgent Exams 09/27/23 23:36 Completed Pending at discharge Category Date Time Status Blood Culture Stat Lab 09/28/23 00:35 Results Radiology Impressions Chest X-Ray 09/27/23 23:36 IMPRESSION: No acute findings. Head CT 09/27/23 23:36 IMPRESSION: Negative for acute intracranial pathology. Chest/Abdomen/Pelvis CT 09/28/23 02:53 IMPRESSION: Negative CT chest. No acute pathology identified. IMPRESSION: Negative for acute abdominopelvic pathology. Laboratory Results WBC 5.22 10^3/uL (3.29-11.43) 09/30/23 06:25 RBC 5.03 10^6/uL (3.85-5.65) 09/30/23 06:25 Hgb 14.80 g/dL (11.27-16.99) 09/30/23 06:25 Hct 41.2 % (37-53) 09/30/23 06:25 MCV 81.9 fl (82-101) L 09/30/23 06:25 MCH 29.4 pg (27-33) 09/30/23 06:25 MCHC 35.9 g/dL (30-55) 09/30/23 06:25 RDW 11.8 % (12.1-15.1) L 09/30/23 06:25 Plt Count 131 10^3/cmm (157-399) L 09/30/23 06:25 MPV 8.7 fL (7.4-10.4) 09/30/23 06:25 Neut % (Auto) 62.5 % 09/30/23 06:25 Lymph % (Auto) 28.9 % 09/30/23 06:25 [place] % (Auto) 5.9 % 09/30/23 06:25 Eos % (Auto) 1.9 % 09/30/23 06:25 Baso % (Auto) 0.2 % 09/30/23 06:25 Neut # (Auto) 3.26 10^3/uL (1.8-7.7) 09/30/23 06:25 Lymph # (Auto) 1.5 10^3/uL (0.8-4.8) 09/30/23 06:25 [place] # (Auto) 0.3 10^3/uL (0.2-0.9) 09/30/23 06:25 Eos # (Auto) 0.1 10^3/uL (0.0-0.8) 09/30/23 06:25 Baso # (Auto) 0.0 10^3/uL (0.0-0.1) 09/30/23 06:25 Nucleated RBC % (auto) 0 % 09/30/23 06:25 Nucleated RBCs # 0.0 /100WBC 09/30/23 06:25 PT 13.10 SECONDS (12.1-14.9) 09/28/23 04:00 INR 0.97 (0.8-1.2) 09/28/23 04:00 Specimen Type Arterial 09/28/23 00:22 Sample Site Radial, left 09/28/23 00:22 ABG pH 7.46 (7.35-7.45) H 09/28/23 00:22 ABG pCO2 45.5 mmHg (35-45) H 09/28/23 00:22 ABG pO2 77.1 mmHg (80.0-100.0) L 09/28/23 00:22 ABG PO2/FiO2 Ratio 0 09/28/23 00:22 ABG HCO3 32.5 mmol/L (22-26) H 09/28/23 00:22 ABG O2 Saturation 96.4 09/28/23 00:22 ABG Base Excess 7.6 mmol/L (-2.0-2.0) H 09/28/23 00:22 Rojelio Test Pos 09/28/23 00:22 A-a O2 Gradient 1.9 mmHg (5-10) L 09/28/23 00:22 Hematocrit 46.1 % (42-52) 09/28/23 00:22 Hgb O2 Saturation 93.3 % (95-100) L 09/28/23 00:22 Carboxyhemoglobin 3.1 %THgb (0.4-20.1) 09/28/23 00:22 Methemoglobin 0.1 % (0.4-1.5) L 09/28/23 00:22 Total Hemoglobin 15.0 g/dL (14-18) 09/28/23 00:22 Sodium 130.0 mmol/L (131-143) L 09/28/23 00:22 Potassium 2.6 mmol/L (3.5-5.0) L 09/28/23 00:22 Glucose 288.0 mg/dL (70-115) H 09/28/23 00:22 Ionized Calcium 1.1 mmol/L (1.1-1.4) 09/28/23 00:22 O2 Delivery Device None 09/28/23 00:22 FiO2 21.0 % 09/28/23 00:22 Vp Strategic Planning ID Robert 09/28/23 00:22 Sodium 133 mmol/L (136-145) L 09/30/23 06:25 Potassium 3.2 mmol/L (3.5-5.1) L 09/30/23 06:25 Chloride 98 mmol/L (98-107) 09/30/23 06:25 Carbon Dioxide 26 mmol/L (22-29) 09/30/23 06:25 Anion Gap 12.2 (5-19) 09/30/23 06:25 BUN 14 mg/dL (6-20) 09/30/23 06:25 Creatinine 0.8 mg/dL (0.7-1.2) 09/30/23 06:25 GFR Calculation 98.9 mL/min (90-130) 09/30/23 06:25 Glucose 106 mg/dL (65-115) 05/11/24 06:25 POC Glucose 152 mg/dL (70-110) H 09/30/23 11:23 Calculated Osmolality 277 mOsm/kg (285-295) L 09/30/23 06:25 Lactic Acid 4.2 mmol/L (0.5-2.2) H* 09/27/23 23:23 Lactic Acid (Sepsis) 5.5 mmol/L (0.5-2.2) H* 09/28/23 02:29 Calcium 8.4 mg/dL (8.5-10.5) L 09/30/23 06:25 Phosphorus 1.9 mg/dL (2.5-4.5) L 09/30/23 06:25 Magnesium 1.4 mg/dL (1.7-2.3) L 09/30/23 06:25 Total Bilirubin 1.0 mg/dL (0.15-1.2) 09/29/23 05:48 AST 33 U/L (0-40) 09/29/23 05:48 ALT 31 U/L (0-41) 09/29/23 05:48 Alkaline Phosphatase 78 U/L (40-130) 09/29/23 05:48 Creatine Kinase 52 U/L (39-308) 09/28/23 02:29 Troponin T Baseline 43 ng/L (0-15) H 09/28/23 02:29 Troponin T 120 Minute 41.24 ng/L (0-15) H 09/28/23 04:00 Delta Troponin T -1.76 ABS# (0-10) L 09/28/23 04:00 Troponin T Hi Sens 6Hr 41.91 ng/L (0-15) H 09/28/23 08:17 Troponin T Hi Sens 6Hr Delta -1.09 ng/L (0-12) L 09/28/23 08:17 C-Reactive Protein 3.0 mg/L (0.0-4.9) 09/28/23 02:29 NT-Pro-B Natriuret Pep 136 pg/mL (0-125) H 09/28/23 04:00 Total Protein 6.4 g/dL (6.6-8.7) L 09/29/23 05:48 Albumin 3.8 g/dL (3.5-5.2) 09/29/23 05:48 Globulin 2.6 g/dL (1.3-4.6) 09/29/23 05:48 Lipase 133 U/L (13-60) H 09/28/23 02:29 Procalcitonin 0.33 ng/mL (0-0.5) 09/27/23 23:23 TSH 0.50 uIU/mL (0.27-4.20) 09/28/23 04:00 Urine Color Yellow (Yellow) 09/27/23 23:31 Urine Appearance Clear (CLEAR) 09/27/23 23:31 Urine pH 5 (5-7) 09/27/23 23:31 Ur Specific [place] 1.010 (1.005-1.030) 09/27/23 23:31 Urine Protein Trace (Negative) 09/27/23 23:31 Urine Glucose (UA) 4+ (Normal) H 09/27/23 23:31 Urine Ketones Negative (Negative) 09/27/23 23:31 Urine Blood Neg (Negative) 09/27/23 23:31 Urine Nitrate Negative (Negative) 09/27/23 23:31 Urine Bilirubin Neg (Negative) 09/27/23 23:31 Urine Urobilinogen Neg mg/dL (Negative) 09/27/23 23:31 Ur Leukocyte Esterase Negative (Negative) 09/27/23 23:31 Urine RBC None /hpf (0-2) 09/27/23 23:31 Urine WBC None /hpf (0-5) 09/27/23 23:31 Ur Squamous Epith Cells 0-4 /hpf (0-5) H 09/27/23 23:31 Ur Transition Epith Cell 0-4 /hpf 09/27/23 23:31 Amorphous Sediment Not Reportable 09/27/23 23:31 Urine Bacteria Trace /hpf (NONE) 09/27/23 23:31 Hyaline Casts 0-4 /lpf H 09/27/23 23:31 Urine Mucus 2+ /hpf 09/27/23 23:31 Salicylates < 0.3 mg/dL (3-10) L 09/27/23 23:23 Urine Opiates Screen Negative ng/mL (Negative) 09/27/23 23:31 Acetaminophen < 5.0 ug/mL (10-30) L 09/27/23 23:23 Ur Barbiturates Screen Negative ng/mL (Negative) 09/27/23 23:31 Ur Phencyclidine Scrn Negative ng/mL (Negative) 09/27/23 23:31 Ur Amphetamines Screen Negative ng/mL (Negative) 09/27/23 23:31 U Benzodiazepines Scrn Negative ng/mL (Negative) 09/27/23 23:31 Urine Cocaine Screen Negative ng/mL (Negative) 09/27/23 23:31 U Marijuana (THC) Screen Negative ng/mL (Negative) 09/27/23 23:31 Ethyl Alcohol Cancelled 09/28/23 02:29 Serum Ketones Negative (Negative) 09/27/23 23:23 Vitals Last Vital Signs Temp 97.4 F L 09/30/23 11:24 Pulse 115 H 09/30/23 11:24 Resp 17 09/30/23 11:24 BP 150/90 09/30/23 11:24 Pulse Ox 93 09/30/23 11:24 O2 Del Method Room Air 09/30/23 11:24 Discharge Plan Discharge Patient Disposition: Home Condition: Stable Prescriptions: New atorvastatin 40 mg Tablet 80 mg PO DAILY Qty: 30 0RF hydralazine 25 mg Tablet 50 mg PO TID Qty: 90 0RF magnesium oxide 400 mg magnesium tablet 400 mg PO DAILY Qty: 30 0RF mirtazapine 7.5 mg tablet 7.5 mg PO DAILY Qty: 30 0RF Continued (DME) hand rails for bathroom/home See Rx Instructions .ROUTE .MEDSUPPLY Qty: 3 0RF Rx Instructions: As directed (DME) blood pressure kit See Rx Instructions .Route .MEDSUPPLY Qty: 1 0RF Rx Instructions: As directed (DME) glocose monitor See Rx Instructions .Route .MEDSUPPLY Qty: 1 0RF Rx Instructions: As directed (DME) Glucose monitor supplies See Rx Instructions .Route .MEDSUPPLY Qty: 100 5RF Rx Instructions: As directed amlodipine 10 mg tablet 10 mg PO DAILY Qty: 30 5RF aspirin 81 mg capsule 81 mg PO DAILY Qty: 180 3RF famotidine 20 mg tablet 20 mg PO BID PRN (Reason: acid reflux) Qty: 60 0RF metformin 1,000 mg tablet 1,000 mg PO BID Qty: 60 5RF tamsulosin 0.4 mg capsule 0.4 mg PO BEDTIME Qty: 30 5RF atorvastatin 40 mg tablet 40 mg PO DAILY pantoprazole 40 mg tablet,delayed release (DR/EC) 40 mg PO DAILY fenofibrate nanocrystallized 145 mg tablet 145 mg PO DAILY glipizide 5 mg Tablet 5 mg PO DAILY Qty: 10 0RF Changed furosemide 40 mg tablet 40 mg PO DAILY Qty: 40 0RF Held Invokana 300 mg tablet 300 mg PO DAILY Qty: 30 5RF Hold Instructions: see pcp Discontinued chlorthalidone 25 mg tablet 25 mg PO DAILY Qty: 30 5RF lisinopril 40 mg tablet 40 mg PO DAILY Qty: 90 1RF cyclobenzaprine 10 mg Tablet 10 mg PO TID PRN (Reason: Spasms) hydralazine 10 mg tablet 10 mg PO TID naproxen 500 mg tablet 500 mg PO BID Trulicity 1.5 mg/0.5 mL pen injector See Rx Instructions .ROUTE .COMPLEX Rx Instructions: INJECT 0.5ml UNDER THE SKIN ONCE A WEEK. Discharge Orders: Discharge Order (Routine); Ordered 09/30/23 Ordered By: Shana Padron Referrals: Vernon Yeboah MD [Primary Care Provider] - 1-3 days (We have notified your physician's clinic of the need for a follow-up appointment to be scheduled. If you have not heard from them within the next 2 business days, please call them directly. ) Rachel Dong MD [Physician] - 1 month (We have notified your physician's clinic of the need for a follow-up appointment to be scheduled. If you have not heard from them within the next 2 business days, please call them directly. ) Discharge Diet: Cardiac Discharge Activity: Increase activity as tolerated and Use walker/crutches as instructed Patient Instructions: Hydralazine (By mouth), Atorvastatin (By mouth), Mirtazapine (By mouth), Dehydration (GEN), Opioid Safety Discharge Attestations Time Spent in Discharge Care*: greater than 30 min Quality Metrics Clinical Quality Measures [ No reported AMI, CVA or VTE this stay] Coding Level of Care Code Acute Code for Chg Fwd Diagnoses Acute renal failure N17.9 Acute renal failure type: unspecified Hypokalemia E87.6 Uremic encephalopathy G93.49; N19 Hyperglycemia R73.9 Dehydration E86.0 Low blood pressure I95.9 Type 2 diabetes mellitus without complication, without long-term current use of insulin E11.9 Essential hypertension I10 Old lacunar stroke without late effect Z86.73 Cerebrovascular disease I67.9 JEAN-CLAUDE (obstructive sleep apnea) G47.33
[2023-09-30 14:46] LABS: Estmated Average Glucose 232; Hemoglobin A1C 9.7 % (4.0-6.0)
[2023-09-30 16:47] VITALS: BP 150/90; PULSE 115; RESP 17; TEMP 36.3; O2SAT 93
== END 2023-09-30 16:45 | disposition home or self-care (01) | DRG 638 ==
LOC: ER 09-28 02:22 → MEDSURG 09-28 03:55
PROVIDERS: Admitting Provider Family Medicine; Emergency Provider Physician Assistant; PCP Family Medicine Adult Medicine; Visit Provider Internal Medicine
DX: E11.65 Type 2 diabetes mellitus with hyperglycemia (principal); G93.49 Other encephalopathy; N17.9 Acute kidney failure, unspecified; Z79.84 Long term (current) use of oral hypoglycemic drugs; E86.0 Dehydration; E87.6 Hypokalemia; I95.9 Hypotension, unspecified; I10 Essential (primary) hypertension; Z86.73 Personal history of transient ischemic attack (TIA), and cerebral infarction without residual deficits; F17.210 Nicotine dependence, cigarettes, uncomplicated; E78.5 Hyperlipidemia, unspecified; Z79.82 Long term (current) use of aspirin; N40.1 Benign prostatic hyperplasia with lower urinary tract symptoms
CPT/HCPCS: 36415; 36416; 36600; 70450; 71045; 71250; 74176; 80048; 80051; 80053; 80306; 80307; 81001; 81003; 82009; 82330; 82550; 82805; 82962; 83036; 83605; 83690; 83735; 83880; 84100; 84145; 84443; 84484; 85025; 85610; 86140; 87040; 93005; 94664; 96365; 96367; 96372; 96375; 97110; 97116; 97161; 97165; 99285; C9113; G0378; J0295; J1650; J1815; J3475; J3480; J7030

== ENCOUNTER → 2023-10-07 12:37 | Outpatient (BNVA) | payer MEDICAID, SELFPAY | PROVIDERS: PCP Family Medicine Adult Medicine; Visit Provider Emergency Medicine | DX: R31.9 Hematuria, unspecified (principal) | CPT/HCPCS: 81000; 81003; 87077; 87086; 87184 ==

== ENCOUNTER → 2023-10-12 13:40 | Outpatient (BNVA) | payer MEDICAID, SELFPAY | PROVIDERS: PCP Family Medicine Adult Medicine; Visit Provider Family Medicine Adult Medicine | DX: I10 Essential (primary) hypertension (principal); E11.59 Type 2 diabetes mellitus with other circulatory complications; E87.6 Hypokalemia | CPT/HCPCS: 80048 ==

== ENCOUNTER 2023-10-16 21:55 | Emergency (ER) | payer MEDICAID, SELFPAY ==
[2023-10-16 21:56] VITALS: BP 115/75; PULSE 71; RESP 18; TEMP 36.6; O2SAT 99; BMI 32.8
--- NOTE | 2023-10-16 21:59 | CTR_ITS ---
PROCEDURE INFORMATION: Exam: CT Head Without Contrast Exam date and time: 10/16/2023 10:30 PM Age: 58 years old Clinical indication: Other: Seizure TECHNIQUE: Imaging protocol: Computed tomography of the head without contrast. Radiation optimization: All CT scans at this facility use at least one of these dose optimization techniques: automated exposure control; mA and/or kV adjustment per patient size (includes targeted exams where dose is matched to clinical indication); or iterative reconstruction. COMPARISON: CT head wo con* [id number] 09/27/2023 11:59 PM RADIATION DOSE METRICS: Total DLP (mGy-cm): 1087.4 FINDINGS: Brain: No acute intracranial hemorrhage. No acute territorial region of noriega-white dedifferentiation. No extra-axial collection. No mass effect or midline shift. Moderate burden of nonspecific white matter hypoattenuation, likely chronic microvascular ischemic change. Generalized parenchymal volume loss. Chronic lacunar infarcts in the bilateral basal ganglia and thalami, unchanged. Small chronic bilateral cerebellar infarcts, unchanged. Cerebral ventricles: No acute hydrocephalus. Paranasal sinuses: Visualized sinuses are well-aerated. No fluid levels. Mastoid air cells: Visualized mastoid air cells are well aerated. Orbital cavities: No acute abnormality. Bones: No acute fracture. Soft tissues: No acute abnormality. CT/CT head wo con* [id number] IMPRESSION: No acute findings.
--- NOTE | 2023-10-16 21:59 | ECG_ITS ---
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 Measurements Intervals [place] Rate: 70 P: 51 VA: 135 QRS: 35 QRSD: 96 T: 50 QT: 401 QTc: 433 Interpretive Statements SINUS RHYTHM Compared to ECG 09/28/2023 09:05:56 Short VA interval no longer present Left ventricular hypertrophy no longer present ST (T wave) deviation no longer present Electronically Signed On 10-17-2023 16:50:34 CDT by Marco Antonio Oviedo M.D. [id number]
--- NOTE | 2023-10-16 22:00 | ED_ITS ---
HPI - Seizure 2 General: Chief Complaint: Seizure Stated Complaint: SEIZURE Time Seen by Provider: 10/16/23 21:56 Source: patient and EMS Mode of arrival: EMS Limitations: no limitations History of Present Illness: HPI Narrative: 58-year-old male has a history of seizur es and stated he had seizures today roughly 30 to 45 minutes prior to arrival EMS states family witnessed the seizures sounds like he was staring off for 2 minutes and then had a postictal period. Patient is now awake and alert he is answering all my questions appropriately he denies any headache denies any fever. 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 Unsteady gait Hypokalemia JEAN-CLAUDE (obstructive sleep apnea) Facet arthropathy, lumbar Degenerative lumbar disc Nocturia Left-sided low back pain with left-sided sciatica Erectile dysfunction Decreased libido Type 2 diabetes mellitus, without long-term current use of insulin Essential hypertension Hyperlipidemia Surgical History History of hip surgery History of ankle surgery Family History Other CAD (coronary artery disease) Cancer Diabetes Social History Smoking and tobacco/nicotine status: current every day tobacco/nicotine user cigarettes Packs smoked per day: 0.75 Years cigarettes smoked: 40 Alcohol intake: former Substance/Drug Use: never Household members: spouse Physical Exam 2 Const: COMMON NORMALS: no acute distress, patient oriented x3 and healthy appearing HENMT: COMMON NORMALS: normocephalic and atraumatic HEAD & SCALP: n ormocephalic and atraumatic Eye: COMMON NORMALS: Equal, round and reactive pupils present and EOMs intact bilaterally PUPIL: Yes Equal, round and reactive pupils present Neck/C-Spine: COMMON NORMALS: full ROM and supple Chest: COMMONS NORMALS: normal inspection of the chest Resp: COMMON NORMALS: normal respiratory effort, No retractions, No use of accessory muscles and clear to auscultation bilaterally AUSCULTATION: clear to auscultation bilaterally Cardio: COMMON NORMALS: regular rate, regular rhythm and No murmurs present (Cardio) RATE: regular rate RHYTHM: regular rhythm Extremity: COMMON NORMALS: normal to inspection and full ROM Neuro: COMMON NORMALS: patient oriented x3, moves all extremities and no focal motor deficits Psych: COMMON NORMALS: mental status grossly normal, Normal thought process present and cooperative THOUGHT PROCESS: Normal thought process present Skin: COMMON NORMALS: no rashes or lesions noted and no wounds GENERAL SKIN EXAM: no rashes or lesions noted Course 2 Vital Signs: Vital signs: Vital Signs Temperature 97.8 F 10/16/23 21:56 Pulse Rate 71 10/16/23 21:56 Respiratory Rate 18 10/16/23 21:56 Blood Pressure 115/75 10/16/23 21:56 Pulse Oximetry 99 10/16/23 21:56 MDM - Seizure MDM Narrative Medical decision making narrative: Patient presents here with seizure we will start him on Keppra as he had multiple seizures in the last few months patient's head CT and blood work here is normal we will get him follow-up with neurology he is return if worsening he understands agrees plan Lab Data 10/16/23 21:27 10/16/23 21:27 Labs: Radiology Impressions Head CT 10/16/23 21:59 IMPRESSION: No acute findings. Laboratory Results WBC 7.90 10^3/uL (3.29-11.43) 10/16/23 21:27 RBC 3.59 10^6/uL (3.85-5.65) L 10/16/23 21:27 Hgb 10.50 g/dL (11.27-16.99) L 10/16/23 21:27 Hct 30.3 % (37-53) L 10/16/23 21:27 MCV 84.4 fl (82-101) 10/16/23 21:27 MCH 29.2 pg (27-33) 10/16/23 21: MCHC 34.7 g/dL (30-55) 10/16/23: RDW 13.9 % (12.1-15.1) 10/16/23: Plt Count 419 10^3/cmm (157-399) H 10/16/23: MPV 7.9 fL (7.4-10.4) 10/16/23: Neut % (Auto) 64.6 % 10/16/23: Lymph % (Auto) 25.9 % 10/16/23: [place] % (Auto) 6.1 % 10/16/23: Eos % (Auto) 0.4 % 10/16/23: Baso % (Auto) 0.5 % 10/16/23: Neut # (Auto) 5.10 10^3/uL (1.8-7.7) 10/16/23: Lymph # (Auto) 2.1 10^3/uL (0.8-4.8) 10/16/23: [place] # (Auto) 0.5 10^3/uL (0.2-0.9) 10/16/23: Eos # (Auto) 0.0 10^3/uL (0.0-0.8) 10/16/23: Baso # (Auto) 0.0 10^3/uL (0.0-0.1) 10/16/23: Nucleated RBC % (auto) 0 % 10/16/23: Nucleated RBCs # 0.0 /100WBC 10/16/23: Sodium 129 mmol/L (136-145) L 10/16/23: Potassium 5.0 mmol/L (3.5-5.1) 10/16/23: Chloride 92 mmol/L (98-107) L 10/16/23: Carbon Dioxide 25 mmol/L (22-29) 10/16/23: Anion Gap 17.0 (5-19) 10/16/23: BUN 10 mg/dL (6-20) 10/16/23 21: Creatinine 0.7 mg/dL (0.7-1.2) 10/16/23 21: GFR Calculation 115.4 mL/min (90-130) 10/16/23 21: Glucose 240 mg/dL (65-115) H 10/16/23 21: Calculated Osmolality 275 mOsm/kg (285-295) L 10/16/23: Calcium 9.3 mg/dL (8.5-10.5) 10/16/23: Total Bilirubin 0.4 mg/dL (0.15-1.2) 10/16/23: AST 34 U/L (0-40) 10/16/23: ALT 134 U/L (0-41) H 10/16/23: Alkaline Phosphatase 185 U/L (40-130) H 10/16/23: Total Protein 6.9 g/dL (6.6-8.7) 10/16/23: Albumin 3.2 g/dL (3.5-5.2) L 10/16/23: Globulin 3.7 g/dL (1.3-4.6) 10/16/23: All radiology interpretation(s) finalized by discharge EKG Data EKG 1: Attestation: I personally reviewed and interpreted this EKG as follows: EKG interpretation date: 10/16/23 EKG interpretation time: 22:09 Interpretation: nsr hr [address] or t wave abnormalities qrs 96 qtc 421 Discharge Plan Discharge Patient Disposition: Home Clinical Impression: Generalized seizure Condition: Stable Prescriptions: New Keppra 500 mg tablet 500 mg PO BID Qty: 60 0RF No Action (DME) hand rails for bathroom/home See Rx Instructions .Route .MEDSUPPLY Qty: 3 0RF Rx Instructions: As directed (DME) blood pressure kit See Rx Instructions .Route .MEDSUPPLY Qty: 1 0RF Rx Instructions: As directed (DME) glocose monitor See Rx Instructions .Route .MEDSUPPLY Qty: 1 0RF Rx Instructions: As directed (DME) Glucose monitor supplies See Rx Instructions .Route .MEDSUPPLY Qty: 100 5RF Rx Instructions: As directed amlodipine 10 mg tablet 10 mg PO DAILY Qty: 30 5RF aspirin 81 mg capsule 81 mg PO DAILY Qty: 180 3RF Invokana 300 mg tablet 300 mg PO DAILY Qty: 30 5RF Hold Instructions: see pcp metformin 1,000 mg tablet 1,000 mg PO BID Qty: 60 5RF tamsulosin 0.4 mg capsule 0.4 mg PO BEDTIME Qty: 30 5RF sulfamethoxazole-trimethoprim [Bactrim DS] 800-160 mg tablet 1 tab PO BID 10 Days Qty: 20 0RF mupirocin 2 % ointment 1 applic topical TID Qty: 22 0RF hydralazine 25 mg tablet 50 mg PO TID PRN (Reason: high blood pressure above 160 systolic) glipizide 5 mg tablet 5 mg PO DAILY Qty: 30 5RF famotidine 20 mg tablet 20 mg PO BID PRN (Reason: acid reflux) Qty: 60 0RF pantoprazole 40 mg tablet,delayed release (DR/EC) 40 mg PO DAILY fenofibrate nanocrystallized 145 mg tablet 145 mg PO DAILY atorvastatin 40 mg Tablet 80 mg PO DAILY Qty: 30 0RF magnesium oxide 400 mg magnesium tablet 400 mg PO DAILY Qty: 30 0RF furosemide 40 mg tablet 40 mg PO DAILY Qty: 40 0RF mirtazapine 7.5 mg tablet 7.5 mg PO DAILY Qty: 30 0RF Discharge Orders: Discharge ED (Routine); Ordered 10/16/23 Ordered By: Richard Mooney Referrals: Jonny Fiore MD [Physician] - 1-3 days Vernon Yeboah MD [Primary Care Provider] - Discharge Diet: Advance as tolerated Discharge Activity: Resume usual activity Patient Instructions: Seizures Coding Level of Care Code ED Industrial Truck Driver for Jony Burnett
[2023-10-16] MEDS: levETIRAcetam 1,500 MG/100 ML PREMIX 400 MG IV (22:15)
[2023-10-16 22:16] LABS: Basophils % 0.5 %; Eosinophils % 0.4 %; Hematocrit 30.3 % (37-53); Lymphocytes # 2.1 10^3/uL (0.8-4.8); Lymphocytes % 25.9 %; Mean Corpuscular HGB Conc 34.7 g/dL (30-55); Mean Corpuscular Hemoglobin 29.2 pg (27-33); Mean Corpuscular Volume 84.4 fl (82-101); Mean Platelet Volume 7.9 fL (7.4-10.4); Monocytes # 0.5 10^3/uL (0.2-0.9); Monocytes % 6.1 %; Neutrophils % 64.6 %; Nucleated Red Blood Cells % 0 %; Platelet Count 419 10^3/cmm (157-399); Red Blood Count 3.59 10^6/uL (3.85-5.65); Red Cell Distribution Width 13.9 % (12.1-15.1)
[2023-10-16 22:32] LABS: Alanine Aminotransferase 134 U/L (0-41); Albumin Level 3.2 g/dL (3.5-5.2); Alkaline Phosphatase 185 U/L (40-130); Aspartate Amino Transferase 34 U/L (0-40); Blood Urea Nitrogen 10 mg/dL (6-20); Calcium 9.3 mg/dL (8.5-10.5); Carbon Dioxide 25 mmol/L (22-29); Chloride 92 mmol/L (98-107); Creatinine Clr Calc Pharmacy 108.8132; Globulin 3.7 g/dL (1.3-4.6); Glomerular Filtration Rate 115.4 mL/min (90-130); Glucose 240 mg/dL (65-115); Osmolality Calculated 275 mOsm/kg (285-295); Sodium 129 mmol/L (136-145); Total Bilirubin 0.4 mg/dL (0.15-1.2); Total Protein 6.9 g/dL (6.6-8.7)
--- NOTE | 2023-10-18 09:03 | DCPLANNER ---
Message sent to Neurology for follow up on Seizures.
== END 2023-10-17 00:24 | disposition home or self-care (01) ==
PROVIDERS: Emergency Provider Emergency Medicine; PCP Family Medicine Adult Medicine
DX: G40.89 Other seizures (principal); Z79.82 Long term (current) use of aspirin; Z79.84 Long term (current) use of oral hypoglycemic drugs; E11.9 Type 2 diabetes mellitus without complications; I10 Essential (primary) hypertension; E78.5 Hyperlipidemia, unspecified; F17.210 Nicotine dependence, cigarettes, uncomplicated
CPT/HCPCS: 70450; 80053; 85025; 93005; 99284; J1953

== ENCOUNTER 2023-11-02 12:56 | Outpatient (CLI) | payer MEDICAID, SELFPAY ==
--- NOTE | 2023-11-02 13:00 | USCV_ITS ---
Roland Butts Age: 58 Gender: M : 1965 Exam Date: 11/02/2023 13:15 Ordering Phys: Danna Tavarez Technologist: LUNA Exam Location: [facility] [place] Indication: cca disease Risk Factors: Previous Vascular Surgery: Right Brachial BP: / Left Brachial BP: / Right Left Velocity (cm/s) Spectral Plaque Velocity (cm/s) Spectral Plaque Syst/Diast Broadening Syst/Diast Broadening 68.50/ 14.10 Prox CCA 111.10/ 25.60 69.70/ 16.70 Hetro Mid CCA 67.00 / 20.60 Hetro 49.80/ 10.10 Hetro Distal CCA 81.70 / 18.70 Hetro 57.60/ 18.00 Hetro Prox ICA 80.50 / 15.30 Hetro 78.20/ 29.20 Hetro Mid ICA 68.10 / 24.70 Hetro 94.50/ 29.20 Distal ICA 74.30 / 27.80 100.50 ECA 86.70 1.90 ICA/CCA 1.00 Antegrade Vertebral Antegrade 55.30/ 12.90 cm/s 55.30/ 15.40 cm/s Bi Subclavian Bi 90.70 105.6 0 CONCLUSIONS Right ICA stenosis <50%. Moderate calcified atheromatous plaque right carotid bulb/ICA. Left ICA stenosis <50%. Moderate calcified atheromatous plaque left carotid bulb/ICA. Normal antegrade Doppler flow noted in the right vertebral artery. Normal antegrade Doppler flow noted in the left vertebral artery. Intimal thickening in the common carotid arteries and internal carotid arteries bilaterally. Lucas Hunter MD (Electronically Signed) Final Date: 02 November 2023 16:03 S
== END 2023-11-02 12:57 | disposition home or self-care (01) ==
PROVIDERS: PCP Family Medicine Adult Medicine; Visit Provider Nurse Practitioner Family
DX: I10 Essential (primary) hypertension (principal); I63.81 Other cerebral infarction due to occlusion or stenosis of small artery; I77.89 Other specified disorders of arteries and arterioles
CPT/HCPCS: 93880

== ENCOUNTER 2023-11-29 15:57 | Inpatient (IN) | payer MEDICAID, SELFPAY ==
[2023-11-29] VITALS (33 sets, daily range): BP systolic 56–122; BP diastolic 32–90; PULSE 94–115; RESP 13–22; TEMP 37.2; O2SAT 90–100; BMI 22.5
[2023-11-29 16:15] LABS: Glucose Point of Care 318 mg/dL (70-110)
--- NOTE | 2023-11-29 16:25 | XRR_ITS ---
PROCEDURE INFORMATION: Exam: XR Chest Exam date and time: 11/29/2023 4:37 PM Age: 58 years old Clinical indication: Other: AMS TECHNIQUE: Imaging protocol: Radiologic exam of the chest. Views: 1 view. COMPARISON: CT chest abdpel [id number] 09/28/2023 3:12 AM FINDINGS: Lungs: No focal consolidation. Pleural spaces: No evidence of pneumothorax. No evidence of pleural effusion. Heart/Mediastinum: Cardiomediastinal silhouette is within normal limits. Bones/joints: No evidence of acute osseous abnormality. XR/XR chest 1V portable [id number] IMPRESSION: 1. No acute cardiopulmonary abnormality.
--- NOTE | 2023-11-29 16:25 | CTR_ITS ---
PROCEDURE INFORMATION: Exam: CT Head Without Contrast Exam date and time: 11/29/2023 5:23 PM Age: 58 years old Clinical indication: Altered mental status/memory loss; Patient HX: Patient unresponsive; Additional info: AMS TECHNIQUE: Imaging protocol: Computed tomography of the head without contrast. Radiation optimization: All CT scans at this facility use at least one of these dose optimization techniques: automated exposure control; mA and/or kV adjustment per patient size (includes targeted exams where dose is matched to clinical indication); or iterative reconstruction. COMPARISON: CT head wo con* [id number] 10/16/2023 10:30 PM RADIATION DOSE METRICS: Total DLP (mGy-cm): 1116.24 FINDINGS: Brain: Sequela of extensive chronic microvascular ischemic changes with periventricular and deep white matter hypoattenuation and multiple chronic basal ganglia lacunar infarcts. Salazar-white differentiation is otherwise maintained. No evidence of intra-axial or extra-axial hemorrhage. No mass effect or midline shift. Basilar cisterns are patent. Cerebral ventricles: No hydrocephalus. Paranasal sinuses: The visualized paranasal sinuses are well aerated. Mastoid air cells: The visualized mastoids and middle ears are clear. Bones: Calvarium is intact. No evidence of acute fracture. Soft tissues: No gross soft tissue abnormality. CT/CT head wo con* [id number] IMPRESSION: 1. No acute intracranial abnormality. 2. Extensive chronic microvascular ischemic changes. If there is clinical concern for acute ischemia beyond the window for neuro intervention, consider correlation with MRI.
--- NOTE | 2023-11-29 16:27 | W.ED.AMS ---
HPI - Altered Mental Status General: Chief Complaint: Altered Mental Status Stated Complaint: not responsive, blood sugar high, carrington referral Time Seen by Provider: 11/29/23 16:14 Source: family Mode of arrival: ambulatory Limitations: no limitations History of Present Illness: This patient was referred to the emergency department from primary care office. History is provided by his mother as well as his significant other. Over the last 2 to 3 days they have noted that he has had decreased interactiveness. He is also had some emesis and there concerned that maybe some of the emesis appeared to be coffee-ground in appearance. They are unaware of any trauma or falls. He has not had fevers that they are aware. He has a history of chronic cirrhosis and requires a walker for ambulation but he is unable to ambulate without some assistance including the walker and a bystander when he is in his normal state of health. 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 There is no known exposure to infectious disease. Family does report that he has had what they call mini strokes in the past but again he has not had a abrupt change in his condition just more of a slow progression over the last 2 to 3 days. He has had normal bowel movements without any melena or blood in his stools. He has had decreased urine output. He has not been exposed to any toxins such as alcohol or medications other than his usual prescribed medications. He has not been able to keep to swallow those today. MD complaint: altered mental status and decreased responsiveness Review of Systems Const: Denies: fever(s) or chills ENMT: Denies: nasal discharge or nasal congestion Card: Denies: syncope or pre-syncope Resp: Denies: productive cough or non-productive cough GI: Reports: vomiting and coffee ground emesis; Denies: diarrhea, hematochezia or melena : Reports: oliguria; Denies: flank pain, difficulty urinating or dysuria Skin/Breast: Denies: rash Neuro: Denies: seizure-like activity [facility] PFSH: Medical History Dehydration determined by examination Altered mental state Uncontrolled diabetes mellitus Posterior reversible encephalopathy syndrome BPH w urinary obs/LUTS Unsteady gait Hypokalemia JEAN-CLAUDE (obstructive sleep apnea) Facet arthropathy, lumbar Degenerative lumbar disc Nocturia Left-sided low back pain with left-sided sciatica Erectile dysfunction Decreased libido Type 2 diabetes mellitus, without long-term current use of insulin Essential hypertension Hyperlipidemia Surgical History History of hip surgery History of ankle surgery Family History Other CAD (coronary artery disease) Cancer Diabetes Social History Smoking and tobacco/nicotine status: current every day tobacco/nicotine user cigarettes Packs smoked per day: 0.75 Years cigarettes smoked: 40 Alcohol intake: former Substance/Drug Use: never Household members: spouse Physical Exam Narrative: Patient has eye opening but does not respond with any verbalization when questioned. Const: COMMON NORMALS: average body habitus and alert GENERAL APPEARANCE: well kempt HENMT: COMMON NORMALS: Normal nasal mucous membranes and turbinates present, moist oral mucous membranes and oropharynx normal NOSE: Normal nasal mucous membranes and turbinates present Eye: COMMON NORMALS: Equal, round and reactive pupils present, EOMs intact bilaterally and conjunctivae normal CONJUNCTIVA: Yes conjunctivae normal PUPIL: Yes Equal, round and reactive pupils present Neck/C-Spine: COMMON NORMALS: full ROM, no lymphadenopathy, no meningeal signs, no JVD and No carotid bruits Chest: COMMONS NORMALS: normal inspection of the chest Resp: COMMON NORMALS: normal respiratory effort, No retractions, No use of accessory muscles and clear to auscultation bilaterally AUSCULTATION: clear to auscultation bilaterally Cardio: COMMON NORMALS: no JVD, regular rate, regular rhythm and No murmurs present (Cardio) RATE: regular rate RHYTHM: regular rhythm GI: COMMON NORMALS: Normal to inspection, nondistended, normoactive bowel sounds present, Soft to palpation and non-tender PALPATION: Yes Soft to palpation : COMMON NORMALS: Yes no CVA tenderness BLADDER/KIDNEY EXAM: Yes no CVA tenderness Back/Pelvis: COMMON NORMALS: no CVA tenderness, thoracic and lumbar spine normal to inspection, no thoracic nor lumbar tenderness and thoraco-lumbar ROM normal Extremity: COMMON NORMALS: normal to inspection, capillary refill normal, no calf tenderness and no pedal edema Neuro: COMMON NORMALS: deep tendon reflexes 2+ bilaterally SENSORIUM/ORIENTATION: Yes alert MENINGEAL SIGNS: Yes no meningeal signs Psych: APPEARANCE: Yes well kempt Skin: COMMON NORMALS: no rashes or lesions noted and turgor normal GENERAL SKIN EXAM: no rashes or lesions noted and turgor normal Course Reevaluation(s): Reevaluation #1: Patient's initial serum lactate is noted. Subsequent creatinine and BUN are also noted consistent with ULICES. Patient's receiving fluid resuscitation and empiric antibiotics. Have not received a urinalysis but no clear etiology to potential infection at this point. Time: 18:10 Reevaluation #2: Patient is a bit more alert at this time after receiving some fluids. Time: 18:45 Consultations: Consultation #1: Discussed with Dr. Awan who tentatively will accept the patient pending CT scan results. Time: 19:47 Vital Signs: Vital signs: Vital Signs Temperature 99.0 F 11/29/23 16:03 Pulse Rate 96 11/29/23 18:45 Respiratory Rate 15 11/29/23 18:45 Blood Pressure 109/66 11/29/23 18:45 Pulse Oximetry 100 11/29/23 18:45 Oxygen Delivery Me thod Room Air 11/29/23 16:03 MDM - Altered Mental Status Medical Decision Making Family brought this patient to the emergency department today because of progressive decreased activity with confusion. Longstanding history of alcoholic related cirrhosis but no current alcohol use. GERD has been no history of falls, trauma or other contributing factors. Clinical evaluation revealed him to be alert but rather slow responder to questioning etc. Clinical examination revealed decreased skin turgor but no scleral icterus or other focal findings. Broad differential to include possible CVA, sepsis, ACS, toxic metabolic etiologies was entertained. Imaging was obtained as well as a broad spectrum of the laboratories. No evidence of in the hepatic encephalopathy, no evidence of CVA, no evidence of pneumonia. He had marked elevation in lactate with a evidence of ULICES as well. Urinalysis returned from a catheterized specimen likely etiology to his current presentation findings suggestive of pyelonephritis. He was given fluid resuscitation as well as empiric antibiotics. He did have some mental clinical improvement with increased mentation during his emergency department stay. No evidence of septic shock he was initially tachycardic and slightly hypotensive however after fluid resuscitation his blood pressure normalized to an acceptable range and his heart rate came down as well. He did not have hypoxia or other respiratory compromise. His qSOFA score was 1 and his detailed sofa score was 4. Additional imaging of his abdomen pelvis did not reveal any evidence of obstructive uropathy or other acute intra-abdominal process Lab Data I reviewed the patient's lab results. 11/29/23 16:14 11/29/23 16:14 Radiology Impressions Chest X-Ray 11/29/23 16:25 IMPRESSION: 1. No acute cardiopulmonary abnormality. Head CT 11/29/23 16:25 IMPRESSION: 1. No acute intracranial abnormality. 2. Extensive chronic microvascular ischemic changes. If there is clinical concern for acute ischemia beyond the window for neuro intervention, consider correlation with MRI. Abdomen/Pelvis CT 11/29/23 19:07 IMPRESSION: 1. No hydronephrosis or urolithiasis. 2. Possible cystitis. Consider correlation with urinalysis to exclude cystitis with a gas-forming organism. Laboratory Results WBC 16.99 10^3/uL (3.29-11.43) H 11/29/23 16:14 RBC 3.75 10^6/uL (3.85-5.65) L 11/29/23 16:14 Hgb 10.60 g/dL (11.27-16.99) L 11/29/23 16:14 Hct 33.3 % (37-53) L 11/29/23 16:14 MCV 88.8 fl (82-101) 11/29/23 16:14 MCH 28.3 pg (27-33) 11/29/23 16:14 MCHC 31.8 g/dL (30-55) 11/29/23 16:14 RDW 15.7 % (12.1-15.1) H 11/29/23 16:14 Plt Count 494 10^3/cmm (157-399) H 11/29/23 16:14 MPV 8.6 fL (7.4-10.4) 11/29/23 16:14 Neut % (Auto) 86.3 % 11/29/23 16:14 Lymph % (Auto) 8.7 % 11/29/23 16:14 [place] % (Auto) 3.4 % 11/29/23 16:14 Eos % (Auto) 0.1 % 11/29/23 16:14 Baso % (Auto) 0.2 % 11/29/23 16:14 Neut # (Auto) 14.68 10^3/uL (1.8-7.7) H 11/29/23 16:14 Lymph # (Auto) 1.5 10^3/uL (0.8-4.8) 11/29/23 16:14 [place] # (Auto) 0.6 10^3/uL (0.2-0.9) 11/29/23 16:14 Eos # (Auto) 0.0 10^3/uL (0.0-0.8) 11/29/23 16:14 Baso # (Auto) 0.0 10^3/uL (0.0-0.1) 11/29/23 16:14 Nucleated RBC % (auto) 0 % 11/29/23 16:14 Nucleated RBCs # 0.0 /100WBC 11/29/23 16:14 Specimen Type Arterial 11/29/23 16:35 Sample Site Radial, right 11/29/23 16:35 ABG pH 7.39 (7.35-7.45) 11/29/23 16:35 ABG pCO2 38.8 mmHg (35-45) 11/29/23 16:35 ABG pO2 73.7 mmHg (80.0-100.0) L 11/29/23 16:35 ABG PO2/FiO2 Ratio 350 11/29/23 16:35 ABG HCO3 23.2 mmol/L (22-26) 11/29/23 16:35 ABG Base Excess -1.6 mmol/L (-2.0-2.0) 11/29/23 16:35 Rojelio Test Pos 11/29/23 16:35 Hematocrit 32.2 % (42-52) L 11/29/23 16:35 O2 Delivery Device Room air 11/29/23 16:35 FiO2 21.0 % 11/29/23 16:35 International Logistics Coordinator ID [place] 11/29/23 16:35 Sodium 134 mmol/L (136-145) L 11/29/23 16:14 Potassium 4.3 mmol/L (3.5-5.1) 11/29/23 16:14 Chloride 83 mmol/L (98-107) L 11/29/23 16:14 Carbon Dioxide 24 mmol/L (22-29) 11/29/23 16:14 Anion Gap 31.3 (5-19) H 11/29/23 16:14 BUN 75 mg/dL (6-20) H 11/29/23 16:14 Creatinine 4.2 mg/dL (0.7-1.2) H 11/29/23 16:14 GFR Calculation 14.6 mL/min (90-130) L 11/29/23 16:14 Glucose 317 mg/dL (65-115) H 11/29/23 16:14 POC Glucose 210 mg/dL (70-110) H 11/29/23 20:12 Calculated Osmolality 312 mOsm/kg (285-295) H 11/29/23 16:14 Lactic Acid 9.4 mmol/L (0.5-2.2) H* 11/29/23 16:14 Calcium 9.6 mg/dL (8.5-10.5) 11/29/23 16:14 Magnesium 2.0 mg/dL (1.7-2.3) 11/29/23 16:14 Total Bilirubin 0.5 mg/dL (0.15-1.2) 11/29/23 16:14 AST 29 U/L (0-40) 11/29/23 16:14 ALT 20 U/L (0-41) 11/29/23 16:14 Alkaline Phosphatase 89 U/L (40-130) 11/29/23 16:14 Ammonia 20 umol/L (16-60) 11/29/23 16:14 Troponin T Baseline 72 ng/L (0-15) H 11/29/23 16:14 Troponin T 120 Minute 60.46 ng/L (0-15) H 11/29/23 18:16 Delta Troponin T -11.54 ABS# (0-10) L 11/29/23 18:16 Total Protein 8.0 g/dL (6.6-8.7) 11/29/23 16:14 Albumin 3.9 g/dL (3.5-5.2) 11/29/23 16:14 Globulin 4.1 g/dL (1.3-4.6) 11/29/23 16:14 TSH 1.58 uIU/mL (0.27-4.20) 11/29/23 16:14 Urine Color Yellow (Yellow) 11/29/23 18:17 Urine Appearance Cloudy (CLEAR) A 11/29/23 18:17 Urine pH 5 (5-7) 11/29/23 18:17 Ur Specific [place] 1.020 (1.005-1.030) 11/29/23 18:17 Urine Protein 2+ (Negative) H 11/29/23 18:17 Urine Glucose (UA) Norm (Normal) 11/29/23 18:17 Urine Ketones Negative (Negative) 11/29/23 18:17 Urine Blood Neg (Negative) 11/29/23 18:17 Urine Nitrate Negative (Negative) 11/29/23 18:17 Urine Bilirubin 1+ (Negative) H 11/29/23 18:17 Urine Urobilinogen Norm mg/dL (Negative) 11/29/23 18:17 Ur Leukocyte Esterase 2+ (Negative) H 11/29/23 18:17 Urine RBC 15-25 /hpf (0-2) H 11/29/23 18:17 Urine WBC >100 /hpf (0-5) 11/29/23 18:17 Ur Squamous Epith Cells 0-4 /hpf (0-5) H 11/29/23 18:17 Amorphous Sediment Trace /hpf 11/29/23 18:17 Urine Bacteria 1+ /hpf (NONE) H 11/29/23 18:17 Hyaline Casts 5-10 /lpf H 11/29/23 18:17 Urine Mucus 2+ /hpf 11/29/23 18:17 Serum Ketones Negative (Negative) 11/29/23 16:14 Blood Type O Negative 11/29/23 17:19 Rho(D) Type Rh negative 11/29/23 17:19 Antibody Screen Negative 11/29/23 17:19 All radiology interpretation(s) finalized by discharge EKG Data EKG 1: I personally reviewed and interpreted this EKG as follows: Interpretation: Initial EKG reveals a ventricular rate of 110 bpm. TX interval is shortened at 100 ms. Normal QRS duration. Normal corrected QT interval. Normal axis. Has voltage criteria for left ventricular hypertrophy. As nonspecific ST-T wave changes noted across the precordium. EKG 2: I personally reviewed and interpreted this EKG as follows: Interpretation: Contemporaneous review of EKG reveals ventricular rate of 98 bpm. Normal TX interval, QRS duration, corrected QT interval. Normal axis. As ST depressions noted across the anterior lateral leads. Essentially unchanged from prior tracing this date. Discharge Plan Discharge Patient Disposition: Admitted As Inpatient Clinical Impression: Acute encephalopathy, ULICES (acute kidney injury), Fluid volume depletion, Anemia, Acute pyelonephritis Condition: Stable Prescriptions: No Action (DME) hand rails for bathroom/home See Rx Instructions .Route .MEDSUPPLY Qty: 3 0RF Rx Instructions: As directed (DME) blood pressure kit See Rx Instructions .Route .MEDSUPPLY Qty: 1 0RF Rx Instructions: As directed (DME) glocose monitor See Rx Instructions .Route .MEDSUPPLY Qty: 1 0RF Rx Instructions: As directed (DME) Glucose monitor supplies See Rx Instructions .Route .MEDSUPPLY Qty: 100 5RF Rx Instructions: As directed amlodipine 10 mg tablet 10 mg PO DAILY Qty: 30 5RF aspirin 81 mg capsule 81 mg PO DAILY Qty: 180 3RF Invokana 300 mg tablet 300 mg PO DAILY Qty: 30 5RF Hold Instructions: see pcp metformin 1,000 mg tablet 1,000 mg PO BID Qty: 60 5RF tamsulosin 0.4 mg capsule 0.4 mg PO BEDTIME Qty: 30 5RF mupirocin 2 % ointment 1 applic topical TID Qty: 22 0RF glipizide 5 mg tablet 5 mg PO BID Qty: 60 5RF Januvia 50 mg tablet 50 mg PO BID Qty: 180 1RF mirtazapine 7.5 mg tablet 7.5 mg PO DAILY Qty: 30 0RF magnesium oxide 400 mg magnesium tablet 400 mg PO DAILY Qty: 100 3RF hydralazine 25 mg tablet 50 mg PO TID PRN (Reason: high blood pressure above 160 systolic) famotidine 20 mg tablet 20 mg PO BID PRN (Reason: acid reflux) Qty: 180 0RF furosemide 40 mg tablet 40 mg PO DAILY Qty: 90 0RF Keppra 500 mg tablet 500 mg PO BID Qty: 60 2RF celecoxib 200 mg capsule 200 mg PO BID PRN (Reason: pain) Qty: 60 1RF pantoprazole 40 mg tablet,delayed release (DR/EC) 40 mg PO DAILY fenofibrate nanocrystallized 145 mg tablet 145 mg PO DAILY atorvastatin 40 mg Tablet 80 mg PO DAILY Qty: 30 0RF Referrals: Vernon Carrington MD [Primary Care Provider] - Patient Instructions: Altered Mental Status (ED) Coding Level of Care Code ED [employer] 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
--- NOTE | 2023-11-29 16:34 | ECG_ITS ---
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 Measurements Intervals [place] Rate: 110 P: 37 [place]: 100 QRS: 47 QRSD: 106 T: 235 QT: 332 QTc: 450 Interpretive Statements SINUS TACHYCARDIA WITH SHORT [place] INTERVAL WITH OCCASIONAL VENTRICULAR PREMATURE COMPLEXES LEFT VENTRICULAR HYPERTROPHY AND ST-T CHANGE [VOLTAGE CRITERIA PLUS ST/T ABNORMALITY] Compared to ECG 10/16/2023 22:09:39 Short [place] interval now present Left ventricular hypertrophy now present ST (T wave) deviation now present Sinus rhythm no longer present Electronically Signed On 11-29-2023 17:10:36 CDT by Marco Antonio Oviedo M.D. [id number]
[2023-11-29] MEDS: lactated ringers 1,000 ML 999 ML IV ×2 (16:38→18:08)
[2023-11-29 16:47] LABS: ABG PCO2 38.8 mmHg (35-45); ABG PH Result 7.39 (7.35-7.45); Arterial Blood Gas Hematocrit 32.2 % (42-52); Base Excess ABG -1.6 mmol/L (-2.0-2.0); Blood Gas Allen Test Pos; Blood Gas Operator Identificat MONRO; Blood Gas Sample Site Radial, right; Blood Gas Sample Type Arterial; HCO3 ABG 23.2 mmol/L (22-26); Oxygen Device ROOM AIR; PO2 ABG 73.7 mmHg (80.0-100.0); PO2 FiO2 Ratio Arterial Blood 350
[2023-11-29 16:47] LABS: Basophils % 0.2 %; Eosinophils % 0.1 %; Hematocrit 33.3 % (37-53); Lymphocytes # 1.5 10^3/uL (0.8-4.8); Lymphocytes % 8.7 %; Mean Corpuscular HGB Conc 31.8 g/dL (30-55); Mean Corpuscular Hemoglobin 28.3 pg (27-33); Mean Corpuscular Volume 88.8 fl (82-101); Mean Platelet Volume 8.6 fL (7.4-10.4); Monocytes # 0.6 10^3/uL (0.2-0.9); Monocytes % 3.4 %; Neutrophils # 14.68 10^3/uL (1.8-7.7); Neutrophils % 86.3 %; Nucleated Red Blood Cells % 0 %; Platelet Count 494 10^3/cmm (157-399); Red Blood Count 3.75 10^6/uL (3.85-5.65); Red Cell Distribution Width 15.7 % (12.1-15.1); White Blood Count 16.99 10^3/uL (3.29-11.43)
[2023-11-29] MEDS: pantoprazole 40 mg SDV IVP (16:53)
[2023-11-29 17:08] LABS: Ammonia 20 umol/L (16-60)
[2023-11-29 17:11] LABS: Lactic Sepsis W/Reflex 9.4 mmol/L (0.5-2.2)
[2023-11-29 17:13] LABS: Troponin(5th) Baseline 72 ng/L (0-15)
[2023-11-29 17:23] LABS: Alanine Aminotransferase 20 U/L (0-41); Albumin Level 3.9 g/dL (3.5-5.2); Alkaline Phosphatase 89 U/L (40-130); Anion Gap 31.3 (5-19); Aspartate Amino Transferase 29 U/L (0-40); Blood Urea Nitrogen 75 mg/dL (6-20); Calcium 9.6 mg/dL (8.5-10.5); Carbon Dioxide 24 mmol/L (22-29); Chloride 83 mmol/L (98-107); Creatinine Clr Calc Pharmacy 15.9485; Globulin 4.1 g/dL (1.3-4.6); Glomerular Filtration Rate 14.6 mL/min (90-130); Glucose 317 mg/dL (65-115); Osmolality Calculated 312 mOsm/kg (285-295); Potassium 4.3 mmol/L (3.5-5.1); Sodium 134 mmol/L (136-145); Thyroid Stimulating Hormone 1.58 uIU/mL (0.27-4.20); Total Bilirubin 0.5 mg/dL (0.15-1.2)
[2023-11-29] MEDS: cefTRIAXone 2,000 mg SDV 2000 MG IVP (18:08)
[2023-11-29 18:30] LABS: Reflex Lactate Order REFLEX LACTIC ORDERD
[2023-11-29 18:49] LABS: Add Urine Microscopic? YES; Bilirubin Urine 1+ (Negative); Blood Urine Neg (Negative); Glucose Urine UA Norm (Normal); Ketones Urine Negative (Negative); Leukocyte Esterase Urine 2+ (Negative); Nitrate Urine Negative (Negative); Protein Urine 2+ (Negative); Urine Appearance Cloudy (CLEAR); Urine Color Yellow (Yellow); Urobilinogen Urine Norm (Negative); pH Urine 5 (5-7)
--- NOTE | 2023-11-29 18:49 | ECG_ITS ---
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 Measurements Intervals [place] Rate: 98 P: 72 CT: 131 QRS: 46 QRSD: 109 T: 124 QT: 345 QTc: 441 Interpretive Statements SINUS RHYTHM MODERATE T-WAVE ABNORMALITY, CONSIDER ANTEROLATERAL ISCHEMIA [-0.1+ mV T-WAVE IN V3-V6] MODERATE T-WAVE ABNORMALITY, CONSIDER INFERIOR ISCHEMIA [-0.1+ mV T-WAVE IN II/aVF] Compared to ECG 11/29/2023 16:23:25 T-wave abnormality now present Possible ischemia now present Sinus tachycardia no longer present Short CT interval no longer present Left ventricular hypertrophy no longer present ST (T wave) deviation no longer present Electronically Signed On 11-29-2023 22:44:40 CDT by Marco Antonio Oviedo M.D. [id number]
[2023-11-29 18:57] LABS: Add Urine Culture? Yes; Amorphous Sediment Urine TRACE /hpf; Bacteria Urine 1+ /hpf; Mucus Urine 2+ /hpf; RBC Urine 15-25 /hpf (0-2); Squamous Epithelial Cell Urine 0-4 /hpf (0-5); WBC Urine >100 /hpf (0-5)
--- NOTE | 2023-11-29 19:07 | CTR_ITS ---
PROCEDURE INFORMATION: Exam: CT Abdomen And Pelvis Without Contrast Exam date and time: 11/29/2023 7:51 PM Age: 58 years old Clinical indication: Other: Pyelo; Additional info: Pyleo evaluate for obstructive uropathy TECHNIQUE: Imaging protocol: Computed tomography of the abdomen and pelvis without contrast. Radiation optimization: All CT scans at this facility use at least one of these dose optimization techniques: automated exposure control; mA and/or kV adjustment per patient size (includes targeted exams where dose is matched to clinical indication); or iterative reconstruction. COMPARISON: [place] [id number] 09/28/2023 3:12 AM RADIATION DOSE METRICS: Total DLP (mGy-cm): 548 FINDINGS: Lungs: Subsegmental bibasilar atelectasis. The visualized lung bases are otherwise clear. Diaphragm: No evidence of diaphragmatic defect. Liver: No evidence of focal hepatic lesion within limitation of a noncontrast exam. Gallbladder and biliary ducts: Gallbladder is unremarkable. No evidence of intra-hepatic or extra-hepatic biliary dilatation. Pancreas: Grossly unremarkable. Spleen: Grossly unremarkable. Adrenal glands: Grossly unremarkable. Kidneys and ureters: No gross renal parenchymal abnormality. No evidence of hydronephrosis or ureteral stone. Stomach and bowel: No evidence of bowel obstruction or perienteric inflammatory changes. Appendix: Normal appendix. Intraperitoneal space: No evidence of free air or fluid collection. Vasculature: Atherosclerosis without evidence of aneurysmal dilitation of abdominal aorta. Lymph nodes: No evidence of adenopathy. Urinary bladder: The bladder is decompressed by a Carcamo catheter in expected position. There is a small amount of air within the bladder, which may be secondary to the indwelling Carcamo catheter. Consider correlation with urinalysis to exclude cystitis with a gas-forming organism. Reproductive: Grossly unremarkable. Bones/joints: No evidence of acute fracture or aggresive osseous lesion. 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 Soft tissues: No evidence of fluid collection or hematoma in the superficial soft tissues. CT/CT abdomen pelvis wo con [id number] IMPRESSION: 1. No hydronephrosis or urolithiasis. 2. Possible cystitis. Consider correlation with urinalysis to exclude cystitis with a gas-forming organism.
[2023-11-29 19:12] LABS: Troponin 5 2HR 60.46 ng/L (0-15)
[2023-11-29 19:13] LABS: Troponin 5 2HR Delta -11.54 ABS# (0-10)
--- NOTE | 2023-11-29 19:27 | P.HP_ITS ---
Providers/Chief Complaint 2 Primary Care Provider: Vernon Yeboah MD Chief Complaint: not responsive, blood sugar high, charissa referral History of Present Illness Roland Butts is a 58 year old male PMhx of Chf ef 40% , ckdz, HTN, DM-2, HLD, JEAN-CLAUDE on CPAP was recently diagnosed with thromboembolic stroke source unidentified, he is not anticoagulating agent, no acute history of A-fib, presenting with chief complaint of not doing well, generalized weakness, fatigue not been able to eat and confusion. Patient is not able to provide any history he is able to give answer such as he lives with his girlfriend and his back is hurting. He keeps staring at the ceiling. He is able to move his upper extremities but strength is extremely weak. I called his daughter to get more information. At baseline patient not very active, he has been using a walker but that has changed since his previous stroke, when he is feeling well he is able to eat regular diet without any aspiration or choking, daughter stating that he was diagnosed with alcohol-related liver damage in the past but she is not certain, there is no history of cancer in the past Patient has not eaten in last few days and he is getting extreme lethargic and fatigued In the ER patient is septic with tachypnea tachycardia leukocytosis high lactic acid endorgan damage CT abdomen pelvis is pending CT head unremarkable Septic bolus administered, blood and urine cultures taken I requested CPK There is more than 100 WBC on urine analysis, urine was cloudy, Carcamo catheter placed Patient was hypotensive, extremely dehydrated, Review of the records revealed that he was following up with cardiology, he has EF of 40%, he is also diabetic takes metformin and glipizide GFR has worsened, previous cardiac cath was showing nonobstructive coronary disease Review of Systems 2 General: Reports: ROS unobtainable due to mental status Medications/Allergies Home Medications Medication Instructions Recorded Confirmed Last Taken Type Glucose monitor supplies #100 ea 09/22/23 11/29/23 Unknown Rx amlodipine 10 mg tablet 10 mg PO DAILY blood pressure #30 09/22/23 11/29/23 Unknown Rx tabs aspirin 81 mg capsule 81 mg PO DAILY #180 caps 09/22/23 11/29/23 Unknown Rx blood pressure kit #1 ea 09/22/23 11/29/23 Unknown Rx canagliflozin 300 mg tablet 300 mg PO DAILY blood pressure #30 09/22/23 11/29/23 Unknown Rx (Invokana) tabs glocose monitor #1 ea 09/22/23 11/29/23 Unknown Rx hand rails for bathroom/home #3 ea 09/22/23 11/29/23 Unknown Rx metformin 1,000 mg tablet 1,000 mg PO BID diabetes #60 tabs 09/22/23 11/29/23 Unknown Rx tamsulosin 0.4 mg capsule 0.4 mg PO BEDTIME #30 caps 09/22/23 11/29/23 Unknown Rx fenofibrate nanocrystallized 145 145 mg PO DAILY 09/28/23 11/29/23 Unknown History mg tablet pantoprazole 40 mg tablet,delayed 40 mg PO DAILY 09/28/23 11/29/23 Unknown History release atorvastatin 40 mg tablet 80 mg (2 x 40 mg) PO DAILY #30 tabs 09/30/23 11/29/23 Unknown Rx mupirocin 2 % topical ointment 1 applic topical TID #22 grams 10/07/23 11/29/23 Unknown Rx hydralazine 25 mg tablet 50 mg PO TID PRN high blood 10/11/23 11/29/23 Unknown History pressure above 160 systolic magnesium oxide 400 mg PO DAILY #100 tabs 10/25/23 11/29/23 Unknown Rx mirtazapine 7.5 mg tablet 7.5 mg PO DAILY #30 tabs 10/25/23 11/29/23 Unknown Rx famotidine 20 mg tablet 20 mg PO BID PRN acid reflux #180 11/02/23 11/29/23 Unknown Rx tabs furosemide 40 mg tablet 40 mg PO DAILY #90 tabs 11/02/23 11/29/23 Unknown Rx levetiracetam 500 mg tablet 500 mg PO BID #60 tabs 11/07/23 11/29/23 Unknown Rx (Keppra) glipizide 5 mg tablet 5 mg PO BID #60 tabs 11/08/23 11/29/23 Unknown Rx sitagliptin phosphate 50 mg tablet 50 mg PO BID diabetes #180 tabs 11/08/23 11/29/23 Unknown Rx (Januvia) celecoxib 200 mg capsule 200 mg PO BID PRN pain #60 caps 11/29/23 11/29/23 Unknown Rx Allergies Allergy/AdvReac Type Severity Reaction Status Date / Time No Known Allergies Allergy Verified 11/29/23 16:05 PFSH Acute 2 PFSH: Medical History Dehydration determined by examination Altered mental state Uncontrolled diabetes mellitus Posterior reversible encephalopathy syndrome BPH w urinary obs/LUTS Unsteady gait Hypokalemia JEAN-CLAUDE (obstructive sleep apnea) Facet arthropathy, lumbar Degenerative lumbar disc Nocturia Left-sided low back pain with left-sided sciatica Erectile dysfunction Decreased libido Type 2 diabetes mellitus, without long-term current use of insulin Essential hypertension Hyperlipidemia Surgical History History of hip surgery History of ankle surgery Family History Other CAD (coronary artery disease) Cancer Diabetes Social History Smoking and tobacco/nicotine status: current every day tobacco/nicotine user cigarettes Packs smoked per day: 0.75 Years cigarettes smoked: 40 Alcohol intake: former Substance/Drug Use: never Household members: spouse Vitals/I&O/Wt Last Vital Signs Temp 99.0 F 11/29/23 16:03 Pulse 96 11/29/23 18:45 Resp 15 11/29/23 18:45 BP 109/66 11/29/23 18:45 Pulse Ox 100 11/29/23 18:45 O2 Del Method Room Air 11/29/23 16:03 11/29/23 11/29/23 11/29/23 06:59 14:59 22:59 Intake Total 1000 / 1000 Balance 1000 / 1000 Weight last 48 hrs Weight 63.503 kg Physical Exam 2 Narrative: Extremely dehydrated Constantly stating that this evening Able to answer only simple questions Able to move extremities, strength is lower and upper extremities, weak handgrip bilaterally Nondistended abdomen Nontender Carcamo catheter in place S1, S2 tachycardia Currently on room air Skin tattoos noted on the legs Poor dentition Urinary Catheter Management: Carcamo: Cath Placed During This Visit: yes Urinary Catheter Date of Insertion: 11/29/23 Urinary Catheter Time of Insertion: 18:16 Data 11/29/23 16:14 11/29/23 16:14 A&P Assessment and plan (1) Non-compliance: (2) Essential hypertension: (3) Nonischemic congestive cardiomyopathy: (4) Type 2 diabetes mellitus, without long-term current use of insulin: Qualifiers: Diabetes mellitus complication status: with circulatory complication D iabetes mellitus complication detail: with other circulatory complications Qualified Code(s): E11.59 - Type 2 diabetes mellitus with other circulatory complications (5) Uncontrolled diabetes mellitus: Qualifiers: Diabetes mellitus type: type 2 Glycemic state: with hyperglycemia Qualified Code(s): E11.65 - Type 2 diabetes mellitus with hyperglycemia (6) GERD (gastroesophageal reflux disease): Qualifiers: Esophagitis presence: esophagitis presence not specified Qualified Code(s): K21.9 - Gastro-esophageal reflux disease without esophagitis (7) Dehydration determined by examination: (8) Fluid volume depletion: (9) BPH w urinary obs/LUTS: (10) ULICES (acute kidney injury): (11) Acute encephalopathy: (12) Altered mental state: Qualifiers: Altered mental status type: somnolence Qualified Code(s): R40.0 - Somnolence (13) 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 coli, sensitive to cephalosporin Blood and urine cultures taken Septic bolus administered 30 mill per kilo Lactic acid will be repeated Blood and urine culture taken Continue ceftriaxone and IV fluids Admit to ICU qSOFA score: 3 Hypotension related to sepsis: Improved with IV fluids Not in shock at this point Continue IV fluid Hold antihypertensive regimen Nonischemic cardiomyopathy EF 40% Septic encephalopathy Neurochecks Patient has history of embolic stroke, cerebellar stroke as well Unsteady gait, postural instability likely from previous stroke CT head unremarkable Monitor for any sign of malignant arrhythmia, Patient not on any antiplatelet agent If encephalopathy does not improve he may need another MRI Acute on chronic kidney disease Patient should not be taking glipizide and metformin GFR has worsened Creatinine 4.2 No sign of hydronephrosis Carcamo catheter placed in the ER Avoid nephrotoxic agents Hyperglycemia, rule out DKA, requested ketones, patient has high lactic acidemia induced high anion gap, pH is normal, Bicarb 24, not extremely acidotic at this point Concern for refeeding syndrome patient has not eaten well in last few days Check magnesium and phosphorus along other electrolytes Monitor for arrhythmias Coffee-ground emesis Noticed by the family at home Hemoglobin around 10 which seems to be around baseline, Protonix DVT prophylaxis: Heparin Family is stating that in case he is not able to eat they are willing to discuss feeding tube placement I will request speech therapy, I will keep patient on pur?ed diet for now Full code Daughter is stating that there is possibility of alcohol induced liver cirrhosis, I will check ammonia level Attestations 2 Medical Necessity Statement*: More than 2 midnights anticipated for multiorgan failure sepsis UTI Diagnoses Non-compliance Z91.199 Essential hypertension I10 Nonischemic congestive cardiomyopathy I42.0 Type 2 diabetes mellitus with other circulatory complication, without long-term current use of insulin E11.59 Diabetes mellitus complication status: with circulatory complication Diabetes mellitus complication detail: with other circulatory complications Uncontrolled type 2 diabetes mellitus with hyperglycemia E11.65 Diabetes mellitus type: type 2 Glycemic state: with hyperglycemia Gastroesophageal reflux disease, unspecified whether esophagitis present K21.9 Esophagitis presence: esophagitis presence not specified Dehydration determined by examination E86.0 Fluid volume depletion E86.9 BPH w urinary obs/LUTS N40.1; N13.8 ULICES (acute kidney injury) N17.9 Acute encephalopathy G93.40 Somnolence R40.0 Altered mental status type: somnolence 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
[2023-11-29 20:05] LABS: Ketone (Acetest) Serum Negative (Negative)
[2023-11-29] MEDS: sodium chloride 0.9% 1,000 ML 75 ML IV (20:13)
[2023-11-29 20:14] LABS: Glucose Point of Care 210 mg/dL (70-110)
[2023-11-29] MEDS: heparin 5,000 unit/mL INJ 1 mL 5000 UNIT SUBCUT (20:17)
[2023-11-29 20:33] LABS: Lactic Acid level (Lactate) 9.2 mmol/L (0.5-2.2)
[2023-11-29] MEDS: insulin lispro 100 unit/1 mL SUBCUT (20:41)
[2023-11-29 21:06] LABS: Vitamin B12 895 pg/mL (232-1245)
[2023-11-29] MEDS: norepinephrine 4 MG/250 ML BAG 7.5 MG IV (22:20)
--- NOTE | 2023-11-29 22:34 | ECG_ITS ---
[facility] Test Date: 2023-11-30 Pat Name: Roland Butts Department: Room: ICU09 Gender: Male Core Analyst: : 1965 Requested By: Simone Raygoza Order Number: [id number] Abdelrahman MD: Rachel Dong M.D. Measurements Intervals [place] Rate: 104 P: 71 TX: 131 QRS: 49 QRSD: 97 T: 141 QT: 332 QTc: 438 Interpretive Statements SINUS TACHYCARDIA MODERATE T-WAVE ABNORMALITY, CONSIDER LATERAL ISCHEMIA [-0.1+ mV T-WAVE IN I/aVL/V5/V6] Compared to ECG 11/29/2023 18:49:44 Sinus rhythm no longer present T-wave abnormality still present Possible ischemia still present Electronically Signed On 11-30-2023 23:28:06 CDT by Rachel Dong M.D. [id number]
[2023-11-29 22:37] LABS: Troponin 5 6HR 57.24 ng/L (0-15)
[2023-11-29 22:39] LABS: Troponin 5 6HR Delta -14.76 ng/L (0-12)
[2023-11-29 22:42] LABS: Estmated Average Glucose 160; Hemoglobin A1C 7.2 % (4.0-6.0); Lactic Sepsis W/Reflex 4.6 mmol/L (0.5-2.2)
[2023-11-29 23:15] LABS: Glucose Point of Care 90 mg/dL (70-110)
[2023-11-30] VITALS (99 sets, daily range): BP systolic 75–128; BP diastolic 47–82; PULSE 91–112; RESP 13–31; TEMP 36.6–36.9; O2SAT 69–100; BMI 22.5
[2023-11-30 00:03] LABS: Reflex Lactate Order REFLEX LACTIC ORDERD
[2023-11-30 04:09] LABS: Basophils % 0.3 %; Eosinophils % 0.4 %; Hematocrit 29.7 % (37-53); Lymphocytes # 2.7 10^3/uL (0.8-4.8); Lymphocytes % 24.9 %; Mean Corpuscular HGB Conc 32.3 g/dL (30-55); Mean Corpuscular Hemoglobin 28.5 pg (27-33); Mean Corpuscular Volume 88.1 fl (82-101); Mean Platelet Volume 8.3 fL (7.4-10.4); Monocytes # 0.6 10^3/uL (0.2-0.9); Monocytes % 5.3 %; Neutrophils # 7.48 10^3/uL (1.8-7.7); Neutrophils % 68.4 %; Nucleated Red Blood Cells % 0 %; Platelet Count 408 10^3/cmm (157-399); Red Blood Count 3.37 10^6/uL (3.85-5.65); Red Cell Distribution Width 15.5 % (12.1-15.1); White Blood Count 10.93 10^3/uL (3.29-11.43)
[2023-11-30 04:28] LABS: Alanine Aminotransferase 16 U/L (0-41); Alkaline Phosphatase 78 U/L (40-130); Anion Gap 17.4 (5-19); Aspartate Amino Transferase 28 U/L (0-40); Blood Urea Nitrogen 75 mg/dL (6-20); Calcium 8.8 mg/dL (8.5-10.5); Carbon Dioxide 30 mmol/L (22-29); Chloride 92 mmol/L (98-107); Creatinine Clr Calc Pharmacy 18.9431; Globulin 4.3 g/dL (1.3-4.6); Glomerular Filtration Rate 18.6 mL/min (90-130); Glucose 75 mg/dL (65-115); Magnesium 1.7 mg/dL (1.7-2.3); Osmolality Calculated 303 mOsm/kg (285-295); Phosphorus 4.6 mg/dL (2.5-4.5); Potassium 3.4 mmol/L (3.5-5.1); Sodium 136 mmol/L (136-145); Total Bilirubin 0.3 mg/dL (0.15-1.2); Total Protein 7.3 g/dL (6.6-8.7)
[2023-11-30 04:37] LABS: Lactic Acid level (Lactate) 1.5 mmol/L (0.5-2.2)
[2023-11-30 04:55] LABS: Creatine Phosphokinase 643 U/L (39-308)
[2023-11-30] MEDS: sodium chloride 0.9% 1,000 ML 75 ML IV ×2 (05:11→19:40)
[2023-11-30 07:28] LABS: Glucose Point of Care 73 mg/dL (70-110)
[2023-11-30] MEDS: heparin 5,000 unit/mL INJ 1 mL 5000 UNIT SUBCUT ×2 (07:29→19:43)
--- NOTE | 2023-11-30 08:52 | PC.PHAR ---
LIFE PARTNER DID NOT WANT TO GO OVER MED LIST THIS MORNING, HAD SLEEPLESS NIGHT. PROMISED TO CALL BACK AND GO OVER MEDS WHEN SHE GETS SOME SLEEP.
[2023-11-30 09:26] LABS: Glucose Point of Care 93 mg/dL (70-110)
[2023-11-30] MEDS: cefTRIAXone 1,000 MG in sodium chloride 0.9% (plus) 50 ML 100 MG IV (10:42)
[2023-11-30 12:20] LABS: Glucose Point of Care 100 mg/dL (70-110)
--- NOTE | 2023-11-30 15:50 | PM.PN ---
Subjective Subjective: Off Levophed this morning. Blood pressure soft, however MAP ranging around 65.. Patient continues to be very weak, however able to correctly tell me his name, date of , the fact that he is in [facility]. Following commands to hold hands move arms etc. Baseline right-sided weakness. Medications: Reviewed: Yes Vitals/I&O/Wt Last Vital Signs Temp 98.5 F 11/30/23 12:15 Pulse 103 H 11/30/23 14:15 Resp 22 H 11/30/23 14:15 BP 104/60 11/30/23 14:15 Pulse Ox 97 11/30/23 14:15 O2 Del Method Room Air 11/30/23 12:15 11/30/23 11/30/23 11/30/23 06:59 14:59 22:59 Intake Total 695.125 / 2696.375 155.375 / 155.375 Output Total 150 / 400 1700 / 1700 Balance 545.125 / 2296.375 -1544.625 / -1544.625 Weight last 48 hrs Weight 57.776 kg Weight 57.776 kg Weight 63.503 kg Physical Exam Narrative: General: Chronically ill-appearing male, malnourished HEENT: PERRLA, pupils bilaterally equal and reactive, pallors not present Chest: Normal vesicular breath sounds, no added sounds, equal good air entry bilaterally CVS: S1-S2 regular, no murmurs, no tachycardia, no gallops, no rubs Abdomen: Soft, nontender, no organomegaly, bowel sounds present Neuro: Right-sided weakness, bilateral chronic muscle wasting. Urinary Catheter Management: Carcamo: Cath Placed During This Visit: yes Reason for Continuing Indwelling Catheter: Accurate Measurement of Urinary Output in Critically Ill Patients Urinary Catheter Date of Insertion: 11/29/23 Urinary Catheter Time of Insertion: 18:16 Data 11/30/23 03:53 11/30/23 03:53 Micro: Microbiology 11/29/23 19:28 Blood Culture - Preliminary Blood SPECIMEN COLLECTED 11/29/23 19:22 Blood Culture - Preliminary Blood SPECIMEN COLLECTED A&P Assessment and plan (1) Non-compliance: (2) Essential hypertension: (3) Nonischemic congestive cardiomyopathy: (4) Type 2 diabetes mellitus, without long-term current use of insulin: Qualifiers: Diabetes mellitus complication status: with circulatory complication Diabetes mellitus complication detail: with other circulatory complications Qualified Code(s): E11.59 - Type 2 diabetes mellitus with other circulatory complications (5) Uncontrolled diabetes mellitus: Qualifiers: Diabetes mellitus type: type 2 Glycemic state: with hyperglycemia Qualified Code(s): E11.65 - Type 2 diabetes mellitus with hyperglycemia (6) GERD (gastroesophageal reflux disease): Qualifiers: Esophagitis presence: esophagitis presence not specified Qualified Code(s): K21.9 - Gastro-esophageal reflux disease without esophagitis (7) Dehydration determined by examination: (8) Fluid volume depletion: (9) BPH w urinary obs/LUTS: (10) ULICES (acute kidney injury): (11) Acute encephalopathy: (12) Altered mental state: Qualifiers: Altered mental status type: somnolence Qualified Code(s): R40.0 - Somnolence (13) 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 coli, sensitive to cephalosporin Blood and urine cultures taken Septic bolus administered 30 mill per kilo Lactic acid will be repeated Blood and urine culture taken Continue ceftriaxone and IV fluids Admit to ICU qSOFA score: 3 Hypotension related to sepsis: Improved with IV fluids Not in shock at this point Continue IV fluid Hold antihypertensive regimen Nonischemic cardiomyopathy EF 40% Septic encephalopathy Neurochecks Patient has history of embolic stroke, cerebellar stroke as well Unsteady gait, postural instability likely from previous stroke CT head unremarkable Monitor for any sign of malignant arrhythmia, Patient not on any antiplatelet agent If encephalopathy does not improve he may need another MRI Acute on chronic kidney disease Patient should not be taking glipizide and metformin GFR has worsened Creatinine 4.2 No sign of hydronephrosis Carcamo catheter placed in the ER Avoid nephrotoxic agents Hyperglycemia, rule out DKA, requested ketones, patient has high lactic acidemia induced high anion gap, pH is normal, Bicarb 24, not extremely acidotic at this point Concern for refeeding syndrome patient has not eaten well in last few days Check magnesium and phosphorus along other electrolytes Monitor for arrhythmias Coffee-ground emesis Noticed by the family at home Hemoglobin around 10 which seems to be around baseline, Protonix DVT prophylaxis: Heparin Family is stating that in case he is not able to eat they are willing to discuss feeding tube placement I will request speech therapy, I will keep patient on pur?ed diet for now Full code Daughter is stating that there is possibility of alcohol induced liver cirrhosis, I will check ammonia level Plan for today: November 30, 2023. Encephalopathy is improving today. This is most likely metabolic encephalopathy from sepsis. Continue IV ceftriaxone 1 g every 24 hours. Awaiting blood and urine cultures. Continue IV fluids at normal saline 75 cc an hour. Monitor for signs of fluid overload. Creatinine improving. 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 Will check fecal occult blood to evaluate for GI bleeding which may be contributing., Ammonia level normal. Attestations Medical Necessity Statement*: Continued admission for IV antibiotics, sepsis, malnutrition, encephalopathy appears to be improving. Coding Level of Care Code Acute Code for Chg Fwd High MDM includes number and complexity of problems actively addressed during encounter, amount and/or complexity of data reviewed/ordered and described risk of complication, morbidity or mortality of management as documented Diagnoses Non-compliance Z91.199 Essential hypertension I10 Nonischemic congestive cardiomyopathy I42.0 Type 2 diabetes mellitus with other circulatory complication, without long-term current use of insulin E11.59 Diabetes mellitus complication status: with circulatory complication Diabetes mellitus complication detail: with other circulatory complications Uncontrolled type 2 diabetes mellitus with hyperglycemia E11.65 Diabetes mellitus type: type 2 Glycemic state: with hyperglycemia Gastroesophageal reflux disease, unspecified whether esophagitis present K21.9 Esophagitis presence: esophagitis presence not specified Dehydration determined by examination E86.0 Fluid volume depletion E86.9 BPH w urinary obs/LUTS N40.1; N13.8 ULICES (acute kidney injury) N17.9 Acute encephalopathy G93.40 Somnolence R40.0 Altered mental status type: somnolence 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
--- NOTE | 2023-11-30 16:11 | XRR_ITS ---
PROCEDURE INFORMATION: Exam: XR Spine; Cervical Exam date and time: 11/30/2023 4:25 PM Age: 58 years old Clinical indication: Symptoms: Assess for fracture. Bust obtainable images due to limited rom. TECHNIQUE: Imaging protocol: XR of the spine. Exam focused on the cervical spine. Views: 1 view. COMPARISON: CT head wo con* [id number] 11/29/2023 5:23 PM FINDINGS: Limitations: 4 lateral views are submitted. No dedicated odontoid view or AP views. The C6 and C7 vertebral bodies are obscured. Bones/joints: The visualized vertebral bodies otherwise appear intact and in normal alignment. Mild degenerative endplate changes. Hypertrophic degenerative facets. Soft tissues: Small radiopaque foreign body in the lower lip. Other findings: Edentulous patient. XR/XR cervical [facility] 1[facility] [id number] IMPRESSION: 1. No fracture is visualized. The C6 and C7 vertebral bodies are obscured.
[2023-11-30] MEDS: pantoprazole 40 mg SDV IVP (17:39)
[2023-11-30] MEDS: levETIRAcetam 500 mg Tablet PO (17:42)
[2023-11-30] MEDS: insulin lispro 100 unit/1 mL SUBCUT ×2 (17:49→21:08)
[2023-11-30 17:50] LABS: Glucose Point of Care 144 mg/dL (70-110)
--- NOTE | 2023-11-30 18:44 | PC.NURSE ---
Shift Summary: uneventful shift. Rested in bed. Mental status has improved throghout the day, but still altered. Started off responsive to pain only, he will now answer person, place, an time questions. Still lethargic, delayed responses, mumbled speech. At 100% of dinner. Total urine output : 2575mL. Levophed turned off at 0800 and remained off all day.
[2023-11-30 21:05] LABS: Glucose Point of Care 164 mg/dL (70-110)
[2023-11-30] MEDS: tamsulosin 0.4 mg Capsule PO (21:08)
[2023-12-01] VITALS (98 sets, daily range): BP systolic 77–156; BP diastolic 55–98; PULSE 80–113; RESP 14–26; TEMP 36.3–36.9; O2SAT 91–100
[2023-12-01] MEDS: pantoprazole 40 mg SDV IVP ×2 (04:13→15:43)
[2023-12-01 04:42] LABS: Basophils % 0.2 %; Eosinophils % 0.3 %; Hematocrit 25.6 % (37-53); Lymphocytes # 1.4 10^3/uL (0.8-4.8); Lymphocytes % 24.2 %; Mean Corpuscular Volume 87.4 fl (82-101); Mean Platelet Volume 8.1 fL (7.4-10.4); Monocytes # 0.4 10^3/uL (0.2-0.9); Monocytes % 6.9 %; Neutrophils # 3.95 10^3/uL (1.8-7.7); Neutrophils % 67.7 %; Nucleated Red Blood Cells % 0 %; Platelet Count 303 10^3/cmm (157-399); Red Blood Count 2.93 10^6/uL (3.85-5.65); Red Cell Distribution Width 15.5 % (12.1-15.1); White Blood Count 5.83 10^3/uL (3.29-11.43)
[2023-12-01 05:07] LABS: Alanine Aminotransferase 14 U/L (0-41); Alkaline Phosphatase 71 U/L (40-130); Anion Gap 14.3 (5-19); Aspartate Amino Transferase 24 U/L (0-40); Blood Urea Nitrogen 39 mg/dL (6-20); Calcium 8.4 mg/dL (8.5-10.5); Carbon Dioxide 28 mmol/L (22-29); Chloride 100 mmol/L (98-107); Creatinine Clr Calc Pharmacy 53.9438; Globulin 3.7 g/dL (1.3-4.6); Glucose 119 mg/dL (65-115); Osmolality Calculated 299 mOsm/kg (285-295); Potassium 3.3 mmol/L (3.5-5.1); Sodium 139 mmol/L (136-145); Total Bilirubin 0.3 mg/dL (0.15-1.2); Total Protein 6.7 g/dL (6.6-8.7)
[2023-12-01 05:08] LABS: Creatine Phosphokinase 254 U/L (39-308)
[2023-12-01 05:22] LABS: HIV 1 & 2 Antibody Non-Reactive (Non-Reactiv); HIV 1 & 2 Antigen Non-Reactive (Non-Reactiv)
[2023-12-01 05:32] LABS: Hepatitis A Antibody IgM Non-Reactive (Nonreactive); Hepatitis B Core AB, Total Non-Reactive (Nonreactive); Hepatitis B Surface AB 597.8 (11.5-1000); Hepatitis B Surface Antigen Non-Reactive (Nonreactive); Hepatitis C Virus Antibody Non-Reactive (Nonreactive)
[2023-12-01 08:25] LABS: Glucose Point of Care 137 mg/dL (70-110)
[2023-12-01] MEDS: cefTRIAXone 1,000 MG in sodium chloride 0.9% (plus) 50 ML 100 MG IV (08:35)
[2023-12-01] MEDS: heparin 5,000 unit/mL INJ 1 mL 5000 UNIT SUBCUT (08:36)
[2023-12-01] MEDS: sennosides-docusate Tablet 1 TAB PO (08:36)
[2023-12-01] MEDS: levETIRAcetam 500 mg Tablet PO ×2 (08:36→17:28)
[2023-12-01] MEDS: sodium chloride 0.9% 1,000 ML 75 ML IV ×2 (08:37→22:52)
[2023-12-01 12:07] LABS: Glucose Point of Care 194 mg/dL (70-110)
[2023-12-01] MEDS: insulin lispro 100 unit/1 mL SUBCUT ×3 (12:25→21:19)
[2023-12-01] MEDS: midodrine 5 mg TABLET PO ×2 (15:42→21:19)
[2023-12-01] MEDS: vancomycin 1,000 MG in sodium chloride 0.9% 250 ML 250 MG IV (15:43)
--- NOTE | 2023-12-01 15:57 | P.PN_ITS ---
Subjective 2 Subjective: Urine culture today reported positive for coag positive Staphylococcus. Pending further identification. Added vancomycin. Blood pressure better but soft. Intermittently on Levophed through the night. Patient has not yet had a bowel movement therefore occult blood remains pending. Medications: Reviewed: Yes Vitals/I&O/Wt Last Vital Signs Temp 97.4 F L 12/01/23 04:00 Pulse 99 12/01/23 12:00 Resp 18 12/01/23 12:00 BP 136/85 12/01/23 12:00 Pulse Ox 95 12/01/23 12:00 O2 Del Method Room Air 12/01/23 08:48 12/01/23 12/01/23 12/01/23 06:59 14:59 22:59 Intake Total 50 / 5577.075 4248.25 / 1261.25 Output Total 800 / 3375 1000 / 1000 Balance -750 / -1688.375 261.25 / 261.25 Weight last 48 hrs Weight 58.5 kg Weight 57.776 kg Weight 57.776 kg Weight 63.503 kg Physical Exam 2 Narrative: General: Chronically ill-appearing male, malnourished HEENT: PERRLA, pupils bilaterally equal and reactive, pallors not present Chest: Normal vesicular breath sounds, no added sounds, equal good air entry bilaterally CVS: S1-S2 regular, no murmurs, no tachycardia, no gallops, no rubs Abdomen: Soft, nontender, no organomegaly, bowel sounds present Neuro: Right-sided weakness, bilateral chronic muscle wasting. Urinary Catheter Management: Carcamo: Cath Placed During This Visit: yes Reason for Continuing Indwelling Catheter: Accurate Measurement of Urinary Output in Critically Ill Patients Urinary Catheter Date of Insertion: 11/29/23 Urinary Catheter Time of Insertion: 18:16 Data 12/01/23 04:33 12/01/23 04:33 Micro: Microbiology 11/29/23 18:17 Urine Culture - Preliminary Urine,Clean Catch Coag positive Staphylococcus 11/29/23 19:28 Blood Culture - Preliminary Blood NEGATIVE TO DATE 11/29/23 19:22 Blood Culture - Preliminary Blood NEGATIVE TO DATE A&P Assessment and plan (1) Non-compliance: (2) Essential hypertension: (3) Nonischemic congestive cardiomyopathy: (4) Type 2 diabetes mellitus, without long-term current use of insulin: Qualifiers: Diabetes mellitus complication status: with circulatory complication D iabetes mellitus complication detail: with other circulatory complications Qualified Code(s): E11.59 - Type 2 diabetes mellitus with other circulatory complications (5) Uncontrolled diabetes mellitus: Qualifiers: Diabetes mellitus type: type 2 Glycemic state: with hyperglycemia Qualified Code(s): E11.65 - Type 2 diabetes mellitus with hyperglycemia (6) GERD (gastroesophageal reflux disease): Qualifiers: Esophagitis presence: esophagitis presence not specified Qualified Code(s): K21.9 - Gastro-esophageal reflux disease without esophagitis (7) Dehydration determined by examination: (8) Fluid volume depletion: (9) BPH w urinary obs/LUTS: (10) ULICES (acute kidney injury): (11) Acute encephalopathy: (12) Altered mental state: Qualifiers: Altered mental status type: somnolence Qualified Code(s): R40.0 - Somnolence (13) 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 coli, sensitive to cephalosporin Blood and urine cultures taken Septic bolus administered 30 mill per kilo Lactic acid will be repeated Blood and urine culture taken Continue ceftriaxone and IV fluids Admit to ICU qSOFA score: 3 Hypotension related to sepsis: Improved with IV fluids Not in shock at this point Continue IV fluid Hold antihypertensive regimen Nonischemic cardiomyopathy EF 40% Septic encephalopathy Neurochecks Patient has history of embolic stroke, cerebellar stroke as well Unsteady gait, postural instability likely from previous stroke CT head unremarkable Monitor for any sign of malignant arrhythmia, Patient not on any antiplatelet agent If encephalopathy does not improve he may need another MRI Acute on chronic kidney disease Patient should not be taking glipizide and metformin GFR has worsened Creatinine 4.2 No sign of hydronephrosis Carcamo catheter placed in the ER Avoid nephrotoxic agents Hyperglycemia, rule out DKA, requested ketones, patient has high lactic acidemia induced high anion gap, pH is normal, Bicarb 24, not extremely acidotic at this point Concern for refeeding syndrome patient has not eaten well in last few days Check magnesium and phosphorus along other electrolytes Monitor for arrhythmias Coffee-ground emesis Noticed by the family at home Hemoglobin around 10 which seems to be around baseline, Protonix DVT prophylaxis: Heparin Family is stating that in case he is not able to eat they are willing to discuss feeding tube placement I will request speech therapy, I will keep patient on pur?ed diet for now Full code Daughter is stating that there is possibility of alcohol induced liver cirrhosis, I will check ammonia level Plan for today: November 30, 2023. Encephalopathy is improving today. This is most likely metabolic encephalopathy from sepsis. Continue IV ceftriaxone 1 g every 24 hours. Awaiting blood and urine cultures. Continue IV fluids at normal saline 75 cc an hour. Monitor for signs of fluid overload. Creatinine improving. 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 Will check fecal occult blood to evaluate for GI bleeding which may be contributing., Ammonia level normal. Plan for today December 01, 2023. Patient is able to correctly state his name, have a conversation, however continues to be significantly weak. Intermittently needing Levophed through the night for soft blood pressure. Continuing IV ceftriaxone while pending final urine cultures. Thus far preliminary cultures are showing coag positive Staphylococcus from the urine. Added IV vancomycin given these results. Awaiting blood cultures, thus far negative to date. Will repeat with a.m. labs. Hold heparin as hemoglobin is drifting down. Today at 8.2. Patient has not yet had a bowel movement to obtain occult blood examination. Will perform a bedside test today. Patient/encephalopathy is likely metabolic from current sepsis. In the background of having had a presumed embolic stroke in August 2023. MRI reviewed from September 06, 2023 showing lacunar type infarcts involving multiple vascular distributions in the posterior and anterior circulation. Marked cerebral atrophy and cerebral cerebellar atrophy consistent with severe chronic small vessel ischemic disease and chronic lacunar infarcts. Disease process was noted to be much more advanced compared to patient's age. Echocardiogram from August had shown a thickened mitral valve and a thickened aortic valve without any intracardiac masses. Saline contrast injection did not show any [id number] shunt. Patient was noted to have underlying sinus rhythm, no A-fib was detected on that admission. Suspect that his overall deterioration is related to acute encephalopathy on top of his weakness from this past stroke. CT of the head on this admission has shown extensive chronic microvascular changes as known from before. Would not add anticoagulation at this time for presumed embolic stroke due to down drifting hemoglobin, need to exclude bleeding prior to any additional medications. Currently aspirin is also on hold. Patient was able to cooperate with a swallow eval today. Continuing dysphagia diet. Awaiting physical therapy evaluation. Attestations 2 Medical Necessity Statement*: Continued admission for IV antibiotics, pending cultures, downtrending hemoglobin needing further evaluation Coding Level of Care Code Acute Code for Chg Fwd High MDM includes number and complexity of problems actively addressed during encounter, amount and/or complexity of data reviewed/ordered and described risk of complication, morbidity or mortality of management as documented Diagnoses Non-compliance Z91.199 Essential hypertension I10 Nonischemic congestive cardiomyopathy I42.0 Type 2 diabetes mellitus with other circulatory complication, without long-term current use of insulin E11.59 Diabetes mellitus complication status: with circulatory complication Diabetes mellitus complication detail: with other circulatory complications Uncontrolled type 2 diabetes mellitus with hyperglycemia E11.65 Diabetes mellitus type: type 2 Glycemic state: with hyperglycemia Gastroesophageal reflux disease, unspecified whether esophagitis present K21.9 Esophagitis presence: esophagitis presence not specified Dehydration determined by examination E86.0 Fluid volume depletion E86.9 BPH w urinary obs/LUTS N40.1; N13.8 ULICES (acute kidney injury) N17.9 Acute encephalopathy G93.40 Somnolence R40.0 Altered mental status type: somnolence 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
[2023-12-01 18:37] LABS: Glucose Point of Care 158 mg/dL (70-110)
[2023-12-01 21:15] LABS: Glucose Point of Care 169 mg/dL (70-110)
[2023-12-01] MEDS: tamsulosin 0.4 mg Capsule PO (21:18)
[2023-12-02] VITALS (89 sets, daily range): BP systolic 69–182; BP diastolic 53–97; PULSE 76–104; RESP 16–20; TEMP 36.9–37.2; O2SAT 79–98; BMI 23.1
[2023-12-02] MEDS: pantoprazole 40 mg SDV IVP ×2 (03:15→17:41)
[2023-12-02 04:00] LABS: Basophils % 0.2 %; Eosinophils % 0.4 %; Hematocrit 27.8 % (37-53); Lymphocytes # 1.2 10^3/uL (0.8-4.8); Lymphocytes % 25.6 %; Mean Corpuscular Hemoglobin 28.2 pg (27-33); Mean Platelet Volume 8.1 fL (7.4-10.4); Monocytes # 0.3 10^3/uL (0.2-0.9); Monocytes % 6.2 %; Neutrophils # 3.01 10^3/uL (1.8-7.7); Neutrophils % 67.2 %; Nucleated Red Blood Cells % 0 %; Platelet Count 278 10^3/cmm (157-399); Red Blood Count 3.16 10^6/uL (3.85-5.65); White Blood Count 4.49 10^3/uL (3.29-11.43)
[2023-12-02 04:23] LABS: Alanine Aminotransferase 14 U/L (0-41); Alkaline Phosphatase 68 U/L (40-130); Aspartate Amino Transferase 19 U/L (0-40); Blood Urea Nitrogen 18 mg/dL (6-20); Calcium 8.8 mg/dL (8.5-10.5); Carbon Dioxide 27 mmol/L (22-29); Chloride 103 mmol/L (98-107); Globulin 3.7 g/dL (1.3-4.6); Glomerular Filtration Rate 115.4 mL/min (90-130); Glucose 84 mg/dL (65-115); Osmolality Calculated 287 mOsm/kg (285-295); Sodium 138 mmol/L (136-145); Total Bilirubin 0.3 mg/dL (0.15-1.2); Total Protein 6.7 g/dL (6.6-8.7)
[2023-12-02] MEDS: potassium chloride ER 20 mEq Tablet 40 MEQ PO (05:13)
[2023-12-02] MEDS: cefTRIAXone 1,000 MG in sodium chloride 0.9% (plus) 50 ML 100 MG IV (09:51)
[2023-12-02] MEDS: levETIRAcetam 500 mg Tablet PO ×2 (10:46→17:37)
[2023-12-02] MEDS: sennosides-docusate Tablet 1 TAB PO (10:46)
[2023-12-02] MEDS: midodrine 5 mg TABLET PO ×2 (10:46→17:37)
[2023-12-02 11:05] LABS: Glucose Point of Care 114 mg/dL (70-110)
[2023-12-02 11:05] LABS: Glucose Point of Care 100 mg/dL (70-110)
[2023-12-02] MEDS: ceFAZolin 2,000 mg SDV 2000 MG IVP ×2 (11:48→19:25)
[2023-12-02 11:50] LABS: Cortisol Random 13.92 ug/dL (2.47-19.5)
--- NOTE | 2023-12-02 12:23 | PC.NUTR ---
Addendum entered and electronically signed by Doc Shields 12/06/23 15:08: reported hospital wide shortage of Glucerna 1.5. substitute with Jevity 1.5. Original Note: Begin TF regimen following RD recs below once enteral access is obtained -continuous regimen: Glucerna 1.5 @15 ml/hr and advance 10ml q8 until goal of 45 ml/hr x24hrs is reached -FWF: 100 ml q4 -bolus regimen (when medically appropriate): 4.5,(237ml) cans daily (total: 1080 ml/day) See most recent RD assessment for details
--- NOTE | 2023-12-02 12:45 | PC.PT ---
12/02/23-PT evaluation attempted twice @9:27 and 12:35. Therapist was unable to wake pt. at either attempt for PT evaluation. Nurse also attempted to assist therapist in waking pt at 9:27, but was also unsuccessful. Pt. would open eyes and then immediately close them again. He was unable to answer questions when it appeared that he was waking.
--- NOTE | 2023-12-02 15:47 | P.PN_ITS ---
Subjective 2 Subjective: Hemoglobin at 8.9 today. Family is at bedside, had an extensive conversation with them. Patient is awake, able to answer basic questions, unable to hold a conversation due to weakness. Starting tube feeding diet today, discussed with family placement of NG tube. Medications: Reviewed: Yes Vitals/I&O/Wt Last Vital Signs Temp 98.6 F 12/02/23 09:30 Pulse 86 12/02/23 14:00 Resp 16 12/02/23 07:43 BP 119/65 12/02/23 12:00 Pulse Ox 96 12/02/23 12:00 O2 Del Method Room Air 12/02/23 09:30 12/02/23 12/02/23 12/02/23 06:59 14:59 22:59 Intake Total 982.5 / 982.5 Output Total 900 / 3325 Balance -900 / -573.75 982.5 / 982.5 Weight last 48 hrs Weight 59.222 kg Weight 58.5 kg Physical Exam 2 Narrative: General: Chronically ill-appearing male, malnourished HEENT: PERRLA, pupils bilaterally equal and reactive, pallors not present Chest: Normal vesicular breath sounds, no added sounds, equal good air entry bilaterally CVS: S1-S2 regular, no murmurs, no tachycardia, no gallops, no rubs Abdomen: Soft, nontender, no organomegaly, bowel sounds present Neuro: Right-sided weakness, bilateral chronic muscle wasting. Urinary Catheter Management: Carcamo: Cath Placed During This Visit: yes Reason for Continuing Indwelling Catheter: Accurate Measurement of Urinary Output in Critically Ill Patients Urinary Catheter Date of Insertion: 11/29/23 Urinary Catheter Time of Insertion: 18:16 Data 12/03/23 04:00 12/03/23 04:22 Micro: Microbiology 12/02/23 11:42 Blood Culture - Preliminary Blood SPECIMEN COLLECTED 12/02/23 11:38 Blood Culture - Preliminary Blood SPECIMEN COLLECTED 11/29/23 18:17 Urine Culture - Final Urine,Clean Catch Staphylococcus aureus NAME: Roland Butts LOC: ICU U #: [id number] AGE/SX: 58/M ROOM: [facility] R E11/29/[address]: Christie Carnes MD : 1965 BED: 1 D IS: FAX #: STATUS: ADM IN TLOC: Spec #: [id number] Nabil: 11/29/23 Status: COMP Req #: [id number] Recd: 11/29/[address]: Simone Raygoza DO Src: Urine CC SpDesc: Ordered: Procedure Result Verified Site Urine Culture Final 12/02/23 Organism 1 Staphylococcus aureus [place] Count >100,000 CFU/ml DAY 2 S aureus M.I.C. RX --------- ------ * Amoxicillin/Clavulanate <=4/2 S * Ampicillin >8 R * Ampicillin/Sulbactam <=8/4 S * Ceftriaxone <=8 S * Ciprofloxacin <=1 S * Gentamicin <=4 S * Levofloxacin <=1 S * Linezolid 4 S * Nitrofurantoin <=32 S * Oxacillin 0.5 S * Penicillin >8 R * Rifampin <=1 S * Tetracycline <=4 S * Trimethoprim/Sulfamethoxazole <=0.5/9.5 S Vancomycin 2 S Daptomycin <=0.5 S A&P Assessment and plan (1) Non-compliance: (2) Essential hypertension: (3) Nonischemic congestive cardiomyopathy: (4) Type 2 diabetes mellitus, without long-term current use of insulin: Qualifiers: Diabetes mellitus complication status: with circulatory complication D iabetes mellitus complication detail: with other circulatory complications Qualified Code(s): E11.59 - Type 2 diabetes mellitus with other circulatory complications (5) Uncontrolled diabetes mellitus: Qualifiers: Diabetes mellitus type: type 2 Glycemic state: with hyperglycemia Qualified Code(s): E11.65 - Type 2 diabetes mellitus with hyperglycemia (6) GERD (gastroesophageal reflux disease): Qualifiers: Esophagitis presence: esophagitis presence not specified Qualified Code(s): K21.9 - Gastro-esophageal reflux disease without esophagitis (7) Dehydration determined by examination: (8) Fluid volume depletion: (9) BPH w urinary obs/LUTS: (10) ULICES (acute kidney injury): (11) Acute encephalopathy: (12) Altered mental state: Qualifiers: Altered mental status type: somnolence Qualified Code(s): R40.0 - Somnolence (13) 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 coli, sensitive to cephalosporin Blood and urine cultures taken Septic bolus administered 30 mill per kilo Lactic acid will be repeated Blood and urine culture taken Continue ceftriaxone and IV fluids Admit to ICU qSOFA score: 3 Hypotension related to sepsis: Improved with IV fluids Not in shock at this point Continue IV fluid Hold antihypertensive regimen Nonischemic cardiomyopathy EF 40% Septic encephalopathy Neurochecks Patient has history of embolic stroke, cerebellar stroke as well Unsteady gait, postural instability likely from previous stroke CT head unremarkable Monitor for any sign of malignant arrhythmia, Patient not on any antiplatelet agent If encephalopathy does not improve he may need another MRI Acute on chronic kidney disease Patient should not be taking glipizide and metformin GFR has worsened Creatinine 4.2 No sign of hydronephrosis Carcamo catheter placed in the ER Avoid nephrotoxic agents Hyperglycemia, rule out DKA, requested ketones, patient has high lactic acidemia induced high anion gap, pH is normal, Bicarb 24, not extremely acidotic at this point Concern for refeeding syndrome patient has not eaten well in last few days Check magnesium and phosphorus along other electrolytes Monitor for arrhythmias Coffee-ground emesis Noticed by the family at home Hemoglobin around 10 which seems to be around baseline, Protonix DVT prophylaxis: Heparin Family is stating that in case he is not able to eat they are willing to discuss feeding tube placement I will request speech therapy, I will keep patient on pur?ed diet for now Full code Daughter is stating that there is possibility of alcohol induced liver cirrhosis, I will check ammonia level Plan for today: November 30, 2023. Encephalopathy is improving today. This is most likely metabolic encephalopathy from sepsis. Continue IV ceftriaxone 1 g every 24 hours. Awaiting blood and urine cultures. Continue IV fluids at normal saline 75 cc an hour. Monitor for signs of fluid overload. Creatinine improving. 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 Will check fecal occult blood to evaluate for GI bleeding which may be contributing., Ammonia level normal. Plan for today December 01, 2023. Patient is able to correctly state his name, have a conversation, however continues to be significantly weak. Intermittently needing Levophed through the night for soft blood pressure. Continuing IV ceftriaxone while pending final urine cultures. Thus far preliminary cultures are showing coag positive Staphylococcus from the urine. Added IV vancomycin given these results. Awaiting blood cultures, thus far negative to date. Will repeat with a.m. labs. Hold heparin as hemoglobin is drifting down. Today at 8.2. Patient has not yet had a bowel movement to obtain occult blood examination. Will perform a bedside test today. Patient/encephalopathy is likely metabolic from current sepsis. In the background of having had a presumed embolic stroke in August 2023. MRI reviewed from September 06, 2023 showing lacunar type infarcts involving multiple vascular distributions in the posterior and anterior circulation. Marked cerebral atrophy and cerebral cerebellar atrophy consistent with severe chronic small vessel ischemic disease and chronic lacunar infarcts. Disease process was noted to be much more advanced compared to patient's age. Echocardiogram from August had shown a thickened mitral valve and a thickened aortic valve without any intracardiac masses. Saline contrast injection did not show any [id number] shunt. Patient was noted to have underlying sinus rhythm, no A-fib was detected on that admission. Suspect that his overall deterioration is related to acute encephalopathy on top of his weakness from this past stroke. CT of the head on this admission has shown extensive chronic microvascular changes as known from before. Would not add anticoagulation at this time for presumed embolic stroke due to down drifting hemoglobin, need to exclude bleeding prior to any additional medications. Currently aspirin is also on hold. Patient was able to cooperate with a swallow eval today. Continuing dysphagia diet. Awaiting physical therapy evaluation. December 02, 2023. Patient is alert and awake, able to answer simple questions. However it is very difficult for him to have an extended conversation due to severe weakness. Content of his conversation is very limited. Bedside Hemoccult card test performed last evening was negative. Urine culture shows MSSA. Change antibiotics to cefazolin 2 g IV every 8 hours for organism directed therapy. Blood culture repeat ordered as Staph aureus would be an unusual organism to be obtained out of urine cultures alone. Previously ordered blood cultures are negative to date. Family at bedside today. Had an extensive discussion with patient's Sister Samara who is his DPOA and also with his girlfriend Jenna who takes care of him at home. Discussed extensively with them that patient suffered multi territory stroke in August 2023. Family reports that patient had been recommended discharge to acute rehab for best chance to recover from the acute stroke, however he had declined and elected to return home. After return to home patient continued to decline. At her baseline after the stroke he was able to walk with a walker, however at all times 2 family members followed close behind him as he was unsteady on his feet and likely to fall. He has not self-fed. Family has been trying to feed him however he does not eat solid food. He drinks water okay. Most of his diet includes putting and protein shakes. stroke was thought to be cardioembolic, however in spite of extensive investigation, no A-fib was detected on that admission, echocardiogram was without PFO or any obvious embolic source. Carotid artery ultrasound was without any significant obstruction. It appears there was plan for an event monitor but patient did not eventually have 1 at discharge. Family is curious to know if patient may have had another stroke. CT of his head performed at this admission is negative for any acute intracranial hemorrhage or mass effect. There is large amount of diffuse white matter disease likely to reflect chronic microvascular changes. There are bilateral basal ganglia and chronic lacunar infarcts. This was thought to be related to uncontrolled blood pressures in the past. Discussed with the family that we could do an MRI to assess for any new strokes, however given his falling hemoglobin (currently at 8.2, previously at 14 from September 2023), I would be hesitant to place him on anticoagulation should the MRI show new stroke. Currently his antiplatelets are also on hold due to falling hemoglobin. We are going to start tube feeding diet today. Since patient has been unable to eat over several months and has poor caloric intake with signs of malnutrition, we will plan on PEG placement to allow him to meet his caloric needs. At the time of his PEG, will discuss with surgery if we could also perform an upper GI endoscopy to assess for any upper GI bleeding that may be contributing to his low hemoglobin. Patient's blood pressure on this admission have been running on the lower side, likely this is related to weight loss that he has suffered since his stroke. Patient is currently severely malnourished, has had extensive loss of muscle mass. He is deconditioned. Currently on midodrine 5 mg twice daily. Possible that patient's encephalopathy is likely also contributed by current infection, however he has had no significant improvement in his mentation in spite of being on directed antibiotics, he is currently afebrile. Leukocytosis has resolved. Therefore suspect underlying neurological cause to be the more likely culprit for persisting poor mentation. DVT ppx on hold due to falling Hb. Attestations 2 Medical Necessity Statement*: Start tube feeding diet today. Intermittently hypotensive, montior closely in the ICU Critical Care Time: The high probability of a clinically significant, sudden or life threatening deterioration of the patient's [neuro, cardiovascular] system(s) required my full and direct attention, intervention and personal management. The critical care time is as shown. This time is in addition to time spent performing any reported procedures but includes the following: [x] Data and vital sign review and interpretation [x] Patient assessment, examination and intervention [x] Documentation [x] Medication orders and management Critical Care Time (min): 60 Coding Level of Care Code Acute Code for Chg Fwd High Time for a total of 60 minutes, includes reviewing past or interval history, examining/interviewing patient, placing orders, counseling patient/family/other support, updating patient/family/other support, discussing plan of care with staff, documenting encounter and coordinating care Diagnoses Non-compliance Z91.199 Essential hypertension I10 Nonischemic congestive cardiomyopathy I42.0 Type 2 diabetes mellitus with other circulatory complication, without long-term current use of insulin E11.59 Diabetes mellitus complication status: with circulatory complication Diabetes mellitus complication detail: with other circulatory complications Uncontrolled type 2 diabetes mellitus with hyperglycemia E11.65 Diabetes mellitus type: type 2 Glycemic state: with hyperglycemia Gastroesophageal reflux disease, unspecified whether esophagitis present K21.9 Esophagitis presence: esophagitis presence not specified Dehydration determined by examination E86.0 Fluid volume depletion E86.9 BPH w urinary obs/LUTS N40.1; N13.8 ULICES (acute kidney injury) N17.9 Acute encephalopathy G93.40 Somnolence R40.0 Altered mental status type: somnolence 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
--- NOTE | 2023-12-02 15:54 | XRR_ITS ---
PROCEDURE INFORMATION: Exam: XR Chest Exam date and time: 12/02/2023 4:10 PM Age: 58 years old Clinical indication: Device placement; Ng tube; Additional info: Ngt placement TECHNIQUE: Imaging protocol: Radiologic exam of the chest. Views: 1 view. COMPARISON: CR XR chest 1V portable [id number] 11/29/2023 4:37 PM FINDINGS: Tubes, catheters and devices: The tip of the feeding tube is in the stomach. Lungs: Unremarkable. No consolidation. Pleural spaces: Unremarkable. No pleural effusion. No pneumothorax. Heart/Mediastinum: Unremarkable. No cardiomegaly. Bones/joints: Unremarkable. XR/XR chest 1V portable [id number] IMPRESSION: Tip of the feeding tube in the stomach.
[2023-12-02] MEDS: insulin lispro 100 unit/1 mL SUBCUT (17:44)
[2023-12-02 17:45] LABS: Glucose Point of Care 176 mg/dL (70-110)
--- NOTE | 2023-12-02 20:30 | PC.NURSE ---
Tube Feed Glucerna not available. Dr. Padron contacted and order received to utilize Jevity until glucerna available.
--- NOTE | 2023-12-02 21:05 | PC.NURSE ---
Addendum entered by Sveta Harp RN 12/03/23 04:00: PO medications held due to having no route available for administration. Original Note: NG tube Upon entering patient room to initiate tube feed, NG tube noted to be lying on patient's bed. When asked if he pulled that catheter out of his nose, patient stated yes. NG tube placed back in, xray to confirm.
--- NOTE | 2023-12-02 21:28 | XRR_ITS ---
PROCEDURE INFORMATION: Exam: XR Chest Exam date and time: 12/02/2023 11:33 PM Age: 58 years old Clinical indication: Device placement; Ng tube; Patient HX: Check S/P ng placement; Additional info: Ng tube placement TECHNIQUE: Imaging protocol: Radiologic exam of the chest. Views: 1 view. COMPARISON: CR (CHEST, ) 12/02/2023 4:10 PM FINDINGS: Tubes, catheters and devices: Enteric tube tip below the diaphragm extending inferiorly off the [id number]. Lungs: Unremarkable. No consolidation. Pleural spaces: Unremarkable. No pleural effusion. No pneumothorax. Heart/Mediastinum: Unremarkable. No cardiomegaly. Bones/joints: Unremarkable. XR/XR chest 1V portable [id number] IMPRESSION: Enteric tube tip below the diaphragm extending inferiorly off the [id number].
[2023-12-02 21:36] LABS: Glucose Point of Care 130 mg/dL (70-110)
--- NOTE | 2023-12-02 22:40 | PC.NURSE ---
Neurological decline While in patient room, patient's head observed to be listing to the left. Patient unable to follow commands or speak, unresponsive to sternal rub. Additionally, patient's blood pressure decreased to 69/[address] Awan contacted and at bedside for evaluation. At that time, patient moving eyes but still not following commands. Order received for a stat head ct without contrast as well as a 1 L NS bolus.
[2023-12-02 23:05] LABS: Glucose Point of Care 144 mg/dL (70-110)
--- NOTE | 2023-12-02 23:05 | CTR_ITS ---
PROCEDURE INFORMATION: Exam: CT Head Without Contrast Exam date and time: 12/02/2023 11:25 PM Age: 58 years old Clinical indication: Altered mental status/memory loss; Patient HX: Sudden onset of unresponsiveness. No stimulus to sternal rub. ; Additional info: Neurological change TECHNIQUE: Imaging protocol: Computed tomography of the head without contrast. Radiation optimization: All CT scans at this facility use at least one of these dose optimization techniques: automated exposure control; mA and/or kV adjustment per patient size (includes targeted exams where dose is matched to clinical indication); or iterative reconstruction. COMPARISON: CT head wo con* [id number] 11/29/2023 5:23 PM RADIATION DOSE METRICS: Total DLP (mGy-cm): 1111.41 FINDINGS: Brain: Large amount of diffuse white matter disease likely reflecting chronic microvascular ischemic changes. Bilateral basal ganglia and thalamic chronic lacunar infarcts. Cerebral ventricles: No ventriculomegaly. Paranasal sinuses: Visualized sinuses are unremarkable. No fluid levels. Mastoid air cells: Visualized mastoid air cells are well aerated. Bones: Unremarkable. No acute fracture. Soft tissues: Unremarkable. CT/CT head wo con* [id number] IMPRESSION: 1. Negative for intracranial hemorrhage or mass effect. 2. Large amount of diffuse white matter disease likely reflecting chronic microvascular ischemic changes. 3. Bilateral basal ganglia and thalamic chronic lacunar infarcts.
[2023-12-03] VITALS (102 sets, daily range): BP systolic 69–180; BP diastolic 35–106; PULSE 70–144; RESP 14–28; TEMP 36.4–36.9; O2SAT 44–100; BMI 22.8
[2023-12-03 00:06] LABS: ABG PCO2 38.1 mmHg (35-45); ABG PH Result 7.44 (7.35-7.45); Alveolar-Arterial Oxygen Gradi 4.8 mmHg (5-10); Arterial Blood Gas Hematocrit 40.8 % (42-52); Base Excess ABG 1.5 mmol/L (-2.0-2.0); Blood Gas Allen Test Pos; Blood Gas Operator Identificat JB; Blood Gas Sample Site Radial, right; Blood Gas Sample Type Arterial; Carboxyhemoglobin 1.4 %THgb (0.4-20.1); HCO3 ABG 25.7 mmol/L (22-26); HGB O2 Sat 92.6 % (95-100); Ionized Calcium Level - ABG 1.3 mmol/L (1.1-1.4); Methemoglobin < 0.0 % (0.4-1.5); Oxygen Device NC; Oxygen Saturation ABG 93.7; PO2 ABG 65.8 mmHg (80.0-100.0); Potassium Level - ABG 3.2 mmol/L (3.5-5.0); Total Hemoglobin 13.3 g/dL (14-18)
--- NOTE | 2023-12-03 00:34 | XRR_ITS ---
PROCEDURE INFORMATION: Exam: XR Chest Exam date and time: 12/03/2023 12:56 AM Age: 58 years old Clinical indication: Device placement; Patient HX: Check S/P adjustment of ng tube. ; Additional info: Ng tube placement TECHNIQUE: Imaging protocol: Radiologic exam of the chest. Views: 1 view. COMPARISON: CR XR chest 1V portable [id number] 12/02/2023 11:33 PM FINDINGS: Tubes, catheters and devices: Enteric tube tip is over the body of the stomach (mid stomach). Lungs: Unremarkable. No consolidation. Pleural spaces: Unremarkable. No pleural effusion. No pneumothorax. Heart/Mediastinum: Unremarkable. No cardiomegaly. Bones/joints: Unremarkable. XR/XR chest 1V [id number] IMPRESSION: Enteric tube tip is over the body of the stomach (mid stomach).
--- NOTE | 2023-12-03 00:40 | PC.NURSE ---
Addendum entered by Sveta Harp RN 12/03/23 05:02: Dr. Awan also notified that patient now able to speak name and birthday and attempting to follow commands. Original Note: Blood Pressure/NG Advancement Following CT scan, patient's blood pressure remaining adequate with a MAP of 99-107. Furthermore, patient's xray for NG placement inconclusive. Dr. Awan contacted; orders received to not administer the 1 L bolus and to advance NG tube then obtain new xray.
--- NOTE | 2023-12-03 02:00 | PC.NURSE ---
Neurological change/Blood Pressure Patient's blood pressure decreasing with a MAP ranging from 53-60. Furthermore, patient once again found to be unable to speak or follow commands, and unresponsive to sternal rub. Dr. Awan notified; orders received for a 500 ml NS bolus and to start a maintenance fluid NS at 75 ml/hr.
[2023-12-03] MEDS: sodium chloride 0.9% 500 ML 999 ML IV (02:15)
[2023-12-03] MEDS: sodium chloride 0.9% 1,000 ML 75 ML IV (02:34)
[2023-12-03] MEDS: midodrine 5 mg TABLET PO ×2 (02:44→08:50)
[2023-12-03] MEDS: pantoprazole 40 mg SDV IVP ×2 (03:07→18:38)
[2023-12-03] MEDS: ceFAZolin 2,000 mg SDV 2000 MG IVP (03:07)
--- NOTE | 2023-12-03 03:24 | XRR_ITS ---
PROCEDURE INFORMATION: Exam: XR Chest Exam date and time: 12/03/2023 3:40 AM Age: 58 years old Clinical indication: Other: Hypoxia/coarse lung sounds; Patient HX: New onset of coarse lung sounds with hypoxia; Additional info: Adventitious lung sounds TECHNIQUE: Imaging protocol: Radiologic exam of the chest. Views: 1 view. COMPARISON: CR (CHEST, ) 12/03/2023 12:56 AM FINDINGS: Tubes, catheters and devices: Enteric tube tip is beyond the proximal portion of the stomach and is not seen because it is below the inferior margin of the film. Lungs: Unremarkable. No consolidation. Pleural spaces: Unremarkable. No pleural effusion. No pneumothorax. Heart/Mediastinum: Unremarkable. No cardiomegaly. Bones/joints: Mild right primary glenohumeral osteoarthritis. XR/XR chest 1V portable [id number] IMPRESSION: 1. Enteric tube tip is beyond the proximal portion of the stomach and is not seen because it is below the inferior margin of the film. 2. No acute findings.
--- NOTE | 2023-12-03 03:26 | PC.NURSE ---
Crackles Prominent crackles auscultated in all lung hanna anteriorly. Patient noted to have abdominal breathing and a decreased SPO2 at 89 % while on 2LNC. Dr. Awan notified; orders received for a chest xray and to stop maintenance fluids.
--- NOTE | 2023-12-03 03:45 | PC.NURSE ---
Oxygen demands Patient's oxygen saturation continuing to decrease, with the lowest being 79%. Respiratory therapist at bedside. Oxymask placed on patient and titrated to 10L. Oxygen saturation slowly increasing on oxymask.
[2023-12-03 04:52] LABS: Basophils % 0.1 %; Hematocrit 31.3 % (37-53); Lymphocytes # 1.3 10^3/uL (0.8-4.8); Lymphocytes % 15.8 %; Mean Corpuscular HGB Conc 31.6 g/dL (30-55); Mean Corpuscular Volume 88.7 fl (82-101); Mean Platelet Volume 8.5 fL (7.4-10.4); Monocytes # 0.3 10^3/uL (0.2-0.9); Monocytes % 4.1 %; Neutrophils # 6.22 10^3/uL (1.8-7.7); Neutrophils % 78.7 %; Nucleated Red Blood Cells % 0 %; Platelet Count 302 10^3/cmm (157-399); Red Blood Count 3.53 10^6/uL (3.85-5.65)
[2023-12-03 05:17] LABS: Alanine Aminotransferase 13 U/L (0-41); Albumin Level 3.3 g/dL (3.5-5.2); Alkaline Phosphatase 76 U/L (40-130); Anion Gap 15.7 (5-19); Aspartate Amino Transferase 19 U/L (0-40); Blood Urea Nitrogen 15 mg/dL (6-20); Carbon Dioxide 24 mmol/L (22-29); Chloride 102 mmol/L (98-107); Creatinine Clr Calc Pharmacy 92.9391; Globulin 4.3 g/dL (1.3-4.6); Glomerular Filtration Rate 115.4 mL/min (90-130); Glucose 178 mg/dL (65-115); Osmolality Calculated 291 mOsm/kg (285-295); Potassium 3.7 mmol/L (3.5-5.1); Sodium 138 mmol/L (136-145); Total Bilirubin 0.4 mg/dL (0.15-1.2); Total Protein 7.6 g/dL (6.6-8.7)
--- NOTE | 2023-12-03 05:29 | PC.NURSE ---
Bipap Patient still requiring 6-8L oxymask and maintaining an oxygen saturation of around 90% with very audible crackles still present. RT recommends bipap. Dr. Awan contacted and order received for bipap.
--- NOTE | 2023-12-03 07:35 | PC.NURSE ---
Life Partner, Jenna Butts, called and updated on patient status.
[2023-12-03] MEDS: insulin lispro 100 unit/1 mL SUBCUT ×3 (08:49→21:54)
[2023-12-03 08:50] LABS: Glucose Point of Care 181 mg/dL (70-110)
[2023-12-03] MEDS: levETIRAcetam 500 mg Tablet PO (08:50)
[2023-12-03] MEDS: sennosides-docusate Tablet 1 TAB PO (08:50)
[2023-12-03] MEDS: norepinephrine 4 MG/250 ML BAG 7.5 MG IV (11:42)
--- NOTE | 2023-12-03 11:43 | PC.NURSE ---
Addendum entered by Waldo Farrar RN 12/03/23 11:46: Patient started verbally communicating again at 1146. Original Note: At approximatly 1135, patient had what appeared to be an absent seizure. Staring straight forward, unresponsive to painful stimuli. He was talking just minutes before. Nurse rechecked blood pressure and he had become hypotensive. Nurse alerted Dr haines and received orders to start levophed. BLood pressure has improved after levophed started. Nurse will continue to monitor.
--- NOTE | 2023-12-03 11:44 | P.CONIM_ITS ---
Providers/Reason For Consult 2 Consulting Physician/Specialty*: Dr. Reyes Conde, DO/General surgery Reason for Consult*: Request PEG tube placement Attending Physician: Anna Awan MD Primary Care Provider: Vernon Yeboah MD History of Present Illness History of Present Illness Roland Butts is a 58 year old male PMhx of Chf ef 40% , ckdz, HTN, DM-2, HLD, JEAN-CLAUDE on CPAP was recently diagnosed with thromboembolic stroke source unidentified, he is not anticoagulating agent, no acute history of A-fib, presenting with chief complaint of not doing well, generalized weakness, fatigue not been able to eat and confusion. He is currently in the ICU and minimally responsive. HPI and review of systems are limited secondary to this. He is currently receiving tube feeds and nursing requested PEG tube placement for long-term tube feeding. Review of Systems 2 General: Reports: ROS unobtainable due to medical condition Medications/Allergies Home Medications Medication Instructions Recorded Confirmed Last Taken Type Glucose monitor supplies #100 ea 09/22/23 11/30/23 Unknown Rx amlodipine 10 mg tablet 10 mg PO DAILY blood pressure #30 09/22/23 11/30/23 Unknown Rx tabs blood pressure kit #1 ea 09/22/23 11/30/23 Unknown Rx canagliflozin 300 mg tablet 300 mg PO DAILY blood pressure #30 09/22/23 11/30/23 Unknown Rx (Invokana) tabs glocose monitor #1 ea 09/22/23 11/30/23 Unknown Rx hand rails for bathroom/home #3 ea 09/22/23 11/30/23 Unknown Rx metformin 1,000 mg tablet 1,000 mg PO BID diabetes #60 tabs 09/22/23 11/30/23 Unknown Rx tamsulosin 0.4 mg capsule 0.4 mg PO BEDTIME #30 caps 09/22/23 11/30/23 Unknown Rx fenofibrate nanocrystallized 145 145 mg PO DAILY 09/28/23 11/30/23 Unknown History mg tablet pantoprazole 40 mg tablet,delayed 40 mg PO DAILY 09/28/23 11/30/23 Unknown History release mupirocin 2 % topical ointment 1 applic topical TID #22 grams 10/07/23 11/30/23 Unknown Rx hydralazine 25 mg tablet 50 mg PO TID PRN high blood 10/11/23 11/30/23 Unknown History pressure above 160 systolic magnesium oxide 400 mg PO DAILY #100 tabs 10/25/23 11/30/23 Unknown Rx mirtazapine 7.5 mg tablet 7.5 mg PO DAILY #30 tabs 10/25/23 11/30/23 Unknown Rx famotidine 20 mg tablet 20 mg PO BID PRN acid reflux #180 11/02/23 11/30/23 Unknown Rx tabs furosemide 40 mg tablet 40 mg PO DAILY #90 tabs 11/02/23 11/30/23 Unknown Rx levetiracetam 500 mg tablet 500 mg PO BID #60 tabs 11/07/23 11/30/23 Unknown Rx (Keppra) glipizide 5 mg tablet 5 mg PO BID #60 tabs 11/08/23 11/30/23 Unknown Rx sitagliptin phosphate 50 mg tablet 50 mg PO BID diabetes #180 tabs 11/08/23 11/30/23 Unknown Rx (Januvia) celecoxib 200 mg capsule 200 mg PO BID PRN pain #60 caps 11/29/23 11/30/23 Unknown Rx aspirin 81 mg tablet,delayed 81 mg PO DAILY 11/30/23 11/30/23 Unknown History release atorvastatin 80 mg tablet 80 mg PO DAILY 11/30/23 11/30/23 Unknown History carvedilol 25 mg tablet 25 mg PO BID 11/30/23 11/30/23 Unknown History chlorthalidone 25 mg tablet 25 mg PO DAILY 11/30/23 11/30/23 Unknown History dulaglutide 1.5 mg/0.5 mL 0.5 mg SUBCUT Q7D 11/30/23 11/30/23 Unknown History subcutaneous pen injector (Trulicity) lisinopril 40 mg tablet 40 mg PO DAILY 11/30/23 11/30/23 Unknown History naproxen 500 mg tablet 500 mg PO Q12H PRN Pain 11/30/23 11/30/23 Unknown History Allergies Allergy/AdvReac Type Severity Reaction Status Date / Time No Known Allergies Allergy Verified 11/29/23 16:05 Current Medications Generic Name Dose Route Start Last Admin Trade Name Freq PRN Reason Stop Dose Admin Albuterol/Ipratropium 3 ml 11/29/23 19:47 12/05/23 07:34 Ipratropium-Albuterol 3 Ml Neb INHALATION 3 ml Q6H PRN Administration SHORTNESS OF BREATH Furosemide 20 mg 12/05/23 09:00 12/05/23 08:17 Furosemide 10 Mg/Ml Sdv 2ml IVP 20 mg Q24H CHERELLE Administration Heparin Sodium (Porcine) 5,000 unit 11/29/23 20:00 12/01/23 08:36 Heparin 5,000 Unit/Ml Inj 1 Ml SUBCUT 5,000 unit Q12H CHERELLE Administration Norepinephrine Bitartrate 4 mg in 250 mls @ 0 mls/hr 11/29/23 22:30 12/05/23 06:28 Levophed IV 2 mcg/min .Q0M CHERELLE 7.5 mls/hr Titration Protocol Per Protocol Fentanyl 1,000 mcg in 100 mls @ 0 mls/hr 12/03/23 17:45 12/05/23 03:51 Sublimaze IV 25 mcg/hr .Q0M CHERELLE 2.5 mls/hr Titration Protocol Per Protocol Propofol 1,000 mg in 100 mls @ 0 mls/hr 12/03/23 17:45 12/05/23 03:51 Diprivan IV 10 mcg/kg/min .Q0M CHERELLE 3.5 mls/hr Titration Protocol Per Protocol Vancomycin/PEG/NADA/Lysine/Water 1,250 mg in 250 mls @ 250 mls/hr 12/03/23 20:30 12/05/23 09:25 Vancocin IV Infused Q12H CHERELLE Infusion Piperacillin Sod/Tazobactam 50 mls @ 12.5 mls/hr 12/03/23 22:00 12/05/23 09:57 Sod 3.375 gm/ Sodium Chloride IV Infused Q8H CHERELLE Infusion Levetiracetam 500 mg in 100 mls @ 400 mls/hr 12/05/23 01:30 12/05/23 02:03 Keppra IV Infused Q12H CHERELLE Infusion Lidocaine HCl 5 ml/ Potassium 105 mls @ 25 mls/hr 12/05/23 08:28 12/05/23 10:36 Chloride IV 12/05/23 12:39 25 mls/hr ONCE ONE Administration Insulin Human Lispro 0 unit 11/29/23 21:00 12/05/23 08:17 Insulin Lispro 100 Unit/1 Ml SUBCUT 4 unit WM&BEDTIME CHERELLE Administration Protocol Midodrine 10 mg 12/03/23 15:00 12/05/23 08:16 Midodrine 5 Mg Tablet PO 10 mg TID CHERELLE Administration Pantoprazole Sodium 40 mg 11/30/23 16:00 12/05/23 03:50 Pantoprazole 40 Mg Sdv IVP 40 mg Q12H CHERELLE Administration Senna/Docusate Sodium 1 tab 11/30/23 09:00 12/05/23 08:17 Sennosides-Docusate Tablet PO 1 tab DAILY CHERELLE Administration Tamsulosin HCl 0.4 mg 11/30/23 21:00 12/04/23 21:03 Tamsulosin 0.4 Mg Capsule PO 0.4 mg BEDTIME CHERELLE Administration Thiamine HCl 100 mg 12/04/23 09:00 12/05/23 08:16 Thiamine 100 Mg/Ml Sdv IVP 100 mg DAILY CHERELLE Administration PFSH Acute 2 PFSH: Medical History Dehydration determined by examination Altered mental state Uncontrolled diabetes mellitus Posterior reversible encephalopathy syndrome BPH w urinary obs/LUTS Unsteady gait Hypokalemia JEAN-CLAUDE (obstructive sleep apnea) Facet arthropathy, lumbar Degenerative lumbar disc Nocturia Left-sided low back pain with left-sided sciatica Erectile dysfunction Decreased libido Type 2 diabetes mellitus, without long-term current use of insulin Essential hypertension Hyperlipidemia Surgical History History of hip surgery History of ankle surgery Family History Other CAD (coronary artery disease) Cancer Diabetes Social History Smoking and tobacco/nicotine status: current every day tobacco/nicotine user cigarettes Packs smoked per day: 0.75 Years cigarettes smoked: 40 Alcohol intake: former Substance/Drug Use: never Household members: spouse Vitals/I&O/Wt Last Vital Signs Temp 98.7 F 12/05/23 11:00 Pulse 99 12/05/23 11:00 Resp 15 12/05/23 10:24 BP 106/62 12/05/23 11:00 Pulse Ox 97 12/05/23 11:00 O2 Del Method Mechanical Ventilation 12/05/23 07:30 O2 Flow Rate 3 12/03/23 14:30 FiO2 30 07/16/24 10:24 12/04/23 12/05/23 12/05/23 22:59 06:59 14:59 Intake Total 342.671 / 752.921 583.850 / 1336.771 400 / 400 Output Total 600 / 600 125 / 725 Balance -257.329 / 152.921 458.850 / 611.771 400 / 400 Weight last 48 hrs Weight 127 lb 9.6 oz Weight 125 lb 6.4 oz Physical Exam 2 Narrative: General : Patient is well developed , no acute distress, nonverbal Head : Normal cephalic, a-traumatic. Ears : Pinnae and external canal are normal. Hearing is normal. Eyes : PERRLA, Sclera and injection are normal. No conjunctival discharge. Nose : Mucous membranes are without erythema. Throat : buccal mucosa is normal, gums are without significant recession or hypertrophy. Lungs : Equal chest rise bilaterally, no use of accessory muscles, trachea is midline. Cor : Rate and rhythm are normal. Abdomen : Soft, ND, NT, no g/r/m Extremities : No edema, no cyanosis or clubbing, dorsalis pedis pulses are present bilaterally, non-tender to palpation of calves. Upper extremities are normal bilaterally. Back : non-tender to palpation, no CVA tenderness. Urinary Catheter Management: Carcamo: Cath Placed During This Visit: yes Reason for Continuing Indwelling Catheter: Accurate Measurement of Urinary Output in Critically Ill Patients Urinary Catheter Date of Insertion: 11/29/23 Urinary Catheter Time of Insertion: 18:16 Data 12/05/23 09:29 12/05/23 03:25 Micro: Microbiology 11/29/23 19:28 Blood Culture - Final Blood NO GROWTH AFTER 5 DAYS 11/29/23 19:22 Blood Culture - Final Blood NO GROWTH AFTER 5 DAYS 12/03/23 18:10 Gram Stain - Final Sputum - Endotracheal Tube Aspirate A&P Assessment and plan (1) Cognitive decline: (2) Encephalopathy acute: (3) Protein calorie malnutrition: Plan Plan after PEG tube placement tomorrow The risks and benefits of the procedure, including bleeding, infection, intestinal perforation requiring surgery, missed lesion were explained to the patient. The patient is understanding of the risks and wishes to proceed. Medical management per primary Coding Level of Care Code 17990 Diagnoses Cognitive decline R41.89 Encephalopathy acute G93.40 Protein calorie malnutrition E46
[2023-12-03] MEDS: glycerin adult supp 1 EACH PR (11:49)
--- NOTE | 2023-12-03 12:06 | CTR_ITS ---
PROCEDURE INFORMATION: Exam: CTA Head With Contrast, Arteriography Exam date and time: 12/03/2023 4:03 PM Age: 58 years old Clinical indication: Cognitive deficit and convulsions / seizures; Altered mental status; Type not specified; Additional info: Multiterritory stroke , progressive neuro deterioration, concern for vasculitis TECHNIQUE: Imaging protocol: Computed tomographic angiography of the head with contrast. Exam focused on the arteries. 3D rendering (Not supervised by radiologist): MIP and/or 3D reconstructed images were created by the technologist. Radiation optimization: All CT scans at this facility use at least one of these dose optimization techniques: automated exposure control; mA and/or kV adjustment per patient size (includes targeted exams where dose is matched to clinical indication); or iterative reconstruction. Contrast material: OMNIPAQUE 350; Contrast volume: 100 ml; Contrast route: INTRAVENOUS (IV); COMPARISON: CT head wo con* [id number] 12/02/2023 11:25 PM RADIATION DOSE METRICS: Total DLP (mGy-cm): 1002.55 FINDINGS: ANTERIOR CIRCULATION: Right internal carotid artery: Atherosclerotic calcification of the right carotid siphon with moderate stenosis. Right middle cerebral artery: No occlusion or significant stenosis. No aneurysm. Right anterior cerebral artery: No occlusion or significant stenosis. No aneurysm. Left internal carotid artery: Atherosclerotic calcification of the left carotid siphon with moderate stenosis. Left middle cerebral artery: No occlusion or significant stenosis. No aneurysm. Left anterior cerebral artery: No occlusion or significant stenosis. No aneurysm. POSTERIOR CIRCULATION: Right vertebral artery: No occlusion or significant stenosis. No aneurysm. Left vertebral artery: No occlusion or significant stenosis. No aneurysm. Basilar artery: No occlusion or significant stenosis. No aneurysm. Right posterior cerebral artery: No occlusion or significant stenosis. No aneurysm. Left posterior cerebral artery: No occlusion or significant stenosis. No aneurysm. Brain: No intracranial hemorrhage. There is global parenchymal volume loss. Periventricular white matter hypoattenuation is nonspecific but most likely due to small vessel disease. No evidence of acute territorial infarct or cerebral edema. No mass effect or midline shift. Nonacute lacunar infarcts bilaterally in the thalami and basal ganglia. Cerebral ventricles: Prominent ventricles likely secondary to volume loss. Bones/joints: Unremarkable. No acute fracture. Soft tissues: Unremarkable. PROCEDURE INFORMATION: Exam: CTA Neck With Contrast Exam date and time: 12/03/2023 4:03 PM Age: 58 years old Clinical indication: Cognitive deficit and convulsions / seizures; Altered mental status; Type not specified; Additional info: Multiterritory stroke , progressive neuro deterioration, concern for vasculitis TECHNIQUE: Imaging protocol: Computed tomographic angiography of the neck with contrast. Exam focused on the cervical segments of the vasculature. 3D rendering (Not supervised by radiologist): MIP and/or 3D reconstructed images were created by the technologist. Radiation optimization: All CT scans at this facility use at least one of these dose optimization techniques: automated exposure control; mA and/or kV adjustment per patient size (includes targeted exams where dose is matched to clinical indication); or iterative reconstruction. Contrast material: OMNIPAQUE 350; Contrast volume: 100 ml; Contrast route: INTRAVENOUS (IV); COM[id number] 11/30/2023 4:25 PM RADIATION DOSE METRICS: Total DLP (mGy-cm): 1002.55 FINDINGS: Tubes, catheters and devices: NG tube in place. Right common carotid artery: No stenosis. No dissection or occlusion. Right internal carotid artery: No stenosis of the extracranial segment. No dissection or occlusion. Right external carotid artery: No occlusion or stenosis of the origin. Left common carotid artery: No stenosis. No dissection or occlusion. Left internal carotid artery: No stenosis of the extracranial segment. No dissection or occlusion. Left external carotid artery: No occlusion or stenosis of the origin. Right vertebral artery: No stenosis. No dissection or occlusion. Left vertebral artery: No stenosis. No dissection or occlusion. Soft tissues: Normal. No significant soft tissue swelling. Bones/joints: Erosive changes involving both sides of the C5-C6 disc space and extending into the right facet joint. Lungs: New substantial atelectasis in left lung. CT/CT angio headneck* [id number] IMPRESSION: 1. No acute intracranial findings. 2. Atherosclerotic calcification of the right carotid siphon with moderate stenosis. 3. Atherosclerotic calcification of the left carotid siphon with moderate stenosis. IMPRESSION: 1. No evidence for significant cervical arterial stenosis. 2. New substantial atelectasis in visualized portions of left upper lung zone. Question mucous plugging or aspiration. This was not present on chest radiograph from earlier today. 3. Erosive changes involving both sides of the C5-C6 disc space and extending into the right facet joint. Question discitis and possible soft tissue expansion of the epidural space. This could be evaluated with MRI cervical spine pre and postcontrast. REFERENCES: NASCET CRITERIA. The degree of stenosis in the cervical segment of the internal carotid artery is based on NASCET criteria. Normal is no stenosis. Mild is less than 50% stenosis. Moderate is 50-69% stenosis. Severe is 70% to 99% stenosis. Total occlusion is no detectable patent lumen.
[2023-12-03 12:32] LABS: Glucose Point of Care 124 mg/dL (70-110)
[2023-12-03] MEDS: levETIRAcetam 750 MG in sodium chloride 0.9% (100 ml) 100 ML 430 MG IV (12:44)
[2023-12-03 12:55] LABS: Homocysteine 10.67 umol/l (0-15)
--- NOTE | 2023-12-03 14:47 | PC.NURSE ---
Patient had another episode of seizure like activity at 1300, and again at 1447. Events same as before. Becomes hypotensive, levophed is restarted.Seizure resolves in 3-4 minutes. Blood pressure recovers within 30 minutes.
[2023-12-03] MEDS: iohexol 350 mg/mL 500 mL Btl (per mL) IV (16:11)
--- NOTE | 2023-12-03 16:52 | P.PN_ITS ---
Subjective 2 Subjective: Patient was transiently hypotensive overnight for which she received a bolus of fluid. Thereafter he developed crackles and dropped his oxygen saturation to 88% for which bolus was turned off. Patient's blood pressure has continued to trend well during the day except when he he was noted to have absence seizure. At the baseline during this hospital stay, patient has been awake enough to state his name, age, date of , recognizes his sister at bedside though is very weak and it takes great deal of effort for him to talk. This afternoon he was noted to have an absence spell during which she was nonresponsive. He becomes hypotensive at this time. Suspect that his intermittent episodes of hypotension may be related to absence seizures. He has started tube feeding diet today. Medications: Reviewed: Yes Vitals/I&O/Wt Last Vital Signs Temp 97.5 F L 12/03/23 07:45 Pulse 110 H 12/03/23 16:44 Resp 25 H 12/03/23 14:30 BP 106/87 12/03/23 14:30 Pulse Ox 80 L 12/03/23 16:44 O2 Del Method Nasal Cannula 12/03/23 14:30 O2 Flow Rate 3 12/03/23 14:30 FiO2 70 12/03/23 16:44 12/03/23 12/03/23 12/03/23 06:59 14:59 22:59 Intake Total 591.25 / 1573.75 6.000 / 6.000 Output Total 475 / 1000 50 / 50 Balance 116.25 / 573.75 -44.000 / -44.000 Weight last 48 hrs Weight 58.377 kg Weight 59.222 kg Physical Exam 2 Narrative: General: Chronically ill-appearing male, malnourished HEENT: PERRLA, pupils bilaterally equal and reactive, pallors not present Chest: Normal vesicular breath sounds, no added sounds, equal good air entry bilaterally CVS: S1-S2 regular, no murmurs, no tachycardia, no gallops, no rubs Abdomen: Soft, nontender, no organomegaly, bowel sounds present Neuro: Right-sided weakness, bilateral chronic muscle wasting. Urinary Catheter Management: Carcamo: Cath Placed During This Visit: yes Reason for Continuing Indwelling Catheter: Accurate Measurement of Urinary Output in Critically Ill Patients Urinary Catheter Date of Insertion: 11/29/23 Urinary Catheter Time of Insertion: 18:16 Data 12/03/23 04:00 12/03/23 04:22 Micro: Microbiology 12/02/23 11:42 Blood Culture - Preliminary Blood NEGATIVE TO DATE 12/02/23 11:38 Blood Culture - Preliminary Blood NEGATIVE TO DATE A&P Assessment and plan (1) Non-compliance: (2) Essential hypertension: (3) Nonischemic congestive cardiomyopathy: (4) Type 2 diabetes mellitus, without long-term current use of insulin: Qualifiers: Diabetes mellitus complication detail: with other circulatory complications Diabetes mellitus complication status: with circulatory complication Qualified Code(s): E11.59 - Type 2 diabetes mellitus with other circulatory complications (5) Uncontrolled diabetes mellitus: Qualifiers: Diabetes mellitus type: type 2 Glycemic state: with hyperglycemia Qualified Code(s): E11.65 - Type 2 diabetes mellitus with hyperglycemia (6) GERD (gastroesophageal reflux disease): Qualifiers: Esophagitis presence: esophagitis presence not specified Qualified Code(s): K21.9 - Gastro-esophageal reflux disease without esophagitis (7) Dehydration determined by examination: (8) Fluid volume depletion: (9) BPH w urinary obs/LUTS: (10) ULICES (acute kidney injury): (11) Acute encephalopathy: (12) Altered mental state: Qualifiers: Altered mental status type: somnolence Qualified Code(s): R40.0 - Somnolence (13) 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 coli, sensitive to cephalosporin Blood and urine cultures taken Septic bolus administered 30 mill per kilo Lactic acid will be repeated Blood and urine culture taken Continue ceftriaxone and IV fluids Admit to ICU qSOFA score: 3 Hypotension related to sepsis: Improved with IV fluids Not in shock at this point Continue IV fluid Hold antihypertensive regimen Nonischemic cardiomyopathy EF 40% Septic encephalopathy Neurochecks Patient has history of embolic stroke, cerebellar stroke as well Unsteady gait, postural instability likely from previous stroke CT head unremarkable Monitor for any sign of malignant arrhythmia, Patient not on any antiplatelet agent If encephalopathy does not improve he may need another MRI Acute on chronic kidney disease Patient should not be taking glipizide and metformin GFR has worsened Creatinine 4.2 No sign of hydronephrosis Carcamo catheter placed in the ER Avoid nephrotoxic agents Hyperglycemia, rule out DKA, requested ketones, patient has high lactic acidemia induced high anion gap, pH is normal, Bicarb 24, not extremely acidotic at this point Concern for refeeding syndrome patient has not eaten well in last few days Check magnesium and phosphorus along other electrolytes Monitor for arrhythmias Coffee-ground emesis Noticed by the family at home Hemoglobin around 10 which seems to be around baseline, Protonix DVT prophylaxis: Heparin Family is stating that in case he is not able to eat they are willing to discuss feeding tube placement I will request speech therapy, I will keep patient on pur?ed diet for now Full code Daughter is stating that there is possibility of alcohol induced liver cirrhosis, I will check ammonia level Plan for today: November 30, 2023. Encephalopathy is improving today. This is most likely metabolic encephalopathy from sepsis. Continue IV ceftriaxone 1 g every 24 hours. Awaiting blood and urine cultures. Continue IV fluids at normal saline 75 cc an hour. Monitor for signs of fluid overload. Creatinine improving. Urine output 2100 cc.Noted to be anemic, hemoglobin at 9.6, this is a exchange trouble shooter hemoglobin at 14.8 in September 2023. Will check fecal occult blood to evaluate for GI bleeding which may be contributing., Ammonia level normal. Plan for today December 01, 2023. Patient is able to correctly state his name, have a conversation, however continues to be significantly weak. Intermittently needing Levophed through the night for soft blood pressure. Continuing IV ceftriaxone while pending final urine cultures. Thus far preliminary cultures are showing coag positive Staphylococcus from the urine. Added IV vancomycin given these results. Awaiting blood cultures, thus far negative to date. Will repeat with a.m. labs. Hold heparin as hemoglobin is drifting down. Today at 8.2. Patient has not yet had a bowel movement to obtain occult blood examination. Will perform a bedside test today. Patient/encephalopathy is likely metabolic from current sepsis. In the background of having had a presumed embolic stroke in August 2023. MRI reviewed from September 06, 2023 showing lacunar type infarcts involving multiple vascular distributions in the posterior and anterior circulation. Marked cerebral atrophy and cerebral cerebellar atrophy consistent with severe chronic small vessel ischemic disease and chronic lacunar infarcts. Disease process was noted to be much more advanced compared to patient's age. Echocardiogram from August had shown a thickened mitral valve and a thickened aortic valve without any intracardiac masses. Saline contrast injection did not show any [id number] shunt. Patient was noted to have underlying sinus rhythm, no A-fib was detected on that admission. Suspect that his overall deterioration is related to acute encephalopathy on top of his weakness from this past stroke. CT of the head on this admission has shown extensive chronic microvascular changes as known from before. Would not add anticoagulation at this time for presumed embolic stroke due to down drifting hemoglobin, need to exclude bleeding prior to any additional medications. Currently aspirin is also on hold. Patient was able to cooperate with a swallow eval today. Continuing dysphagia diet. Awaiting physical therapy evaluation. December 02, 2023. Patient is alert and awake, able to answer simple questions. However it is very difficult for him to have an extended conversation due to severe weakness. Content of his conversation is very limited. Bedside Hemoccult card test performed last evening was negative. Urine culture shows MSSA. Change antibiotics to cefazolin 2 g IV every 8 hours for organism directed therapy. Blood culture repeat ordered as Staph aureus would be an unusual organism to be obtained out of urine cultures alone. Previously ordered blood cultures are negative to date. Family at bedside today. Had an extensive discussion with patient's Sister Samara who is his DPOA and also with his girlfriend Jenna who takes care of him at home. Discussed extensively with them that patient suffered multi territory stroke in August 2023. Family reports that patient had been recommended discharge to acute rehab for best chance to recover from the acute stroke, however he had declined and elected to return home. After return to home patient continued to decline. At her baseline after the stroke he was able to walk with a walker, however at all times 2 family members followed close behind him as he was unsteady on his feet and likely to fall. He has not self-fed. Family has been trying to feed him however he does not eat solid food. He drinks water okay. Most of his diet includes putting and protein shakes. stroke was thought to be cardioembolic, however in spite of extensive investigation, no A-fib was detected on that admission, echocardiogram was without PFO or any obvious embolic source. Carotid artery ultrasound was without any significant obstruction. It appears there was plan for an event monitor but patient did not eventually have 1 at discharge. Family is curious to know if patient may have had another stroke. CT of his head performed at this admission is negative for any acute intracranial hemorrhage or mass effect. There is large amount of diffuse white matter disease likely to reflect chronic microvascular changes. There are bilateral basal ganglia and chronic lacunar infarcts. This was thought to be related to uncontrolled blood pressures in the past. Discussed with the family that we could do an MRI to assess for any new strokes, however given his falling hemoglobin (currently at 8.2, previously at 14 from September 2023), I would be hesitant to place him on anticoagulation should the MRI show new stroke. Currently his antiplatelets are also on hold due to falling hemoglobin. We are going to start tube feeding diet today. Since patient has been unable to eat over several months and has poor caloric intake with signs of malnutrition, we will plan on PEG placement to allow him to meet his caloric needs. At the time of his PEG, will discuss with surgery if we could also perform an upper GI endoscopy to assess for any upper GI bleeding that may be contributing to his low hemoglobin. Patient's blood pressure on this admission have been running on the lower side, likely this is related to weight loss that he has suffered since his stroke. Patient is currently severely malnourished, has had extensive loss of muscle mass. He is deconditioned. Currently on midodrine 5 mg twice daily. Possible that patient's encephalopathy is likely also contributed by current infection, however he has had no significant improvement in his mentation in spite of being on directed antibiotics, he is currently afebrile. Leukocytosis has resolved. Therefore suspect underlying neurological cause to be the more likely culprit for persisting poor mentation. December 03, 2023. Patient was alert and awake, able to answer basic questions for most part of the day, however intermittently this afternoon he has been noted to have absent spells. Suspect these to be absence seizure's. Patient does have a history of seizures for which she is on Keppra 500 mg p.o. twice daily. Keppra level ordered. EEG ordered. 750 mg IV Keppra ordered as a loading dose. Thereafter p.o. Keppra discontinued and changed instead to Keppra 500 mg IV every 8 hours. Neurology service has been consulted. Neurology recommended to obtain CTA of the head and neck to assess for underlying vasculitis given multi territory involvement of his stroke previously without any obvious cardioembolic source identified. Also recommended to obtain MRI of the head to assess for interval change, this has been ordered for tomorrow morning. Additionally ordered for hypercoagulable labs to assess for underlying disorders which may contributed to his stroke. Discussed with family again that we are holding off on any anticoagulation or antiplatelets for now for now given his drop in hemoglobin. Bedside occult blood was negative, pending formal occult blood testing from the lab once he has a bowel movement. Glycerin suppository ordered. General surgery consult obtained for PEG tube placement as patient has developed severe malnutrition, likely as a result of poor p.o. intake at home. Also requested upper GI endoscopy at the time of PEG tube placement to assess for any gastritis/ulcers that may be contributing to the low hemoglobin. Patient is confirmed to be a full code. He has been following along with the conversation with his sister, states himself that he wants to live Attestations 2 Medical Necessity Statement*: Continued admission for IV antibiotics, ongoing seizures, neurology assessment, PEG tube placement, EEG Critical Care Time: The high probability of a clinically significant, sudden or life threatening deterioration of the patient's [neuro, ID, cardiovascular, respiratory] s ystem(s) required my full and direct attention, intervention and personal management. The critical care time is as shown. This time is in addition to time spent performing any reported procedures but includes the following: [x] Data and vital sign review and interpretation [x] Patient assessment, examination and intervention [x] Documentation [x] Medication orders and management Critical Care Time (min): 60 Coding Level of Care Code Critical Care >/= 30 minutes Diagnoses Non-compliance Z91.199 Essential hypertension I10 Nonischemic congestive cardiomyopathy I42.0 Type 2 diabetes mellitus with other circulatory complication, without long-term current use of insulin E11.59 Diabetes mellitus complication detail: with other circulatory complications Diabetes mellitus complication status: with circulatory complication Uncontrolled type 2 diabetes mellitus with hyperglycemia E11.65 Diabetes mellitus type: type 2 Glycemic state: with hyperglycemia Gastroesophageal reflux disease, unspecified whether esophagitis present K21.9 Esophagitis presence: esophagitis presence not specified Dehydration determined by examination E86.0 Fluid volume depletion E86.9 BPH w urinary obs/LUTS N40.1; N13.8 ULICES (acute kidney injury) N17.9 Acute encephalopathy G93.40 Somnolence R40.0 Altered mental status type: somnolence 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
[2023-12-03 16:54] LABS: Blood Gas Allen Test Pos; Blood Gas Operator Identificat CAK; Blood Gas Sample Type Arterial; Ionized Calcium Level - ABG 1.3 mmol/L (1.1-1.4); Oxygen Device BIPAP
[2023-12-03 17:01] LABS: ABG PCO2 59.7 mmHg (35-45); ABG PH Result 7.27 (7.35-7.45); Alveolar-Arterial Oxygen Gradi 80.3 mmHg (5-10); Arterial Blood Gas Hematocrit 33.4 % (42-52); Base Excess ABG -0.7 mmol/L (-2.0-2.0); Blood Gas Sample Site Radial, left; Carboxyhemoglobin 0.9 %THgb (0.4-20.1); HCO3 ABG 27.1 mmol/L (22-26); HGB O2 Sat 32.8 % (95-100); Methemoglobin 0.5 % (0.4-1.5); Oxygen Saturation ABG 33.3; PO2 ABG 26.2 mmHg (80.0-100.0); PO2 FiO2 Ratio Arterial Blood 26; Potassium Level - ABG 4.1 mmol/L (3.5-5.0); Total Hemoglobin 10.9 g/dL (14-18)
--- NOTE | 2023-12-03 17:09 | XRR_ITS ---
PROCEDURE INFORMATION: Exam: XR Chest Exam date and time: 12/03/2023 5:26 PM Age: 58 years old Clinical indication: Other: Pulm edema, hypoxia TECHNIQUE: Imaging protocol: Radiologic exam of the chest. Views: 1 view. COMPARISON: CR (CHEST, ) 12/03/2023 3:40 AM FINDINGS: Tubes, catheters and devices: NG tube in distal stomach. Lungs: Complete opacification of left hemithorax with volume loss. Right lung appears normal. Pleural spaces: No pneumothorax. Heart/Mediastinum: Unremarkable. No cardiomegaly. Bones/joints: Unremarkable. XR/XR chest 1V portable [id number] IMPRESSION: Complete opacification of left hemithorax with volume loss. Consider mucous plugging.
[2023-12-03] MEDS: etomidate 20 ML 100 MG (17:31)
[2023-12-03] MEDS: rocuronium 10 mg/mL INJ 5mL 100 MG (17:31)
--- NOTE | 2023-12-03 17:49 | XRR_ITS ---
PROCEDURE INFORMATION: Exam: XR Chest Exam date and time: 12/03/2023 6:14 PM Age: 58 years old Clinical indication: Device placement; Ett placement (vent status); Additional info: Intubated TECHNIQUE: Imaging protocol: Radiologic exam of the chest. Views: 1 view. COMPARISON: CR (CHEST, ) 12/03/2023 5:26 PM FINDINGS: Tubes, catheters and devices: Endotracheal tube is in place with its tip 1.7 cm above the erna. This could be pulled back 2-3 cm. NG tube tip mid stomach. Lungs: Persistent opacification left hemithorax with volume loss. Pleural spaces: Unremarkable. No pleural effusion. No pneumothorax. Heart/Mediastinum: Unremarkable. No cardiomegaly. Bones/joints: Unremarkable. XR/XR chest 1V portable [id number] IMPRESSION: 1. Endotracheal tube is in place with its tip 1.7 cm above the erna. This could be pulled back 2-3 cm. 2. Persistent opacification left hemithorax with volume loss.
--- NOTE | 2023-12-03 18:03 | PM.CCNAC ---
Critical Care Event Note The high probability of a clinically significant, sudden or life threatening deterioration of the patient's [respiratory] system(s) required my full and direct attention, intervention and personal management. The critical care time is as shown. This time is in addition to time spent performing any reported procedures but includes the following: [x] Data and vital sign review and interpretation [x] Patient assessment, examination and intervention [x] Documentation [x] Medication orders and management Critical Care Time Code activated: Yes Critical Care Time (min): 30 Additional information about critical care time: Patient developed acute respiratory distress late this afternoon. Oxygen saturation dropped to 80%. ABG was performed which showed hypoxia with pO2 of 29, pCO2 of 50, respiratory acidosis. Stat x-ray showed whiteout of the left lung. Patient then developed asystole for which CPR was initiated. He received 3 minutes of chest compressions, 1 round of epi after which ROSC was obtained. Patient was emergently intubated. Postintubation saturation now at 93%. Aggressive suctioning, chest vest and Mucomyst ordered to clear obstruction. Unfortunately we do not have pulmonology service available to follow perform bronchoscopy to remove the mucous plug. Patient is currently too unstable to transfer to a different center. Will proceed with aggressive pulmonary toilet for now, will check with CT surgery if there services are available in the morning to perform a bronchoscopy. At the time of this assessment, heart rate is 132 bpm, blood pressure 106/87 on 6 mics of Levophed, intubated, FiO2 100%. Fentanyl and propofol for sedation. Family updated about acute events. They will be coming at bedside. Updated also by charge nurse that last evening patient's family had brought in soda ; patient had an episode of coughing and aspiration as he attempted to drink. Abx broadened to cover anerobes- change to Zosyn. Sputum cx ordered Coding Level of Care Code Acute Code for Chg Fwd
[2023-12-03 18:17] LABS: Glucose Point of Care 280 mg/dL (70-110)
[2023-12-03] MEDS: midodrine 5 mg TABLET 10 MG PO ×2 (18:39→21:37)
[2023-12-03] MEDS: fentaNYL 1,000 MCG/100 ML BAG 5 MCG IV (19:00)
[2023-12-03] MEDS: propofol 1,000 MG/100 ML INJ 7.01 MG IV (19:00)
--- NOTE | 2023-12-03 19:00 | PC.NURSE ---
MAR Upon assessment of patient, fentanyl administering at 50 mcg/hr, levophed administering at 12 mcg/min, and propofol administering at 20 mcg/kg/min. MAR displayed fentanyl and propofol not administering and levophed paused. MAR updated to reflect administration rates.
--- NOTE | 2023-12-03 19:21 | PC.NURSE ---
At approximatey 1530, pulse oximetry readings have been difficult to obtain. Patient had 2 PSO2 probs on and readings from each prob varied greatly, ranging from 40-90% despite good wave forms on both probes. Patient does not appear to be hypoxic or in distress. O2 probes replaced and it shows O2 readings in the low 90's. Patient was then taken for a Head CT. Upon return from CT, the inconsistent SPo2 readings again becam a problem. NUrse alerted Dr haines to innacurate SPO2 readings and requested order for an ABG for an accurate blood oxygen level. ABG obtained. Shows PO2 to be 26 at 1646. Respiratory therapist placed patient on bipap. While on bipap, patient's left chest appeared to have less movement and breath sounds were barely audible on left side. Suspecting a pneumothorax, patient was placed on a non rebreather. Oxygen saturation at this time showed to be in the low 90's. physician updated.
--- NOTE | 2023-12-03 19:34 | PC.NURSE ---
At 1731, this nurse entered patient room to round on patient. While in the room, the heart rate began to drop into the 30's and the monitor alarmed asystole. Nurse palpated for a pulse and no pulse was detected, no chest wall movement observed, no breaths heard. Nurse started chest compressions and called out to nearby staff to call a code blue. Dr haines called to bedside. THis nurse continued chest compressions while other nursing staff pushed medications per ACLS protocol. ROSC was obtained within 3 minutes (see physical chart for Cardiopulmonary arrest flow sheet) Patient was then intubated by ER physicain, and sedation maintained with propofol and fentanyl ordered by Dr haines.
[2023-12-03] MEDS: acetylcysteine 200 mg/mL MDV 10 mL 100 MG INHALATION (19:53)
[2023-12-03] MEDS: ipratropium-albuterol 3 mL Neb INHALATION (19:53)
[2023-12-03 20:33] LABS: Blood Gas Allen Test Pos; Blood Gas Operator Identificat JB; Carboxyhemoglobin 1.3 %THgb (0.4-20.1); HCO3 ABG 19.4 mmol/L (22-26); Ionized Calcium Level - ABG 1.3 mmol/L (1.1-1.4); Oxygen Device VENT; PO2 ABG 46.2 mmHg (80.0-100.0)
[2023-12-03 20:34] LABS: Blood Gas Tidal Volume 0.45
[2023-12-03 20:53] LABS: Alveolar-Arterial Oxygen Gradi 82.6 mmHg (5-10); PO2 FiO2 Ratio Arterial Blood 39
[2023-12-03 20:54] LABS: ABG PCO2 30.8 mmHg (35-45); ABG PH Result 7.41 (7.35-7.45); Arterial Blood Gas Hematocrit 34.7 % (42-52); Base Excess ABG -4.4 mmol/L (-2.0-2.0); Blood Gas Sample Site Radial, right; Blood Gas Sample Type MixedVenous; HGB O2 Sat 78.7 % (95-100); Methemoglobin < 0.0 % (0.4-1.5); Oxygen Saturation ABG 79.7; Potassium Level - ABG 3.6 mmol/L (3.5-5.0); Total Hemoglobin 11.3 g/dL (14-18)
--- NOTE | 2023-12-03 21:00 | PC.NURSE ---
Picc Insertion Levophed infusing at 12 mcg/min. Dr. Awan notified; order received to insert a PICC line.
[2023-12-03] MEDS: levETIRAcetam 500 MG/100 ML PREMIX 400 MG IV (21:15)
[2023-12-03] MEDS: vancomycin 1,250 MG/250 ML PIGGYBACK 250 MG IV (21:33)
[2023-12-03] MEDS: tamsulosin 0.4 mg Capsule PO (21:37)
[2023-12-03] MEDS: norepinephrine 4 MG/250 ML BAG 45 MG IV (22:10)
--- NOTE | 2023-12-03 22:35 | XRR_ITS ---
PROCEDURE INFORMATION: Exam: XR Chest Exam date and time: 12/03/2023 10:48 PM Age: 58 years old Clinical indication: Device placement; Patient HX: RT picc confirmation TECHNIQUE: Imaging protocol: Radiologic exam of the chest. Views: 1 view. COMPARISON: CR (CHEST, ) 12/03/2023 6:14 PM FINDINGS: Tubes, catheters and devices: Endotracheal tube tip in place 17 mm above the erna. Right-sided PICC line with tip in the superior vena cava. Enteric tube tip below the diaphragm in the gastric bubble. Lungs: Left hemithorax complete opacification again seen similar to prior exam. Pleural spaces: Unremarkable. No pleural effusion. No pneumothorax. Heart/Mediastinum: Unremarkable. No cardiomegaly. Bones/joints: Unremarkable. XR/XR chest 1V portable [id number] IMPRESSION: 1. Endotracheal tube tip in place 17 mm above the erna. 2. Right-sided PICC line with tip in the superior vena cava. 3. Enteric tube tip below the diaphragm in the gastric bubble. 4. Left hemithorax complete opacification again seen similar to prior exam.
--- NOTE | 2023-12-03 22:57 | PC.NURSE ---
Consulted for PICC placement r/t vesicant therapy. Staff had obtained consent prior to my arrival. Pt is intubated and sedated. Assessed the RUE and noted the brachial vein is best target at > than 4.5 mm in diameter. Noted the RUE is 27 cm in circumference at 10 cm above the AC fossa. Using US guidance, MST, and sterile technique the R brachial vein was accessed x 1 stick. Device fed easily. All 3 ports aspirate and flush easily. Device secured and dressed. Pt did not respond at all to procedure. EBL 5ml. Chest xray ordered and performed. Tip appears to be in SVC. Report to [facility] [place].
[2023-12-03] MEDS: piperacillin-tazobactam 3.375 GM in sodium chloride 0.9% (plus) 50 ML IV (23:06)
[2023-12-04] VITALS (110 sets, daily range): BP systolic 54–155; BP diastolic 35–85; PULSE 76–126; RESP 13–26; TEMP 36.7–40; O2SAT 96–100; BMI 22.1
[2023-12-04] MEDS: ipratropium-albuterol 3 mL Neb INHALATION ×3 (03:15→13:14)
[2023-12-04] MEDS: acetylcysteine 200 mg/mL MDV 10 mL 100 MG INHALATION ×4 (03:15→20:26)
[2023-12-04] MEDS: levETIRAcetam 500 MG/100 ML PREMIX 400 MG IV ×2 (03:45→13:24)
[2023-12-04] MEDS: pantoprazole 40 mg SDV IVP ×2 (03:45→15:07)
[2023-12-04 04:00] LABS: ABG PCO2 34.8 mmHg (35-45); ABG PH Result 7.47 (7.35-7.45); Arterial Blood Gas Hematocrit 33.6 % (42-52); Blood Gas Allen Test Pos; Blood Gas Operator Identificat JB; Blood Gas Sample Site Radial, right; Blood Gas Sample Type Arterial; Blood Gas Tidal Volume 0.45; HCO3 ABG 25.4 mmol/L (22-26); Oxygen Device VENT; PO2 ABG 90.7 mmHg (80.0-100.0); PO2 FiO2 Ratio Arterial Blood 90
[2023-12-04 05:27] LABS: Basophils % 0.1 %; Eosinophils % 0.1 %; Hematocrit 25.7 % (37-53); Lymphocytes # 1.2 10^3/uL (0.8-4.8); Lymphocytes % 14.1 %; Mean Corpuscular HGB Conc 33.1 g/dL (30-55); Mean Corpuscular Hemoglobin 28.5 pg (27-33); Mean Corpuscular Volume 86.2 fl (82-101); Mean Platelet Volume 9.1 fL (7.4-10.4); Monocytes # 0.5 10^3/uL (0.2-0.9); Monocytes % 5.3 %; Neutrophils # 6.89 10^3/uL (1.8-7.7); Neutrophils % 79.9 %; Nucleated Red Blood Cells % 0 %; Platelet Count 370 10^3/cmm (157-399); Red Blood Count 2.98 10^6/uL (3.85-5.65); Red Cell Distribution Width 15.4 % (12.1-15.1); White Blood Count 8.63 10^3/uL (3.29-11.43)
[2023-12-04 05:44] LABS: Glucose Point of Care 325 mg/dL (70-110)
[2023-12-04 05:45] LABS: Albumin Level 2.7 g/dL (3.5-5.2); Alkaline Phosphatase 64 U/L (40-130); Blood Urea Nitrogen 17 mg/dL (6-20); Calcium 8.6 mg/dL (8.5-10.5); Carbon Dioxide 24 mmol/L (22-29); Chloride 105 mmol/L (98-107); Creatinine Clr Calc Pharmacy 92.3959; Globulin 3.6 g/dL (1.3-4.6); Glomerular Filtration Rate 115.4 mL/min (90-130); Glucose 201 mg/dL (65-115); Osmolality Calculated 295 mOsm/kg (285-295); Sodium 139 mmol/L (136-145); Total Bilirubin 0.2 mg/dL (0.15-1.2); Total Protein 6.3 g/dL (6.6-8.7)
[2023-12-04 05:49] LABS: Alanine Aminotransferase 9 U/L (0-41); Anion Gap 13.6 (5-19); Aspartate Amino Transferase 20 U/L (0-40); Potassium 3.6 mmol/L (3.5-5.1)
[2023-12-04] MEDS: piperacillin-tazobactam 3.375 GM in sodium chloride 0.9% (plus) 50 ML IV ×3 (05:57→22:23)
--- NOTE | 2023-12-04 06:00 | XRR_ITS ---
PROCEDURE INFORMATION: Exam: XR Chest Exam date and time: 12/04/2023 4:59 AM Age: 58 years old Clinical indication: Condition or disease; Lung condition and disease; Respiratory failure; Additional info: Follow up left lung white out TECHNIQUE: Imaging protocol: Radiologic exam of the chest. Views: 1 view. COMPARISON: CR (CHEST, ) 12/03/2023 10:48 PM FINDINGS: Tubes, catheters and devices: The patient is intubated. The endotracheal tube tip is seen 3.4 cm above the erna. There is an enteric tube projecting into the stomach. There is a right-sided PICC projecting to the superior vena cava. Lungs: There is left pulmonary infiltrate and effusion with improved aeration identified in the left lung. Pleural spaces: There is no pneumothorax. Heart/Mediastinum: Unremarkable. No cardiomegaly. Bones/joints: Unremarkable. XR/XR chest 1V portable [id number] IMPRESSION: Left pulmonary infiltrate and effusion with improved aeration identified in the left lung.
[2023-12-04] MEDS: propofol 1,000 MG/100 ML INJ 3.5 MG IV (07:17)
[2023-12-04 08:20] LABS: Glucose Point of Care 220 mg/dL (70-110)
[2023-12-04 09:32] LABS: Glucose Point of Care 248 mg/dL (70-110)
[2023-12-04] MEDS: sennosides-docusate Tablet 1 TAB PO (09:37)
[2023-12-04] MEDS: vancomycin 1,250 MG/250 ML PIGGYBACK 250 MG IV ×2 (09:38→21:03)
[2023-12-04] MEDS: insulin lispro 100 unit/1 mL SUBCUT ×3 (09:39→21:30)
[2023-12-04] MEDS: norepinephrine 4 MG/250 ML BAG 15 MG IV (09:40)
[2023-12-04] MEDS: midodrine 5 mg TABLET 10 MG PO ×3 (11:07→21:02)
--- NOTE | 2023-12-04 11:24 | PC.OT ---
PATIENT CURRENTLY INTUBATED. HOLD OT TREATMENT AT THIS TIME.
--- NOTE | 2023-12-04 11:47 | P.PN_ITS ---
Subjective 2 Subjective: Patient seen and examined. No acute events overnight. Vitals/I&O/Wt Last Vital Signs Temp 98.7 F 12/05/23 11:00 Pulse 99 12/05/23 11:00 Resp 15 12/05/23 10:24 BP 106/62 12/05/23 11:00 Pulse Ox 97 12/05/23 11:00 O2 Del Method Mechanical Ventilation 12/05/23 07:30 O2 Flow Rate 3 12/03/23 14:30 FiO2 30 12/05/23 10:24 12/04/23 12/05/23 12/05/23 22:59 06:59 14:59 Intake Total 342.671 / 752.921 583.850 / 1336.771 400 / 400 Output Total 600 / 600 125 / 725 Balance -257.329 / 152.921 458.850 / 611.771 400 / 400 Weight last 48 hrs Weight 127 lb 9.6 oz Weight 125 lb 6.4 oz Physical Exam 2 Narrative: General: No acute distress, nonverbal Abdomen: Soft, nontender, nondistended Urinary Catheter Management: Carcamo: Cath Placed During This Visit: yes Reason for Continuing Indwelling Catheter: Accurate Measurement of Urinary Output in Critically Ill Patients Urinary Catheter Date of Insertion: 11/29/23 Urinary Catheter Time of Insertion: 18:16 Data 12/05/23 09:29 12/05/23 03:25 Micro: Microbiology 11/29/23 19:28 Blood Culture - Final Blood NO GROWTH AFTER 5 DAYS 11/29/23 19:22 Blood Culture - Final Blood NO GROWTH AFTER 5 DAYS 12/03/23 18:10 Gram Stain - Final Sputum - Endotracheal Tube Aspirate A&P Assessment and plan (1) Cognitive decline: (2) Encephalopathy acute: (3) Protein calorie malnutrition: Plan Plan after PEG tube placement tomorrow The risks and benefits of the procedure, including bleeding, infection, intestinal perforation requiring surgery, missed lesion were explained to the patient. The patient is understanding of the risks and wishes to proceed. Medical management per primary Attestations 2 Medical Necessity Statement*: Per primary Coding Level of Care Code 70351 Diagnoses Cognitive decline R41.89 Encephalopathy acute G93.40 Protein calorie malnutrition E46
--- NOTE | 2023-12-04 11:58 | P.PCN_ITS ---
Documented by User: Shannon [email or web address] 12/05/23 09:42 EEG Routine Details of Procedure EEG 02659- coma or sleep only: [id number] Documented by User: Jonny Fiore MD 12/04/23 16:51 EEG Routine Details of Procedure Details/Comments: EEG TEMPLATE: This is a 19 channel routine video surface EEG recording utilizing the [employer] software with surface and EKG electrodes. The procedure was performed utilizing the international 10-20 system. Patient name: Roland Butts Date of : 1965 Patient age [age] years old Identification number: [id number] Referring Physician: Jonny Fiore MD EEG#: EEG Start time: 12:44:24 EEG End time: 13:51:01 Duration of study: 30 minutes Date of study: 12/04/2023 Reason for study: Decreased level of consciousness/encephalopathy portable bedside EEG recording was performed in intensive care unit bed #9 to assess for subclinical status epilepticus which is a potential life-threatening condition and to assist in determining if additional or alternative anticonvulsant medications are required Skull defects: None Condition of recording: The patient was reported to be intubated and sedated on fentanyl, propofol has been discontinued prior to this study Cooperation: Good Activation procedures: Painful stimulation applied to the patient's nailbed Medications: Intravenous Keppra, IV fentanyl, IV Lasix IV Toradol IV thiamine Background activity: Background activity during the recording consisted of 5 to 6 Hz generalized low voltage theta slowing associated with low to moderate voltage delta slowing. Intermittently during the recording the record was partially obscured by muscle artifact when the patient was biting on the ET tube. Patient did not display any movement per lead slot technician when pain was applied to his nailbeds. Interictal activity: None Ictal activity: None Impression: This is mild to moderate abnormal portable inpatient surface EEG recording secondary to generalized 5 to 6 Hz low voltage theta slowing associated with low to moderate voltage delta slowing seen throughout the recording. Clinical correlation: The generalized slowing of the background rhythm is consistent with a diffuse encephalopathic process, nonspecific with regards to etiology. Note: No seizure activity was seen. Physician name/Signature: Jonny Fiore MD mononitrotoluene operator/Signature: Shannon PARKER TIlia
--- NOTE | 2023-12-04 12:42 | PC.PT ---
PT eval attempted again today at 12:35 and Dieudonne the nurse states he is still out and intubated and not appropriate for PT eval at this time. Will attempt tomorrow or when it is appropriate.
--- NOTE | 2023-12-04 12:43 | P.CONIM_ITS ---
Providers/Reason For Consult 2 Consulting Physician/Specialty*: Jonny Fiore MD neurology and epilepsy Reason for Consult*: Multiple lacunar infarctions and decreased level consciousness Attending Physician: Anna Awan MD Primary Care Provider: Vernon Yeboah MD History of Present Illness History of Present Illness Roland Butts is a 58 year old male with a history of multiple lacunar infarctions since August 2023. Patient underwent 2D echocardiogram with bubble study as well as cardiac telemetry monitoring which was negative for cardiac source for strokes. Patient was apparently discharged to home but returned secondary to further decline in the patient's health condition. As a result neurology consult was obtained. Patient currently intubated and was unable to give any additional information regarding his history and no family members were available. Drug allergies: None Home medications: Norvasc 10 mg p.o. daily Lipitor 80 mg p.o. daily Canagliflozin 300 mg tablet p.o. daily Carvedilol 25 mg p.o. twice daily Celebrex 200 mg p.o. twice daily Trulicity 0.5 mg subcutaneously every 7 days Pepcid 20 mg p.o. twice daily Aspirin 81 mg p.o. daily Fenofibrate 145 mg p.o. daily Lasix 40 mg p.o. daily Glipizide 5 mg p.o. twice daily Hydralazine 50 mg p.o. 3 times daily, as needed elevated blood pressure Keppra 500 mg p.o. twice daily Lisinopril 40 mg p.o. q. Magnesium oxide 40 mg p.o. daily Metformin 1000 mg p.o. twice daily Remeron 7.5 mg p.o. daily. Naproxen 500 mg p.o. every 12 hours as needed Protonix 40 mg p.o. daily Sitagliptin 50 mg p.o. twice daily Flomax 0.4 mg p.o. 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 Benign prostate hypertrophy Obstructive sleep apnea Lumbar disc disease with radiculopathy Nicotine dependent Gastroesophageal reflux disease Type 2 diabetes mellitus Habits: Patient has reported history of nicotine dependence Family history: Unable to obtain Review of Systems 2 General: Reports: ROS unobtainable due to endotracheal tube Medications/Allergies Home Medications Medication Instructions Recorded Confirmed Last Taken Type Glucose monitor supplies #100 ea 09/22/23 11/30/23 Unknown Rx amlodipine 10 mg tablet 10 mg PO DAILY blood pressure #30 09/22/23 11/30/23 Unknown Rx tabs blood pressure kit #1 ea 09/22/23 11/30/23 Unknown Rx canagliflozin 300 mg tablet 300 mg PO DAILY blood pressure #30 09/22/23 11/30/23 Unknown Rx (Invokana) tabs glocose monitor #1 ea 09/22/23 11/30/23 Unknown Rx hand rails for bathroom/home #3 ea 09/22/23 11/30/23 Unknown Rx metformin 1,000 mg tablet 1,000 mg PO BID diabetes #60 tabs 09/22/23 11/30/23 Unknown Rx tamsulosin 0.4 mg capsule 0.4 mg PO BEDTIME #30 caps 09/22/23 11/30/23 Unknown Rx fenofibrate nanocrystallized 145 145 mg PO DAILY 09/28/23 11/30/23 Unknown History mg tablet pantoprazole 40 mg tablet,delayed 40 mg PO DAILY 09/28/23 11/30/23 Unknown History release mupirocin 2 % topical ointment 1 applic topical TID #22 grams 10/07/23 11/30/23 Unknown Rx hydralazine 25 mg tablet 50 mg PO TID PRN high blood 10/11/23 11/30/23 Unknown History pressure above 160 systolic magnesium oxide 400 mg PO DAILY #100 tabs 10/25/23 11/30/23 Unknown Rx mirtazapine 7.5 mg tablet 7.5 mg PO DAILY #30 tabs 10/25/23 11/30/23 Unknown Rx famotidine 20 mg tablet 20 mg PO BID PRN acid reflux #180 11/02/23 11/30/23 Unknown Rx tabs furosemide 40 mg tablet 40 mg PO DAILY #90 tabs 11/02/23 11/30/23 Unknown Rx levetiracetam 500 mg tablet 500 mg PO BID #60 tabs 11/07/23 11/30/23 Unknown Rx (Keppra) glipizide 5 mg tablet 5 mg PO BID #60 tabs 11/08/23 11/30/23 Unknown Rx sitagliptin phosphate 50 mg tablet 50 mg PO BID diabetes #180 tabs 11/08/23 11/30/23 Unknown Rx (Januvia) celecoxib 200 mg capsule 200 mg PO BID PRN pain #60 caps 11/29/23 11/30/23 Unknown Rx aspirin 81 mg tablet,delayed 81 mg PO DAILY 11/30/23 11/30/23 Unknown History release atorvastatin 80 mg tablet 80 mg PO DAILY 11/30/23 11/30/23 Unknown History carvedilol 25 mg tablet 25 mg PO BID 11/30/23 11/30/23 Unknown History chlorthalidone 25 mg tablet 25 mg PO DAILY 11/30/23 11/30/23 Unknown History dulaglutide 1.5 mg/0.5 mL 0.5 mg SUBCUT Q7D 11/30/23 11/30/23 Unknown History subcutaneous pen injector ([facility] lisinopril 40 mg tablet 40 mg PO DAILY 11/30/23 11/30/23 Unknown History naproxen 500 mg tablet 500 mg PO Q12H PRN Pain 11/30/23 11/30/23 Unknown History Allergies Allergy/AdvReac Type Severity Reaction Status Date / Time No Known Allergies Allergy Verified 11/29/23 16:05 Current Medications Generic Name Dose Route Start Last Admin Trade Name Freq PRN Reason Stop Dose Admin Acetylcysteine 100 mg 12/03/23 20:00 12/04/23 07:56 Acetylcysteine 200 Mg/Ml Mdv 10 Ml INHALATION 100 mg Q4H.RESPIRATORY CHERELLE Administration Albuterol/Ipratropium 3 ml 11/29/23 19:47 12/04/23 07:56 Ipratropium-Albuterol 3 Ml Neb INHALATION 3 ml Q6H PRN Administration SHORTNESS OF BREATH Heparin Sodium (Porcine) 5,000 unit 11/29/23 20:00 12/01/23 08:36 Heparin 5,000 Unit/Ml Inj 1 Ml SUBCUT 5,000 unit Q12H CHERELLE Administration Norepinephrine Bitartrate 4 mg in 250 mls @ 0 mls/hr 11/29/23 22:30 12/04/23 09:40 Levophed IV 4 mcg/min .Q0M CHERELLE 15 mls/hr Administration Protocol Per Protocol Levetiracetam 500 mg in 100 mls @ 400 mls/hr 12/03/23 20:00 12/04/23 04:43 Keppra IV Infused Q8H CHERELLE Infusion Fentanyl 1,000 mcg in 100 mls @ 0 mls/hr 12/03/23 17:45 12/04/23 04:00 Sublimaze IV 25 mcg/hr .Q0M CHERELLE 2.5 mls/hr Titration Protocol Per Protocol Propofol 1,000 mg in 100 mls @ 0 mls/hr 12/03/23 17:45 12/04/23 07:17 Diprivan IV 10 mcg/kg/min .Q0M CHERELLE 3.5 mls/hr Administration Protocol Per Protocol Vancomycin/PEG/NADA/Lysine/Water 1,250 mg in 250 mls @ 250 mls/hr 12/03/23 20:30 12/04/23 11:27 Vancocin IV Infused Q12H CHERELLE Infusion Piperacillin Sod/Tazobactam 50 mls @ 12.5 mls/hr 12/03/23 22:00 12/04/23 09:57 Sod 3.375 gm/ Sodium Chloride IV Infused Q8H CHERELLE Infusion Insulin Human Lispro 0 unit 11/29/23 21:00 12/04/23 11:07 Insulin Lispro 100 Unit/1 Ml SUBCUT Not Given WM&BEDTIME CHERELLE Protocol Midodrine 10 mg 12/03/23 15:00 12/04/23 11:07 Midodrine 5 Mg Tablet PO 10 mg TID CHERELLE Administration Pantoprazole Sodium 40 mg 11/30/23 16:00 12/04/23 03:45 Pantoprazole 40 Mg Sdv IVP 40 mg Q12H CHERELLE Administration Senna/Docusate Sodium 1 tab 11/30/23 09:00 12/04/23 09:37 Sennosides-Docusate Tablet PO 1 tab DAILY CHERELLE Administration Tamsulosin HCl 0.4 mg 11/30/23 21:00 12/03/23 21:37 Tamsulosin 0.4 Mg Capsule PO 0.4 mg BEDTIME CHERELLE Administration Thiamine HCl 100 mg 12/04/23 09:00 12/04/23 09:38 Thiamine 100 Mg/Ml Sdv IVP 100 mg DAILY CHERELLE Administration PFSH Acute 2 PFSH: Medical History Dehydration determined by examination Altered mental state Uncontrolled diabetes mellitus Posterior reversible encephalopathy syndrome BPH w urinary obs/LUTS Unsteady gait Hypokalemia JEAN-CLAUDE (obstructive sleep apnea) Facet arthropathy, lumbar Degenerative lumbar disc Nocturia Left-sided low back pain with left-sided sciatica Erectile dysfunction Decreased libido Type 2 diabetes mellitus, without long-term current use of insulin Essential hypertension Hyperlipidemia Surgical History History of hip surgery History of ankle surgery Family History Other CAD (coronary artery disease) Cancer Diabetes Social History Smoking and tobacco/nicotine status: current every day tobacco/nicotine user cigarettes Packs smoked per day: 0.75 Years cigarettes smoked: 40 Alcohol intake: former Substance/Drug Use: never Household members: spouse Vitals/I&O/Wt Last Vital Signs Temp 98.1 F 12/04/23 08:00 Pulse 106 H 12/04/23 11:00 Resp 19 H 12/04/23 11:20 BP 103/66 12/04/23 11:00 Pulse Ox 100 12/04/23 11:20 O2 Del Method Mechanical Ventilation 12/04/23 08:00 O2 Flow Rate 3 12/03/23 14:30 FiO2 50 12/04/23 11:20 12/03/23 12/04/23 12/04/23 22:59 06:59 14:59 Intake Total 432.53 / 438.530 762.199 / 1200.729 384.667 / 384.667 Output Total 1050 / 1100 Balance 432.53 / 388.530 -287.801 / 100.729 384.667 / 384.667 Weight last 48 hrs Weight 125 lb 6.4 oz Weight 128 lb 11.2 oz Physical Exam 2 Narrative: Blood pressure 103/66 heart rate 106 respiration 19 temperature 98.1. O2 saturation 100% on the ventilator Patient is currently sedated. He is in no apparent distress at this time. Head atraumatic. Neck appears to be supple. Cranial nerves II through XII revealed no obvious facial weakness. Pupils 3 to 4 mm round reactive to light and accommodation. Motor testing difficult to assess secondary to decreased level consciousness. Plantar responses flexor bilaterally there was no clonus. Sensory examination difficult to assess secondary to sedation. According to the nurse sedation recently discontinued and currently on fentanyl. Throat patient intubated. Lungs revealed no obvious wheezing. Heart revealed sinus tachycardia. Extremities were negative for cyanosis Urinary Catheter Management: Carcamo: Cath Placed During This Visit: yes Reason for Continuing Indwelling Catheter: Accurate Measurement of Urinary Output in Critically Ill Patients Urinary Catheter Date of Insertion: 11/29/23 Urinary Catheter Time of Insertion: 18:16 Data 12/04/23 04:27 12/04/23 04:27 Micro: Microbiology 12/02/23 11:42 Blood Culture - Preliminary Blood NEGATIVE TO DATE 12/02/23 11:38 Blood Culture - Preliminary Blood NEGATIVE TO DATE A&P Assessment and plan (1) Encephalopathy acute: Impression: 1. Acute encephalopathy etiology unclear 2. Multiple strokes Large amount of diffuse white matter disease likely reflecting chronic microvascular ischemic changes. Bilateral basal ganglia and thalamic chronic lacunar infarcts. 3. Sepsis 4. Respiratory failure Plan: 1. Agree with obtaining hypercoagulable lab 2. Agree with thiamine 100 mg IV daily 3. Agree with obtaining bedside surface EEG recording to assess for subclinical seizure activity (preliminary reading reveals just generalized slowing suggestive of a diffuse encephalopathic process) 4. Agree with IV Keppra 500 mg 3 times daily for now 5. Agree with obtaining head MRI when patient off of the ventilator 6. Continue neurochecks and vital signs per [facility] stroke protocol (2) History of multiple strokes: Consult Attestations 2 Medical Necessity Statement: The patient was evaluated by neurology for encephalopathy Coding Level of Care Code Acute Code for Chg Fwd Diagnoses Encephalopathy acute G93.40 History of multiple strokes Z86.73
--- NOTE | 2023-12-04 13:32 | P.PN_ITS ---
Subjective 2 Subjective: Off propofol EEG done Appreciate neuro recommendations Patient not able to follow commands Will do weaning trial I do not think patient will do well with weaning trial Had discussion with the daughter I told her that oxygenation has improved from yesterday, x-rays look better as well there is no need of bronchoscopy or transfer at this point Prognosis seems guarded at this point I have encouraged daughter to speak with her and if they would consider hospice in case Mr. Butts is not able to be weaned off, he has not eaten in weeks and now he aspirated and coded, he was very deconditioned to begin with at the time of admission now after cardiac arrest he will take significant toll on his body and brain, daughter is planning to talk with her aunts later today Vitals/I&O/Wt Last Vital Signs Temp 98.1 F 12/04/23 08:00 Pulse 118 H 12/04/23 13:17 Resp 14 12/04/23 13:17 BP 120/72 12/04/23 12:45 Pulse Ox 100 12/04/23 13:17 O2 Del Method Mechanical Ventilation 12/04/23 13:17 O2 Flow Rate 3 12/03/23 14:30 FiO2 50 12/04/23 13:17 12/03/23 12/04/23 12/04/23 22:59 06:59 14:59 Intake Total 432.53 / 438.530 762.199 / 1200.729 384.667 / 384.667 Output Total 1050 / 1100 Balance 432.53 / 388.530 -287.801 / 100.729 384.667 / 384.667 Weight last 48 hrs Weight 56.88 kg Weight 58.377 kg Physical Exam 2 Narrative: Patient moving upper extremities but not able to follow commands Off propofol Lower extremity swelling Carcamo catheter in place Currently off Levophed FiO2 60% Antibiotics running at the bedside Neuro Limited exam S1, S2 Sluggish bowel sounds Urinary Catheter Management: Carcamo: Cath Placed During This Visit: yes Reason for Continuing Indwelling Catheter: Accurate Measurement of Urinary Output in Critically Ill Patients Urinary Catheter Date of Insertion: 11/29/23 Urinary Catheter Time of Insertion: 18:16 Data 12/04/23 04:27 12/04/23 04:27 Micro: Microbiology 12/02/23 11:42 Blood Culture - Preliminary Blood NEGATIVE TO DATE 12/02/23 11:38 Blood Culture - Preliminary Blood NEGATIVE TO DATE A&P Assessment and plan (1) Non-compliance: (2) Essential hypertension: (3) Nonischemic congestive cardiomyopathy: (4) Type 2 diabetes mellitus, without long-term current use of insulin: Qualifiers: Diabetes mellitus complication status: with circulatory complication D iabetes mellitus complication detail: with other circulatory complications Qualified Code(s): E11.59 - Type 2 diabetes mellitus with other circulatory complications (5) Uncontrolled diabetes mellitus: Qualifiers: Diabetes mellitus type: type 2 Glycemic state: with hyperglycemia Qualified Code(s): E11.65 - Type 2 diabetes mellitus with hyperglycemia (6) GERD (gastroesophageal reflux disease): Qualifiers: Esophagitis presence: esophagitis presence not specified Qualified Code(s): K21.9 - Gastro-esophageal reflux disease without esophagitis (7) Dehydration determined by examination: (8) Fluid volume depletion: (9) BPH w urinary obs/LUTS: (10) ULICES (acute kidney injury): (11) Acute encephalopathy: (12) Altered mental state: Qualifiers: Altered mental status type: somnolence Qualified Code(s): R40.0 - Somnolence (13) 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 Love wants MRI once he is off ventilator Currently patient is on IV Keppra Coffee-ground emesis: No recurrence Monitor H&H Stable for now FOBT negative Acute on chronic kidney disease: Improved General surgery was consulted for PEG tube placement for severe malnourishment EGD and PEG tube placement was requested by Dr. Posadas Patient remains full code Another family meeting conducted today Daughter was receptive of guarded prognosis She wants to talk with her Aunts N.p.o. Escalated antibiotics vancomycin and Zosyn secondary to aspiration Attestations 2 Medical Necessity Statement*: Continue ICU management Coding Level of Care Code Critical Care >/= 30 minutes Critical care time (in minutes): 45 The high probability of a clinically significant, sudden or life threatening deterioration, as referenced in this documentation, required my full and direct attention, intervention and personal management. The critical care time shown is in addition to time spent performing any reported separately billable procedures and includes the following: [x] Data and vital sign review and interpretation [x ] Patient assessment, examination and intervention [x] Medication orders and management [x] Patient/Family updates as able [x] Care Coordination and Documentation. Diagnoses Non-compliance Z91.199 Essential hypertension I10 Nonischemic congestive cardiomyopathy I42.0 Type 2 diabetes mellitus with other circulatory complication, without long-term current use of insulin E11.59 Diabetes mellitus complication status: with circulatory complication Diabetes mellitus complication detail: with other circulatory complications Uncontrolled type 2 diabetes mellitus with hyperglycemia E11.65 Diabetes mellitus type: type 2 Glycemic state: with hyperglycemia Gastroesophageal reflux disease, unspecified whether esophagitis present K21.9 Esophagitis presence: esophagitis presence not specified Dehydration determined by examination E86.0 Fluid volume depletion E86.9 BPH w urinary obs/LUTS N40.1; N13.8 ULICES (acute kidney injury) N17.9 Acute encephalopathy G93.40 Somnolence R40.0 Altered mental status type: somnolence 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
--- NOTE | 2023-12-04 13:51 | USCV_ITS ---
Roland Butts Age: 58 Gender: M : 1965 Exam Date: 12/04/2023 18:41 Ordering Phys: Anna Awan MD Technologist: SRINIVASAN Exam Location[place] [facility] [place] Indication: post cardiac arrest BP: 122 / 68 HR: 85 Rhythm: Sinus Technical Quality: Adequate MEASUREMENTS (Male / Female) Normal Values 2D ECHO LV Diastolic Diameter PLAX 3.8 cm 4.2 - 5.9 / 3.9 - 5.3 cm IVS Diastolic Thickness 1.5 cm 0.6 - 1.0 / 0.6 - 0.9 cm IVS Systolic Thickness 1.8 cm LVPW Diastolic Thickness 1.5 cm 0.6 - 1.0 / 0.6 - 0.9 cm LVPW Systolic Thickness 1.5 cm LVOT Diameter 2.0 cm LV Ejection Fraction 2D Teich 65.8 % LV Ejection Fraction MOD 4C 66.6 % LV Ejection Fraction MOD 2C 65.9 % LV Ejection Fraction 2C AL 65.8 % LA Diameter 3.0 cm Aorta at Sinotubular Diameter 2.0 cm IVC Diameter 1.4 cm M-MODE LA Ao Ratio MM 1.0 AV Cusp Separation MM 2.1 cm DOPPLER AV Peak Velocity 67.0 cm/s LVOT Peak Velocity 32.0 cm/s AV Area Cont Eq vti 1.4 cm squared AV Area Cont Eq pk 1.5 cm squared MV Peak Velocity 78.0 cm/s MV Area PHT 2.5 cm squared Mitral E to A Ratio 1.1 TR Peak Velocity 194.0 cm/s TR Peak Gradient 15.1 mmHg TV Peak E Velocity 39.0 cm/s Right Atrial Pressure 3.0 mmHg Pulmonary Artery Systolic Pressu 18.1 mmHg PV Peak Velocity 82.0 cm/s FINDINGS Left Ventricle Normal left ventricular size and systolic function, EF 66%.no regional wall motion abnormalities. Right Ventricle Normal right ventricular size and systolic function. Right Atrium Normal chamber size Left Atrium Normal left atrial size Mitral Valve Moderate mitral annular calcification. Aortic Valve Thickened aortic valve. Tricuspid Valve No gross abnormalities noted Pulmonic Valve Pulmonic valve not well visualized. Pericardium And hypoechoic area anteriorly, suggestive of pericardial fat pad versus loculated pericardial effusion Aorta Normal aorta. IVC Normal inferior vena cava. CONCLUSIONS Normal left ventricular size and systolic function, EF 66%.no regional wall motion abnormalities. Moderate mitral annular calcification. Thickened aortic valve. An hypoechoic area anteriorly, suggestive of pericardial fat pad versus loculated pericardial effusion. There is no pericardial effusion. There are no intracardiac masses. Dr Rachel Dong MD FACC (Electronically Signed) Final Date: 04 December 2023 22:06 S
[2023-12-04] MEDS: fentaNYL 1,000 MCG/100 ML BAG 2.5 MCG IV (14:14)
[2023-12-04] MEDS: ketorolac 30 mg/mL INJ 15 MG IVP (15:06)
[2023-12-04 17:59] LABS: Glucose Point of Care 269 mg/dL (70-110)
[2023-12-04 20:38] LABS: Vancomycin Trough 14.1 ug/mL (10-15)
[2023-12-04 21:00] LABS: Glucose Point of Care 253 mg/dL (70-110)
[2023-12-04] MEDS: tamsulosin 0.4 mg Capsule PO (21:03)
[2023-12-05] VITALS (117 sets, daily range): BP systolic 72–159; BP diastolic 45–87; PULSE 56–117; RESP 12–18; TEMP 36.8–37.4; O2SAT 65–100
[2023-12-05] MEDS: levETIRAcetam 500 MG/100 ML PREMIX 400 MG IV ×2 (01:42→15:05)
[2023-12-05] MEDS: acetylcysteine 200 mg/mL MDV 10 mL 100 MG INHALATION ×4 (03:27→20:04)
[2023-12-05] MEDS: ipratropium-albuterol 3 mL Neb INHALATION ×4 (03:28→20:05)
[2023-12-05] MEDS: norepinephrine 4 MG/250 ML BAG 7.5 MG IV (03:50)
[2023-12-05] MEDS: pantoprazole 40 mg SDV IVP ×2 (03:50→15:11)
[2023-12-05 03:55] LABS: Basophils % 0.3 %; Eosinophils % 0.2 %; Hematocrit 24.4 % (37-53); Lymphocytes # 1.7 10^3/uL (0.8-4.8); Lymphocytes % 15.9 %; Mean Corpuscular HGB Conc 30.3 g/dL (30-55); Mean Corpuscular Hemoglobin 28.1 pg (27-33); Mean Corpuscular Volume 92.8 fl (82-101); Mean Platelet Volume 8.7 fL (7.4-10.4); Monocytes # 0.5 10^3/uL (0.2-0.9); Monocytes % 4.4 %; Neutrophils # 8.17 10^3/uL (1.8-7.7); Neutrophils % 78.4 %; Nucleated Red Blood Cells % 0 %; Platelet Count 347 10^3/cmm (157-399); Red Blood Count 2.63 10^6/uL (3.85-5.65); Red Cell Distribution Width 15.9 % (12.1-15.1); White Blood Count 10.42 10^3/uL (3.29-11.43)
[2023-12-05 04:20] LABS: Blood Urea Nitrogen 17 mg/dL (6-20); Calcium 8.5 mg/dL (8.5-10.5); Carbon Dioxide 25 mmol/L (22-29); Chloride 105 mmol/L (98-107); Creatinine Clr Calc Pharmacy 91.4336; Glomerular Filtration Rate 115.4 mL/min (90-130); Glucose 202 mg/dL (65-115); Osmolality Calculated 299 mOsm/kg (285-295); Sodium 141 mmol/L (136-145)
[2023-12-05 04:27] LABS: ABG PCO2 36.7 mmHg (35-45); ABG PH Result 7.46 (7.35-7.45); Arterial Blood Gas Hematocrit 36.7 % (42-52); Base Excess ABG 2.1 mmol/L (-2.0-2.0); Blood Gas Allen Test Pos; Blood Gas Sample Site Radial, right; Blood Gas Sample Type Arterial; HCO3 ABG 25.9 mmol/L (22-26)
[2023-12-05 04:29] LABS: PO2 FiO2 Ratio Arterial Blood 254
[2023-12-05] MEDS: potassium chloride premix 100 ML 25 MEQ IV (05:53)
[2023-12-05] MEDS: piperacillin-tazobactam 3.375 GM in sodium chloride 0.9% (plus) 50 ML IV ×3 (05:53→21:43)
--- NOTE | 2023-12-05 07:50 | PC.OT ---
HOLD OT TREATMENT AGAIN TODAY THE PATIENT REMAINS ON VENT.
[2023-12-05 08:12] LABS: Glucose Point of Care 181 mg/dL (70-110)
[2023-12-05] MEDS: midodrine 5 mg TABLET 10 MG PO ×3 (08:16→21:36)
[2023-12-05] MEDS: sennosides-docusate Tablet 1 TAB PO (08:17)
[2023-12-05] MEDS: vancomycin 1,250 MG/250 ML PIGGYBACK 250 MG IV ×2 (08:17→21:24)
[2023-12-05] MEDS: FUROsemide 10 mg/mL SDV 2mL 20 MG IVP (08:17)
[2023-12-05] MEDS: insulin lispro 100 unit/1 mL SUBCUT ×3 (08:17→18:23)
--- NOTE | 2023-12-05 08:28 | XRR_ITS ---
PROCEDURE INFORMATION: Exam: XR Chest Exam date and time: 12/05/2023 8:39 AM Age: 58 years old Clinical indication: Shortness of breath; Additional info: Mucous plus TECHNIQUE: Imaging protocol: Radiologic exam of the chest. Views: 1 view. COMPARISON: CR XR chest 1V portable [id number] 12/04/2023 4:59 AM FINDINGS: Tubes, catheters and devices: There is an endotracheal tube with its tip 5 cm above the erna. Nasogastric tube is present with its tip below the level of this film. PICC line is seen on the right with its tip overlying the SVC. Lungs: There is opacity at the left lung base partially obscuring the left hemidiaphragm. This may be related to layering pleural fluid, atelectasis, pneumonia or a combination. There has been interval improvement at the left lung base when compared to prior exam. Right lung is clear. Pleural spaces: There may be a small amount of pleural fluid on the left. Heart/Mediastinum: Unremarkable. No cardiomegaly. Bones/joints: Unremarkable. XR/XR chest 1V portable [id number] IMPRESSION: 1. Opacity left lung base improved.
[2023-12-05 09:48] LABS: Hematocrit 22.7 % (37-53)
[2023-12-05] MEDS: lidocaine 1% 5 ML in potassium chloride premix 100 ML 25 ML IV (10:36)
--- NOTE | 2023-12-05 11:48 | P.PN_ITS ---
Vitals/I&O/Wt Last Vital Signs Temp 98.7 F 12/05/23 11:00 Pulse 99 12/05/23 11:00 Resp 15 12/05/23 10:24 BP 106/62 12/05/23 11:00 Pulse Ox 97 12/05/23 11:00 O2 Del Method Mechanical Ventilation 12/05/23 07:30 O2 Flow Rate 3 12/03/23 14:30 FiO2 30 12/05/23 10:24 12/04/23 12/05/23 12/05/23 22:59 06:59 14:59 Intake Total 342.671 / 752.921 583.850 / 1336.771 400 / 400 Output Total 600 / 600 125 / 725 Balance -257.329 / 152.921 458.850 / 611.771 400 / 400 Weight last 48 hrs Weight 127 lb 9.6 oz Weight 125 lb 6.4 oz Physical Exam 2 Urinary Catheter Management: Carcamo: Cath Placed During This Visit: yes Reason for Continuing Indwelling Catheter: Accurate Measurement of Urinary Output in Critically Ill Patients Urinary Catheter Date of Insertion: 11/29/23 Urinary Catheter Time of Insertion: 18:16 Data 12/05/23 09:29 12/05/23 03:25 Micro: Microbiology 11/29/23 19:28 Blood Culture - Final Blood NO GROWTH AFTER 5 DAYS 11/29/23 19:22 Blood Culture - Final Blood NO GROWTH AFTER 5 DAYS 12/03/23 18:10 Gram Stain - Final Sputum - Endotracheal Tube Aspirate A&P Assessment and plan (1) Cognitive decline: (2) Encephalopathy acute: (3) Protein calorie malnutrition: Plan Percutaneous endoscopic gastrostomy tube placement The risks and benefits of the procedure, including bleeding, infection, intestinal perforation requiring surgery, missed lesion were explained to the patient. The patient is understanding of the risks and wishes to proceed. Medical management per primary Attestations 2 Medical Necessity Statement*: Per primary Coding Level of Care Code Acute Code for Chg Fwd Diagnoses Cognitive decline R41.89 Encephalopathy acute G93.40 Protein calorie malnutrition E46
[2023-12-05 11:55] LABS: Glucose Point of Care 173 mg/dL (70-110)
[2023-12-05 12:25] LABS: CENTROMERE B ANTIBODY <1.0 NEG AI (<1.0 NEG); JO-1 ANTIBODY <1.0 NEG AI (<1.0 NEG); RNP ANTIBODY <1.0 NEG AI (<1.0 NEG); SCL-70 ANTIBODY <1.0 NEG AI (<1.0 NEG); SJOGREN'S ANTIBODY (SS-A) <1.0 NEG AI (<1.0 NEG); SM ANTIBODY <1.0 NEG AI (<1.0 NEG); SS-B <1.0 NEG AI (<1.0 NEG)
--- NOTE | 2023-12-05 12:44 | P.PN_ITS ---
Subjective 2 Subjective: Opacity left lung improved Minimal FiO2 settings Will plan to do weaning trial and extubation if he is able to follow commands after procedure Hemoglobin dropped, will give 1 unit PRBC Patient currently on fentanyl and propofol On low-dose Levophed as well Patient is opening his eyes but not able to follow commands, urine output 600 mL Significant febrile events yesterday Concern for ventilator associated pneumonia Cultures negative so far Will give 80 mEq potassium today Echo unremarkable Will touch base with neuro regarding EEG report Vitals/I&O/Wt Last Vital Signs Temp 98.7 F 12/05/23 11:00 Pulse 99 12/05/23 11:00 Resp 15 12/05/23 10:24 BP 106/62 12/05/23 11:00 Pulse Ox 97 12/05/23 11:00 O2 Del Method Mechanical Ventilation 12/05/23 07:30 O2 Flow Rate 3 12/03/23 14:30 FiO2 30 12/05/23 10:24 12/04/23 12/05/23 12/05/23 22:59 06:59 14:59 Intake Total 342.671 / 752.921 583.850 / 1336.771 400 / 400 Output Total 600 / 600 125 / 725 Balance -257.329 / 152.921 458.850 / 611.771 400 / 400 Weight last 48 hrs Weight 57.878 kg Weight 56.88 kg Physical Exam 2 Narrative: Patient opens his eyes spontaneously but does not follow Concentrated urine in the bag Requiring vasopressors for low blood pressure Bilateral assisted breath sounds Abdomen soft Variable S1-S2 Intubated, mild sedation Urinary Catheter Management: Carcamo: Cath Placed During This Visit: yes Reason for Continuing Indwelling Catheter: Accurate Measurement of Urinary Output in Critically Ill Patients Urinary Catheter Date of Insertion: 11/29/23 Urinary Catheter Time of Insertion: 18:16 Data 12/05/23 09:29 12/05/23 03:25 Micro: Microbiology 11/29/23 19:28 Blood Culture - Final Blood NO GROWTH AFTER 5 DAYS 11/29/23 19:22 Blood Culture - Final Blood NO GROWTH AFTER 5 DAYS 12/03/23 18:10 Gram Stain - Final Sputum - Endotracheal Tube Aspirate A&P Assessment and plan (1) Non-compliance: (2) Essential hypertension: (3) Nonischemic congestive cardiomyopathy: (4) Type 2 diabetes mellitus, without long-term current use of insulin: Qualifiers: Diabetes mellitus complication status: with circulatory complication D iabetes mellitus complication detail: with other circulatory complications Qualified Code(s): E11.59 - Type 2 diabetes mellitus with other circulatory complications (5) Uncontrolled diabetes mellitus: Qualifiers: Diabetes mellitus type: type 2 Glycemic state: with hyperglycemia Qualified Code(s): E11.65 - Type 2 diabetes mellitus with hyperglycemia (6) GERD (gastroesophageal reflux disease): Qualifiers: Esophagitis presence: esophagitis presence not specified Qualified Code(s): K21.9 - Gastro-esophageal reflux disease without esophagitis (7) Dehydration determined by examination: (8) Fluid volume depletion: (9) BPH w urinary obs/LUTS: (10) ULICES (acute kidney injury): (11) Acute encephalopathy: (12) Altered mental state: Qualifiers: Altered mental status type: somnolence Qualified Code(s): R40.0 - Somnolence (13) 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: (14) JEAN-CLAUDE (obstructive sleep apnea): (15) Unsteady gait: (16) Sepsis: (17) UTI (urinary tract infection): (18) Cardiac arrest: (19) Anemia: Qualifiers: Anemia type: unspecified type Qualified Code(s): D64.9 - Anemia, unspecified Plan Cardiac arrest related to hypoxia and aspiration 12/02 CPR done for 3 minutes Patient intubated 12/02 Failed weaning trial 12/03 12/04, will do weaning trial once patient is able to follow commands after PEG tube placement High-grade fever Concern for ventilator associated pneumonia Continue broad-spectrum antibiotics Blood cultures, negative, sputum culture pending Urine culture from 11/28 showing Staph aureus Respiratory failure requiring mechanical ventilation 12/02 patient was intubated FiO2 requirement has improved significantly, Chest x-ray showing improvement Chest vest therapy and Mucomyst therapy has improved his left lung aeration significant Acute on chronic hypoxia Mucous plug, with chest vest and Mucomyst FiO2 requirement has improved to 60%, left side x-ray showing improvement Escalated antibiotics vancomycin and Zosyn secondary to aspiration and concerns related to ventilator associated pneumonia Chest x-ray showing improvement of mucous plug, Minimal ventilator settings Septic shock: Requires vasopressors intermittently Septic encephalopathy EEG report is pending Dr. Love wants MRI once he is off ventilator Currently patient is on IV Keppra [employer] emesis: No recurrence Monitor H&H Stable for now FOBT negative Hemoglobin dropped today, will give 1 unit PRBC Acute on chronic kidney disease: Improved Patient remains full code Will touch base with the family today N.p.o. Attestations 2 Medical Necessity Statement*: Continue ICU management Coding Level of Care Code Critical Care >/= 30 minutes Critical care time (in minutes): 30 The high probability of a clinically significant, sudden or life threatening deterioration, as referenced in this documentation, required my full and direct attention, intervention and personal management. The critical care time shown is in addition to time spent performing any reported separately billable procedures and includes the following: [x] Data and vital sign review and interpretation [x ] Patient assessment, examination and intervention [x] Medication orders and management [x] Patient/Family updates as able [x] Care Coordination and Documentation. Diagnoses Non-compliance Z91.199 Essential hypertension I10 Nonischemic congestive cardiomyopathy I42.0 Type 2 diabetes mellitus with other circulatory complication, without long-term current use of insulin E11.59 Diabetes mellitus complication status: with circulatory complication Diabetes mellitus complication detail: with other circulatory complications Uncontrolled type 2 diabetes mellitus with hyperglycemia E11.65 Diabetes mellitus type: type 2 Glycemic state: with hyperglycemia Gastroesophageal reflux disease, unspecified whether esophagitis present K21.9 Esophagitis presence: esophagitis presence not specified Dehydration determined by examination E86.0 Fluid volume depletion E86.9 BPH w urinary obs/LUTS N40.1; N13.8 ULICES (acute kidney injury) N17.9 Acute encephalopathy G93.40 Somnolence R40.0 Altered mental status type: somnolence 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
--- NOTE | 2023-12-05 13:06 | ANES.PREANE2 ---
Pre-Anesthetic Assessment Height/Weight: Height 1.6 m Weight 57.878 kg Temp Pulse Resp BP Pulse Ox O2 Del Method O2 Flow Rate 99.3 F 74 12 106/62 99 Mechanical Ventilation 3 12/05/23 12:00 12/05/23 13:01 12/05/23 13:01 12/05/23 11:00 12/05/23 13:01 12/05/23 13:01 12/03/23 14:30 FiO2 12/05/23 13:01 Operation Date: 12/05/23 12:00 Proposed Procedures p PEG Tube Insertion Gastric Tube Insertion(Not Applicable) - Reyes Conde DO Familial anesthetic complications: none Last intake: > 8h hrs Social Tobacco and No alcohol Exam clear to auscultation bilaterally and regular rate & rhythm Airway Comments: Comments: inubated and sedated Pulmonary Sleep Apnea pnemonia CV/HEM Anemia and Hypertension GI Gastroesophageal Reflux Disease Metabolic Diabetes Mellitus and Hyperlipidemia Neuropsych Cerebrovascular Accident Anesthetic Plan ASA status: 4 Anesthesia: Local Only Risk of > 500 ml blood loss (7ml/kg in children): No Medications/Allergies Home Medications Medication Instructions Recorded Confirmed Last Taken Type Glucose monitor supplies #100 ea 09/22/23 11/30/23 Unknown Rx amlodipine 10 mg tablet 10 mg PO DAILY blood pressure #30 09/22/23 11/30/23 Unknown Rx tabs blood pressure kit #1 ea 09/22/23 11/30/23 Unknown Rx canagliflozin 300 mg tablet 300 mg PO DAILY blood pressure #30 09/22/23 11/30/23 Unknown Rx (Invokana) tabs glocose monitor #1 ea 09/22/23 11/30/23 Unknown Rx hand rails for bathroom/home #3 ea 09/22/23 11/30/23 Unknown Rx metformin 1,000 mg tablet 1,000 mg PO BID diabetes #60 tabs 09/22/23 11/30/23 Unknown Rx tamsulosin 0.4 mg capsule 0.4 mg PO BEDTIME #30 caps 09/22/23 11/30/23 Unknown Rx fenofibrate nanocrystallized 145 145 mg PO DAILY 09/28/23 11/30/23 Unknown History mg tablet pantoprazole 40 mg tablet,delayed 40 mg PO DAILY 09/28/23 11/30/23 Unknown History release mupirocin 2 % topical ointment 1 applic topical TID #22 grams 10/07/23 11/30/23 Unknown Rx hydralazine 25 mg tablet 50 mg PO TID PRN high blood 10/11/23 11/30/23 Unknown History pressure above 160 systolic magnesium oxide 400 mg PO DAILY #100 tabs 10/25/23 11/30/23 Unknown Rx mirtazapine 7.5 mg tablet 7.5 mg PO DAILY #30 tabs 10/25/23 11/30/23 Unknown Rx famotidine 20 mg tablet 20 mg PO BID PRN acid reflux #180 11/02/23 11/30/23 Unknown Rx tabs furosemide 40 mg tablet 40 mg PO DAILY #90 tabs 11/02/23 11/30/23 Unknown Rx levetiracetam 500 mg tablet 500 mg PO BID #60 tabs 11/07/23 11/30/23 Unknown Rx (Keppra) glipizide 5 mg tablet 5 mg PO BID #60 tabs 11/08/23 11/30/23 Unknown Rx sitagliptin phosphate 50 mg tablet 50 mg PO BID diabetes #180 tabs 11/08/23 11/30/23 Unknown Rx (Januvia) celecoxib 200 mg capsule 200 mg PO BID PRN pain #60 caps 11/29/23 11/30/23 Unknown Rx aspirin 81 mg tablet,delayed 81 mg PO DAILY 11/30/23 11/30/23 Unknown History release atorvastatin 80 mg tablet 80 mg PO DAILY 11/30/23 11/30/23 Unknown History carvedilol 25 mg tablet 25 mg PO BID 11/30/23 11/30/23 Unknown History chlorthalidone 25 mg tablet 25 mg PO DAILY 11/30/23 11/30/23 Unknown History dulaglutide 1.5 mg/0.5 mL 0.5 mg SUBCUT Q7D 11/30/23 11/30/23 Unknown History subcutaneous pen injector (Trulicity) lisinopril 40 mg tablet 40 mg PO DAILY 11/30/23 11/30/23 Unknown History naproxen 500 mg tablet 500 mg PO Q12H PRN Pain 11/30/23 11/30/23 Unknown History Allergies Allergy/AdvReac Type Severity Reaction Status Date / Time No Known Allergies Allergy Verified 11/29/23 16:05 Current Medications Generic Name Dose Route Start Last Admin Trade Name Freq PRN Reason Stop Dose Admin Acetylcysteine 100 mg 12/05/23 14:00 12/05/23 13:01 Acetylcysteine 200 Mg/Ml Mdv 10 Ml INHALATION 100 mg Q6H.RESP CHERELLE Administration Albuterol/Ipratropium 3 ml 11/29/23 19:47 12/05/23 12:59 Ipratropium-Albuterol 3 Ml Neb INHALATION 3 ml Q6H PRN Administration SHORTNESS OF BREATH Furosemide 20 mg 12/05/23 09:00 12/05/23 08:17 Furosemide 10 Mg/Ml Sdv 2ml IVP 20 mg Q24H HCERELLE Administration Heparin Sodium (Porcine) 5,000 unit 11/29/23 20:00 12/01/23 08:36 Heparin 5,000 Unit/Ml Inj 1 Ml SUBCUT 5,000 unit Q12H CHERELLE Administration Norepinephrine Bitartrate 4 mg in 250 mls @ 0 mls/hr 11/29/23 22:30 12/05/23 06:28 Levophed IV 2 mcg/min .Q0M CHERELLE 7.5 mls/hr Titration Protocol Per Protocol Fentanyl 1,000 mcg in 100 mls @ 0 mls/hr 12/03/23 17:45 12/05/23 03:51 Sublimaze IV 25 mcg/hr .Q0M CHERELLE 2.5 mls/hr Titration Protocol Per Protocol Propofol 1,000 mg in 100 mls @ 0 mls/hr 12/03/23 17:45 12/05/23 03:51 Diprivan IV 10 mcg/kg/min .Q0M CHERELLE 3.5 mls/hr Titration Protocol Per Protocol Vancomycin/PEG/NADA/Lysine/Water 1,250 mg in 250 mls @ 250 mls/hr 12/03/23 20:30 12/05/23 09:25 Vancocin IV Infused Q12H CHERELLE Infusion Piperacillin Sod/Tazobactam 50 mls @ 12.5 mls/hr 12/03/23 22:00 12/05/23 09:57 Sod 3.375 gm/ Sodium Chloride IV Infused Q8H CHERELLE Infusion Levetiracetam 500 mg in 100 mls @ 400 mls/hr 12/05/23 01:30 12/05/23 02:03 Keppra IV Infused Q12H CHERELLE Infusion Insulin Human Lispro 0 unit 11/29/23 21:00 12/05/23 11:54 Insulin Lispro 100 Unit/1 Ml SUBCUT 4 unit WM&BEDTIME CHERELLE Administration Protocol Midodrine 10 mg 12/03/23 15:00 12/05/23 08:16 Midodrine 5 Mg Tablet PO 10 mg TID CHERELLE Administration Pantoprazole Sodium 40 mg 11/30/23 16:00 12/05/23 03:50 Pantoprazole 40 Mg Sdv IVP 40 mg Q12H CHERELLE Administration Senna/Docusate Sodium 1 tab 11/30/23 09:00 12/05/23 08:17 Sennosides-Docusate Tablet PO 1 tab DAILY CHERELLE Administration Tamsulosin HCl 0.4 mg 11/30/23 21:00 12/04/23 21:03 Tamsulosin 0.4 Mg Capsule PO 0.4 mg BEDTIME CHERELLE Administration Thiamine HCl 100 mg 12/04/23 09:00 12/05/23 08:16 Thiamine 100 Mg/Ml Sdv IVP 100 mg DAILY CHERELLE Administration PFSH Anesthesia Medical History Dehydration determined by examination Altered mental state Uncontrolled diabetes mellitus Posterior reversible encephalopathy syndrome BPH w urinary obs/LUTS Unsteady gait Hypokalemia JEAN-CLAUDE (obstructive sleep apnea) Facet arthropathy, lumbar Degenerative lumbar disc Nocturia Left-sided low back pain with left-sided sciatica Erectile dysfunction Decreased libido Type 2 diabetes mellitus, without long-term current use of insulin Essential hypertension Hyperlipidemia Surgical History History of hip surgery History of ankle surgery Family History Other CAD (coronary artery disease) Cancer Diabetes Social History Smoking and tobacco/nicotine status: current every day tobacco/nicotine user cigarettes Packs smoked per day: 0.75 Years cigarettes smoked: 40 Alcohol intake: former Substance/Drug Use: never Household members: spouse Data Anesthesia 12/05/23 09:29 12/05/23 03:25 Short CBC 12/04/23 12/05/23 12/05/23 Range/Units 04:27 03:25 09:29 WBC 8.63 10.42 (3.29-11.43) 10^3/uL Hgb 8.50 L 7.40 L 7.20 L (11.27-16.99) g/dL Hct 25.7 L 24.4 L 22.7 L (37-53) % MCV 86.2 92.8 D (82-101) fl Plt Count 370 347 (157-399) 10^3/cmm Neut % (Auto) 79.9 78.4 % Neut # (Auto) 6.89 8.17 H (1.8-7.7) 10^3/uL BMP 12/04/23 12/05/23 04:27 03:25 Sodium 139 141 Potassium 3.6 3.0 L Chloride 105 105 Carbon Dioxide 24 25 BUN 17 17 Creatinine 0.7 0.7 Glucose 201 H 202 H Calcium 8.6 8.5 Liver Function 12/04/23 Range/Units 04:27 Total Bilirubin 0.2 (0.15-1.2) mg/dL AST 20 (0-40) U/L ALT 9 (0-41) U/L Alkaline Phosphatase 64 (40-130) U/L Albumin 2.7 L (3.5-5.2) g/dL ABG 12/03/23 12/03/23 12/04/23 16:43 20:20 03:37 Specimen Type Arterial Mixedvenous Arterial Sample Site Radial, left Radial, right Radial, right ABG pH 7.27 L 7.41 7.47 H ABG pCO2 59.7 H 30.8 L 34.8 L ABG pO2 26.2 L* 46.2 L 90.7 ABG PO2/FiO2 Ratio 26 39 90 ABG HCO3 27.1 H 19.4 L 25.4 ABG O2 Saturation 33.3 79.7 ABG Base Excess -0.7 -4.4 L 2.0 A-a O2 Gradient 80.3 H 82.6 H O2 Delivery Device Bipap Vent Vent FiO2 100.0 100.0 100.0 Tidal Volume 0.45 0.45 PEEP 8.0 8.0 12/05/23 03:50 Specimen Type Arterial Sample Site Radial, right ABG pH 7.46 H ABG pCO2 36.7 ABG pO2 89.0 ABG PO2/FiO2 Ratio 254 ABG HCO3 25.9 ABG O2 Saturation ABG Base Excess 2.1 H A-a O2 Gradient O2 Delivery Device Dipper Clock And Watch Hands FiO2 35.0 Tidal Volume PEEP 6.0 Microbiology 11/29/23 19:28 Blood Culture - Final Blood NO GROWTH AFTER 5 DAYS 11/29/23 19:22 Blood Culture - Final Blood NO GROWTH AFTER 5 DAYS 12/03/23 18:10 Gram Stain - Final Sputum - Endotracheal Tube Aspirate Cardiac Studies: Echocardiogram 12/04/23 Echocardiogram Ultrasound 05/07/20 Sestamibi Stress Test (Cardiology) 09/20/19
[2023-12-05] MEDS: propofol 1,000 MG/100 ML INJ 5.25 MG IV (13:09)
[2023-12-05 13:55] LABS: RPR w(Moniotor) w/REFL Titer NON-REACTIVE (NON-REACTIVE)
[2023-12-05 16:00] LABS: ANA SCREEN, IFA NEGATIVE (NEGATIVE)
[2023-12-05 17:30] LABS: Glucose Point of Care 149 mg/dL (70-110)
--- NOTE | 2023-12-05 20:42 | PC.NURSE ---
Tube Feed/PEG: Per shift report w/ [facility] Bro: tube feed was stopped on dayshift per Dr. Conde, PEG tube place and order to not use for 24hrs.
[2023-12-05 20:55] LABS: Glucose Point of Care 135 mg/dL (70-110)
[2023-12-05] MEDS: tamsulosin 0.4 mg Capsule PO (21:36)
[2023-12-05 23:35] LABS: Lupus Hexagonal Phas Confirm WEAKLY POSITIVE (NEGATIVE); Lupus Thrombin Clotting Time 19 sec (13-19); PTT-LA-Screen 41 sec (< OR = 40)
[2023-12-06] VITALS (99 sets, daily range): BP systolic 84–166; BP diastolic 53–102; PULSE 0–105; RESP 0–28; TEMP 36.6–37.1; O2SAT 0–100
[2023-12-06] MEDS: levETIRAcetam 500 MG/100 ML PREMIX 400 MG IV ×2 (00:46→13:37)
[2023-12-06] MEDS: acetylcysteine 200 mg/mL MDV 10 mL 100 MG INHALATION ×2 (01:36→07:55)
[2023-12-06] MEDS: ipratropium-albuterol 3 mL Neb INHALATION ×2 (01:36→07:55)
[2023-12-06] MEDS: chlorhexidine gluconate 4% Btl 118 mL 1 APPLIC TOPICAL (03:19)
[2023-12-06] MEDS: pantoprazole 40 mg SDV IVP ×2 (03:40→15:07)
--- NOTE | 2023-12-06 03:42 | PC.NURSE ---
[facility]CS: Pt was able to squeeze eye shut on command and raise/lower L. arm on command. Pt was not able to squeeze fingers.
[2023-12-06 04:13] LABS: Basophils % 0.3 %; Eosinophils % 0.6 %; Lymphocytes # 1.2 10^3/uL (0.8-4.8); Lymphocytes % 17.7 %; Mean Corpuscular HGB Conc 32.3 g/dL (30-55); Mean Corpuscular Hemoglobin 28.9 pg (27-33); Mean Corpuscular Volume 89.3 fl (82-101); Mean Platelet Volume 8.3 fL (7.4-10.4); Monocytes # 0.3 10^3/uL (0.2-0.9); Monocytes % 4.6 %; Neutrophils # 5.29 10^3/uL (1.8-7.7); Neutrophils % 76.4 %; Nucleated Red Blood Cells % 0 %; Platelet Count 236 10^3/cmm (157-399); Red Blood Count 2.91 10^6/uL (3.85-5.65); Red Cell Distribution Width 15.6 % (12.1-15.1); White Blood Count 6.93 10^3/uL (3.29-11.43)
[2023-12-06 04:32] LABS: Anion Gap 17.3 (5-19); Blood Urea Nitrogen 13 mg/dL (6-20); Calcium 8.7 mg/dL (8.5-10.5); Carbon Dioxide 22 mmol/L (22-29); Chloride 110 mmol/L (98-107); Glomerular Filtration Rate 137.9 mL/min (90-130); Glucose 119 mg/dL (65-115); Osmolality Calculated 303 mOsm/kg (285-295); Potassium 3.3 mmol/L (3.5-5.1); Sodium 146 mmol/L (136-145)
[2023-12-06 04:41] LABS: ABG PCO2 33.1 mmHg (35-45); ABG PH Result 7.46 (7.35-7.45); Arterial Blood Gas Hematocrit 29.2 % (42-52); Blood Gas Allen Test Pos; Blood Gas Sample Site Brachial, left; Blood Gas Sample Type Arterial; Blood Gas Tidal Volume 0.45; Carboxyhemoglobin 1.4 %THgb (0.4-20.1); HCO3 ABG 23.5 mmol/L (22-26); HGB O2 Sat 93.2 % (95-100); Ionized Calcium Level - ABG 1.3 mmol/L (1.1-1.4); Oxygen Device VENT; Oxygen Saturation ABG 94.6; PO2 ABG 67.2 mmHg (80.0-100.0); PO2 FiO2 Ratio Arterial Blood 280; Total Hemoglobin 9.5 g/dL (14-18)
[2023-12-06] MEDS: piperacillin-tazobactam 3.375 GM in sodium chloride 0.9% (plus) 50 ML IV ×2 (05:13→14:46)
[2023-12-06 07:48] LABS: Glucose Point of Care 123 mg/dL (70-110)
[2023-12-06] MEDS: FUROsemide 10 mg/mL SDV 2mL 20 MG IVP (08:40)
[2023-12-06] MEDS: sennosides-docusate Tablet 1 TAB PO (08:40)
[2023-12-06] MEDS: vancomycin 1,250 MG/250 ML PIGGYBACK 250 MG IV ×2 (08:40→21:10)
[2023-12-06] MEDS: midodrine 5 mg TABLET 10 MG PO ×2 (08:41→14:49)
[2023-12-06] MEDS: lidocaine 1% 5 ML in potassium chloride premix 100 ML 26.25 ML IV (09:09)
--- NOTE | 2023-12-06 10:58 | P.PN_ITS ---
Subjective 2 Subjective: 1500 mL urine output Hemodynamically stable Weaning trial today Plan to extubate today Start tube feeds 24 hours after PEG tube placement, start D5 half-normal saline for worsening dehydration and hypernatremia Sister was updated who was at the bedside Patient remains full code No BM yet No fever since last night Vitals/I&O/Wt Last Vital Signs Temp 98.7 F 12/06/23 08:10 Pulse 88 12/06/23 10:30 Resp 23 H 12/06/23 10:55 BP 119/72 12/06/23 10:30 Pulse Ox 96 12/06/23 10:55 O2 Del Method Mechanical Ventilation 12/06/23 07:55 O2 Flow Rate 3 12/03/23 14:30 FiO2 30 12/06/23 10:55 12/05/23 12/06/23 12/06/23 22:59 06:59 14:59 Intake Total 1024.480 / 1452.876 196.429 / 1649.305 300 / 300 Output Total 1150 / 1150 350 / 1500 Balance -125.520 / 302.876 -153.571 / 149.305 300 / 300 Weight last 48 hrs Weight 58.876 kg Weight 57.878 kg Physical Exam 2 Narrative: Patient keeps his eyes open, able to follow commands Nodding his head Sister at the bedside Looks euvolemic Carcamo catheter in place Bilateral breath sounds without rhonchi or crackles Minimal ventilator settings Abdomen soft Bowel sounds present S1, S2 variable Urinary Catheter Management: Carcamo: Cath Placed During This Visit: yes Reason for Continuing Indwelling Catheter: Accurate Measurement of Urinary Output in Critically Ill Patients Urinary Catheter Date of Insertion: 11/29/23 Urinary Catheter Time of Insertion: 18:16 Data 12/06/23 03:30 12/06/23 03:30 Micro: Microbiology 12/03/23 18:10 Gram Stain - Final Sputum - Endotracheal Tube Aspirate Sputum Culture - Preliminary A&P Assessment and plan (1) Non-compliance: (2) Essential hypertension: (3) Nonischemic congestive cardiomyopathy: (4) Type 2 diabetes mellitus, without long-term current use of insulin: Qualifiers: Diabetes mellitus complication status: with circulatory complication D iabetes mellitus complication detail: with other circulatory complications Qualified Code(s): E11.59 - Type 2 diabetes mellitus with other circulatory complications (5) Uncontrolled diabetes mellitus: Qualifiers: Diabetes mellitus type: type 2 Glycemic state: with hyperglycemia Qualified Code(s): E11.65 - Type 2 diabetes mellitus with hyperglycemia (6) GERD (gastroesophageal reflux disease): Qualifiers: Esophagitis presence: esophagitis presence not specified Qualified Code(s): K21.9 - Gastro-esophageal reflux disease without esophagitis (7) Dehydration determined by examination: (8) Fluid volume depletion: (9) BPH w urinary obs/LUTS: (10) ULICES (acute kidney injury): (11) Acute encephalopathy: (12) Altered mental state: Qualifiers: Altered mental status type: somnolence Qualified Code(s): R40.0 - Somnolence (13) 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: (14) JEAN-CLAUDE (obstructive sleep apnea): (15) Unsteady gait: (16) Sepsis: (17) UTI (urinary tract infection): (18) Cardiac arrest: (19) Anemia: Qualifiers: Anemia type: unspecified type Qualified Code(s): D64.9 - Anemia, unspecified Plan Cardiac arrest related to hypoxia and aspiration 12/05: Weaning trial today, patient opening eyes, off sedation, able to follow commands to some extent Minimal ventilator settings, hemodynamically stable ABG reviewed which is unremarkable High-grade fever Initial diagnosis aspiration pneumonia Concern for ventilator associated pneumonia No fever since last night Urine culture showing Staph aureus, blood cultures negative, sputum culture still pending Respiratory failure requiring mechanical ventilation Mucous plug resolved Good bilateral breath sounds Plan to extubate 12/05, weaning trial today Acute on chronic hypoxia Improving minimal ventilator setting Plan to extubate today Septic shock: Requires vasopressors intermittently Septic encephalopathy EEG report is pending Dr. Love wants MRI once he is off ventilator Currently patient is on IV Keppra Will request MRI once he is extubated today Coffee-ground emesis: No recurrence Monitor H&H Stable for now FOBT negative Hemoglobin dropped today, will give 1 unit PRBC Acute on chronic kidney disease: Improved Patient remains full code Will touch base with the family today N.p.o., start feeding tube, dietary consult placed, start with lower rate and then advance every 8 hours up to optimal level in next 24 hours Sister at the bedside: Updated Disposition: Rehab Attestations 2 Medical Necessity Statement*: Continue ICU management Coding Level of Care Code Critical Care >/= 30 minutes Critical care time (in minutes): 30 The high probability of a clinically significant, sudden or life threatening deterioration, as referenced in this documentation, required my full and direct attention, intervention and personal management. The critical care time shown is in addition to time spent performing any reported separately billable procedures and includes the following: [x] Data and vital sign review and interpretation [x ] Patient assessment, examination and intervention [x] Medication orders and management [x] Patient/Family updates as able [x] Care Coordination and Documentation. Diagnoses Non-compliance Z91.199 Essential hypertension I10 Nonischemic congestive cardiomyopathy I42.0 Type 2 diabetes mellitus with other circulatory complication, without long-term current use of insulin E11.59 Diabetes mellitus complication status: with circulatory complication Diabetes mellitus complication detail: with other circulatory complications Uncontrolled type 2 diabetes mellitus with hyperglycemia E11.65 Diabetes mellitus type: type 2 Glycemic state: with hyperglycemia Gastroesophageal reflux disease, unspecified whether esophagitis present K21.9 Esophagitis presence: esophagitis presence not specified Dehydration determined by examination E86.0 Fluid volume depletion E86.9 BPH w urinary obs/LUTS N40.1; N13.8 ULICES (acute kidney injury) N17.9 Acute encephalopathy G93.40 Somnolence R40.0 Altered mental status type: somnolence 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
[2023-12-06] MEDS: dextrose 5%-sod chloride 0.45% 1,000 ML 75 ML IV (11:13)
--- NOTE | 2023-12-06 12:34 | PC.RESP ---
pt rsbi is 70. rr [address] Awan notified. Waiting for answer to extubate or not.
[2023-12-06] MEDS: morphine 4 mg/mL SDV 1 mL 2 MG IVP ×2 (13:34→22:01)
--- NOTE | 2023-12-06 13:44 | PC.OT ---
PER RESPIRATORY THERAPY AND NURSE; PATIENT JUST EXTUBATED AND REQUEST HOLD AT THIS TIME.
[2023-12-06 14:02] LABS: ABG PCO2 35.2 mmHg (35-45); ABG PH Result 7.45 (7.35-7.45); Arterial Blood Gas Hematocrit 28.4 % (42-52); Base Excess ABG 0.4 mmol/L (-2.0-2.0); Blood Gas Allen Test Pos; Blood Gas Operator Identificat GD; Blood Gas Sample Site Radial, left; Blood Gas Sample Type Arterial; HCO3 ABG 24.2 mmol/L (22-26); Oxygen Device BIPAP; PO2 FiO2 Ratio Arterial Blood 222
[2023-12-06 14:49] LABS: Sodium 142 mmol/L (136-145)
[2023-12-06 15:35] LABS: COMPLEMENT COMPONENT C3C 156 mg/dL (82-185); COMPLEMENT COMPONENT C4C 40 mg/dL (15-53)
[2023-12-06 16:05] LABS: COMPLEMENT, TOTAL (CH50) 49 U/mL (31-60)
[2023-12-06] MEDS: insulin lispro 100 unit/1 mL SUBCUT (17:45)
[2023-12-06 18:00] LABS: THYROID PEROXIDASE ANTIBODIES <1 IU/mL (<9)
--- NOTE | 2023-12-06 19:07 | PC.NURSE ---
Addendum entered by Sveta Harp RN 12/06/23 22:36: Witnessed propofol waste with BOSSMAN [place]ague. Original Note: Wasted Propofol: 38ml Propofol wasted w/ BOSSMAN Hearn.
[2023-12-06] MEDS: etomidate 2 mg/mL INJ SDV 10 mL 20 MG IVP (20:30)
--- NOTE | 2023-12-06 20:31 | XRR_ITS ---
PROCEDURE INFORMATION: Exam: XR Chest Exam date and time: 12/06/2023 8:44 PM Age: 58 years old Clinical indication: Device placement; Ett placement (vent status); Additional info: Intubation TECHNIQUE: Imaging protocol: Radiologic exam of the chest. Views: 1 view. COMPARISON: CR XR chest 1V portable [id number] 05/12/2023 08:39 FINDINGS: Tubes, catheters and devices: Endotracheal tube tip 3 cm above the erna. Right subclavian central venous line tip in the superior vena cava. Lungs: The lungs are well expanded. No significant interval change in the nonspecific left retrocardiac opacity obscuring the left hemidiaphragm. Pleural spaces: No pleural effusion or pneumothorax. Heart/Mediastinum: Normal in size. Bones/joints: No acute fracture is identified. XR/XR chest 1V portable [id number] IMPRESSION: 1. Endotracheal tube tip 3 cm above the erna. 2. Stable retrocardiac opacity that may represent atelectasis, pneumonia and or possibly fluid collection.
[2023-12-06] MEDS: rocuronium 10 mg/mL INJ 5mL 80 MG IVP (20:57)
--- NOTE | 2023-12-06 21:03 | PM.CCNAC ---
Critical Care Event Note Patient was extubated around 1 PM to BiPAP His vitals remained stable, he was saturating well on 60% FiO2 on BiPAP I was called around 8 PM that patient is desaturating on BiPAP decision was made to immediately intubate him to protect his airway family was not notified who agreed with intubation Please follow-up with my intubation procedure note I contacted the family while we were preparing for intubation, I spoke with his Sister Samara she is stating that Roland wanted to live and wanted all the measures to save his life hence decision was made to proceed with intubation Chest x-ray was reviewed after intubation, endotracheal tube was advanced by 2 cm Patient has been put on propofol and fentanyl The high probability of a clinically significant, sudden or life threatening deterioration of the patient's [] system(s) required my full and direct attention, intervention and personal management. The critical care time is as shown. This time is in addition to time spent performing any reported procedures but includes the following: [x] Data and vital sign review and interpretation [x] Patient assessment, examination and intervention [x] Documentation [x] Medication orders and management Critical Care Time Code activated: No Critical Care Time (min): 30 Additional information about critical care time: 30 Coding Level of Care Code Acute Code for Chg Fwd
--- NOTE | 2023-12-06 21:05 | PM.ACPR ---
Procedure/Consent Consent: Additional Consent Information: Patient was not able to protect his airway on BiPAP Increasing upper airway secretions Decision was made to immediately intubate after getting in touch with the family Acute Procedures Intubation: Time out performed: Yes Sedative: etomidate Mg given: 20 Paralytic: rocuronium Mg given: 80 Laryngoscope: fiber optic video scope Assist device used: fiber optic device ET tube size: 8 Tube secured depth (cm): 24 Tube secured location: lips Tube placement confirmation: visualized tube passing through cords, equal breath sounds bilaterally, no breath sounds over epigastrium, confirmation by capnometry and color change noted Patient tolerated procedure: well and no complications Intubation complications: none Additional comments: Critical care procedural time 30 minutes
[2023-12-06 21:21] LABS: Glucose Point of Care 186 mg/dL (70-110)
[2023-12-06 21:24] LABS: Glucose Point of Care 226 mg/dL (70-110)
[2023-12-06 21:24] LABS: Glucose Point of Care 129 mg/dL (70-110)
--- NOTE | 2023-12-06 21:31 | PC.NURSE ---
Intubation: SpO2 75%, sat pt up and RT notified. BiPAP FiO2 increased per RT. RT preformed jaw thrust- SpO2 improved to 85%. Dr. Awan called. Order to prepare to intubate, 80 Rocuronium, [address] Awan on unit shortly after- intubated @2031. Family at bedside shortly after.
--- NOTE | 2023-12-06 21:57 | PC.RESP ---
Patient terminally extubated family at bedside 0932.
--- NOTE | 2023-12-06 22:02 | P.EN_ITS ---
Event Note Event Note: 2-3 family meetings conducted after cesar ent was intubated between 9pm -10 PM Sisters, daughters and caregiver at the bedside, girlfriend is also at the bedside They do not want tracheostomy, Daughter is against continuation of feeding tube stating that her father never wanted to live on machines, Family took 30 to 40 minutes to decide on themselves to pursue hospice care After decision was made to start hospice care patient was terminally extubated after getting morphine Patient currently on hospice care
[2023-12-06] MEDS: morphine 4 mg/mL SDV 1 mL IVP (22:12)
--- NOTE | 2023-12-06 22:25 | P.DES_ITS ---
Discharge Providers DDS Date of Admission: 11/29/23 20:19 Date Summary Completed: 12/06/23 Attending Provider at Admission: Anna Awan MD Time of : 22:20 Attending Provider at Discharge: Anna Awan MD Primary Care Provider: Vernon Carrington MD DS Diagnoses Hospital Diagnoses (1) Non-compliance: (2) Essential hypertension: (3) Nonischemic congestive cardiomyopathy: (4) Type 2 diabetes mellitus, without long-term current use of insulin: Qualifiers: Diabetes mellitus complication status: with circulatory complication Diabetes mellitus complication detail: with other circulatory complications Qualified Code(s): E11.59 - Type 2 diabetes mellitus with other circulatory complications (5) Uncontrolled diabetes mellitus: Qualifiers: Diabetes mellitus type: type 2 Glycemic state: with hyperglycemia Qualified Code(s): E11.65 - Type 2 diabetes mellitus with hyperglycemia (6) GERD (gastroesophageal reflux disease): Qualifiers: Esophagitis presence: esophagitis presence not specified Qualified Code(s): K21.9 - Gastro-esophageal reflux disease without esophagitis (7) Dehydration determined by examination: (8) Fluid volume depletion: (9) BPH w urinary obs/LUTS: (10) ULICES (acute kidney injury): (11) Acute encephalopathy: (12) Altered mental state: Qualifiers: Altered mental status type: somnolence Qualified Code(s): R40.0 - Somnolence (13) 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: (14) JEAN-CLAUDE (obstructive sleep apnea): (15) Unsteady gait: (16) Sepsis: (17) UTI (urinary tract infection): (18) Cardiac arrest: (19) Anemia: Qualifiers: Anemia type: unspecified type Qualified Code(s): D64.9 - Anemia, unspecified Reason for Visit Reason for Visit not responsive, blood sugar high, carrington referral Summary Date and Time of Date of : 12/06/23 Time of : 22:20 Summary Summary: 58-year male who was admitted for management evaluation of generalized weakness, sepsis, patient was encephalopathic, suffer from acute on chronic kidney disease, patient was intubated after cardiac arrest, patient became hypoxic after increased upper airway secretions, went into PEA after 3 minutes of resuscitation ROSC was obtained he was kept intubated, PEG tube was placed by Dr. 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 when he started getting worse his airway secretions increased he was getting lethargic not able to protect airway on BiPAP after discussing with the family he was intubated again, multiple family meetings were conducted family decided to pursue hospice care and terminally extubate the patient Patient most likely suffered from life debilitating CVA we were not able to get MRI because he got intubated, Additional Data Confirmation of as documented by pronouncing clinician: no pulse, no respirations, no heart sounds and pupils fixed and dilated Family: at bedside Additional persons at bedside: nursing staff Attending/PCP notified?: I am attending Was code activated?: No Autopsy requested?: No Advance directives?: No Hospice patient?: Yes Discharge Plan Discharge Patient Disposition: Condition: Stable Prescriptions: No Action (DME) hand rails for bathroom/home See Rx Instructions .Route .MEDSUPPLY Qty: 3 0RF Rx Instructions: As directed (DME) blood pressure kit See Rx Instructions .Route .MEDSUPPLY Qty: 1 0RF Rx Instructions: As directed (DME) glocose monitor See Rx Instructions .Route .MEDSUPPLY Qty: 1 0RF Rx Instructions: As directed (DME) Glucose monitor supplies See Rx Instructions .Route .MEDSUPPLY Qty: 100 5RF Rx Instructions: As directed amlodipine 10 mg tablet 10 mg PO DAILY Qty: 30 5RF Invokana 300 mg tablet 300 mg PO DAILY Qty: 30 5RF Hold Instructions: see pcp metformin 1,000 mg tablet 1,000 mg PO BID Qty: 60 5RF tamsulosin 0.4 mg capsule 0.4 mg PO BEDTIME Qty: 30 5RF mupirocin 2 % ointment 1 applic topical TID Qty: 22 0RF glipizide 5 mg tablet 5 mg PO BID Qty: 60 5RF Januvia 50 mg tablet 50 mg PO BID Qty: 180 1RF mirtazapine 7.5 mg tablet 7.5 mg PO DAILY Qty: 30 0RF magnesium oxide 400 mg magnesium tablet 400 mg PO DAILY Qty: 100 3RF hydralazine 25 mg tablet 50 mg PO TID PRN (Reason: high blood pressure above 160 systolic) famotidine 20 mg tablet 20 mg PO BID PRN (Reason: acid reflux) Qty: 180 0RF furosemide 40 mg tablet 40 mg PO DAILY Qty: 90 0RF Keppra 500 mg tablet 500 mg PO BID Qty: 60 2RF celecoxib 200 mg capsule 200 mg PO BID PRN (Reason: pain) Qty: 60 1RF pantoprazole 40 mg tablet,delayed release (DR/EC) 40 mg PO DAILY fenofibrate nanocrystallized 145 mg tablet 145 mg PO DAILY atorvastatin 80 mg tablet 80 mg PO DAILY aspirin 81 mg tablet,delayed release (DR/EC) 81 mg PO DAILY carvedilol 25 mg tablet 25 mg PO BID chlorthalidone 25 mg tablet 25 mg PO DAILY lisinopril 40 mg tablet 40 mg PO DAILY naproxen 500 mg tablet 500 mg PO Q12H PRN (Reason: Pain) Trulicity 1.5 mg/0.5 mL pen injector 0.5 mg SUBCUT Q7D Referrals: Vernon Carrington MD [Primary Care Provider] - Patient Instructions: Altered Mental Status (ED), Opioid Safety, GI Discharge Instructions DS Attestations Time Spent in /Discharge Care*: less than 30 min Quality - AMI: AMI present?: No Quality - Stroke: CVA present?: No Quality - VTE: VTE present?: No Coding Level of Care Code Acute Code for Chg Fwd Diagnoses Non-compliance Z91.199 Essential hypertension I10 Nonischemic congestive cardiomyopathy I42.0 Type 2 diabetes mellitus with other circulatory complication, without long-term current use of insulin E11.59 Diabetes mellitus complication status: with circulatory complication Diabetes mellitus complication detail: with other circulatory complications Uncontrolled type 2 diabetes mellitus with hyperglycemia E11.65 Diabetes mellitus type: type 2 Glycemic state: with hyperglycemia Gastroesophageal reflux disease, unspecified whether esophagitis present K21.9 Esophagitis presence: esophagitis presence not specified Dehydration determined by examination E86.0 Fluid volume depletion E86.9 BPH w urinary obs/LUTS N40.1; N13.8 ULICES (acute kidney injury) N17.9 Acute encephalopathy G93.40 Somnolence R40.0 Altered mental status type: somnolence 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
--- NOTE | 2023-12-06 22:36 | PC.NURSE ---
[facility] notified of patient , insurance account representative Nikko to call back. Reference number [id number].
--- NOTE | 2023-12-06 22:42 | PC.NURSE ---
Addendum entered by Brigid Bush RN 12/06/23 22:45: Verified patient w/ Clari RN @2220. Original Note: Comfort Care: Dr. Awan at bedside, verbal order to transition to comfort care and extubate. Extubated @2114. Family requesting pain medication- see MAR for medications given. TOD 2219, 2 RN verification of TOD w/ BOSSMAN Rainey. Dr. Awan and Cashier And Salesperson (Maryjo) notified of TOD @2223.
--- NOTE | 2023-12-06 22:45 | PC.NURSE ---
Family at bedside unable to make a decision on home, family requesting at the pt be transferred to the [facility] and that they will call back when they have made a decision. Software Verification Engineer notified.
[2023-12-07 00:39] VITALS: PULSE 0; RESP 0; O2SAT 0
[2023-12-07 01:10] LABS: Treponema pallidum Ab NON-REACTIVE
[2023-12-07 03:31] LABS: CARDIOLIPIN AB (IGA) <2.0 APL-U/mL; CARDIOLIPIN AB (IGG) <2.0 GPL-U/mL; CARDIOLIPIN AB (IGM) <2.0 MPL-U/mL
--- NOTE | 2023-12-07 10:02 | PC.NURSE ---
PT FAMILY CONTACTED AT 1000. FAMILY REMAINED UNDECIDED FOR HOME AT THIS TIME.
[2023-12-07 21:25] LABS: PROTEIN S, ACTIVITY 86 % normal (70-150)
[2023-12-08 04:44] LABS: PROTEIN C, ACTIVITY 148 % normal (70-180)
[2023-12-08 04:55] LABS: Antithrombin III Activity 83 % normal (80-135)
[2023-12-09 00:56] LABS: DNA AB (DS) CRITHIDIA,IFA NEGATIVE (NEGATIVE)
== END 2023-12-07 00:41 | disposition expired | DRG 870 ==
LOC: ER 20:17 → ICU 20:36
PROVIDERS: Student in an Organized Health Care Education/Training Program; Surgery; Admitting Provider Internal Medicine; Emergency Provider Emergency Medicine; PCP Family Medicine Adult Medicine; Visit Provider Internal Medicine
PROC: 0DH63UZ Insertion of Feeding Device into Stomach, Percutaneous Approach (ICD-10-PCS; CPT 43246; principal; 2023-12-05 12:00)
PROC: 0DJ08ZZ Inspection of Upper Intestinal Tract, Via Natural or Artificial Opening Endoscopic (ICD-10-PCS; CPT 43235; 2023-12-05 12:00)
DX: A41.9 Sepsis, unspecified organism (principal); G93.41 Metabolic encephalopathy; R65.21 Severe sepsis with septic shock; E43 Unspecified severe protein-calorie malnutrition; N10 Acute pyelonephritis; N17.9 Acute kidney failure, unspecified; J95.851 Ventilator associated pneumonia; E87.29 Other acidosis; N39.0 Urinary tract infection, site not specified; I42.8 Other cardiomyopathies; E11.22 Type 2 diabetes mellitus with diabetic chronic kidney disease; I12.9 Hypertensive chronic kidney disease with stage 1 through stage 4 chronic kidney disease, or unspecified chronic kidney disease; N18.9 Chronic kidney disease, unspecified; K74.60 Unspecified cirrhosis of liver; Z86.73 Personal history of transient ischemic attack (TIA), and cerebral infarction without residual deficits; N40.1 Benign prostatic hyperplasia with lower urinary tract symptoms; G47.33 Obstructive sleep apnea (adult) (pediatric); M54.32 Sciatica, left side; N52.9 Male erectile dysfunction, unspecified; E78.5 Hyperlipidemia, unspecified; F17.210 Nicotine dependence, cigarettes, uncomplicated; Z51.5 Encounter for palliative care; I46.9 Cardiac arrest, cause unspecified; R09.02 Hypoxemia; R56.9 Unspecified convulsions; Z68.23 Body mass index [BMI] 23.0-23.9, adult; B95.8 Unspecified staphylococcus as the cause of diseases classified elsewhere; R26.81 Unsteadiness on feet; K21.9 Gastro-esophageal reflux disease without esophagitis; E11.65 Type 2 diabetes mellitus with hyperglycemia; E11.59 Type 2 diabetes mellitus with other circulatory complications; Z91.199 Patient's noncompliance with other medical treatment and regimen due to unspecified reason; E86.0 Dehydration; Z79.84 Long term (current) use of oral hypoglycemic drugs; Z79.82 Long term (current) use of aspirin; D64.9 Anemia, unspecified
CPT/HCPCS: 36415; 36416; 36430; 36573; 36592; 36600; 51702; 70450; 70496; 70498; 71045; 72020; 74176; 80048; 80051; 80053; 80177; 80202; 81001; 81241; 82009; 82140; 82330; 82533; 82550; 82607; 82803; 82805; 82962; 83036; 83090; 83605; 83735; 84100; 84295; 84443; 84484; 85014; 85018; 85025; 85300; 85303; 85306; 85613; 85730; 86140; 86147; 86160; 86162; 86235; 86255; 86376; 86592; 86705; 86706; 86709; 86780; 86803; 86850; 86900; 86920; 87040; 87070; 87077; 87086; 87186; 87205; 87340; 87806; 88305; 92507; 92523; 92526; 92610; 93005; 93306; 94002; 94003; 94640; 94660; 94669; 94799; 95822; 96361; 96372; 96374; 96375; 96376; 97165; 99285; A4570; C1751; C9113; J0690; J0696; J1644; J1815; J1885; J1940; J1953; J2270; J2543; J2704; J3010; J3370; J3411; J3480; J3490; J7030; J7040; J7050; J7120; J7608; J7799; P9016; Q9967